=== PATIENT | female | born 1950 | race Two or more races ===

== ENCOUNTER 2017-10-29 09:30 | Outpatient (AMBR) | payer MEDICARE, MEDICAID, SELFPAY ==
--- NOTE | 2017-09-22 12:44 | PT.OIERPT ---
PT OP Initial Eval Patient Information Visit Reasons: KNEE Medical Diagnosis: M17.0 Treatment Dx #1: Left Knee Mobility Deficits Treatment Dx #2: Left Knee Weakness Start of Care: 09/22/17 Date of Onset: Aug 09 2017 Initial Assessment Subjective Pt is a 67 y/o female s/p left TKA 08/09/17 secondary to knee OA. Pt mention that she went to a SNF then receive home health for a bit. Pt still has knee pain (5/10) with walking and performing her normal chores. Pt currently has difficulty with squatting, kneeling, chores, cooking, cleaning, and performing normal ADLs. Objective Left Knee AROM: -10 deg to 90 deg Left Knee MMTs Quads: 3-/5 Hamstrings: 3-/5 Left Hip MMTs Glute Med: 3-/5 Glute Max: 3-/5 Knee Outcome Score: 48% Assessment Pt demonstrate left knee mobility and strength deficits s/p left knee TKA leading to decline function and difficulty with ADLs. Pt will benefit from physical therapy to increase strength, mobility, and work on functional tasks. 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 1) Increase left knee flexion and knee score to 80% in 12 wks to be able to perform ambulation without any AD 2) Increase left knee MMTs to 4-/5 in 12 wks to be able to perform stairs and steps 3) Increase left hip MMTs to 4-/5 in 12 wks to be able to perform chores 4) Indep with HEP Treatment Plan 1) Manual Therapy 2) Therapeutic Activities 3) Therapeutic Exercises 4) Modalities (ice, heat) Frequency and Duration 2 x wk for 12 wks Certification Dates: 09/22/17 to 12/23/17 Office Procedures PT Outpatient G-Codes Date of Service PT Date of Service: 09/22/17 G-Codes Walking & Moving Around Mobility Current Status G-Code: G8978: CK 40-60% Mobility Status G-Code: G8979: CI 1-20% PT Procedures PT Date of Service: 09/22/17 OP PT Eval Mod Complex 30 minutes: Yes
--- NOTE | 2017-09-22 12:53 | PTNOTE_ITS ---
PT OP Initial Eval Patient Information Visit Reasons: KNEE Medical Diagnosis: M17.0 Treatment Dx #1: Left Knee Mobility Deficits Treatment Dx #2: Left Knee Weakness Start of Care: 09/22/17 Date of Onset: Aug 09 2017 Initial Assessment Subjective Pt is a 67 y/o female s/p left TKA 08/09/17 secondary to knee OA. Pt mention that she went to a SNF then receive home health for a bit. Pt still has knee pain (5/ 10) with walking and performing her normal chores. Pt currently has difficulty with squatting, kneeling, chores, cooking, cleaning, and performing normal ADLs. Objective Left Knee AROM: -10 deg to 90 deg Left Knee MMTs Quads: 3-/5 Hamstrings: 3-/5 Left Hip MMTs Glute Med: 3-/5 Glute Max: 3-/5 Knee Outcome Score: 48% Assessment Pt demonstrate left knee mobility and strength deficits s/p left knee TKA leading to decline function and difficulty with ADLs. Pt will benefit from physical therapy to increase strength, mobility, and work on functional tasks. Short Term and Longterm Goals 1) Increase left knee flexion and knee score to 80% in 12 wks to be able to perform ambulation without any AD 2) Increase left knee MMTs to 4-/5 in 12 wks to be able to perform stairs and steps 3) Increase left hip MMTs to 4-/5 in 12 wks to be able to perform chores 4) Indep with HEP Treatment Plan 1) Manual Therapy 2) Therapeutic Activities 3) Therapeutic Exercises 4) Modalities (ice, heat) Frequency and Duration 2 x wk for 12 wks Certification Dates: 09/22/17 to 12/23/17 Office Procedures PT Outpatient G-Codes Date of Service PT Date of Service: 09/22/17 G-Codes Walking & Moving Around Mobility Current Status G-Code: G8978: CK 40-60% Mobility Status G-Code: G8979: CI 1-20% PT Procedures PT Date of Service: 09/22/17 OP PT Eval Mod Complex 30 minutes: Yes
--- NOTE | 2017-09-27 15:10 | PT.ODAYNRPT ---
PT Outpatient Daily Note Date of Service: September 27, 2017 OP Daily Note Visit Reasons: KNEE Outpatient Physical Therapy Treatment Date: 09/27/17 Subjective: Pt slight sore from last session. Pt notice that bending her knee is getting easier. Objective: Please see flow chart for list of ther ex performed Assessment: tolerate exercises with minimal pain; continue to increase WB on the L with ambulation leading to less antalgic gait. Plan: Continue with PT Length of Time (minutes) of Treatment: 30 Minutes Office Procedures PT Outpatient G-Codes Date of Service PT Date of Service: 09/22/17 G-Codes Walking & Moving Around Mobility Current Status G-Code: G8978: CK 40-60% Mobility Status G-Code: G8979: CI 1-20% PT Procedures PT Date of Service: 09/22/17 OP PT Eval Mod Complex 30 minutes: Yes PT Procedures PT Date of Service: 09/27/17 Therapeutic Exercise 30 minutes: Yes
--- NOTE | 2017-09-27 15:14 | PT.ODAYNRPT ---
PT Outpatient Daily Note Date of Service: September 27, 2017 OP Daily Note Visit Reasons: KNEE Outpatient Physical Therapy Treatment Date: 09/24/17 Subjective: Pt knee feels okay. Pt still notice some pain Objective: Please see flow chart for list of ther ex performed Assessment: tolerate exercises with minimal knee pain Plan: Continue with PT Length of Time (minutes) of Treatment: 30 Minutes Office Procedures PT Outpatient G-Codes Date of Service PT Date of Service: 09/22/17 G-Codes Walking & Moving Around Mobility Current Status G-Code: G8978: CK 40-60% Mobility Status G-Code: G8979: CI 1-20% PT Procedures PT Date of Service: 09/22/17 OP PT Eval Mod Complex 30 minutes: Yes PT Procedures PT Date of Service: 09/27/17 Therapeutic Exercise 30 minutes: Yes PT Procedures PT Date of Service: 09/24/17 Therapeutic Exercise 30 minutes: Yes
--- NOTE | 2017-09-30 16:23 | PTNOTE_ITS ---
PT Outpatient Daily Note Date of Service: September 30, 2017 OP Daily Note Visit Reasons: KNEE Outpatient Physical Therapy Treatment Date: 09/30/17 Subjective: Pt's walking better with less knee pain Objective: Please see flow chart for list of ther ex performed Assessment: continue to improve with knee mobility with less antalgic gait. Pt' s static and dynamic balance is better with less use of AD Plan: Continue with PT Length of Time (minutes) of Treatment: 30 Minutes Office Procedures PT Outpatient G-Codes Date of Service PT Date of Service: 09/22/17 G-Codes Walking & Moving Around Mobility Current Status G-Code: G8978: CK 40-60% Mobility Status G-Code: G8979: CI 1-20% PT Procedures PT Date of Service: 09/30/17 Therapeutic Exercise 30 minutes: Yes PT Procedures PT Date of Service: 09/22/17 OP PT Eval Mod Complex 30 minutes: Yes PT Procedures PT Date of Service: 09/27/17 Therapeutic Exercise 30 minutes: Yes PT Procedures PT Date of Service: 09/24/17 Therapeutic Exercise 30 minutes: Yes
--- NOTE | 2017-10-08 14:13 | PT.ODAYNRPT ---
PT Outpatient Daily Note Date of Service: October 08, 2017 OP Daily Note Visit Reasons: KNEE Outpatient Physical Therapy Treatment Date: 10/08/17 Subjective: Pt's knee feels much better. Pt mention that she's been able to walk on/off with her cane. Pt's toes were ran over by a power w/c today. Pt does not think she broke her toes. 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 Pt guarded with knee flexion stretch. Plan: Continue with PT Length of Time (minutes) of Treatment: 30 Minutes Office Procedures PT Outpatient G-Codes Date of Service PT Date of Service: 09/22/17 G-Codes Walking & Moving Around Mobility Current Status G-Code: G8978: CK 40-60% Mobility Status G-Code: G8979: CI 1-20% PT Procedures PT Date of Service: 09/30/17 Therapeutic Exercise 30 minutes: Yes PT Procedures PT Date of Service: 09/22/17 OP PT Eval Mod Complex 30 minutes: Yes PT Procedures PT Date of Service: 09/27/17 Therapeutic Exercise 30 minutes: Yes PT Procedures PT Date of Service: 09/24/17 Therapeutic Exercise 30 minutes: Yes PT Procedures PT Date of Service: 10/08/17 Therapeutic Exercise 30 minutes: Yes
--- NOTE | 2017-10-18 16:16 | PT.ODAYNRPT ---
PT Outpatient Daily Note Date of Service: October 18, 2017 OP Daily Note Visit Reasons: KNEE Outpatient Physical Therapy Treatment Date: 10/18/17 Subjective: pt reported increased in pain upon visit today due to cold weather. Objective: see flow sheet. Assessment: pt did well today overall with very little muscle fatigue. had a little trouble with stepping up onto the step due to weakness and limited ROM of the knee. good quad activation with LAQs and good sitting posture with no leaning back to compensate. pt was ok without ice post ther ex as she will use it at home instead. pt did use SPC for ambulation. Plan: continue POC per PT. Length of Time (minutes) of Treatment: 30 Minutes Office Procedures PT Outpatient G-Codes Date of Service PT Date of Service: 09/22/17 G-Codes Walking & Moving Around Mobility Current Status G-Code: G8978: CK 40-60% Mobility Status G-Code: G8979: CI 1-20% PT Procedures PT Date of Service: 09/30/17 Therapeutic Exercise 30 minutes: Yes PT Procedures PT Date of Service: 09/22/17 OP PT Eval Mod Complex 30 minutes: Yes PT Procedures PT Date of Service: 09/27/17 Therapeutic Exercise 30 minutes: Yes PT Procedures PT Date of Service: 09/24/17 Therapeutic Exercise 30 minutes: Yes PT Procedures PT Date of Service: 10/08/17 Therapeutic Exercise 30 minutes: Yes PT Procedures PT Date of Service: 10/18/17 Therapeutic Exercise 30 minutes: Yes
--- NOTE | 2017-10-21 15:22 | PT.ODAYNRPT ---
PT Outpatient Daily Note Date of Service: October 21, 2017 OP Daily Note Visit Reasons: KNEE Outpatient Physical Therapy Treatment Date: 10/21/17 Subjective: Pt's knee is doing much better. Pt mention that she is able to cook and clean with less difficulty. Pt stop using her cane and has been able to walk without any AD last few sessions. Objective: Please see flow chart for list of ther ex performed Assessment: tolerate exercises with minimal pain; slight antalgic gait without AD however safe Plan: Continue with PT Length of Time (minutes) of Treatment: 30 Minutes Office Procedures PT Outpatient G-Codes Date of Service PT Date of Service: 09/22/17 G-Codes Walking & Moving Around Mobility Current Status G-Code: G8978: CK 40-60% Mobility Status G-Code: G8979: CI 1-20% PT Procedures PT Date of Service: 09/30/17 Therapeutic Exercise 30 minutes: Yes PT Procedures PT Date of Service: 09/22/17 OP PT Eval Mod Complex 30 minutes: Yes PT Procedures PT Date of Service: 09/27/17 Therapeutic Exercise 30 minutes: Yes PT Procedures PT Date of Service: 09/24/17 Therapeutic Exercise 30 minutes: Yes PT Procedures PT Date of Service: 10/08/17 Therapeutic Exercise 30 minutes: Yes PT Procedures PT Date of Service: 10/18/17 Therapeutic Exercise 30 minutes: Yes PT Procedures PT Date of Service: 10/21/17 Therapeutic Exercise 30 minutes: Yes
--- NOTE | 2017-10-29 10:09 | PT.ODAYNRPT ---
PT Outpatient Daily Note Date of Service: October 29, 2017 OP Daily Note Visit Reasons: KNEE Outpatient Physical Therapy Treatment Date: 10/29/17 Subjective: Pt mention that her knee is doing much better. Pt can get in the cover with less difficulty. Objective: Please see flow chart for list of ther ex performed Assessment: tolerate exercises with minimal pain; able to squat with less pain. Plan: Conitnue with PT Length of Time (minutes) of Treatment: 30 Minutes Office Procedures PT Outpatient G-Codes Date of Service PT Date of Service: 09/22/17 G-Codes Walking & Moving Around Mobility Current Status G-Code: G8978: CK 40-60% Mobility Status G-Code: G8979: CI 1-20% PT Procedures PT Date of Service: 09/30/17 Therapeutic Exercise 30 minutes: Yes PT Procedures PT Date of Service: 09/22/17 OP PT Eval Mod Complex 30 minutes: Yes PT Procedures PT Date of Service: 09/27/17 Therapeutic Exercise 30 minutes: Yes PT Procedures PT Date of Service: 09/24/17 Therapeutic Exercise 30 minutes: Yes PT Procedures PT Date of Service: 10/08/17 Therapeutic Exercise 30 minutes: Yes PT Procedures PT Date of Service: 10/18/17 Therapeutic Exercise 30 minutes: Yes PT Procedures PT Date of Service: 10/21/17 Therapeutic Exercise 30 minutes: Yes PT Procedures PT Date of Service: 10/29/17 Therapeutic Exercise 30 minutes: Yes
== END 2017-10-29 10:30 | disposition home or self-care (01) ==
PROVIDERS: PCP Family Medicine; Referring Provider Family Medicine; Visit Provider Family Medicine
DX: I10 Essential (primary) hypertension (principal)
CPT/HCPCS: 97110; 97162; G8978; G8979

== ENCOUNTER 2017-11-25 09:30 | Outpatient (AMBR) | payer MEDICARE, MEDICAID, SELFPAY ==
--- NOTE | 2017-11-03 09:39 | PT.ODS1RPT ---
PT OP Progress/Discharge Note Date of Service: November 03, 2017 Progress Note/DC Note Progress Note/Discharge Note: Progress Note Patient Information Visit Reasons: knee pain Medical Diagnosis: Left Knee OA Treatment Dx #1: Left Knee Mobility Deficits Treatment Dx #2: Left Knee Weakness Service Continue Service or Discharge: Continue Service Certification Date Certification Dates: 11/03/17 to 02/03/18 Status Subjective: Pt mention that her left knee is doing much better. Pt can walk without help slight limp. Pt is able to get in/out of car and start performing ADLs with less difficulty. Pt rates her knee pain as 4/10 and 8/10 if she performs a lot of activities. 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 Objective: Left Knee AROM: - 6 deg to 110 deg Left Knee MMTs Quads: 3+/5 Hamstrings: 3+/5 Left Hip MMTs Glute Med: 3+/5 Glute Max: 3+/5 Knee Outcome Score: 70% Assessment: Pt continues to improve with knee mobility and strength allowing her to ambulate with a AD and start ADLs with less limitation. Pt still has knee pain leading to slight antalgic gait as well as difficulty with stairs/squatting motions. Pt will continue to benefit from physical therapy to increase strength and mobility to meet set goals in therapy, thank you for your referrals. Plan: Continue with current POC/PT until completion of PT sessions Office Procedures PT Outpatient G-Codes Date of Service PT Date of Service: 11/03/17 G-Codes Walking & Moving Around Mobility Current Status G-Code: G8978: CK 40-60% Mobility Status G-Code: G8979: CJ 20-40% PT Procedures PT Date of Service: 11/03/17 Therapeutic Exercise 30 minutes: Yes
--- NOTE | 2017-11-03 09:46 | PTNOTE_ITS ---
PT OP Progress/Discharge Note Date of Service: November 03, 2017 Progress Note/DC Note Progress Note/Discharge Note: Progress Note Patient Information Visit Reasons: knee pain Medical Diagnosis: Left Knee OA Treatment Dx #1: Left Knee Mobility Deficits Treatment Dx #2: Left Knee Weakness Service Continue Service or Discharge: Continue Service Certification Date Certification Dates: 11/03/17 to 02/03/18 Status Subjective: Pt mention that her left knee is doing much better. Pt can walk without help slight limp. Pt is able to get in/out of car and start performing ADLs with less difficulty. Pt rates her knee pain as 4/10 and 8/10 if she performs a lot of activities. 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 Objective: Left Knee AROM: - 6 deg to 110 deg Left Knee MMTs Quads: 3+/5 Hamstrings: 3+/5 Left Hip MMTs Glute Med: 3+/5 Glute Max: 3+/5 Knee Outcome Score: 70% Assessment: Pt continues to improve with knee mobility and strength allowing her to ambulate with a AD and start ADLs with less limitation. Pt still has knee pain leading to slight antalgic gait as well as difficulty with stairs/ squatting motions. Pt will continue to benefit from physical therapy to increase strength and mobility to meet set goals in therapy, thank you for your referrals. Plan: Continue with current POC/PT until completion of PT sessions Office Procedures PT Outpatient G-Codes Date of Service PT Date of Service: 11/03/17 G-Codes Walking & Moving Around Mobility Current Status G-Code: G8978: CK 40-60% Mobility Status G-Code: G8979: CJ 20-40% PT Procedures PT Date of Service: 11/03/17 Therapeutic Exercise 30 minutes: Yes
--- NOTE | 2017-11-08 11:39 | PT.ODAYNRPT ---
PT Outpatient Daily Note Date of Service: November 08, 2017 OP Daily Note Visit Reasons: knee pain Outpatient Physical Therapy Treatment Date: 11/08/17 Subjective: Pt's knee feels good minimal pain and stiffness. Pt currently is walking without a cane. Objective: Please see flow chart for list of ther ex performed Assessment: tolerate exercises with minimal pain; worked on WB on the L LE during ambulation. Decrease antalgic gait after therapy session. Plan: Continue with PT Length of Time (minutes) of Treatment: 30 Minutes Office Procedures PT Outpatient G-Codes Date of Service PT Date of Service: 11/03/17 G-Codes Walking & Moving Around Mobility Current Status G-Code: G8978: CK 40-60% Mobility Status G-Code: G8979: CJ 20-40% PT Procedures PT Date of Service: 11/03/17 Therapeutic Exercise 30 minutes: Yes PT Procedures PT Date of Service: 11/08/17 Therapeutic Exercise 30 minutes: Yes
--- NOTE | 2017-11-10 10:57 | PT.ODAYNRPT ---
PT Outpatient Daily Note Date of Service: November 10, 2017 OP Daily Note Visit Reasons: knee pain Outpatient Physical Therapy Treatment Date: 11/10/17 Subjective: Pt's knee is hurting a lot today. Pt's first day without norco. Pt notice a lot of pain with all activities. Objective: Please see flow chart for list of ther ex performed Assessment: shorter session today due to having increase knee pain with no pain meds. Pt was limping more with difficulty performing all exercises. Length of Time (minutes) of Treatment: 15 Minutes Office Procedures PT Outpatient G-Codes Date of Service PT Date of Service: 11/03/17 G-Codes Walking & Moving Around Mobility Current Status G-Code: G8978: CK 40-60% Mobility Status G-Code: G8979: CJ 20-40% PT Procedures PT Date of Service: 11/03/17 Therapeutic Exercise 30 minutes: Yes PT Procedures PT Date of Service: 11/08/17 Therapeutic Exercise 30 minutes: Yes PT Procedures PT Date of Service: 11/10/17 Therapeutic Exercise 15 minutes: Yes
--- NOTE | 2017-11-17 10:39 | PT.ODAYNRPT ---
PT Outpatient Daily Note Date of Service: November 17, 2017 OP Daily Note Visit Reasons: knee pain Outpatient Physical Therapy Treatment Date: 11/17/17 Subjective: Pt's knee feels much better. Pt saw surgeon and he plans on doing a manipulation in the next few weeks. Pt feels that she does not need the manipulation and was having a bad day during her appt with the surgeon. Objective: Left Knee Flexion AROM: 110/116 deg Assessment: Pt continues to improve with knee flexion mobility with less pain. Pt also demonstrate less antalgic gait pattern today. Pt recieve her pain meds which seems to help her tolerate therapy session. Plan: Continue with PT Length of Time (minutes) of Treatment: 30 Minutes Office Procedures PT Outpatient G-Codes Date of Service PT Date of Service: 11/03/17 G-Codes Walking & Moving Around Mobility Current Status G-Code: G8978: CK 40-60% Mobility Status G-Code: G8979: CJ 20-40% PT Procedures PT Date of Service: 11/03/17 Therapeutic Exercise 30 minutes: Yes PT Procedures PT Date of Service: 11/08/17 Therapeutic Exercise 30 minutes: Yes PT Procedures PT Date of Service: 11/10/17 Therapeutic Exercise 15 minutes: Yes PT Procedures PT Date of Service: 11/17/17 Therapeutic Exercise 30 minutes: Yes
--- NOTE | 2017-11-25 09:59 | PT.ODAYNRPT ---
PT Outpatient Daily Note Date of Service: November 25, 2017 OP Daily Note Visit Reasons: knee pain Outpatient Physical Therapy Treatment Date: 11/25/17 Subjective: Pt mention that her knee feels much better. Pt is walking more, able to bend her knee, and start chores at home with less limitation. Objective: Left Knee Flexion: 120 deg Assessment: Pt continues to improve with knee fleixon AROM and ambulating much better without her pain meds. Pt still has slight difficulty with WB on the leg due to pain, however, she's been able to manage allowing her to resume some ADLs around the house. Plan: Continue with PT Length of Time (minutes) of Treatment: 30 Minutes Office Procedures PT Outpatient G-Codes Date of Service PT Date of Service: 11/03/17 G-Codes Walking & Moving Around Mobility Current Status G-Code: G8978: CK 40-60% Mobility Status G-Code: G8979: CJ 20-40% PT Procedures PT Date of Service: 11/03/17 Therapeutic Exercise 30 minutes: Yes PT Procedures PT Date of Service: 11/08/17 Therapeutic Exercise 30 minutes: Yes PT Procedures PT Date of Service: 11/10/17 Therapeutic Exercise 15 minutes: Yes PT Procedures PT Date of Service: 11/25/17 Therapeutic Exercise 30 minutes: Yes PT Procedures PT Date of Service: 11/17/17 Therapeutic Exercise 30 minutes: Yes
== END 2017-12-02 23:59 ==
PROVIDERS: PCP Family Medicine; Referring Provider Family Medicine; Visit Provider Family Medicine
DX: I10 Essential (primary) hypertension (principal)
CPT/HCPCS: 97110; G8978; G8979

== ENCOUNTER 2024-07-10 08:37 | Emergency (ER) | payer MEDICARE, SELFPAY ==
[2024-07-10 09:04] VITALS: BP 166/75; PULSE 61; RESP 19; TEMP 36.5; O2SAT 96; BMI 37.9
--- NOTE | 2024-07-10 09:05 | XR_ITS ---
Examination: Ribs, left, with PA chest, 5 views Technique: Chest PA, RIBS AP, RPO, LPO, AP coned lower ribs 5 views Exam date and time: July 10, 2024 0914 hours INDICATIONS: Patient fell today with into the left chest, left chest rib pain Findings: Mild enlargement cardiac contour No pneumothorax Mild to moderate vascular congestion Prominent osteopenia Fracture left fourth, fifth, sixth ribs anteriorly without displacement IMPRESSION: No pneumothorax or hemothorax Fractures, nondisplaced, left fourth, fifth, sixth ribs anteriorly which may be acute, clinical correlation advised
--- NOTE | 2024-07-10 09:05 | PD.EDFALL ---
ED Fall Injury RME/HPI General Chief Complaint: Fall Stated Complaint: CHEST PAIN SP FALL Time Seen by Provider: 07/10/24 09:06 Source: patient Arrival date/time: 07/10/24 08:37 74-year-old female with a history of hypertension, type 2 diabetes, hyperlipidemia presents to the emergency room with a chief complaint of left-sided rib pain. Patient states she was getting ready to get in her car tripped and hit her left chest and rib area on the side of the car. Patient states she is having difficulty breathing. Mode of arrival: ambulatory Limitations: no limitations Related Data Home Medications ?Medication ?Instructions ?Recorded ?Confirmed albuterol sulfate 90 mcg/actuation 1 puff inhalation Q4H PRN 09/18/23 09/18/23 aerosol inhaler breathing and shortness of breath benzonatate 200 mg capsule 200 mg PO TID PRN Cough 09/18/23 09/18/23 fluticasone propionate 115 2 puff inhalation BID 09/18/23 09/18/23 mcg-salmeterol 21 mcg/actuation HFA inhaler (Advair HFA) fluticasone propionate 50 1 spray intranasal QDAY 09/18/23 09/18/23 mcg/actuation nasal spray,suspension furosemide 40 mg tablet 40 mg PO QAM 09/18/23 09/18/23 glipizide 10 mg tablet 10 mg BID 09/18/23 09/18/23 meclizine 25 mg tablet 25 mg PO BID dizziness 09/18/23 09/18/23 metformin 850 mg tablet 850 mg PO BIDWM diabetes 09/18/23 09/18/23 metoprolol succinate 50 mg 50 mg PO QDAY 09/18/23 09/18/23 tablet,extended release 24 hr ropinirole 1 mg tablet 2 mg PO HS 09/18/23 09/18/23 spironolactone 25 mg tablet 25 mg PO QDAY 09/18/23 09/18/23 Previous Rx's ?Medication ?Instructions ?Recorded lisinopril 20 mg tablet 20 mg PO QDAY #30 tabs 09/20/23 oxycodone-acetaminophen 5 mg-325 1 tab PO Q8H PRN pain #14 tabs 09/20/23 mg tablet hydrocodone 5 mg-acetaminophen 325 1 tab PO BID PRN pain #14 tabs 07/10/24 mg tablet Allergies Allergy/AdvReac Type Severity Reaction Status Date / Time No Known Allergies Allergy Verified 03/15/24 11:48 Review of Systems Review of Systems Systems Reviewed: All systems reviewed, normal except as documented Constitutional Constitutional: Reports system reviewed and no additional complaints, except as documented, Denies fatigue, Denies fever(s), Denies headache(s) and Denies weakness Eyes Eyes: Reports system reviewed and no additional complaints, except as documented, Denies blurry vision and Denies change in vision ENT Ears, Nose, Mouth, and Throat: Reports system reviewed and no additional complaints, except as documented, Denies otalgia, Denies headache(s), Denies nasal congestion, Denies throat swelling and Denies vertigo Cardiovascular Cardiovascular: Reports system reviewed and no additional complaints, except as documented, Denies chest pain, Denies dyspnea and Denies dyspnea on exertion Respiratory Respiratory: Reports system reviewed and no additional complaints, except as documented, Denies chest congestion, Denies cough, Denies dyspnea, Denies dyspnea on exertion and Denies wheezing Gastrointestinal Gastrointestinal: Reports system reviewed and no additional complaints, except as documented, Denies abdominal pain, Denies cramping, Denies nausea and Denies vomiting Genitourinary Genitourinary: Reports system reviewed and no additional complaints, except as documented Musculoskeletal Musculoskeletal: Reports system reviewed and no additional complaints, except as documented, Reports arthralgias and Reports back pain Integumentary/Breasts Skin/Breast: Reports system reviewed and no additional complaints, except as documented and Denies wounds Neurologic Neurologic: Reports system reviewed and no additional complaints, except as documented, Denies confusion, Denies headache(s), Denies lack of coordination, Denies vertigo and Denies weakness Psychiatric Psychiatric: Reports system reviewed and no additional complaints, except as documented, Denies anxiety, Denies confusion, Denies depression, Denies paranoia, Denies suicidal ideation and Denies tactile hallucinations Endocrine Endocrine: Reports system reviewed and no additional complaints, except as documented and Denies fatigue Hematologic/Lymphatic Hematologic/Lymphatic: Reports system reviewed and no additional complaints, except as documented and Denies lymphadenopathy Allergic/Immunologic Allergic/Immunologic: Reports system reviewed and no additional complaints, except as documented, Denies throat swelling, Denies urticaria and Denies wheezing Past Medical History Past Medical History NEUROLOGIC: Negative Neurological Disorders CARDIAC: Positive Cardiac Disorders, Hypercholesterolemia, Congestive Heart Failure and Hypertension RESPIRATORY: Negative Chronic Obstructive Pulmonary Disease (COPD) or Asthma GASTROINTESTINAL: Positive Gastrointestinal Disorders and Obesity GENITOURINARY: Negative Genitourinary Disorders or Renal Disease REPRODUCTIVE: Positive Previous Pregnancies MUSCULOSKELETAL: Positive Musculoskeletal Disorders and Arthritis ENDOCRINE: Positive Endocrine Disorders and Diabetes Mellitus Type 2; Negative Diabetes Mellitus Type 1 HEMATOLOGIC: Negative Blood Disorders or Sickle Cell Disease OTHER HISTORY: Negative Autoimmune Disease, Blood Transfusions, Blood Transfusion Reaction or Anesthesia Reactions Family History FAMILY HISTORY: Positive Family Cardiac Disorders and Family Surgery Social History SMOKING STATUS: Never smoker SUBSTANCE USE: does not use ED Exam General Limitations: Present no limitations General appearance: Present alert and in no apparent distress Head Head exam: Present atraumatic Eye Eye exam: Present normal appearance, PERRL and EOMI ENT ENT exam: Present normal exam, normal oropharynx and mucous membranes moist Neck Neck exam: Present normal inspection, full ROM and trachea midline Chest Chest inspection: Present normal inspection and symmetric chest wall rise Respiratory Respiratory exam: Present normal lung sounds bilaterally; Absent respiratory distress, wheezes, stridor, accessory muscle use, prolonged expiratory phase or other Cardiovascular Cardiovascular exam: Present regular rate, normal rhythm and normal heart sounds Abdominal Exam Abdominal exam: Present soft and normal bowel sounds Extremities Exam Extremities exam: Present normal inspection and full ROM Back Exam Back exam: Present normal inspection and full ROM Neurological Exam Neurological exam: Present alert, oriented X3 and CN II-XII intact Psychiatric Psychiatric exam: Present normal affect and normal mood Skin Skin exam: Present warm, dry, intact and normal color Course Quality Measures none Orders Category Date Time Status XR ribs LT min 3V w CXR1V Stat Exams 07/10/24 09:05 Completed Vital Signs Vital signs: Vital Signs Temperature 97.7 F 07/10/24 09:04 Pulse Rate 61 07/10/24 09:04 Respiratory Rate 19 07/10/24 09:04 Blood Pressure 166/75 H 07/10/24 09:04 Pulse Oximetry (%) 96 07/10/24 09:04 Oxygen Delivery Method Room Air 07/10/24 09:04 O2 saturation 96% within normal limits Fall MDM Narrative MDM Narrative:: 74-year-old female with a history of hypertension, type 2 diabetes, hyperlipidemia presents to the emergency room with a chief complaint of left-sided rib pain. Patient states she was getting ready to get in her car tripped and hit her left chest and rib area on the side of the car. Patient states she is having difficulty breathing. Clinically the patient appears nontoxic and in no apparent distress. Physical examination shows clear bilateral lung sounds. There is no dullness to percussion there is no decreased breath sounds O2 saturation is 96% within normal limits x-ray of the left ribs were completed and shows multiple rib fractures to rib #4 5 and 6. There is no pneumothorax or hemothorax. The case was reviewed with my attending physician due to the patient's age and multiple rib fractures and based on his recommendation he states the patient is able to be discharged and follow-up with her primary care provider. Patient was given strict return precautions to return to the emergency room for any evidence of worsening signs or symptoms patient was educated to follow-up with primary care provider in the next 24 to 48 hours Patient data External records reviewed:: [facility] previous records Clinical information provided by:: patient Social determinants that could affect healthcare access:: none Patient has the following chronic illnesses:: No chronic illness How is presenting disease/condition affected by chronic disease/condition?: no chronic disease Evaluation data The following diagnostics were reviewed and interpreted by me:: lab results and radiology exam(s) Lab and/or radiology exams considered but not ordered:: Labs and radiology exams considered and ordered Interpretation Summary: Rib [id number]: Mild enlargement cardiac contour No pneumothorax Mild to moderate vascular congestion Prominent osteopenia Fracture left fourth, fifth, sixth ribs anteriorly without displacement IMPRESSION: No pneumothorax or hemothorax Fractures, nondisplaced, left fourth, fifth, sixth ribs anteriorly which may be acute, clinical correlation advised Medications / Prescriptions Medications or Prescriptions considered but not ordered:: No medication given Medication administrations:: No medication given but Rx given Consultations Consultation(s) initiated? (list below): No Diagnosis Fall Differential Diagnosis: other (Rib fracture/rib contusions) Most likely diagnosis given after review of the tests above:: Rib fractures Admission Indicated Admission indicated?: not indicated Admission Request Was there a request for admission?: No Disposition Plan Disposition Plan: Discharge Discharge Attestation Discharge Attestation: The patient and all family members were given an opportunity to ask questions and understood the discharge instructions. Discharge instructions specifically effects, indications for sooner follow up or return to the emergency department, and the expected course of current diagnosis. Patient condition: Stable Discharge Plan Plan Patient Disposition: HOME (Self Care) Disposition Comment: Stable Prescriptions/Referrals Prescriptions/Med Rec: New hydrocodone-acetaminophen 5-325 mg tablet 1 tab PO BID MDD 10mg PRN (Reason: pain) Qty: 14 0RF No Action furosemide 40 mg tablet 40 mg PO QAM Patient Comments: TAKE ONE TABLET BY MOUTH EVERY MORNING A DIURETIC ropinirole 1 mg tablet 2 mg PO HS Patient Comments: TAKE TWO TABLETS BY MOUTH EVERY DAY ONE TO THREE hours BEFORE bedtime Rx Instructions: TAKE TWO TABLETS BY MOUTH EVERY DAY ONE TO THREE hours BEFORE bedtime metoprolol succinate 50 mg tablet extended release 24 hr 50 mg PO QDAY Patient Comments: TAKE ONE TABLET BY MOUTH EVERY DAY FOR BLOOD PRESSURE metformin 850 mg tablet 850 mg PO BIDWM Patient Comments: TAKE ONE TABLET BY MOUTH TWICE DAILY WITH FOOD FOR DIABETES spironolactone 25 mg tablet 25 mg PO QDAY Patient Comments: TAKE ONE TABLET BY MOUTH EVERY DAY A DIURETIC meclizine 25 mg tablet 25 mg PO BID Patient Comments: TAKE ONE TABLET BY MOUTH TWICE DAILY FOR DIZZINESS albuterol sulfate 90 mcg/actuation HFA aerosol inhaler 1 puff INHALATION Q4H PRN (Reason: breathing and shortness of breath ) Patient Comments: INHALE 1 PUFF BY MOUTH EVERY 4 HOURS NEEDED FOR BREATHING AND SHORTNESS OF BREATH fluticasone propionate 50 mcg/actuation spray,suspension 1 spray INTRANASAL QDAY Patient Comments: INSTILL ONE SPRAY IN EACH NOSTRIL EVERY DAY FOR ALLERGY fluticasone propion-salmeterol [Advair HFA] 115-21 mcg/actuation HFA aerosol inhaler 2 puff INHALATION BID Patient Comments: INHALE TWO PUFFS BY MOUTH TWICE DAILY benzonatate 200 mg capsule 200 mg PO TID PRN (Reason: Cough) Patient Comments: TAKE ONE CAPSULE BY MOUTH THREE TIMES DAILY NEEDED FOR COUGH FOR 10 DAYS glipizide 10 mg tablet 10 mg BID Patient Comments: TAKE ONE TABLET BY MOUTH 30 MINUTES BEFORE BREAKFAST TWICE DAILY oxycodone-acetaminophen 5-325 mg tablet 1 tab PO Q8H MDD 3 tablets over 24 hrs PRN (Reason: pain) Qty: 14 0RF lisinopril 20 mg tablet 20 mg PO QDAY Qty: 30 0RF Referrals: Adeel Licona MD [Primary Care Provider] - In 1 week Problem List Clinical Impression: Multiple rib fractures Patient/Caregiver Discharge Instructions Education Materials: Rib Fracture (Broken Rib), ED Rib Fracture Additional Instructions: Please follow-up with your primary care provider in the next 24 to 48 hours. The x-ray was completed and shows multiple nondisplaced rib fractures. Pain medication was sent to your pharmacy. Strict return precautions were given to you to return to the emergency room for any evidence of worsening shortness of breath or worsening signs or symptoms. Print Language: Turkmen Stand Alone Forms: Julita Award Info., Patient Portal Info Letter PA/ACUTE CARE NURSE Supervising Physician PA/AYDEE Supervising Physician: Dr Palacios
== END 2024-07-10 10:49 | disposition home or self-care (01) ==
PROVIDERS: Emergency Provider Emergency Medicine; PCP Family Medicine
DX: S22.42XA Multiple fractures of ribs, left side, initial encounter for closed fracture (principal); W18.30XA Fall on same level, unspecified, initial encounter; Y92.810 Car as the place of occurrence of the external cause
CPT/HCPCS: 71101; 99283

== ENCOUNTER 2025-05-16 17:40 | Inpatient (IN) | payer MEDICARE, SELFPAY ==
[2025-05-16] VITALS (14 sets, daily range): BP systolic 109–189; BP diastolic 63–106; PULSE 48–112; RESP 18–34; TEMP 36.7–37.4; O2SAT 86–100; BMI 39.4
--- NOTE | 2025-05-16 17:54 | XR_ITS ---
EXAMINATION: AP chest single view TECHNIQUE: AP portable semiupright chest single view Date and time: May 16, 2025, 1758 hours, comparison July 10, 2024 INDICATIONS: Chest pain today. FINDINGS: Mild to moderate CHF. Mild to moderate enlargement cardiac contour, prominent vascular congestion with perihilar basilar edema Prominent osteopenia IMPRESSION: Mild to moderate CHF Consider superimposed bibasilar pneumonia, clinical correlation advised
--- NOTE | 2025-05-16 17:54 | EKG_ITS ---
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
--- NOTE | 2025-05-16 17:55 | PD.EDSOB ---
ED SOB =RME/HPI General Chief Complaint: Shortness of Breath/Dyspnea Stated Complaint: SOB X1 DAY, LOW SAT, L CHEST PAIN Time Seen by Provider: 05/16/25 17:49 Arrival date/time: 05/16/25 17:40 75-year-old female patient with significant history of hypertension congestive heart failure, diabetes mellitus, came in for evaluation regarding worsening cough. Patient has been having cough for the last 3 days, getting worse since early this morning associated with chest pain and coughing, worsening swelling to bilateral lower extremity, and hypoxia. When patient arrived in the ED, was satting 86% on room air. Patient is coughing a lot. Patient also complaining of dyspnea on exertion and orthopnea. No fever noted. No other complaints noted no medication was taken prior to ER visit. She told me that she took her Lasix this morning. Related Data Home Medications ?Medication ?Instructions ?Recorded ?Confirmed albuterol sulfate 90 mcg/actuation 1 puff inhalation Q4H PRN 09/18/23 09/18/23 aerosol inhaler breathing and shortness of breath benzonatate 200 mg capsule 200 mg PO TID PRN Cough 09/18/23 09/18/23 fluticasone propionate 115 2 puff inhalation BID 09/18/23 09/18/23 mcg-salmeterol 21 mcg/actuation HFA inhaler (Advair HFA) fluticasone propionate 50 1 spray intranasal QDAY 09/18/23 09/18/23 mcg/actuation nasal spray,suspension furosemide 40 mg tablet 40 mg PO QAM 09/18/23 09/18/23 glipizide 10 mg tablet 10 mg BID 09/18/23 09/18/23 meclizine 25 mg tablet 25 mg PO BID dizziness 09/18/23 09/18/23 metformin 850 mg tablet 850 mg PO BIDWM diabetes 09/18/23 09/18/23 metoprolol succinate 50 mg 50 mg PO QDAY 09/18/23 09/18/23 tablet,extended release 24 hr ropinirole 1 mg tablet 2 mg PO HS 09/18/23 09/18/23 spironolactone 25 mg tablet 25 mg PO QDAY 09/18/23 09/18/23 Previous Rx's ?Medication ?Instructions ?Recorded lisinopril 20 mg tablet 20 mg PO QDAY #30 tabs 09/20/23 oxycodone-acetaminophen 5 mg-325 1 tab PO Q8H PRN pain #14 tabs 09/20/23 mg tablet hydrocodone 5 mg-acetaminophen 325 1 tab PO BID PRN pain #14 tabs 07/10/24 mg tablet Allergies Allergy/AdvReac Type Severity Reaction Status Date / Time No Known Allergies Allergy Verified 05/16/25 17:44 Review of Systems Review of Systems Narrative Review of Systems: Review of system reviewed and within normal limits except mentioned in HPI ED Exam Narrative Physical exam: VITAL SIGNS: Reviewed. GENERAL APPEARANCE: Alert and interactive, follows commands, no acute distress, HEAD AND FACE: Non-traumatic. ENT: PERRL, pink conjunctivitis, eyelid no trauma, Mucous membrane moist. NECK: Supple, nontender, no nuchal rigidity. CHEST: No tenderness, no crepitus, no paradoxical movement, no retractions. LUNGS: Symmetric, bibasal rales, no wheezing, no ronchi, no stridor, decreased breath sounds bilaterally. HEART: Regular rate, regular rhythm, no murmur, no gallops. ABDOMEN: Soft, positive bowel sounds, nondistended, no guarding, nontender, no rebound, no masses, RECTAL: Deferred. GENITAL: Deferred. NEUROLOGICAL: Gross motor function intact sensory function intact, Appropriate for age. MUSCULOSKELETAL: low back nontender, full range of motion. EXTREMITIES: Nontender, bilateral lower extremity swelling +2 full range of motion. SKIN: Color pink, dry, no rash, no lacerations, no abrasions, no contusions. LYMPHATICS: Deferred. Course Quality Measures none Orders Category Date Time Status Bedside Blood Glucose NOW Care 05/16/25 17:54 Active Bedside COVID-19 Antigen Test NOW Care 05/16/25 17:55 Active Bedside Influenza A&B Antigen Test NOW Care 05/16/25 17:56 Active COVID-19 Screening Questionnaire NOW Care 05/16/25 19:39 Active Decision to Admit X1 Care 05/16/25 19:39 Active EKG (ED ONLY) *Do not use* NOW Care 05/16/25 17:54 Completed EKG (ED Only) Stat Exams 05/16/25 17:54 Draft XR chest 1V Stat Exams 05/16/25 17:54 Completed B-Type Natriuretic Peptide Stat Lab 05/16/25 17:54 Completed Blood Culture (Lab) Stat Lab 05/16/25 18:07 Received C-Reactive Protein Stat Lab 05/16/25 17:54 Completed CBC Stat Lab 05/16/25 17:54 Completed Comprehensive Metabolic Panel Stat Lab 05/16/25 17:54 Completed Lactate (Lactic Acid) Stat Lab 05/16/25 17:54 Results Partial Thromboplastin Time Stat Lab 05/16/25 17:54 Completed Procalcitonin Stat Lab 05/16/25 17:54 Completed Prothrombin Time with INR Stat Lab 05/16/25 17:54 Completed Troponin I Stat Lab 05/16/25 17:54 Completed VBG [Venous Blood Gas] Stat Lab 05/16/25 17:54 Completed Azithromycin Inj [Zithromax Inj] 500 mg Med 05/16/25 18:40 Discontinued Sodium Chloride 0.9% 250 ml [Ns] 250 ml IV X1 Furosemide Inj [Lasix Inj] Med 05/16/25 17:54 Discontinued 80 mg IVP X1 ONE Furosemide [Lasix Inj] Med 05/16/25 18:23 Discontinued 40 mg IV X1 ONE Nitroglycerin Oint 2% [Nitro-paste Oint 2%] Med 05/16/25 17:56 Discontinued 1 inch TOP X1 ONE Ondansetron Inj [Zofran Inj] Med 05/16/25 18:01 Discontinued 4 mg IVP X1 ONE cefTRIAXone/D5w 1gm IV premix [Rocephin/D5w 1gm IV Med 05/16/25 18:40 Discontinued premix] 1 gm in 50 ml IV X1 Vital Signs Vital signs: Vital Signs Temperature 99.4 F 05/16/25 17:55 Pulse Rate 87 05/16/25 17:55 Respiratory Rate 34 H 05/16/25 17:55 Blood Pressure 174/106 H 05/16/25 17:55 Pulse Oximetry (%) 86 L 05/16/25 17:55 Oxygen Delivery Method Room Air 05/16/25 17:55 Oxygen Flow Rate 6 05/16/25 17:55 Shortness of Breath / Dyspnea MDM Narrative MDM Narrative:: 75-year-old female patient with significant history of hypertension congestive heart failure, diabetes mellitus, came in for evaluation regarding worsening cough. Patient has been having cough for the last 3 days, getting worse since early this morning associated with chest pain and coughing, worsening swelling to bilateral lower extremity, and hypoxia. When patient arrived in the ED, was satting 86% on room air. Patient is coughing a lot. Patient also complaining of dyspnea on exertion and orthopnea. No fever noted. No other complaints noted no medication was taken prior to ER visit. She told me that she took her Lasix this morning. Sepsis alert was initiated. IV fluids was not given since patient had a significant history of congestive heart failure. Patient was given ceftriaxone IV and Zithromax IV. Was also given IV Lasix. EKG showed sinus rhythm, ventricular rate of 79 bpm, no ST segment elevation depression noted. Chest x-ray showed moderate congestive heart failure with superimposed pneumonia bilateral. Laboratory workup is significant for leukocytosis of 15.1 VBG of 7.29, pCO2 of 58 VBG O2 sat of 68%. Creatinine is normal. Lactic acid 2.6 BNP more than 3280. C-reactive protein 10.6. Case discussed with hospitalist, who admitted the patient Patient data External records reviewed:: None Clinical information provided by:: patient Social determinants that could affect healthcare access:: none Patient has the following chronic illnesses:: History of congestive heart failure hypertension diabetes How is presenting disease/condition affected by chronic disease/condition?: exacerbated by Evaluation data The following diagnostics were reviewed and interpreted by me:: lab results, radiology exam(s) and EKG tracing(s) Lab and/or radiology exams considered but not ordered:: None Interpretation Summary: See MDM Medications / Prescriptions Medications or Prescriptions considered but not ordered:: None Medication administrations:: Medication Administration History Discontinued Medications Furosemide (Furosemide Inj 10 Mg/Ml 4ml Vial) 80 mg IVP X1 ONE Stop: 05/16/25 17:55 Last Admin: 05/16/25 18:23 Dose: Not Given Documented By: BY Non-Admin Reason: Cancelled by Provider Furosemide (Furosemide Inj 10 Mg/Ml Vial 2 Ml) 40 mg IV X1 ONE Stop: 05/16/25 18:24 Last Admin: 05/16/25 18:30 Dose: 40 mg Documented By: RAGINI Ceftriaxone Sodium/Dextrose (Rocephin/D5w 1gm Iv Premix) 1 gm in 50 mls @ 100 mls/hr IV X1 ONE Stop: 05/16/25 19:09 Last Admin: 05/16/25 19:20 Dose: 100 mls/hr Documented By: SHANIA Azithromycin 500 mg/ Sodium (Chloride) 250 mls @ 250 mls/hr IV X1 ONE Stop: 05/16/25 19:39 Nitroglycerin (Nitroglycerin Oint 2% 1 Inch Packet) 1 inch TOP X1 ONE Stop: 05/16/25 17:57 Last Admin: 05/16/25 18:13 Dose: 1 inch Documented By: BY Ondansetron HCl (Ondansetron Inj 2 Mg/Ml Inj 2 Ml) 4 mg IVP X1 ONE; Protocol Stop: 05/16/25 18:02 Last Admin: 05/16/25 18:12 Dose: 4 mg Documented By: BY See MDM Consultations Consultation(s) initiated? (list below): No Diagnosis Shortness of Breath Differential Diagnosis: acute exacerbation of chronic obstructive airways disease, congestive heart failure and community acquired pneumonia Most likely diagnosis given after review of the tests above:: Sepsis, secondary to pneumonia, acute exacerbation of congestive heart failure Admission Indicated Admission indicated?: indicated Admission Request Was there a request for admission?: Yes Admission Attestation Admission request attestation: Discussed case with [Dr. Dumont] from Hospitalist service regarding admission. Discussed patients ED course, exam findings, labs, and radiology results. The Hospitalist [agrees,] to accept the patient for admission. Disposition Plan Disposition Plan: Admit Discharge Plan Plan Patient Disposition: Admit Acute Care w/in Hospital Discharge Disposition comment: Stable Prescriptions/Referrals Prescriptions/Med Rec: No Action furosemide 40 mg tablet 40 mg PO QAM Patient Comments: TAKE ONE TABLET BY MOUTH EVERY MORNING A DIURETIC ropinirole 1 mg tablet 2 mg PO HS Patient Comments: TAKE TWO TABLETS BY MOUTH EVERY DAY ONE TO THREE hours BEFORE bedtime Rx Instructions: TAKE TWO TABLETS BY MOUTH EVERY DAY ONE TO THREE hours BEFORE bedtime metoprolol succinate 50 mg tablet extended release 24 hr 50 mg PO QDAY Patient Comments: TAKE ONE TABLET BY MOUTH EVERY DAY FOR BLOOD PRESSURE metformin 850 mg tablet 850 mg PO BIDWM Patient Comments: TAKE ONE TABLET BY MOUTH TWICE DAILY WITH FOOD FOR DIABETES spironolactone 25 mg tablet 25 mg PO QDAY Patient Comments: TAKE ONE TABLET BY MOUTH EVERY DAY A DIURETIC meclizine 25 mg tablet 25 mg PO BID Patient Comments: TAKE ONE TABLET BY MOUTH TWICE DAILY FOR DIZZINESS albuterol sulfate 90 mcg/actuation HFA aerosol inhaler 1 puff INHALATION Q4H PRN (Reason: breathing and shortness of breath ) Patient Comments: INHALE 1 PUFF BY MOUTH EVERY 4 HOURS NEEDED FOR BREATHING AND SHORTNESS OF BREATH fluticasone propionate 50 mcg/actuation spray,suspension 1 spray INTRANASAL QDAY Patient Comments: INSTILL ONE SPRAY IN EACH NOSTRIL EVERY DAY FOR ALLERGY fluticasone propion-salmeterol [Advair HFA] 115-21 mcg/actuation HFA aerosol inhaler 2 puff INHALATION BID Patient Comments: INHALE TWO PUFFS BY MOUTH TWICE DAILY benzonatate 200 mg capsule 200 mg PO TID PRN (Reason: Cough) Patient Comments: TAKE ONE CAPSULE BY MOUTH THREE TIMES DAILY NEEDED FOR COUGH FOR 10 DAYS glipizide 10 mg tablet 10 mg BID Patient Comments: TAKE ONE TABLET BY MOUTH 30 MINUTES BEFORE BREAKFAST TWICE DAILY oxycodone-acetaminophen 5-325 mg tablet 1 tab PO Q8H MDD 3 tablets over 24 hrs PRN (Reason: pain) Qty: 14 0RF lisinopril 20 mg tablet 20 mg PO QDAY Qty: 30 0RF hydrocodone-acetaminophen 5-325 mg tablet 1 tab PO BID MDD 10mg PRN (Reason: pain) Qty: 14 0RF Problem List Clinical Impression: Hypoxia, Acute exacerbation of CHF (congestive heart failure), Pneumonia, Sepsis Patient/Caregiver Discharge Instructions Print Language: Bengali Stand Alone Forms: [employer] Award Info., Patient Portal Info Letter
[2025-05-16] MEDS: ONDANSETRON INJ 2 MG/ML INJ 2 ML 4 MG IVP (18:12)
[2025-05-16] MEDS: NITROGLYCERIN OINT 2% 1 INCH PACKET TOP (18:13)
[2025-05-16 18:18] LABS: Base Excess, Venous 0 (-3-3); Lactate (Lactic Acid) 2.6 mMol/L (0.4-2.0); O2 Saturation, Venous 68 % (96-97); PCO2, Venous 58 mmHg (36-56); PO2, Venous 40 mmHg (15-58); pH, Venous 7.29 (7.33-7.66)
[2025-05-16 18:20] LABS: Basophils # (Auto) 0.1 Thou/mm3 (0.0-0.2); Basophils % (Auto) 0 % (0-2.5); Eosinophils # (Auto) 0.1 Thou/mm3 (0.0-0.5); Eosinophils % (Auto) 1 % (0-10); Hematocrit 43.4 % (36.0-46.0); Hemoglobin 13.3 g/dL (12.0-16.0); Immature Granulocytes Auto 0.06 Thou/mm3 (0.00-0.00); Lymphocytes # (Auto) 1.6 Thou/mm3 (1.0-4.8); Lymphocytes % (Auto) 11 % (10-50); Mean Corpuscular HGB Conc 30.6 g/dl (31.0-37.0); Mean Corpuscular Hemoglobin 27.0 pg (25.0-35.0); Mean Corpuscular Volume 88 fL (80-100); Monocytes # (Auto) 1.9 Thou/mm3 (0.0-0.8); Monocytes % (Auto) 13 % (0-12); Neutrophils # (Auto) 11.4 Thou/mm3 (1.8-7.7); Neutrophils % (Auto) 76 % (37-80); Nucleated Red Blood Cell # 0.00 Thou/mm3 (0.00-0.00); Nucleated Red Blood Cell % 0 /100 WBC (0); Platelet Count 156 Thou/mm3 (140-440); RDW Standard Deviation 50.9 fL (36.4-46.3); Red Blood Count 4.93 Miln/mm3 (4.00-5.20); White Blood Count 15.1 Thou/mm3 (3.6-11.0)
[2025-05-16] MEDS: FUROSEMIDE INJ 10 MG/ML VIAL 2 ML 40 MG IV (18:30)
[2025-05-16 18:33] LABS: INR 1.4 (0.9-1.3); Partial Thromboplastin Time 29.8 Seconds (22.0-36.0); Prothrombin Time 14.3 Seconds (9.0-12.2)
[2025-05-16 18:43] LABS: B-Type Natriuretic Peptide > 3280 pg/mL (0-100)
[2025-05-16 18:49] LABS: Alanine Aminotransferase 12 U/L (10-49); Albumin, Serum 4.2 gm/dL (3.4-4.8); Albumin/Globulin Ratio 1.3 (1.2-2.2); Alkaline Phosphatase 108 U/L (46-116); Anion Gap 8 (7-16); Aspartate Amino Transferase 33 U/L (0-34); BUN/Creatinine Ratio 17 Ratio (12-20); Bilirubin,Total 0.8 mg/dL (0.3-1.2); Blood Urea Nitrogen 22 mg/dL (9-23); C-Reactive Protein 10.6 mg/dL (0.0-0.9); Calcium 8.8 mg/dL (8.3-10.6); Calcium (Corrected) 8.8 mg/dL (8.5-10.1); Carbon Dioxide 31.2 mMol/L (20.0-31.0); Chloride 103 mMol/L (98-107); Creatinine (Component) 1.3 mg/dL (0.6-1.3); Estimated Creatinine Clearance 45.4 mL/min (>60); Globulin 3.3 gm/dL (2.3-3.5); Glucose 114 mg/dL (74-106); Osmolality,Calculated 287 (275-295); Potassium 4.0 mMol/L (3.4-5.1); Procalcitonin 0.16 ng/ml (0.0-0.49); Sodium 142 mMol/L (136-145); Total Protein 7.5 gm/dL (5.7-8.2); Troponin I 0.024 ng/mL (0.0-0.045); eGFR 43 See Note
[2025-05-16] MEDS: cefTRIAXone/D5w 1gm IV premix 1 GM/50 ML BAG IV (19:20)
[2025-05-16] MEDS: AZITHROMYCIN INJ 500 MG in SODIUM CHLORIDE 0.9% 250 ML 250 ML 250 MG IV (19:40)
[2025-05-16 20:42] LABS: Influenza A Ag Negative; Influenza B Ag Negative
--- NOTE | 2025-05-16 20:59 | ESHP_ITS ---
<Statement entered by Nasrin Malik MD - 05/17/25 06:03> Patient is 75 yr female with PMH hypertension, congestive heart failure (EF 30- 35%), diabetes mellitus presenting to ED due to worsening cough and shortness of breath since past few days. She endorses chest discomfort, difficulty walking short distances, orthopnea requiring to use few pillows, worsening LE edema. 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 BP 174/106, HR 87, RR 34,T 99.4F O2sat 86% on RA. Improved to 96% on 4L NC. Denies using oxygen at home. Crackles auscultated bilaterally, +2 pitting edema. Lactic acid 2.6. CRP 10.6. BNP >3280. ABG pH 7.32, pCO2 51. Patient started on Bipap for respiratory acidosis. Patient admitted for AHHRF in setting of CHF and COPD exacerbation. Continue IV diuresis, Solu-Medrol 40 mg, duonebs. Patient also meets sepsis with pneumonia as source of infection vs possible cellulitis in lower abdomen. Due to Qtc prolongation (499) started doxycyline for coverage of infection sources. The patient's management plan was discussed with my attending physician Dr. Lopez. Nasrin Malik, PGY-2 Documentation for date of: 05/16/25 HPI History of Present Illness History of present illness: 75-year-old female patient with significant history of hypertension congestive heart failure, diabetes mellitus, came in for evaluation regarding worsening cough. Admitted for sepsis work up. ED Course Summary Vitals: BP 174/106 HR 87 RR 34 T 99.4F O2sat 98% RA Labs: WBC 15.1 PT 14.3 INR 1.4 APTT 29.8, VBG pH 7.29 pCO2 58 pO2 40 O2 sat 68, ABG pH 7.32 pCO2 51 pO2 96 HCO3 26 O2 sat 97. HCO3 31.2. Lactic acid 2.6. CRP 10.6. BNP >3280. UA unremarkable Imaging: EKG: unchanged since 03/15/2024, LBBB QTC 499. CXR mild to moderate CHF, consider superimposed bibasilar pneumonia Treatment: Zofran, nitroglycerin, loasix 40mg, ceftriaxone, azithromycin, narco, NaCl. Upon initial examination patient confirms narrative provided to the ED. She has had a worsening cough for the last 3 days, unproductive at times white phlegm expectorated. She has had a cough for over 6 months but is now worsening. Associated with chest pain from coughing, worsening swelling to bilateral lower extremity, and hypoxia. Chest pain is reproducible on palpation. She has had nausea and dry heaving for about a week, but has not truly vomited or had any green bilious vomitus. When patient arrived in the ED, was satting 86% on room air. Patient also complaining of dyspnea on exertion and orthopnea. No fever noted. No other complaints noted no medication was taken prior to ER visit. She told me that she took her Lasix this morning. She denies having any recent sick contacts, and denies having history of COPD. Patient also denies any dysuria, fevers, chills, night sweats. She notes that she has 1 week of swelling on her lower abdomen that is sensitive to the touch. Code: DNR/DNI Insulin: None Medical Hx: HTN, CHF, DM Medications: ozempic, lasix, 2 other drugs for CHF and BP that patient cannot remember Allergies: KNA Surgical history: L knee replacement Fhx: Noncontributory Living: Byself in apartment Work: Retired Alcohol: only on special occasions Cigarettes/tobacco: Denies Recreational drugs: Denies Patient admitted for: sepsis work up All 12 systems reviewed and were negative except otherwise stated in HPI. Exam Vital Signs Temp Pulse Resp BP Pulse Ox O2 Del Method O2 Flow Rate 98.0 F 112 H 20 136/84 H 97 Room Air 6 05/16/25 18:27 05/16/25 19:00 05/16/25 19:00 05/16/25 19:00 05/16/25 19:00 05/16/25 18:27 05/16/25 17:55 Narrative Exam GENERAL APPEARANCE: AOx4. NAD, obese, activity normal for age, well developed/ well nourished, no cyanosis, pallor, or diaphoresis. HEENT: Normocephalic atraumatic, no facial trauma, neck is supple. Lids/conjunctiva normal. Mucous membranes moist, nares normal, lips/teeth normal uvula midline without oral pharyngeal erythema, exudate or swelling TMs normal bilaterally. No lymphangitis/lymphedema. CARDIAC: Regular rate and rhythm, S1+S2 heard. No murmurs, rubs, or gallops noted RESPIRATORY: Diffuse bilateral crackles and rales. Mild wheezing auscultated ABDOMINAL: NBS. Soft, ND/NT. No evidence of fluid wave. No pulsatile masses on exam, rebound tenderness, Velazquez sign or pain over Mcburney's point. Hypogastric induration and sensitivity MUSCLES/EXTREMITIES: No abnormal range of motion. +2 pedal edema DERM: Warm, pink and dry. No rashes, dermatoses, petechiae or lesions. NEUROLOGICAL: Speech is clear and appropriate. Normal level of consciousness. Gait and coordination are normal. 5/5 strength in all extremities. PSYCH: Normal mood and affect. Judgement/competence is appropriate Results: Labs 05/17/25 05:19 05/16/25 17:54 Labs: Short CBC 05/16/25 Range/Units 17:54 WBC 15.1 H (3.6-11.0) Thou/mm3 Hgb 13.3 (12.0-16.0) g/dL Hct 43.4 (36.0-46.0) % Plt Count 156 (140-440) Thou/mm3 BMP 05/16/25 17:54 Sodium 142 Potassium 4.0 Chloride 103 Carbon Dioxide 31.2 H BUN 22 Creatinine 1.3 Glucose 114 H Calcium 8.8 Cardiac Enzymes 05/16/25 Range/Units 17:54 Troponin I 0.024 (0.0-0.045) ng/mL Liver Function 05/16/25 Range/Units 17:54 Total Bilirubin 0.8 (0.3-1.2) mg/dL AST 33 (0-34) U/L ALT 12 (10-49) U/L Alkaline Phosphatase 108 (46-116) U/L Albumin 4.2 (3.4-4.8) gm/dL ABG Interpretation ABG results: 05/16/25 17:54 VBG pH 7.29 L VBG pCO2 58 H VBG pO2 40 VBG Base Excess 0 Quality Measures Quality Measures VTE prophylaxis Advance care planning discussed with:: patient Medications Home Medications and Allergies Home Medications ?Medication ?Instructions ?Recorded ?Confirmed ?Type albuterol sulfate 90 mcg/actuation 1 puff inhalation Q 4H PRN 09/18/23 09/18/23 History aerosol inhaler breathing and shortness of b reath benzonatate 200 mg capsule 200 mg PO TID PRN Cough 09/18/23 History fluticasone propionate 115 2 puff inhalation BID 09/1709/18/23 History mcg-salmeterol 21 mcg/actuation HFA inhaler (Advair HFA) fluticasone propionate 50 1 spray intranasal QDAY 09/0209/18/23 History mcg/actuation nasal spray,suspension furosemide 40 mg tablet 40 mg PO QAM 09/18/23 History glipizide 10 mg tablet 10 mg BID 09/18/23 09/18/23 History meclizine 25 mg tablet 25 mg PO BID dizziness 09/1709/18/23 History metformin 850 mg tablet 850 mg PO BIDWM diabetes 09/18/23 History metoprolol succinate 50 mg 50 mg PO QDAY 09/18/2309/02 History tablet,extended release 24 hr ropinirole 1 mg tablet 2 mg PO HS 09/18/23 09/18/23 History spironolactone 25 mg tablet 25 mg PO QDAY 09/18/23 History Allergies Allergy/AdvReac Type Severity Reaction Status Date / Time No Known Allergies Allergy Verified 05/16/25 17:44 Visit Medications Acetaminophen (Acetaminophen 325 Mg Tablet) 650 mg PO Q6H PRN PRN Reason: Fever >100.4 or pain 1-3 Stop: 06/15/25 20:44 Hydrocodone Bitart/Acetaminophen (Hydrocodone/Apap 5/325 Tablet) 1 tab PO Q4HR PRN PRN Reason: PAIN SCALE 4-6 (Moderate Stop: 05/21/25 20:44 Albuterol/Ipratropium (Albuterol/Ipratropium (Duoneb) Rt Huong 3 Ml Nebu) 3 ml INH Q4HRRT PRN PRN Reason: SHORTNESS OF BREATH Stop: 06/15/25 22:59 Docusate Sodium (Docusate Sod 100 Mg Capsule) 100 mg PO QDAY LAURA; Protocol Stop: 06/16/25 08:59 Famotidine (Famotidine Inj 10 Mg/Ml Vial 2 Ml) 20 mg IVP Q12HR LAURA Stop: 06/15/25 20:59 Heparin Sodium (Porcine) (Heparin Sod Inj 5000 Unit/Ml Vial) 5,000 unit SC Q12HR LAURA Stop: 05/30/25 20:59 Discontinued Medications Albuterol/Ipratropium (Albuterol/Ipratropium (Duoneb) Rt Huong 3 Ml Nebu) 3 ml INH Q4HRRT LAURA Stop: 06/15/25 22:59 Furosemide (Furosemide Inj 10 Mg/Ml 4ml Vial) 80 mg IVP X1 ONE Stop: 05/16/25 17:55 Last Admin: 05/16/25 18:23 Dose: Not Given Furosemide (Furosemide Inj 10 Mg/Ml Vial 2 Ml) 40 mg IV X1 ONE Stop: 05/16/25 18:24 Last Admin: 05/16/25 18:30 Dose: 40 mg Ceftriaxone Sodium/Dextrose (Rocephin/D5w 1gm Iv Premix) 1 gm in 50 mls @ 100 mls/hr IV X1 ONE Stop: 05/16/25 19:09 Last Infusion: 05/16/25 19:46 Dose: Infused Azithromycin 500 mg/ Sodium (Chloride) 250 mls @ 250 mls/hr IV X1 ONE Stop: 05/16/25 19:39 Last Infusion: 05/16/25 20:49 Dose: Infused Nitroglycerin (Nitroglycerin Oint 2% 1 Inch Packet) 1 inch TOP X1 ONE Stop: 05/16/25 17:57 Last Admin: 05/16/25 18:13 Dose: 1 inch Ondansetron HCl (Ondansetron Inj 2 Mg/Ml Inj 2 Ml) 4 mg IVP X1 ONE; Protocol Stop: 05/16/25 18:02 Last Admin: 05/16/25 18:12 Dose: 4 mg Sodium Chloride (Sodium Chloride Rt 10% 15 Ml Nebu) 5 ml INH X1 ONE Stop: 05/16/25 20:52 Assessment & Plan Plan Initial weight: 106.594kg #Sepsis most likely 2/2 #PNA, CAP vs atypicals #Lactic acidosis - resolved Lactic acid 2.6 --> 0.8 with IVF. CRP 10.6. Covid and flu negative. Plan: -Patient started on Doxycycline for CAP with atypical organism coverage. -FUP Cocci:___ -FUP blood cultures:___ -FUP sputum cx:__ -FUP Sputum gram stain:___ -FUP TSH:____ #Acute hypoxic hypercapnic respiratory failure most likely 2/2 #CHF exacerbation (EF 35-40% Grade 1 diastolic disfunction) #Respiratory acidosis #C/f COPD vs OHS ddx CHF, COPD, supermiposed bacterial infection vs viral vs fungal Presenting with 3 days of worsening cough (nonproductive, only white phlegm) chest pain, reproducible, bilateral lower extremity swelling. Who presented to ED with oxygen saturation 86% on RA. Holding azithromycin because prolonged QTC 499. Not trending troponins beause chest pain is reproducible, EKG is unchanged. Not concerned for LA or PE since EKG is unchanged. VBG pH 7.29 pCO2 58 pO2 40 O2 sat 68, ABG pH 7.32 pCO2 51 pO2 96 HCO3 26 O2 sat 97. HCO3 31.2. BNP >3280. Plan: -Duonebs Q4HRRT -Solumedrol 40mg IVP QD -Incentive spirometry -BIPAP -Patient started on Furosemide 40mg BID -Resume home medications -FUP I&O's -Fluid restriction/ Cardiac diet -FUP ECHO:___ #Cellulitis Suprapubic area was indurated and tough on exam, however, no erythema. Patient reports sensitivity and pain to the area, however, only mildly sensitive to palpation on exam. Patient states one week of sensitivity and skin toughness around the hypogastrium extending to her pubis. Plan: -Doxy cross coverage #Hx of HTN Patient is unsure of her blood pressure medication. Knows she takes lasix everyday Plan: -FUP med rec #Hx of DM Currently taking Mounjaro Plan: -ISS -ACHS glucose checks -A1C -FUP lipid panel:___ Health Maintenance: Code status: DNR/DNI DVT prophylaxis: Heparin 5000 subq Q12HR GI prophylaxis: Famotidine Diet: Cardiac Mcgee: catheter Lines: PIV Supplemental O2: NC, oxy mask, and bipap Disposition: Admit to tele for sepsis, AHRF i/s/o CHF Patient seen and reviewed with attending Dr. Lopez. Note written by Rico Umanzor MD PGY-1 Attending Provider Attestation/Addendum After examination of the patient and review of the clinical data I feel that this patient needs admission to the hospital for further treatment/evaluation. Plan of care discussed with patient and is in agreement. I Jasmyn Lopez MD, attest that I was physically present for fuentes portions of evaluation, and examined patient, labs and imagings and plan of care were discussed with IM residents team, and I agree with the findings and plans documented above.
[2025-05-16] MEDS: HYDROcodone/APAP 5/325 TABLET 1 TAB PO (21:10)
[2025-05-16] MEDS: FAMOTIDINE INJ 10 MG/ML VIAL 2 ML 20 MG IVP (21:12)
[2025-05-16] MEDS: HEPARIN SOD INJ 5000 UNIT/ML VIAL SC (21:14)
[2025-05-16 21:15] LABS: Reflex Lactate? Y
[2025-05-16 21:28] LABS: Lactic Acid, 3 HR 0.8 mMol/L (0.4-2.0)
[2025-05-16 21:38] LABS: Allen Test Performed/OK; Base Excess 0 (-3-3); HCO3 26 mEq/L (20-26); Inspired O2, VO2 Liters 3 L/min; O2 Saturation 97 % (91-98); PCO2 51 mmHg (32.0-48.0); PO2 96 mmHg (83-108); Puncture Site Left Radial; pH, Arterial 7.32 (7.35-7.45)
--- NOTE | 2025-05-16 21:52 | PC.RT ---
sputum collected and sent to lab
[2025-05-16 22:00] LABS: Collection Type, Urine Clean Catch; Squamous Epithelial Cell,Urine 0 /hpf (0-5)
[2025-05-16 22:12] LABS: Bilirubin,Urine Negative (Negative); Blood,Urine Negative (Negative); Clarity,Urine Clear (Clear/Hazy); Color,Urine Lt-Yellow (Lt Yel-Yel); Glucose, Urine Negative (Negative); Hyaline Casts,Urine < 1 /hpf (0-1); Ketones,Urine Negative (Negative); Leukocyte Esterase,Urine Negative (Negative); Nitrite,Urine Negative (Negative); PH,Urine 6.0 (5.0-7.0); Protein,Urine Negative (Neg - Trace); RBC,Urine 1 /hpf (0-3); Specific Gravity,Urine 1.009 (1.001-1.035); Urobilinogen,Urine Negative mg/dL (0.0-1.0); WBC,Urine 6 /hpf (0-5)
[2025-05-17] VITALS (21 sets, daily range): BP systolic 95–124; BP diastolic 55–74; PULSE 56–106; RESP 14–25; TEMP 36.3–36.9; O2SAT 92–100; BMI 40.3
--- NOTE | 2025-05-17 00:50 | PC.NURSE ---
pt is asleep. VS are stable.
[2025-05-17] MEDS: DOXYCYCLINE INJ 100 MG in SODIUM CHLORIDE 0.9% (POP) 100 ML IV ×3 (01:03→21:25)
[2025-05-17] MEDS: ALBUTEROL/IPRATROPIUM (Duoneb) RT SOL 3 ML NEBU INH ×6 (02:12→22:34)
[2025-05-17] MEDS: HYDROcodone/APAP 5/325 TABLET 1 TAB PO ×3 (04:50→21:47)
[2025-05-17 05:49] LABS: Basophils # (Auto) 0.0 Thou/mm3 (0.0-0.2); Basophils % (Auto) 0 % (0-2.5); Eosinophils # (Auto) 0.1 Thou/mm3 (0.0-0.5); Eosinophils % (Auto) 1 % (0-10); Hematocrit 39.4 % (36.0-46.0); Hemoglobin 11.9 g/dL (12.0-16.0); Immature Granulocytes Auto 0.07 Thou/mm3 (0.00-0.00); Lymphocytes # (Auto) 1.1 Thou/mm3 (1.0-4.8); Lymphocytes % (Auto) 7 % (10-50); Mean Corpuscular HGB Conc 30.2 g/dl (31.0-37.0); Mean Corpuscular Hemoglobin 27.2 pg (25.0-35.0); Mean Corpuscular Volume 90 fL (80-100); Monocytes # (Auto) 1.6 Thou/mm3 (0.0-0.8); Monocytes % (Auto) 11 % (0-12); Neutrophils # (Auto) 11.6 Thou/mm3 (1.8-7.7); Neutrophils % (Auto) 80 % (37-80); Nucleated Red Blood Cell # 0.00 Thou/mm3 (0.00-0.00); Nucleated Red Blood Cell % 0 /100 WBC (0); Platelet Count 124 Thou/mm3 (140-440); RDW Standard Deviation 52.6 fL (36.4-46.3); Red Blood Count 4.37 Miln/mm3 (4.00-5.20); White Blood Count 14.4 Thou/mm3 (3.6-11.0)
[2025-05-17 06:04] LABS: Glucose Estimated Average 126 mg/dL (80-131); Hemoglobin A1C 6.0 % Hgb (4.8-6.0)
[2025-05-17 06:44] LABS: Cardiac Risk Estimate 1.8 RATIO (3.7-5.6); Cholesterol 106 mg/dL (132-200); HDL Cholesterol 58 mg/dL (40-60); LDL Cholesterol,Calculated 37 mg/dL (0-130); Magnesium 1.5 mg/dL (1.6-2.6); Phosphorous 4.8 mg/dL (2.4-5.1); Thyroid Stimulating Hormone 1.18 uIU/mL (0.55-4.78); Triglycerides 55 mg/dL (30-150)
[2025-05-17] MEDS: FAMOTIDINE INJ 10 MG/ML VIAL 2 ML 20 MG IVP ×2 (08:51→21:25)
[2025-05-17] MEDS: DOCUSATE SOD 100 MG CAPSULE PO (08:55)
[2025-05-17] MEDS: FUROSEMIDE INJ 10 MG/ML 4ML VIAL 40 MG IVP ×2 (08:57→21:23)
[2025-05-17] MEDS: HEPARIN SOD INJ 5000 UNIT/ML VIAL SC ×2 (09:15→21:26)
--- NOTE | 2025-05-17 09:22 | ESPR_ITS ---
<Statement entered by Sita Ko MD - 05/18/25 08:04> Patient was seen and examined by me personally. I have directly supervised and reviewed documentation by the team resident and agree with its findings with any exceptions or additional findings as below. Plan of care was discussed with the attending, Dr. Guevara. Sita Ko, PGY-3 Documentation for date of: 05/17/25 Subjective Subjective Interval history: Patient seen and examined at bedside. Will continue diuresis today. Blood and sputum cultures still pending. Exam Vital Signs Temp Pulse Resp BP Pulse Ox O2 Del Method O2 Flow Rate 97.3 F 66 18 121/67 94 L Nasal Cannula 2 05/17/25 08:00 05/17/25 08:00 05/17/25 08:00 05/17/25 08:00 05/17/25 08:00 05/17/25 08:00 05/17/25 08:00 Narrative Exam General: Obese woman. Awake and in no acute distress. Conversational and non- toxic appearing. Neurologic: GCS 15. Alert and oriented x3, no gross neurological deficit, and patient able to move all 4 extremities. HEENT: Normocephalic, atraumatic, mucous membranes moist. Pupils reactive to light. Heart: Regular rate and rhythm, normal S1 and S2, no murmurs. Lungs: Clear to auscultation bilaterally with no wheezing or crackles. Abdomen: Soft, nondistended, nontender, positive bowel sounds. No guarding or rebound tenderness. Extremities: 1+ pitting edema in the lower extremities bilaterally. 2+ pitting edema in the feet bilaterally. 2+ radial and dorsalis pedis pulses bilaterally. Skin: Indurated suprapubic area, mildly sensitive to palpation. Objective Labs 05/17/25 05:19 05/16/25 17:54 Labs: Laboratory Results - last 24 hr 05/16/25 05/16/25 05/16/25 17:54 20:10 21:23 WBC 15.1 H RBC 4.93 Hgb 13.3 Hct 43.4 MCV 88 MCH 27.0 MCHC 30.6 L RDW Std Deviation 50.9 H Plt Count 156 Neut % (Auto) 76 Lymph % (Auto) 11 [place] % (Auto) 13 H Eos % (Auto) 1 Baso % (Auto) 0 Neut # (Auto) 11.4 H Lymph # (Auto) 1.6 [place] # (Auto) 1.9 H Eos # (Auto) 0.1 Baso # (Auto) 0.1 Immature Gran # (Auto) 0.06 H Absolute Nucleated RBC 0.00 Immature Gran % 0 Nucleated RBC % 0 PT 14.3 H INR 1.4 H APTT 29.8 Puncture Site ABG pH ABG pCO2 ABG pO2 ABG HCO3 ABG O2 Saturation ABG Base Excess VBG pH 7.29 L VBG pCO2 58 H VBG pO2 40 VBG O2 Sat (Candida) 68 L VBG Base Excess 0 Oxygen Liter Flow Sodium 142 Potassium 4.0 Chloride 103 Carbon Dioxide 31.2 H Anion Gap 8 BUN 22 Creatinine 1.3 Estim Creat Clear Calc 45.4 L eGFR 43 L BUN/Creatinine Ratio 17 [address]ucose [address] Glu mg/dL Hemoglobin A1c Calculated Osmolality 287 Lactic Acid 2.6 H 0.8 Calcium 8.8 Corrected Calcium 8.8 Phosphorus Magnesium Total Bilirubin 0.8 AST 33 ALT 12 Alkaline Phosphatase 108 Troponin I 0.024 C-Reactive Prot, Quant 10.6 H B-Natriuretic Peptide > 3280 H* Total Protein 7.5 Albumin 4.2 Globulin 3.3 Albumin/Globulin Ratio 1.3 Triglycerides Cholesterol LDL Cholesterol, Calc HDL Cholesterol Cholesterol/HDL Ratio Procalcitonin 0.16 TSH Ur Collection Type Urine Color Urine Clarity Urine pH Ur Specific [place] Urine Protein Urine Glucose (UA) Urine Ketones Urine Blood Urine Nitrite Urine Bilirubin Urine Urobilinogen (Auto) Ur Leukocyte Esterase Urine RBC Urine WBC Ur Squamous Epith Cells Urine Bacteria Hyaline Casts Influenza A (Rapid) Negative Influenza B (Rapid) Negative 05/16/25 05/16/25 05/17/25 21:33 21:55 05:19 WBC 14.4 H RBC 4.37 Hgb 11.9 L Hct 39.4 MCV 90 MCH 27.2 MCHC 30.2 L RDW Std Deviation 52.6 H Plt Count 124 L D Neut % (Auto) 80 Lymph % (Auto) 7 L [place] % (Auto) 11 Eos % (Auto) 1 Baso % (Auto) 0 Neut # (Auto) 11.6 H Lymph # (Auto) 1.1 [place] # (Auto) 1.6 H Eos # (Auto) 0.1 Baso # (Auto) 0.0 Immature Gran # (Auto) 0.07 H Absolute Nucleated RBC 0.00 Immature Gran % 1 H Nucleated RBC % 0 PT INR APTT Puncture Site Left Radial ABG pH 7.32 L ABG pCO2 51 H ABG pO2 96 ABG HCO3 26 ABG O2 Saturation 97 ABG Base Excess 0 VBG pH VBG pCO2 VBG pO2 VBG O2 Sat (Candida) VBG Base Excess Oxygen Liter Flow 3 Sodium Cancelled Potassium Cancelled Chloride Cancelled Carbon Dioxide Cancelled Anion Gap Cancelled BUN Cancelled Creatinine Cancelled Estim Creat Clear Calc Cancelled eGFR Cancelled BUN/Creatinine Ratio Cancelled Glucose Cancelled Estimated Ave Glu mg/dL 126 Hemoglobin A1c 6.0 Calculated Osmolality Cancelled Lactic Acid Calcium Cancelled Corrected Calcium Cancelled Phosphorus 4.8 Magnesium 1.5 L Total Bilirubin Cancelled AST Cancelled ALT Cancelled Alkaline Phosphatase Cancelled Troponin I C-Reactive Prot, Quant B-Natriuretic Peptide Total Protein Cancelled Albumin Cancelled Globulin Cancelled Albumin/Globulin Ratio Cancelled Triglycerides 55 Cholesterol 106 L LDL Cholesterol, Calc 37 HDL Cholesterol 58 Cholesterol/HDL Ratio 1.8 L Procalcitonin TSH 1.18 Ur Collection Type Clean Catch Urine Color Lt-Yellow Urine Clarity Clear Urine pH 6.0 Ur Specific [place] 1.009 Urine Protein Negative Urine Glucose (UA) Negative Urine Ketones Negative Urine Blood Negative Urine Nitrite Negative Urine Bilirubin Negative Urine Urobilinogen (Auto) Negative Ur Leukocyte Esterase Negative Urine RBC 1 Urine WBC 6 H Ur Squamous Epith Cells 0 Urine Bacteria None Hyaline Casts < 1 Influenza A (Rapid) Influenza B (Rapid) ABG Interpretation ABG results: 05/16/25 05/16/25 17:54 21:33 ABG pH 7.32 L ABG pCO2 51 H ABG pO2 96 ABG HCO3 26 ABG O2 Saturation 97 ABG Base Excess 0 VBG pH 7.29 L VBG pCO2 58 H VBG pO2 40 VBG Base Excess 0 Quality Measures Quality Measures VTE prophylaxis Advance care planning discussed with:: patient Assessment & Plan Assessment Current Active Medications: Generic Name Dose Route Start Last Admin Trade Name Freq PRN Reason Stop Dose Admin Acetaminophen 650 mg 05/16/25 20:45 Acetaminophen 325 Mg Tablet PO 06/15/25 20:44 Q6H PRN Fever >100.4 or pain 1-3 Hydrocodone Bitart/Acetaminophen 1 tab 05/16/25 20:45 05/17/25 04:50 Hydrocodone/Apap 5/325 Tablet PO 05/21/25 20:44 1 tab Q4HR PRN Administration PAIN SCALE 4-6 (Moderate Albuterol/Ipratropium 3 ml 05/17/25 03:00 05/17/25 06:51 Albuterol/Ipratropium (Duoneb) Rt Huong 3 Ml Nebu INH 06/16/25 02:59 3 ml Q4HRRT LAURA Administration Dextrose 25 ml 05/16/25 23:13 Dextrose 50%-Water Inj 50 Ml Syringe IV 06/15/25 23:12 Q15MIN PRN BG 50-70 responsive npo pt Dextrose 50 ml 05/16/25 23:13 Dextrose 50%-Water Inj 50 Ml Syringe IV 06/15/25 23:12 Q15MIN PRN BG <50 OR BG <70 & pt unresponsive Docusate Sodium 100 mg 05/17/25 09:00 Docusate Sod 100 Mg Capsule PO 06/16/25 08:59 QDAY [facility] Protocol Famotidine 20 mg 05/16/25 21:00 05/16/25 21:12 Famotidine Inj 10 Mg/Ml Vial 2 Ml IVP 06/15/25 20:59 20 mg Q12HR LAURA Administration Furosemide 40 mg 05/17/25 09:00 Furosemide Inj 10 Mg/Ml 4ml Vial IVP 06/16/25 08:59 BID LAURA Glucagon 1 mg 05/16/25 23:13 Glucagon Inj 1 Mg Vial IM Q15MIN PRN BG <70, and no IV access Heparin Sodium (Porcine) 5,000 unit 05/16/25 21:00 05/16/25 21:14 Heparin Sod Inj 5000 Unit/Ml Vial SC 05/30/25 20:59 5,000 unit Q12HR LAURA Administration Doxycycline Hyclate 100 mg/ 100 mls @ 100 mls/hr 05/17/25 09:00 Sodium Chloride IV 05/24/25 08:59 BID LAURA Magnesium Sulfate 4 gm in 50 mls @ 12.5 mls/hr 05/17/25 07:58 Magnesium Sulfate Ivpb IV 05/17/25 11:57 X1 ONE Insulin Human Lispro 0 unit 05/17/25 07:30 05/17/25 07:38 Insulin Lispro (Admelog) 1 Unit/0.01 Ml Unit SC 06/16/25 07:29 Not Given ACHS [facility] Protocol Lisinopril 20 mg 05/17/25 09:00 Lisinopril 20 Mg Tablet PO 06/16/25 08:59 QDAY [facility] Methylprednisolone Sodium Succinate 40 mg 05/17/25 09:00 Methylprednisolone Sod Succ 40 Mg/Ml Vial IVP 05/24/25 08:59 QDAY [facility] Pharmacy Consult 1 each 05/17/25 05:13 Pharmacy To Consult Pneumovacc XX 06/16/25 05:12 PRN PRN CONSULT Plan Summary: 75-year-old female patient with significant history of hypertension congestive heart failure, diabetes mellitus, came in for evaluation regarding worsening cough. She was admitted for sepsis work up most likely secondary to pneumonia. Lactic acidosis resolved. #Sepsis most likely 2/2 #PNA, CAP vs atypicals #Lactic acidosis - resolved Lactic acid 2.6 --> 0.8 with IVF. CRP 10.6. Covid and flu negative. X-ray showed vascular congestion with perihilar basilar edema, suspicious for pneumonia Cocci negative Patient afebrile Plan: -Continue doxycycline for CAP with atypical organism coverage. -FUP blood cultures -FUP sputum cultures #Acute hypoxic hypercapnic respiratory failure most likely 2/2 #CHF exacerbation (EF 35-40% Grade 1 diastolic disfunction) #Respiratory acidosis #C/f COPD vs OHS ddx CHF, COPD, supermiposed bacterial infection vs viral vs fungal Presenting with 3 days of worsening cough (nonproductive, only white phlegm) chest pain, reproducible, bilateral lower extremity swelling. Who presented to ED with oxygen saturation 86% on RA. Holding azithromycin because prolonged QTC 499. Not trending troponins beause chest pain is reproducible, EKG is unchanged. Not concerned for VA or PE since EKG is unchanged. VBG pH 7.29 pCO2 58 pO2 40 O2 sat 68, ABG pH 7.32 pCO2 51 pO2 96 HCO3 26 O2 sat 97. HCO3 31.2. BNP >3280. Patient appears to be fluid overloaded, 1+ pitting edema in the lower extremities Plan: -Continue furosemide 40mg BID -Duonebs Q4HRRT -Solumedrol 40mg IVP QD -Incentive spirometry -BIPAP -Resume home medications -Strict I&O's -Fluid restriction/ Cardiac diet -Echo ordered #Cellulitis Suprapubic area was indurated and tough on exam, however, no erythema. Patient reports sensitivity and pain to the area, however, only mildly sensitive to palpation on exam. Patient states one week of sensitivity and skin toughness around the hypogastrium extending to her pubis. Plan: -Continue doxycycline #Hx of HTN Plan: - Lisinopril 20 mg daily #Hx of DM Currently taking Mounjaro A1c is 6 Lipid panel negative Plan: -ISS -ACHS glucose checks Health Maintenance: Code status: DNR/DNI DVT prophylaxis: Heparin 5000 subq Q12HR GI prophylaxis: Famotidine Diet: Cardiac Mcgee: catheter Lines: PIV Supplemental O2: NC, oxy mask, and bipap Disposition: Admitted to [facility] for sepsis, lactic acidosis resolved, continuing diuresis, continuing doxycycline, resumed home lisinopril for hypertension, added [place] for pain. Patient was seen and discussed with my attending physician Dr. Ismael ENRIQUEZ and my senior resident Dr. Stefani ENRIQUEZ PGY-3. Jacky Jara DO PGY-1. Attending Provider Attestation/Addendum I reviewed labs, imaging, EKG, home medications and prior available records. Face to face evaluation was performed by me. I have personally examined the patient and discussed assessment and plan with the IM team. I reviewed the resident note and agree with the plan with exceptions as below. Acute hypoxic respiratory failure Acute exacerbation of HFrEF HFrEF EF 35% Possible superimposed bilateral pneumonia Uncontrolled hypertension Continue oxygen as needed Continue IV Lasix Continue ceftriaxone/doxycycline Continue lisinopril. Resume home beta-mik later once close to euvolemia Repeat echocardiogram
[2025-05-17] MEDS: Magnesium Sulfate 4 GM Ivpb 4 GM/50 ML BAG IV (09:36)
--- NOTE | 2025-05-17 11:59 | PC.SS ---
[employer]ING [employer] SUPER[employer]OR conducted bedside contact with the patient conduct initial assessment and to discuss discharge planning.? Patient confirmed demographic information.? Patient resides alone at home.? Patient does not require the use of DME to assist with ambulation.? Patient does not utilize home oxygen.? Currently on 2L oxygen.? Patient describes the ability to complete ADL?s independently.? Patient identified son, Brian Reyes ; as medical surrogate decision maker.? Patient?s PCP is Dr. Licona [facility].? Patient does not possess any specialty providers.? Patient does not participate with dialysis.? Patient is diabetic.? Patient utilizes [facility] for medication services.? Patient reports possessing basic utilities and access to provisions.? No residential concerns reported by the patient.? Plan is for the patient to return home at the time of discharge.? Family will provide transportation on behalf of the patient.? No further discharge needs identified by the patient.? No further intervention required at this time, social problems specialist will be available to address any further concerns.? Next of Kin: Brian Reyes D/C Plan: Home
[2025-05-17 13:49] LABS: Cocci Serology, IgM Negative (Negative)
--- NOTE | 2025-05-17 13:56 | PC.PT ---
PT eval only. Patient is I with transfers and ambulation with walker.
[2025-05-17] MEDS: INSULIN LISPRO (AdmeLOG) 1 UNIT/0.01 ML UNIT SC ×2 (17:38→21:26)
[2025-05-18] VITALS (15 sets, daily range): BP systolic 99–133; BP diastolic 61–84; PULSE 65–121; RESP 12–97; TEMP 35.9–36.3; O2SAT 93–99; BMI 41.5
[2025-05-18] MEDS: ALBUTEROL/IPRATROPIUM (Duoneb) RT SOL 3 ML NEBU INH ×6 (02:49→22:42)
[2025-05-18 06:23] LABS: Basophils # (Auto) 0.0 Thou/mm3 (0.0-0.2); Basophils % (Auto) 0 % (0-2.5); Eosinophils # (Auto) 0.0 Thou/mm3 (0.0-0.5); Eosinophils % (Auto) 0 % (0-10); Hematocrit 39.7 % (36.0-46.0); Hemoglobin 12.1 g/dL (12.0-16.0); Immature Granulocytes Auto 0.07 Thou/mm3 (0.00-0.00); Lymphocytes # (Auto) 0.4 Thou/mm3 (1.0-4.8); Lymphocytes % (Auto) 2 % (10-50); Mean Corpuscular HGB Conc 30.5 g/dl (31.0-37.0); Mean Corpuscular Hemoglobin 27.6 pg (25.0-35.0); Mean Corpuscular Volume 90 fL (80-100); Monocytes # (Auto) 0.6 Thou/mm3 (0.0-0.8); Monocytes % (Auto) 4 % (0-12); Neutrophils # (Auto) 13.8 Thou/mm3 (1.8-7.7); Neutrophils % (Auto) 93 % (37-80); Nucleated Red Blood Cell # 0.00 Thou/mm3 (0.00-0.00); Nucleated Red Blood Cell % 0 /100 WBC (0); Platelet Count 121 Thou/mm3 (140-440); RDW Standard Deviation 53.0 fL (36.4-46.3); Red Blood Count 4.39 Miln/mm3 (4.00-5.20); White Blood Count 14.8 Thou/mm3 (3.6-11.0)
[2025-05-18 06:46] LABS: BUN/Creatinine Ratio 16 Ratio (12-20); Blood Urea Nitrogen 28 mg/dL (9-23); Calcium 8.6 mg/dL (8.3-10.6); Chloride 100 mMol/L (98-107); Creatinine (Component) 1.7 mg/dL (0.6-1.3); Estimated Creatinine Clearance 35.7 mL/min (>60); Glucose 119 mg/dL (74-106); Magnesium 2.1 mg/dL (1.6-2.6); Osmolality,Calculated 284 (275-295); Phosphorous 5.2 mg/dL (2.4-5.1); Potassium 3.8 mMol/L (3.4-5.1); Sodium 139 mMol/L (136-145); eGFR 31 See Note
[2025-05-18 07:00] LABS: Anion Gap 11 (7-16); Carbon Dioxide 27.6 mMol/L (20.0-31.0)
[2025-05-18] MEDS: DOXYCYCLINE INJ 100 MG in SODIUM CHLORIDE 0.9% (POP) 100 ML IV ×2 (08:59→20:20)
[2025-05-18] MEDS: FUROSEMIDE INJ 10 MG/ML 4ML VIAL 40 MG IVP ×2 (09:00→20:20)
[2025-05-18] MEDS: HEPARIN SOD INJ 5000 UNIT/ML VIAL SC ×2 (09:01→20:21)
[2025-05-18] MEDS: FAMOTIDINE INJ 10 MG/ML VIAL 2 ML 20 MG IVP ×2 (09:01→20:20)
[2025-05-18] MEDS: DOCUSATE SOD 100 MG CAPSULE PO (09:02)
--- NOTE | 2025-05-18 09:20 | PD.RESPRO ---
Documentation for date of: 05/18/25 Subjective Subjective Interval history: Patient seen and examined at bedside. BUN 28 up from 22, creatinine 1.7 up from 1.3, likely due to diuresis. Peripheral edema has improved. Patient is net +0.8 L since admission. Will continue diuresis. Holding Lisinopril in the setting of hypotension. Blood cultures negative. Sputum culture showed rare WBCs. EKG yesterday showed left bundle branch block, chest x-ray yesterday showed CHF. Follow up echo and orthostatic vitals. Exam Vital Signs Temp Pulse Resp BP Pulse Ox O2 Del Method O2 Flow Rate 97 F 78 18 99/67 96 Nasal Cannula 3 05/18/25 08:00 05/18/25 09:00 05/18/25 08:00 05/18/25 09:00 05/18/25 08:00 05/18/25 08:00 05/18/25 08:00 Narrative Exam General: Obese woman. Awake and in no acute distress. Conversational and non-toxic appearing. Neurologic: GCS 15. Alert and oriented x3, no gross neurological deficit, and patient able to move all 4 extremities. HEENT: Normocephalic, atraumatic, mucous membranes moist. Pupils reactive to light. Heart: Regular rate and rhythm, normal S1 and S2, no murmurs. Lungs: Crackles in the bases bilaterally. Abdomen: Soft, nondistended, nontender, positive bowel sounds. No guarding or rebound tenderness. Extremities: 1+ pitting edema in the lower extremities bilaterally. 1+ pitting edema in the feet bilaterally. 2+ radial and dorsalis pedis pulses bilaterally. Skin: Indurated suprapubic area, mildly sensitive to palpation. Objective Labs 05/19/25 05:20 05/19/25 05:20 Labs: Laboratory Results - last 24 hr 05/16/25 05/18/25 21:23 05:11 WBC 14.8 H RBC 4.39 Hgb 12.1 Hct 39.7 MCV 90 MCH 27.6 MCHC 30.5 L RDW Std Deviation 53.0 H Plt Count 121 L Neut % (Auto) 93 H Lymph % (Auto) 2 L [place] % (Auto) 4 Eos % (Auto) 0 Baso % (Auto) 0 Neut # (Auto) 13.8 H Lymph # (Auto) 0.4 L [place] # (Auto) 0.6 Eos # (Auto) 0.0 Baso # (Auto) 0.0 Immature Gran # (Auto) 0.07 H Absolute Nucleated RBC 0.00 Immature Gran % 1 H Nucleated RBC % 0 Sodium 139 Potassium 3.8 Chloride 100 Carbon Dioxide 27.6 Anion Gap 11 BUN 28 H Creatinine 1.7 H Estim Creat Clear Calc 35.7 L eGFR 31 L BUN/Creatinine Ratio 16 Glucose 119 H Calculated Osmolality 284 Calcium 8.6 Phosphorus 5.2 H Magnesium 2.1 Coccidioides IgM Ab Negative ABG Interpretation ABG results: 05/16/25 05/16/25 17:54 21:33 ABG pH 7.32 L ABG pCO2 51 H ABG pO2 96 ABG HCO3 26 ABG O2 Saturation 97 ABG Base Excess 0 VBG pH 7.29 L VBG pCO2 58 H VBG pO2 40 VBG Base Excess 0 Quality Measures Quality Measures VTE prophylaxis Advance care planning discussed with:: patient Assessment & Plan Assessment Current Active Medications: Generic Name Dose Route Start Last Admin Trade Name Freq PRN Reason Stop Dose Admin Acetaminophen 650 mg 05/16/25 20:45 Acetaminophen 325 Mg Tablet PO 06/15/25 20:44 Q6H PRN Fever >100.4 or pain 1-3 Hydrocodone Bitart/Acetaminophen 1 tab 05/16/25 20:45 05/17/25 21:47 Hydrocodone/Apap 5/325 Tablet PO 05/21/25 20:44 1 tab Q4HR PRN Administration PAIN SCALE 4-6 (Moderate Albuterol/Ipratropium 3 ml 05/17/25 03:00 05/18/25 07:02 Albuterol/Ipratropium (Duoneb) Rt Huong 3 Ml Nebu INH 06/16/25 02:59 3 ml Q4HRRT LAURA Administration Dextrose 25 ml 05/16/25 23:13 Dextrose 50%-Water Inj 50 Ml Syringe IV 06/15/25 23:12 Q15MIN PRN BG 50-70 responsive npo pt Dextrose 50 ml 05/16/25 23:13 Dextrose 50%-Water Inj 50 Ml Syringe IV 06/15/25 23:12 Q15MIN PRN BG <50 OR BG <70 & pt unresponsive Docusate Sodium 100 mg 05/17/25 09:00 05/18/25 09:02 Docusate Sod 100 Mg Capsule PO 06/16/25 08:59 100 mg QDAY LAURA Administration Protocol Famotidine 20 mg 05/16/25 21:00 05/18/25 09:01 Famotidine Inj 10 Mg/Ml Vial 2 Ml IVP 06/15/25 20:59 20 mg Q12HR LAURA Administration Furosemide 40 mg 05/17/25 09:00 05/18/25 09:00 Furosemide Inj 10 Mg/Ml 4ml Vial IVP 06/16/25 08:59 40 mg BID LAURA Administration Glucagon 1 mg 05/16/25 23:13 Glucagon Inj 1 Mg Vial IM Q15MIN PRN BG <70, and no IV access Heparin Sodium (Porcine) 5,000 unit 05/16/25 21:00 05/18/25 09:01 Heparin Sod Inj 5000 Unit/Ml Vial SC 05/30/25 20:59 5,000 unit Q12HR LAURA Administration Doxycycline Hyclate 100 mg/ 100 mls @ 100 mls/hr 05/17/25 09:00 05/18/25 08:59 Sodium Chloride IV 05/24/25 08:59 100 mls/hr BID LAURA Administration Insulin Human Lispro 0 unit 05/17/25 07:30 05/18/25 07:30 Insulin Lispro (Admelog) 1 Unit/0.01 Ml Unit SC 06/16/25 07:29 Not Given ACHS [facility] Protocol Lisinopril 20 mg 05/17/25 09:00 05/18/25 09:14 Lisinopril 20 Mg Tablet PO 06/16/25 08:59 Not Given QDAY LAURA Methylprednisolone Sodium Succinate 40 mg 05/17/25 09:00 05/18/25 08:59 Methylprednisolone Sod Succ 40 Mg/Ml Vial IVP 05/24/25 08:59 40 mg QDAY LAURA Administration Pharmacy Consult 1 each 05/17/25 05:13 Pharmacy To Consult Pneumovacc XX 06/16/25 05:12 PRN PRN CONSULT Plan Summary: 75-year-old female patient with significant history of hypertension congestive heart failure, diabetes mellitus, came in for evaluation regarding worsening cough. She was admitted for sepsis work up most likely secondary to pneumonia. Lactic acidosis resolved. #Sepsis most likely 2/2 #PNA, CAP vs atypicals #Lactic acidosis - resolved Lactic acid 2.6 --> 0.8 with IVF. CRP 10.6. Covid and flu negative. X-ray showed vascular congestion with perihilar basilar edema, suspicious for pneumonia Cocci negative Patient afebrile Blood cultures negative Sputum cultures showed rare WBCs Plan: -Continue doxycycline for CAP with atypical organism coverage. #Acute hypoxic hypercapnic respiratory failure most likely 2/2 #CHF exacerbation (EF 35-40% Grade 1 diastolic disfunction) #Respiratory acidosis #C/f COPD vs OHS ddx CHF, COPD, supermiposed bacterial infection vs viral vs fungal Presenting with 3 days of worsening cough (nonproductive, only white phlegm) chest pain, reproducible, bilateral lower extremity swelling. Who presented to ED with oxygen saturation 86% on RA. Holding azithromycin because prolonged QTC 499. Not trending troponins beause chest pain is reproducible, EKG is unchanged. Not concerned for ME or PE since EKG is unchanged. VBG pH 7.29 pCO2 58 pO2 40 O2 sat 68, ABG pH 7.32 pCO2 51 pO2 96 HCO3 26 O2 sat 97. HCO3 31.2. BNP >3280. Patient appears to be fluid overloaded, 1+ pitting edema in the lower extremities Plan: -Continue furosemide 40mg BID -Duonebs Q4HRRT -Solumedrol 40mg IVP QD -Incentive spirometry -BIPAP -Strict I&O's -Fluid restriction/ Cardiac diet -Echo ordered #Cellulitis Suprapubic area was indurated and tough on exam, however, no erythema. Patient reported sensitivity and pain to the area, however, only mildly sensitive to palpation on exam. Patient endorsed one week of sensitivity and skin toughness around the hypogastrium extending to her pubis. Plan: -Continue doxycycline #Hx of HTN Patient has been hypotensive Plan: -Holding Lisinopril 20 mg for now #Hx of DM Currently taking Mounjaro A1c is 6 Lipid panel negative Plan: -Continue insulin sliding scale -ACHS glucose checks Health Maintenance: Code status: DNR/DNI DVT prophylaxis: Heparin 5000 subq Q12HR GI prophylaxis: Famotidine Diet: Cardiac Mcgee: Catheter Lines: PIV Supplemental O2: NC, oxy mask, and bipap Disposition: Admitted to [facility] for sepsis, continuing doxycycline for atypical coverage. Patient still 0.8 L positive and appears fluid overloaded on exam, continuing diuresis. Patient was seen and discussed with my attending physician Dr. Tavo ENRIQUEZ and my senior resident Dr. Stefani ENRIQUEZ PGY-3. Jacky Jara DO PGY-1. Attending Provider Attestation/Addendum Patient is morbidly obese admitted for shortness of breath and hypoxic respiratory failure secondary to CHF. Patient is improving with IV diuretic treatment. The patient will most likely benefit from sleep study study done as outpatient. Weight loss advised. Continue to monitor urine output. Check BUN and creatinine. I discussed with and supervised the resident physician who took care of this patient. I agree with the assessment and plan as above.
--- NOTE | 2025-05-18 12:30 | CHAP ---
Patient was visited by the Spiritual Care Volunteer who prayed for them. (Volunteer was in the hospital from 09:15-12:30)
[2025-05-18 12:39] LABS: Cocci Serology, IgG Negative (Negative)
--- NOTE | 2025-05-18 14:42 | PC.SS ---
follow up note: Patient creatinine went up. Patient may need new 02. Discharge plan is to return home.
--- NOTE | 2025-05-18 15:30 | PC.NURSE ---
Pt room air sats 86% at rest
[2025-05-18] MEDS: HYDROcodone/APAP 5/325 TABLET 1 TAB PO ×2 (15:34→23:45)
--- NOTE | 2025-05-18 15:40 | PC.SS ---
Patient needs a rollator walker for home. The diagnosis creates mobility limitation that significantly impairs ability to participate in the patients activities of daily living either in their entirety, or in a reasonable time frame. Also the patient is able to safely use the walker and the patient?s mobility is sufficiently resolved with the use of the walker and cane has been ruled out.
--- NOTE | 2025-05-18 21:02 | PC.NURSE ---
Portable oxygen was delivered to patients room. Per patient oxygen concentrator was delivered to her home and her neighbor in [address] picked it up for her.
[2025-05-18] MEDS: Milk Of Magnesia Susp 30 ML UDC PO (23:56)
[2025-05-19] VITALS (14 sets, daily range): BP systolic 106–137; BP diastolic 50–77; PULSE 48–106; RESP 18–24; TEMP 36.4–36.6; O2SAT 90–99; BMI 43.6
[2025-05-19] MEDS: ALBUTEROL/IPRATROPIUM (Duoneb) RT SOL 3 ML NEBU INH ×6 (03:29→22:20)
[2025-05-19 06:17] LABS: Basophils # (Auto) 0.0 Thou/mm3 (0.0-0.2); Basophils % (Auto) 0 % (0-2.5); Eosinophils # (Auto) 0.0 Thou/mm3 (0.0-0.5); Eosinophils % (Auto) 0 % (0-10); Hematocrit 41.2 % (36.0-46.0); Hemoglobin 12.3 g/dL (12.0-16.0); Immature Granulocytes Auto 0.06 Thou/mm3 (0.00-0.00); Lymphocytes # (Auto) 0.3 Thou/mm3 (1.0-4.8); Lymphocytes % (Auto) 2 % (10-50); Mean Corpuscular HGB Conc 29.9 g/dl (31.0-37.0); Mean Corpuscular Hemoglobin 26.9 pg (25.0-35.0); Mean Corpuscular Volume 90 fL (80-100); Monocytes # (Auto) 0.8 Thou/mm3 (0.0-0.8); Monocytes % (Auto) 6 % (0-12); Neutrophils # (Auto) 12.7 Thou/mm3 (1.8-7.7); Neutrophils % (Auto) 92 % (37-80); Nucleated Red Blood Cell # 0.00 Thou/mm3 (0.00-0.00); Nucleated Red Blood Cell % 0 /100 WBC (0); Platelet Count 198 Thou/mm3 (140-440); RDW Standard Deviation 52.1 fL (36.4-46.3); Red Blood Count 4.58 Miln/mm3 (4.00-5.20); White Blood Count 13.8 Thou/mm3 (3.6-11.0)
[2025-05-19 06:45] LABS: Anion Gap 12 (7-16); BUN/Creatinine Ratio 23 Ratio (12-20); Blood Urea Nitrogen 39 mg/dL (9-23); Calcium 8.8 mg/dL (8.3-10.6); Carbon Dioxide 28.3 mMol/L (20.0-31.0); Chloride 99 mMol/L (98-107); Creatinine (Component) 1.7 mg/dL (0.6-1.3); Estimated Creatinine Clearance 36.7 mL/min (>60); Glucose 132 mg/dL (74-106); Magnesium 2.1 mg/dL (1.6-2.6); Osmolality,Calculated 288 (275-295); Phosphorous 4.5 mg/dL (2.4-5.1); Potassium 5.0 mMol/L (3.4-5.1); Sodium 139 mMol/L (136-145); eGFR 31 See Note
[2025-05-19] MEDS: DOCUSATE SOD 100 MG CAPSULE PO (09:38)
[2025-05-19] MEDS: DOXYCYCLINE INJ 100 MG in SODIUM CHLORIDE 0.9% (POP) 100 ML IV ×2 (09:39→21:05)
[2025-05-19] MEDS: HEPARIN SOD INJ 5000 UNIT/ML VIAL SC ×2 (09:40→21:06)
[2025-05-19] MEDS: FUROSEMIDE INJ 10 MG/ML 4ML VIAL 40 MG IVP (09:40)
[2025-05-19] MEDS: FAMOTIDINE INJ 10 MG/ML VIAL 2 ML 20 MG IVP ×2 (09:40→21:05)
--- NOTE | 2025-05-19 09:51 | ESPR_ITS ---
<Statement entered by Rogelio Srivastava MD - 05/19/25 16:23> Pt is seen at bedside. will continue IV diuresis, pt is complaining of severe constipation which she reports she has not had a bowel movement since last Wednesday (8 days) and feels very uncomfortable. Will continue IV diuretics, fluid restrictions and strict I's and O's. starting pt on bowel regimen. Patient was seen and examined by me personally. I have directly supervised and reviewed documentation by the team resident and agree with its findings. ------- Plan of care was discussed with the attending, Dr. Silva Srivastava, PGY-2 Documentation for date of: 05/19/25 Subjective Subjective Interval history: * Patient seen and examined at bedside. * Creatinine 1.7 stable, BUN 39 up from 28. * Patient is 1.4 L positive. * Lasix decreased to 40 mg once daily. * Restarted lisinopril. * Sputum and blood cultures negative. * Continuing doxycycline. * Fluid restrictions 1200 mL. * Warm water enema and glycerin suppository for constipation. Exam Vital Signs Temp Pulse Resp BP Pulse Ox O2 Del Method O2 Flow Rate 97.5 F 75 18 106/60 99 Nasal Cannula 3 05/19/25 07:32 05/19/25 09:40 05/19/25 07:32 05/19/25 09:40 05/19/25 07:32 05/19/25 07:32 05/19/25 07:32 Narrative Exam General: Obese woman. Awake and in no acute distress. Conversational and non- toxic appearing. Neurologic: GCS 15. Alert and oriented x3, no gross neurological deficit, and patient able to move all 4 extremities. HEENT: Normocephalic, atraumatic, mucous membranes moist. Pupils reactive to light. Heart: Regular rate and rhythm, normal S1 and S2, no murmurs. Lungs: Crackles in the bases bilaterally. Abdomen: Firm, distended, diffusely tender. No guarding or rebound tenderness. Extremities: 1+ pitting edema in the lower extremities bilaterally. 1+ pitting edema in the feet bilaterally. 2+ radial and dorsalis pedis pulses bilaterally. Skin: Indurated suprapubic area, mildly sensitive to palpation Objective Labs 05/21/25 04:25 05/21/25 04:25 Labs: Laboratory Results - last 24 hr 05/16/25 05/19/25 21:23 05:20 WBC 13.8 H RBC 4.58 Hgb 12.3 Hct 41.2 MCV 90 MCH 26.9 MCHC 29.9 L RDW Std Deviation 52.1 H Plt Count 198 D Neut % (Auto) 92 H Lymph % (Auto) 2 L [place] % (Auto) 6 Eos % (Auto) 0 Baso % (Auto) 0 Neut # (Auto) 12.7 H Lymph # (Auto) 0.3 L [place] # (Auto) 0.8 Eos # (Auto) 0.0 Baso # (Auto) 0.0 Immature Gran # (Auto) 0.06 H Absolute Nucleated RBC 0.00 Immature Gran % 0 Nucleated RBC % 0 Sodium 139 Potassium 5.0 D Chloride 99 Carbon Dioxide 28.3 Anion Gap 12 BUN 39 H Creatinine 1.7 H Estim Creat Clear Calc 36.7 L eGFR 31 L BUN/Creatinine Ratio 23 H Glucose 132 H Calculated Osmolality 288 Calcium 8.8 Phosphorus 4.5 Magnesium 2.1 Coccidioides IgG Ab Negative ABG Interpretation ABG results: 05/16/25 05/16/25 17:54 21:33 ABG pH 7.32 L ABG pCO2 51 H ABG pO2 96 ABG HCO3 26 ABG O2 Saturation 97 ABG Base Excess 0 VBG pH 7.29 L VBG pCO2 58 H VBG pO2 40 VBG Base Excess 0 Quality Measures Quality Measures VTE prophylaxis Advance care planning discussed with:: patient Assessment & Plan Assessment Current Active Medications: Generic Name Dose Route Start Last Admin Trade Name Freq PRN Reason Stop Dose Admin Acetaminophen 650 mg 05/16/25 20:45 Acetaminophen 325 Mg Tablet PO 06/15/25 20:44 Q6H PRN Fever >100.4 or pain 1-3 Hydrocodone Bitart/Acetaminophen 1 tab 05/16/25 20:45 05/18/25 23:45 Hydrocodone/Apap 5/325 Tablet PO 05/21/25 20:44 1 tab Q4HR PRN Administration PAIN SCALE 4-6 (Moderate Albuterol/Ipratropium 3 ml 05/17/25 03:00 05/19/25 06:24 Albuterol/Ipratropium (Duoneb) Rt Huong 3 Ml Nebu INH 06/16/25 02:59 3 ml Q4HRRT LAURA Administration Dextrose 25 ml 05/16/25 23:13 Dextrose 50%-Water Inj 50 Ml Syringe IV 06/15/25 23:12 Q15MIN PRN BG 50-70 responsive npo pt Dextrose 50 ml 05/16/25 23:13 Dextrose 50%-Water Inj 50 Ml Syringe IV 06/15/25 23:12 Q15MIN PRN BG <50 OR BG <70 & pt unresponsive Docusate Sodium 100 mg 05/17/25 09:00 05/19/25 09:38 Docusate Sod 100 Mg Capsule PO 06/16/25 08:59 100 mg QDAY LAURA Administration Protocol Famotidine 20 mg 05/16/25 21:00 05/19/25 09:40 Famotidine Inj 10 Mg/Ml Vial 2 Ml IVP 06/15/25 20:59 20 mg Q12HR LAURA Administration Furosemide 40 mg 05/19/25 09:00 05/19/25 09:40 Furosemide Inj 10 Mg/Ml 4ml Vial IVP 06/18/25 08:59 40 mg QDAY LAURA Administration Glucagon 1 mg 05/16/25 23:13 Glucagon Inj 1 Mg Vial IM Q15MIN PRN BG <70, and no IV access Heparin Sodium (Porcine) 5,000 unit 05/16/25 21:00 05/19/25 09:40 Heparin Sod Inj 5000 Unit/Ml Vial SC 05/30/25 20:59 5,000 unit Q12HR LAURA Administration Doxycycline Hyclate 100 mg/ 100 mls @ 100 mls/hr 05/17/25 09:00 05/19/25 09:39 Sodium Chloride IV 05/24/25 08:59 100 mls/hr BID LAURA Administration Insulin Human Lispro 0 unit 05/17/25 07:30 05/19/25 07:26 Insulin Lispro (Admelog) 1 Unit/0.01 Ml Unit SC 06/16/25 07:29 Not Given ACHS [facility] Protocol Lisinopril 20 mg 05/17/25 09:00 05/19/25 09:38 Lisinopril 20 Mg Tablet PO 06/16/25 08:59 Not Given QDAY [facility] Methylprednisolone Sodium Succinate 40 mg 05/17/25 09:00 05/19/25 09:39 Methylprednisolone Sod Succ 40 Mg/Ml Vial IVP 05/24/25 08:59 40 mg QDAY [facility] Administration Pharmacy Consult 1 each 05/17/25 05:13 Pharmacy To Consult Pneumovacc XX 06/16/25 05:12 PRN PRN CONSULT Plan Summary: 75-year-old female patient with significant history of hypertension congestive heart failure, diabetes mellitus, came in for evaluation regarding worsening cough. She was admitted for sepsis work up most likely secondary to pneumonia. Lactic acidosis resolved. #Sepsis most likely 2/2 #PNA, CAP vs atypicals #Lactic acidosis - resolved * Lactic acid 2.6 --> 0.8 with IVF. * CRP 10.6. * Covid and flu negative. * X-ray showed vascular congestion with perihilar basilar edema, suspicious for pneumonia * Cocci negative * Patient afebrile * Blood cultures negative * Sputum cultures showed rare WBCs Plan: * Continue doxycycline for CAP with atypical organism coverage. #Acute hypoxic hypercapnic respiratory failure most likely 2/2 #CHF exacerbation (EF 35-40% Grade 1 diastolic disfunction) #Respiratory acidosis #C/f COPD vs OHS * ddx CHF, COPD, supermiposed bacterial infection vs viral vs fungal * Presenting with 3 days of worsening cough (nonproductive, only white phlegm) chest pain, reproducible, bilateral lower extremity swelling who presented to ED with oxygen saturation 86% on RA. * Tropes negative on arrival. * EKG showed sinus rhythm, left bundle branch block * VBG showed pH 7.29 pCO2 58 pO2 40 O2 sat 68, ABG pH 7.32 pCO2 51 pO2 96 HCO3 26 O2 sat 97. HCO3 31.2. BNP >3280. * In the hospital, patient appears to be fluid overloaded, 1+ pitting edema in the lower extremities, crackles on pulmonary auscultation Plan: * Lasix 40 twice daily switched to once daily * Duonebs Q4HRRT * Solumedrol 40mg IVP QD * Incentive spirometry * BIPAP * Strict I&O's * Fluid restriction 1200 mL * Echo ordered #JACK * Creatinine 1.7 up from 1.3 * Likely in the setting of diuresis Plan: * Decrease Lasix from twice daily to once daily as above #Cellulitis * Suprapubic area was indurated and tough on exam, however, no erythema. * Patient reported sensitivity and pain to the area, however, only mildly sensitive to palpation on exam. * Patient endorsed one week of sensitivity and skin toughness around the hypogastrium extending to her pubis. Plan: * Continue doxycycline #Hx of HTN * BP has been stable Plan: * Holding Lisinopril 20 mg for now #Hx of DM * Currently taking Mounjaro * A1c is 6 * Lipid panel negative Plan: * Continue insulin sliding scale * ACHS glucose checks Health Maintenance: Code status: DNR/DNI DVT prophylaxis: Heparin 5000 subq Q12HR GI prophylaxis: Famotidine Diet: Cardiac Cmgee: Catheter Lines: PIV Supplemental O2: NC, oxy mask, and bipap Disposition: Admitted to [facility] [place] for sepsis, continuing doxycycline for atypical coverage. Patient still 1.4 L positive and appears fluid overloaded on exam, continuing diuresis, decrease Lasix from twice a day to once a day, watching JACK. Patient was seen and discussed with my attending physician Dr. Tavo ENRIQUEZ and my senior resident Dr. Atif ENRIQUEZ PGY-2. Jacky Jara DO PGY-1. Attending Provider Attestation/Addendum Continue treatment for CHF, pna possible COPD. O2 support as indicated. Check culltures. Ambulate as tolerated. Optimize glycemic controi. Discussed with housestafff.
[2025-05-19] MEDS: POLYETHYLENE GLYCOL 17 GM PACKET PO (10:01)
[2025-05-19] MEDS: GLYCERIN, ADULT 1 EA SUPP 1 EACH PR (16:45)
[2025-05-19] MEDS: INSULIN LISPRO (AdmeLOG) 1 UNIT/0.01 ML UNIT SC (21:24)
[2025-05-20] VITALS (15 sets, daily range): BP systolic 104–140; BP diastolic 64–75; PULSE 65–116; RESP 18–24; TEMP 36.1–36.4; O2SAT 94–100; BMI 43.6
[2025-05-20] MEDS: ALBUTEROL/IPRATROPIUM (Duoneb) RT SOL 3 ML NEBU INH ×6 (02:00→23:21)
--- NOTE | 2025-05-20 03:42 | PC.NURSE ---
Patient has not had a good bowel movement since 05/14/25 per patient. Pt was given enema and suppository yesterday during AM shift but only had one pebble stool. No effective results until now. Dr. Umanzor was made aware, MD to look into patient's chart.
[2025-05-20] MEDS: Milk Of Magnesia Susp 30 ML UDC PO (04:10)
[2025-05-20 05:38] LABS: Basophils # (Auto) 0.0 Thou/mm3 (0.0-0.2); Basophils % (Auto) 0 % (0-2.5); Eosinophils # (Auto) 0.0 Thou/mm3 (0.0-0.5); Eosinophils % (Auto) 0 % (0-10); Hematocrit 41.7 % (36.0-46.0); Hemoglobin 12.7 g/dL (12.0-16.0); Immature Granulocytes Auto 0.05 Thou/mm3 (0.00-0.00); Lymphocytes # (Auto) 0.2 Thou/mm3 (1.0-4.8); Lymphocytes % (Auto) 2 % (10-50); Mean Corpuscular HGB Conc 30.5 g/dl (31.0-37.0); Mean Corpuscular Hemoglobin 27.1 pg (25.0-35.0); Mean Corpuscular Volume 89 fL (80-100); Monocytes # (Auto) 0.8 Thou/mm3 (0.0-0.8); Monocytes % (Auto) 6 % (0-12); Neutrophils # (Auto) 11.3 Thou/mm3 (1.8-7.7); Neutrophils % (Auto) 92 % (37-80); Nucleated Red Blood Cell # 0.00 Thou/mm3 (0.00-0.00); Nucleated Red Blood Cell % 0 /100 WBC (0); Platelet Count 194 Thou/mm3 (140-440); RDW Standard Deviation 51.7 fL (36.4-46.3); Red Blood Count 4.69 Miln/mm3 (4.00-5.20); White Blood Count 12.4 Thou/mm3 (3.6-11.0)
[2025-05-20 06:05] LABS: Alanine Aminotransferase 14 U/L (10-49); Albumin, Serum 3.7 gm/dL (3.4-4.8); Albumin/Globulin Ratio 1.2 (1.2-2.2); Alkaline Phosphatase 106 U/L (46-116); Anion Gap 9 (7-16); Aspartate Amino Transferase 25 U/L (0-34); BUN/Creatinine Ratio 28 Ratio (12-20); Bilirubin,Total 0.6 mg/dL (0.3-1.2); Blood Urea Nitrogen 37 mg/dL (9-23); Calcium 9.2 mg/dL (8.3-10.6); Calcium (Corrected) 9.4 mg/dL (8.5-10.1); Carbon Dioxide 30.3 mMol/L (20.0-31.0); Chloride 100 mMol/L (98-107); Creatinine (Component) 1.3 mg/dL (0.6-1.3); Estimated Creatinine Clearance 48.0 mL/min (>60); Globulin 3.2 gm/dL (2.3-3.5); Glucose 129 mg/dL (74-106); Magnesium 2.1 mg/dL (1.6-2.6); Osmolality,Calculated 288 (275-295); Phosphorous 3.7 mg/dL (2.4-5.1); Potassium 4.5 mMol/L (3.4-5.1); Sodium 139 mMol/L (136-145); Total Protein 6.9 gm/dL (5.7-8.2); eGFR 43 See Note
--- NOTE | 2025-05-20 08:13 | ESPR_ITS ---
<Statement entered by Rogelio Srivastava MD - 05/20/25 16:29> Pt is seen at bedside. Continues to complain of significant discomfort due to constipation. Pt had warm water enema yesterday. Will start golytly today. Pt denies SOB, or chest pain. Pt is currently saturating on 2L O2 via NC which is what she is on at home. Pt bladder train and DC ortiz. Patient was seen and examined by me personally. I have directly supervised and reviewed documentation by the team resident and agree with its findings. ------- Plan of care was discussed with the attending, Dr. Amadou Srivastava, PGY-2 Documentation for date of: 05/20/25 Subjective Subjective Interval history: * Patient seen and examined at bedside. * Patient is net -0.7 L since admission. * Continuing to hold lisinopril, BP stable. * Creatinine decreased to 1.3 from 1.7. * Continuing doxycycline. * Continuing Lasix. * Started GoLytely due to several days of no bowel movement despite failed warm water enema. * Discontinued Ortiz. * Bladder training ordered. Exam Vital Signs Temp Pulse Resp BP Pulse Ox O2 Del Method O2 Flow Rate 97.1 F 76 20 104/72 100 Nasal Cannula 3 05/20/25 07:41 05/20/25 07:41 05/20/25 07:41 05/20/25 07:41 05/20/25 07:41 05/20/25 07:41 05/20/25 07:41 Narrative Exam General: Obese woman. Awake and in no acute distress. Conversational and non- toxic appearing. Neurologic: GCS 15. Alert and oriented x3, no gross neurological deficit, and patient able to move all 4 extremities. HEENT: Normocephalic, atraumatic, mucous membranes moist. Pupils reactive to light. Heart: Regular rate and rhythm, normal S1 and S2, no murmurs. Lungs: Crackles in the bases bilaterally. Abdomen: Firm, distended, diffusely tender. No guarding or rebound tenderness. Extremities: 1+ pitting edema in the lower extremities bilaterally. 1+ pitting edema in the feet bilaterally. 2+ radial and dorsalis pedis pulses bilaterally. Skin: Indurated suprapubic area, mildly sensitive to palpation Objective Labs 05/21/25 04:25 05/21/25 04:25 Labs: Laboratory Results - last 24 hr 05/20/25 04:28 WBC 12.4 H RBC 4.69 Hgb 12.7 Hct 41.7 MCV 89 MCH 27.1 MCHC 30.5 L RDW Std Deviation 51.7 H Plt Count 194 Neut % (Auto) 92 H Lymph % (Auto) 2 L [place] % (Auto) 6 Eos % (Auto) 0 Baso % (Auto) 0 Neut # (Auto) 11.3 H Lymph # (Auto) 0.2 L [place] # (Auto) 0.8 Eos # (Auto) 0.0 Baso # (Auto) 0.0 Immature Gran # (Auto) 0.05 H Absolute Nucleated RBC 0.00 Immature Gran % 0 Nucleated RBC % 0 Sodium 139 Potassium 4.5 D Chloride 100 Carbon Dioxide 30.3 Anion Gap 9 BUN 37 H Creatinine 1.3 Estim Creat Clear Calc 48.0 L eGFR 43 L BUN/Creatinine Ratio 28 H Glucose 129 H Calculated Osmolality 288 Calcium 9.2 Corrected Calcium 9.4 Phosphorus 3.7 Magnesium 2.1 Total Bilirubin 0.6 AST 25 ALT 14 Alkaline Phosphatase 106 Total Protein 6.9 Albumin 3.7 Globulin 3.2 Albumin/Globulin Ratio 1.2 ABG Interpretation ABG results: 05/16/25 05/16/25 17:54 21:33 ABG pH 7.32 L ABG pCO2 51 H ABG pO2 96 ABG HCO3 26 ABG O2 Saturation 97 ABG Base Excess 0 VBG pH 7.29 L VBG pCO2 58 H VBG pO2 40 VBG Base Excess 0 Quality Measures Quality Measures VTE prophylaxis Advance care planning discussed with:: patient Assessment & Plan Assessment Current Active Medications: Generic Name Dose Route Start Last Admin Trade Name Freq PRN Reason Stop Dose Admin Acetaminophen 650 mg 05/16/25 20:45 Acetaminophen 325 Mg Tablet PO 06/15/25 20:44 Q6H PRN Fever >100.4 or pain 1-3 Hydrocodone Bitart/Acetaminophen 1 tab 05/16/25 20:45 05/18/25 23:45 Hydrocodone/Apap 5/325 Tablet PO 05/21/25 20:44 1 tab Q4HR PRN Administration PAIN SCALE 4-6 (Moderate Albuterol/Ipratropium 3 ml 05/17/25 03:00 05/20/25 06:16 Albuterol/Ipratropium (Duoneb) Rt Huong 3 Ml Nebu INH 06/16/25 02:59 3 ml Q4HRRT LAURA Administration Dextrose 25 ml 05/16/25 23:13 Dextrose 50%-Water Inj 50 Ml Syringe IV 06/15/25 23:12 Q15MIN PRN BG 50-70 responsive npo pt Dextrose 50 ml 05/16/25 23:13 Dextrose 50%-Water Inj 50 Ml Syringe IV 06/15/25 23:12 Q15MIN PRN BG <50 OR BG <70 & pt unresponsive Docusate Sodium 100 mg 05/17/25 09:00 05/19/25 09:38 Docusate Sod 100 Mg Capsule PO 06/16/25 08:59 100 mg QDAY LAURA Administration Protocol Famotidine 20 mg 05/16/25 21:00 05/19/25 21:05 Famotidine Inj 10 Mg/Ml Vial 2 Ml IVP 06/15/25 20:59 20 mg Q12HR LAURA Administration Furosemide 40 mg 05/19/25 09:00 05/19/25 09:40 Furosemide Inj 10 Mg/Ml 4ml Vial IVP 06/18/25 08:59 40 mg QDAY LAURA Administration Glucagon 1 mg 05/16/25 23:13 Glucagon Inj 1 Mg Vial IM Q15MIN PRN BG <70, and no IV access Heparin Sodium (Porcine) 5,000 unit 05/16/25 21:00 05/19/25 21:06 Heparin Sod Inj 5000 Unit/Ml Vial SC 05/30/25 20:59 5,000 unit Q12HR LAURA Administration Doxycycline Hyclate 100 mg/ 100 mls @ 100 mls/hr 05/17/25 09:00 05/19/25 21:05 Sodium Chloride IV 05/24/25 08:59 100 mls/hr BID LAURA Administration Insulin Human Lispro 0 unit 05/17/25 07:30 05/20/25 07:15 Insulin Lispro (Admelog) 1 Unit/0.01 Ml Unit SC 06/16/25 07:29 Not Given ACHS [facility] Protocol Lisinopril 20 mg 05/17/25 09:00 05/19/25 09:38 Lisinopril 20 Mg Tablet PO 06/16/25 08:59 Not Given QDAY [facility] Pharmacy Consult 1 each 05/17/25 05:13 Pharmacy To Consult Pneumovacc XX 06/16/25 05:12 PRN PRN CONSULT Plan Summary: 75-year-old female patient with significant history of hypertension congestive heart failure, diabetes mellitus, came in for evaluation regarding worsening cough. She was admitted for sepsis work up most likely secondary to pneumonia. #Sepsis most likely 2/2 #PNA, CAP vs atypicals #Lactic acidosis - (Resolved) * Lactic acid 2.6 --> 0.8 with IVF. * CRP 10.6. * Covid and flu negative. * X-ray showed vascular congestion with perihilar basilar edema, suspicious for pneumonia * Cocci negative * Patient afebrile * Blood cultures negative * Sputum cultures showed rare WBCs Plan: * Doxycycline 100 mg IV twice daily #Acute hypoxic hypercapnic respiratory failure most likely 2/2 #CHF exacerbation (EF 35-40% Grade 1 diastolic disfunction) #Respiratory acidosis #C/f COPD vs OHS * ddx CHF, COPD, supermiposed bacterial infection vs viral vs fungal * Presenting with 3 days of worsening cough (nonproductive, only white phlegm) chest pain, reproducible, bilateral lower extremity swelling who presented to ED with oxygen saturation 86% on RA. * Tropes negative on arrival. * EKG showed sinus rhythm, left bundle branch block * VBG showed pH 7.29 pCO2 58 pO2 40 O2 sat 68, ABG pH 7.32 pCO2 51 pO2 96 HCO3 26 O2 sat 97. HCO3 31.2. BNP >3280. * In the hospital, patient appears to be fluid overloaded, 1+ pitting edema in the lower extremities, crackles on pulmonary auscultation Plan: * Lasix 40 once daily * Duonebs Q4HRRT * Solumedrol 40mg IVP QD * Incentive spirometry * BIPAP * Strict I&O's * Fluid restriction 1200 mL * Echo ordered #Constipation * Patient has not had a bowel movement since 05/14/2025 * Attempted warm water enema on 05/19/2025 Plan: * GoLytely 1 L ordered * Monitor for bowel movement #JACK (Resolved) * Creatinine 1.3 down from 1.7 * BUN slowly downtrending * JACK likely occurred in the setting of diuretic medications versus volume depletion #Cellulitis * Suprapubic area was indurated and tough on exam, however, no erythema. * Patient reported sensitivity and pain to the area, however, only mildly sensitive to palpation on exam. * Patient endorsed one week of sensitivity and skin toughness around the hypogastrium extending to her pubis upon arrival Plan: * Continue doxycycline #Hx of HTN * BP has been stable Plan: * Holding Lisinopril 20 mg for now #Hx of DM * Currently taking Mounjaro * A1c is 6 * Lipid panel negative Plan: * Continue insulin sliding scale * ACHS glucose checks Health Maintenance: Code status: DNR/DNI DVT prophylaxis: Heparin 5000 subq Q12HR GI prophylaxis: Famotidine Diet: Cardiac Ortiz: Catheter Lines: PIV Supplemental O2: NC, oxy mask, and bipap Disposition: Admitted to [facility] for sepsis, continuing doxycycline for atypical coverage. Patient is net -0.7 L since admission, continuing to diurese, monitoring for bowel movement, started 1 L GoLytely. Patient was seen and discussed with my attending physician Dr. Amadou ENRIQUEZ and my senior resident Dr. Atif ENRIQUEZ PGY-2. Jacky Jara DO PGY-1. Attending Provider Attestation/Addendum I have examined the patient, reviewed labs and imaging findings, discussed the case with the resident(s), and reviewed entered orders. I agree with the plan of care as outlined in this note, with these additional summaries/recommendations: Patient with continued constipation of 9 days despite extensive bowel regimen. Will initiate patient on GoLytely and if unsuccessful, will transition to lactulose enema. Suspect abdominal distention and discomfort likely contributing to hypoxia and oxygen requirements. Patient also appears to be shaky and anxious as a result. Once bowel regimen is successful, attempt to wean oxygen and anticipate discharge in next 1 to 2 days. Holden Tobar MD
[2025-05-20] MEDS: DOCUSATE SOD 100 MG CAPSULE PO (08:41)
[2025-05-20] MEDS: DOXYCYCLINE INJ 100 MG in SODIUM CHLORIDE 0.9% (POP) 100 ML IV ×2 (08:41→21:30)
[2025-05-20] MEDS: FUROSEMIDE INJ 10 MG/ML 4ML VIAL 40 MG IVP (08:42)
[2025-05-20] MEDS: FAMOTIDINE INJ 10 MG/ML VIAL 2 ML 20 MG IVP ×2 (08:42→21:30)
[2025-05-20] MEDS: HEPARIN SOD INJ 5000 UNIT/ML VIAL SC ×2 (08:42→21:29)
[2025-05-20] MEDS: HYDROcodone/APAP 5/325 TABLET 1 TAB PO ×2 (11:09→21:38)
[2025-05-20] MEDS: NA SU/NAHCO3/KC/PEG (Golytely) 4,000 ML BTL 1000 ML PO (11:49)
--- NOTE | 2025-05-20 15:41 | PC.NURSE ---
Patient had a normal movement.
[2025-05-21] VITALS (9 sets, daily range): BP systolic 105–126; BP diastolic 71–81; PULSE 71–106; RESP 18–22; TEMP 36.4–36.9; O2SAT 94–99; BMI 40.8; BMI 40.6
[2025-05-21] MEDS: ALBUTEROL/IPRATROPIUM (Duoneb) RT SOL 3 ML NEBU INH ×4 (02:00→14:34)
[2025-05-21 05:26] LABS: Basophils # (Auto) 0.0 Thou/mm3 (0.0-0.2); Basophils % (Auto) 0 % (0-2.5); Eosinophils # (Auto) 0.0 Thou/mm3 (0.0-0.5); Eosinophils % (Auto) 0 % (0-10); Hematocrit 42.0 % (36.0-46.0); Hemoglobin 12.8 g/dL (12.0-16.0); Immature Granulocytes Auto 0.10 Thou/mm3 (0.00-0.00); Lymphocytes # (Auto) 0.6 Thou/mm3 (1.0-4.8); Lymphocytes % (Auto) 5 % (10-50); Mean Corpuscular HGB Conc 30.5 g/dl (31.0-37.0); Mean Corpuscular Hemoglobin 27.0 pg (25.0-35.0); Mean Corpuscular Volume 89 fL (80-100); Monocytes # (Auto) 2.1 Thou/mm3 (0.0-0.8); Monocytes % (Auto) 16 % (0-12); Neutrophils # (Auto) 10.2 Thou/mm3 (1.8-7.7); Neutrophils % (Auto) 79 % (37-80); Nucleated Red Blood Cell # 0.00 Thou/mm3 (0.00-0.00); Nucleated Red Blood Cell % 0 /100 WBC (0); Platelet Count 185 Thou/mm3 (140-440); RDW Standard Deviation 52.1 fL (36.4-46.3); Red Blood Count 4.74 Miln/mm3 (4.00-5.20); White Blood Count 13.0 Thou/mm3 (3.6-11.0)
[2025-05-21 06:03] LABS: Alanine Aminotransferase 12 U/L (10-49); Albumin, Serum 3.4 gm/dL (3.4-4.8); Albumin/Globulin Ratio 1.3 (1.2-2.2); Alkaline Phosphatase 72 U/L (46-116); Anion Gap 8 (7-16); Aspartate Amino Transferase 29 U/L (0-34); BUN/Creatinine Ratio 31 Ratio (12-20); Bilirubin,Total 0.9 mg/dL (0.3-1.2); Blood Urea Nitrogen 31 mg/dL (9-23); Calcium 8.7 mg/dL (8.3-10.6); Calcium (Corrected) 9.2 mg/dL (8.5-10.1); Carbon Dioxide 34.0 mMol/L (20.0-31.0); Chloride 102 mMol/L (98-107); Creatinine (Component) 1.0 mg/dL (0.6-1.3); Estimated Creatinine Clearance 62.4 mL/min (>60); Globulin 2.7 gm/dL (2.3-3.5); Glucose 66 mg/dL (74-106); Magnesium 1.9 mg/dL (1.6-2.6); Osmolality,Calculated 291 (275-295); Phosphorous 2.8 mg/dL (2.4-5.1); Potassium 4.6 mMol/L (3.4-5.1); Sodium 144 mMol/L (136-145); Total Protein 6.1 gm/dL (5.7-8.2); eGFR 59 See Note
--- NOTE | 2025-05-21 08:20 | PD.RESPRO ---
Documentation for date of: 05/21/25 Exam Vital Signs Temp Pulse Resp BP Pulse Ox O2 Del Method O2 Flow Rate 97.6 F 106 H 18 113/81 96 Room Air 3 05/21/25 08:00 05/21/25 08:00 05/21/25 08:00 05/21/25 08:00 05/21/25 08:00 05/21/25 08:00 05/21/25 06:03 Narrative Exam General: Obese woman. Awake and in no acute distress. Conversational and non-toxic appearing. Neurologic: GCS 15. Alert and oriented x3, no gross neurological deficit, and patient able to move all 4 extremities. HEENT: Normocephalic, atraumatic, mucous membranes moist. Pupils reactive to light. Heart: Regular rate and rhythm, normal S1 and S2, no murmurs. Lungs: Crackles in the bases bilaterally. Abdomen: Firm, distended, diffusely tender. No guarding or rebound tenderness. Extremities: 1+ pitting edema in the lower extremities bilaterally. 1+ pitting edema in the feet bilaterally. 2+ radial and dorsalis pedis pulses bilaterally. Skin: Indurated suprapubic area, mildly sensitive to palpation Objective Labs 05/21/25 04:25 05/21/25 04:25 Labs: Laboratory Results - last 24 hr 05/21/25 04:25 WBC 13.0 H RBC 4.74 Hgb 12.8 Hct 42.0 MCV 89 MCH 27.0 MCHC 30.5 L RDW Std Deviation 52.1 H Plt Count 185 Neut % (Auto) 79 Lymph % (Auto) 5 L [place] % (Auto) 16 H Eos % (Auto) 0 Baso % (Auto) 0 Neut # (Auto) 10.2 H Lymph # (Auto) 0.6 L [place] # (Auto) 2.1 H Eos # (Auto) 0.0 Baso # (Auto) 0.0 Immature Gran # (Auto) 0.10 H Absolute Nucleated RBC 0.00 Immature Gran % 1 H Nucleated RBC % 0 Sodium 144 Potassium 4.6 Chloride 102 Carbon Dioxide 34.0 H Anion Gap 8 BUN 31 H Creatinine 1.0 Estim Creat Clear Calc 62.4 eGFR 59 L BUN/Creatinine Ratio 31 H Glucose 66 L D Calculated Osmolality 291 Calcium 8.7 Corrected Calcium 9.2 Phosphorus 2.8 Magnesium 1.9 Total Bilirubin 0.9 AST 29 ALT 12 Alkaline Phosphatase 72 D Total Protein 6.1 Albumin 3.4 Globulin 2.7 Albumin/Globulin Ratio 1.3 ABG Interpretation ABG results: 05/16/25 05/16/25 17:54 21:33 ABG pH 7.32 L ABG pCO2 51 H ABG pO2 96 ABG HCO3 26 ABG O2 Saturation 97 ABG Base Excess 0 VBG pH 7.29 L VBG pCO2 58 H VBG pO2 40 VBG Base Excess 0 Quality Measures Quality Measures VTE prophylaxis Assessment & Plan Assessment Current Active Medications: Generic Name Dose Route Start Last Admin Trade Name Freq PRN Reason Stop Dose Admin Acetaminophen 650 mg 05/16/25 20:45 Acetaminophen 325 Mg Tablet PO 06/15/25 20:44 Q6H PRN Fever >100.4 or pain 1-3 Hydrocodone Bitart/Acetaminophen 1 tab 05/16/25 20:45 05/20/25 21:38 Hydrocodone/Apap 5/325 Tablet PO 05/21/25 20:44 1 tab Q4HR PRN Administration PAIN SCALE 4-6 (Moderate Albuterol/Ipratropium 3 ml 05/17/25 03:00 05/21/25 06:02 Albuterol/Ipratropium (Duoneb) Rt Huong 3 Ml Nebu INH 06/16/25 02:59 3 ml Q4HRRT LAURA Administration Dextrose 25 ml 05/16/25 23:13 Dextrose 50%-Water Inj 50 Ml Syringe IV 06/15/25 23:12 Q15MIN PRN BG 50-70 responsive npo pt Dextrose 50 ml 05/16/25 23:13 Dextrose 50%-Water Inj 50 Ml Syringe IV 06/15/25 23:12 Q15MIN PRN BG <50 OR BG <70 & pt unresponsive Docusate Sodium 100 mg 05/17/25 09:00 05/20/25 08:41 Docusate Sod 100 Mg Capsule PO 06/16/25 08:59 100 mg QDAY LAURA Administration Protocol Famotidine 20 mg 05/16/25 21:00 05/20/25 21:30 Famotidine Inj 10 Mg/Ml Vial 2 Ml IVP 06/15/25 20:59 20 mg Q12HR LAURA Administration Furosemide 40 mg 05/19/25 09:00 05/20/25 08:42 Furosemide Inj 10 Mg/Ml 4ml Vial IVP 06/18/25 08:59 40 mg QDAY LAURA Administration Glucagon 1 mg 05/16/25 23:13 Glucagon Inj 1 Mg Vial IM Q15MIN PRN BG <70, and no IV access Heparin Sodium (Porcine) 5,000 unit 05/16/25 21:00 05/20/25 21:29 Heparin Sod Inj 5000 Unit/Ml Vial SC 05/30/25 20:59 5,000 unit Q12HR LAURA Administration Doxycycline Hyclate 100 mg/ 100 mls @ 100 mls/hr 05/17/25 09:00 05/20/25 21:30 Sodium Chloride IV 05/24/25 08:59 100 mls/hr BID LAURA Administration Insulin Human Lispro 0 unit 05/17/25 07:30 05/21/25 07:04 Insulin Lispro (Admelog) 1 Unit/0.01 Ml Unit SC 06/16/25 07:29 Not Given ACHS [facility] Protocol Lisinopril 20 mg 05/17/25 09:00 05/20/25 08:41 Lisinopril 20 Mg Tablet PO 06/16/25 08:59 Not Given QDAY [facility] Pharmacy Consult 1 each 05/17/25 05:13 Pharmacy To Consult Pneumovacc XX 06/16/25 05:12 PRN PRN CONSULT Plan 75-year-old female patient with significant history of hypertension congestive heart failure, diabetes mellitus, came in for evaluation regarding worsening cough. She was admitted for sepsis work up most likely secondary to pneumonia. #Sepsis most likely 2/2 #PNA, CAP vs atypicals #Lactic acidosis - (Resolved) Lactic acid 2.6 --> 0.8 with IVF. CRP 10.6. Covid and flu negative. X-ray showed vascular congestion with perihilar basilar edema, suspicious for pneumonia Cocci negative Patient afebrile Blood cultures negative Sputum cultures showed rare WBCs Plan: Doxycycline 100 mg IV twice daily #Acute hypoxic hypercapnic respiratory failure most likely 2/2 #CHF exacerbation (EF 35-40% Grade 1 diastolic disfunction) #Respiratory acidosis #C/f COPD vs OHS ddx CHF, COPD, supermiposed bacterial infection vs viral vs fungal Presenting with 3 days of worsening cough (nonproductive, only white phlegm) chest pain, reproducible, bilateral lower extremity swelling who presented to ED with oxygen saturation 86% on RA. Tropes negative on arrival. EKG showed sinus rhythm, left bundle branch block VBG showed pH 7.29 pCO2 58 pO2 40 O2 sat 68, ABG pH 7.32 pCO2 51 pO2 96 HCO3 26 O2 sat 97. HCO3 31.2. BNP >3280. In the hospital, patient appears to be fluid overloaded, 1+ pitting edema in the lower extremities, crackles on pulmonary auscultation Plan: Lasix 40 once daily Duonebs Q4HRRT Solumedrol 40mg IVP QD Incentive spirometry BIPAP Strict I&O's Fluid restriction 1200 mL Echo ordered #Constipation Patient has not had a bowel movement since 05/14/2025 Attempted warm water enema on 05/19/2025 Plan: GoLytely 1 L ordered Monitor for bowel movement #JACK (Resolved) Creatinine 1.3 down from 1.7 BUN slowly downtrending JACK likely occurred in the setting of diuretic medications versus volume depletion #Cellulitis Suprapubic area was indurated and tough on exam, however, no erythema. Patient reported sensitivity and pain to the area, however, only mildly sensitive to palpation on exam. Patient endorsed one week of sensitivity and skin toughness around the hypogastrium extending to her pubis upon arrival Plan: Continue doxycycline #Hx of HTN BP has been stable Plan: Holding Lisinopril 20 mg for now #Hx of DM Currently taking Mounjaro A1c is 6 Lipid panel negative Plan: Continue insulin sliding scale ACHS glucose checks Health Maintenance: Code status: DNR/DNI DVT prophylaxis: Heparin 5000 subq Q12HR GI prophylaxis: Famotidine Diet: Cardiac Mcgee: Catheter Lines: PIV Supplemental O2: NC, oxy mask, and bipap Disposition: Admitted to [facility] for sepsis, continuing doxycycline for atypical coverage. Patient is net -0.7 L since admission, continuing to diurese, monitoring for bowel movement, started 1 L GoLytely. Patient was seen and discussed with my attending physician Dr. Amadou ENRIQUEZ and my senior resident Dr. Atif ENRIQUEZ PGY-2. Radha Gramajo MD PGY1
[2025-05-21] MEDS: DOXYCYCLINE INJ 100 MG in SODIUM CHLORIDE 0.9% (POP) 100 ML IV (08:22)
[2025-05-21] MEDS: DOCUSATE SOD 100 MG CAPSULE PO (08:23)
[2025-05-21] MEDS: FUROSEMIDE INJ 10 MG/ML 4ML VIAL 40 MG IVP (08:24)
[2025-05-21] MEDS: HEPARIN SOD INJ 5000 UNIT/ML VIAL SC (08:24)
[2025-05-21] MEDS: FAMOTIDINE INJ 10 MG/ML VIAL 2 ML 20 MG IVP (08:24)
--- NOTE | 2025-05-21 10:23 | ESDS_ITS ---
<Statement entered by Holden Tobar MD - 05/24/25 22:21> Patient seen and examined at bedside with resident. Agree with assessment and plan as documented below. Patient cleared for discharge advised to followup with primary care within 1-2 weeks. Time spent organizing discharge services 50mins. Holden Tobar MD Planned Discharge Date 05/21/25 DS: Providers Provider Date of admission: 05/16/25 20:45 Primary care physician: Adeel Licona MD Admitting Provider: Jasmyn Lopez MD Attending Provider on Admission: Jaden Guevraa MD Consults: 05/17/25 05:13 Referral Jann Stat Comment: Referral Physical Therapy Stat Comment: Physician Instructions: Referral Respiratory Therapy Stat Comment: 05/20/25 10:45 Referral Physical Therapy Routine Comment: Physician Instructions: Attending Provider on DC: Dr. Tobar Discharging Provider: Radha Gramajo MD DS: Diagnosis Problem List Completed Was Problem List Reviewed/Reconciled?: Yes Hospital Course Hospital Course Hospital course: Hospital Course Ms. Reyes is a 75 y/o female with PMH of hypertension, T2DM, HFrEF who presented to the ED on 05/16 with worsening cough, chest discomfort, orthopnea, and wrosening LE edema bilateraly and Crackles were auscultated. Pt is admitted for acute hypoxic hypercapnic respiratory failure 2/2 CHF exacerbation and was started on IV Lasix for diueresis. Pt's acute CHF exacerbation significantly improved over the course of her hospitalizations and IV lasix were transition to her home dose of PO lasix. Pt was also found to have community acquired pneumonia evident on CXR and was started on IV abx for which she completed the course during her hospitalization. Pt reports signifcant improvement in her SOB, cough and over symptoms. However Pt reported she has not had a bowel movement for 8 days and was starting to feel very bloated and uncomfortable. Pt was started on bowel regimen and pt had several large bowel movements and reports feeling great. Pt states she follows up outpatient with Dr. Perez, and is recommended to continue GDMT as her previous EF on echo from 2023 showed HFrEF with EF 35-40%, repeat echo is completed pending reach, which Pt would need to follow up with her transfer knitter. Pt showed significant clinical improvement, saturating above 94% on 2L O2 via nasal cannula which is her home O2, had several large BM, LE edema resolved. PT evalution was doen and recommended home health PT. Patient is hemodynamically stable and Labs reviewed to be discharge home with home health for PT. Diagnoses #Acute hypoxic hypercapnic respiratory failure - resolved #CHF exacerbation (EF 35-40% Grade 1 diastolic disfunction) #Respiratory acidosis - resolved #Constipation #JACK - resolved #Cellulitis #Hx of HTN #T2DM Discharge Instructions - Follow up with PCP within 1 week of discharge, if you do not have a primary care physician you can come see us at the [facility] by calling [phone] - Follow up with outpatient cardiology - Please record your weight daily to assess for fluid status - Continue to take home dose Lasix. Can take an additional 20 mg Lasix as daily as needed for weight gain, shortness of breath - Continue rest of medications as previously prescribed - Return to the ED or call EMS if symptoms return and/or worsen Radha Gramajo MD PGY1 Time Spent with Patient Time attestation: Total time spent providing and/or coordinating discharge services: Time spent: Greater than 30 minutes Exam Vital Signs Temp Pulse Resp BP Pulse Ox O2 Del Method O2 Flow Rate 97.6 F 85 20 113/81 99 Room Air 3 05/21/25 08:00 05/21/25 10:13 05/21/25 10:13 05/21/25 08:24 05/21/25 10:13 05/21/25 08:00 05/21/25 10:13 Narrative Exam General: No acute distress, well nourished, obese Eye: PERRL, EOMI, normal conjunctiva, no scleral icterus HENT: Normocephalic, atraumatic, normal hearing, moist oral mucosa Neck: Supple, non-tender, no JVD, no lymphadenopathy Lungs: Clear to auscultation bilaterally, non-labored respirations, symmetric chest rise, no use of accessory muscles Heart: Normal S1 and S2, no S3 or S4 appreciated. Normal rate and regular rhythm, no murmurs, rubs gallops. 1+ pitting edema b/l LE Abdomen: Soft, non-tender, distended, normal bowel sounds. No guarding or rebound tenderness. Musculoskeletal: Normal range of motion and strength, no tenderness or swelling Skin: Skin is warm, dry, no rashes or lesions. Neurologic: Alert, awake and oriented x3. CN II-XII grossly intact. No focal neuro deficits. No signs of meningeal irritation noted. Psychiatric: Cooperative, appropriate mood and affect Discharge Plan Plan Patient Disposition: Home w/HOME HEALTH Patient condition on transfer: Stable Care Plan Goals: - Follow up with PCP within 1 week of discharge, if you do not have a primary care physician you can come see us at the [facility] by calling [phone] - Follow up with outpatient cardiology - Please record your weight daily to assess for fluid status - Continue to take home dose Lasix. Can take an additional 20 mg Lasix as daily as needed for weight gain, shortness of breath - Continue rest of medications as previously prescribed - Return to the ED or call EMS if symptoms return and/or worsen Prescriptions/Referrals Prescriptions/Med Rec: New furosemide [Lasix] 20 mg tablet 20 mg PO PRN PRN (Reason: edema) Qty: 30 0RF Continued furosemide 40 mg tablet 40 mg PO QAM Patient Comments: TAKE ONE TABLET BY MOUTH EVERY MORNING A DIURETIC ropinirole 1 mg tablet 2 mg PO HS Patient Comments: TAKE TWO TABLETS BY MOUTH EVERY DAY ONE TO THREE hours BEFORE bedtime Rx Instructions: TAKE TWO TABLETS BY MOUTH EVERY DAY ONE TO THREE hours BEFORE bedtime metoprolol succinate 50 mg tablet extended release 24 hr 50 mg PO QDAY Patient Comments: TAKE ONE TABLET BY MOUTH EVERY DAY FOR BLOOD PRESSURE metformin 850 mg tablet 850 mg PO BIDWM Patient Comments: TAKE ONE TABLET BY MOUTH TWICE DAILY WITH FOOD FOR DIABETES spironolactone 25 mg tablet 25 mg PO QDAY Patient Comments: TAKE ONE TABLET BY MOUTH EVERY DAY A DIURETIC meclizine 25 mg tablet 25 mg PO BID Patient Comments: TAKE ONE TABLET BY MOUTH TWICE DAILY FOR DIZZINESS albuterol sulfate 90 mcg/actuation HFA aerosol inhaler 1 puff INHALATION Q4H PRN (Reason: breathing and shortness of breath ) Patient Comments: INHALE 1 PUFF BY MOUTH EVERY 4 HOURS NEEDED FOR BREATHING AND SHORTNESS OF BREATH fluticasone propion-salmeterol [Advair HFA] 115-21 mcg/actuation HFA aerosol inhaler 2 puff INHALATION BID Patient Comments: INHALE TWO PUFFS BY MOUTH TWICE DAILY benzonatate 200 mg capsule 200 mg PO TID PRN (Reason: Cough) Patient Comments: TAKE ONE CAPSULE BY MOUTH THREE TIMES DAILY NEEDED FOR COUGH FOR 10 DAYS glipizide 10 mg tablet 10 mg PO BID Patient Comments: TAKE ONE TABLET BY MOUTH 30 MINUTES BEFORE BREAKFAST TWICE DAILY lisinopril 20 mg tablet 20 mg PO QDAY Qty: 30 0RF tizanidine 2 mg tablet 2 mg PO Q12H Patient Comments: TAKE ONE TABLET BY MOUTH TWICE DAILY FOR MUSCLE SPASMS Ozempic 0.25 mg or 0.5 mg (2 mg/3 mL) pen injector 0.25 mg SUBCUT QDAY Patient Comments: INJECT 0.5 MG SUBCUTANEOUSLY ONCE A WEEK Referrals: Adeel Licona MD [Primary Care Provider, Family Practice] Patient/Caregiver Discharge Instructions Print Language: Togolese Stand Alone Forms: Julita Award Info., Patient Portal Info Letter Discharge Order Discharge Orders: Discharge (Routine); Ordered 05/21/25 Ordered By: Rogelio Srivastava Quality Discharge Quality Measures VTE prophylaxis
--- NOTE | 2025-05-21 11:25 | EKG_ITS ---
[facility] Test Date: 2025-05-21 Pat Name: CARLOS JESSICA [facility] Gender: Female Supervisor Pipeline: SANAZ : 1950 Requested By: Elsa Narvaez Order Number: [id number] Reading MD: Elsa Narvaez Measurements Intervals [place] Rate: 85 P: 38 GA: 200 QRS: 74 QRSD: 191 T: -69 QT: 416 QTc: 495 Interpretive Statements SINUS RHYTHM INTRAVENTRICULAR CONDUCTION DELAY Compared to ECG 05/16/2025 18:08:54 Intraventricular conduction delay now present Left bundle-branch block no longer present /store/S0/[id number].pdf
--- NOTE | 2025-05-21 11:25 | PC.NURSE ---
provider Ember notified of rhythm change possible RBBB. putting in EKG order now
--- NOTE | 2025-05-21 11:27 | PC.NURSE ---
RT Arora notified of EKG order
--- NOTE | 2025-05-24 07:18 | PC.CC ---
Mt SOC 05/25
== END 2025-05-21 15:10 | disposition home health service (06) | DRG 871 ==
LOC: SERX 20:27 → SERHOLD 21:07 → S2NX 05-17 04:05 → S3SX 05-18 23:37
PROVIDERS: Nurse Practitioner Family; Admitting Provider Student in an Organized Health Care Education/Training Program; Emergency Provider Internal Medicine Rheumatology; PCP Family Medicine; Visit Provider Student in an Organized Health Care Education/Training Program
DX: A41.9 Sepsis, unspecified organism (principal); I50.23 Acute on chronic systolic (congestive) heart failure; J18.9 Pneumonia, unspecified organism; J96.01 Acute respiratory failure with hypoxia; J96.02 Acute respiratory failure with hypercapnia; L03.818 Cellulitis of other sites; N17.9 Acute kidney failure, unspecified; Z68.41 Body mass index [BMI] 40.0-44.9, adult; E87.29 Other acidosis; E66.01 Morbid (severe) obesity due to excess calories; K59.00 Constipation, unspecified; I44.7 Left bundle-branch block, unspecified; I11.0 Hypertensive heart disease with heart failure; E11.9 Type 2 diabetes mellitus without complications; Z66 Do not resuscitate; Z79.84 Long term (current) use of oral hypoglycemic drugs; Z79.899 Other long term (current) drug therapy
CPT/HCPCS: 36415; 36600; 51702; 71045; 80048; 80053; 80061; 81001; 82803; 83036; 83605; 83735; 83880; 84100; 84145; 84443; 84484; 85025; 85610; 85730; 86140; 86331; 86635; 87040; 87205; 87502; 87635; 93005; 93225; 93306; 94640; 94660; 94664; 96365; 96375; 97162; 99284; A4314; A9270; J0456; J0696; J1644; J1815; J1938; J2405; J2919; J3475; J3490; J7050

== ENCOUNTER 2025-06-21 18:52 | Inpatient (IN) | payer MEDICARE, MEDICAID, SELFPAY ==
[2025-06-21 18:53] VITALS: BP 149/100; PULSE 59; RESP 18; TEMP 37.1; O2SAT 97
[2025-06-21 18:56] VITALS: PULSE 60; RESP 24; O2SAT 99; BMI 40.7
--- NOTE | 2025-06-21 19:42 | PC.NURSE ---
report recieved from [facility]. pt awake and alert.gcs 15.
--- NOTE | 2025-06-21 19:43 | EKG_ITS ---
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
--- NOTE | 2025-06-21 19:43 | XR_ITS ---
EXAMINATION: AP chest single view TECHNIQUE: AP portable upright chest single view Date and time: June 21, 2025, 2035 hours, comparison 05/16/2025 INDICATION: Shortness of breath today. FINDINGS: Moderate CHF Moderate enlargement cardiac contour Prominent vascular congestion with perihilar and basilar edema Moderate left pleural fluid Impression: Moderate CHF
--- NOTE | 2025-06-21 19:45 | PD.EDSYNC ---
ED Syncope RME/HPI General Chief Complaint: Shortness of Breath/Dyspnea Stated Complaint: SEIZURE LIKE ACTIVITY Time Seen by Provider: 06/21/25 19:42 Arrival date/time: 06/21/25 18:52 RME / HPI RME / HPI narrative: DR. SCHULER MAIN ED EVALUATION: 75 y/o female with Hx of CHF, HTN, Type II DM, and COPD with recent PNA BIBA from home presents to ED c/o lightheadedness and shaking s/p an episode of seizure-like activity just [employer] [employer]. Patient states she saw [place] lights just before shaking began, but has no recollection of event. Patient also reports congestion x 3 days. Patient has already completed antibiotic regimen for PNA. Per EMS, patient had expiratory wheezing and underwent a breathing treatment en route and was placed on 6L O2 via NC. Patient was GCS 15 and was able to ambulate on scene. Patient stated that symptoms are similar to those experienced in the past when her blood sugar is elevated. Denies fall, LOC, or head strike. She has been out of her Entresto for 2 days and was informed that it would not be available to her until tomorrow. Patient started supplemental Magnesium 2 days ago and is on supplemental O2 2L at home. Denies blood thinner use. Denies any sick contacts and reports living alone. Denies Hx of VT and seizures, but reports possible TIA. Denies tobacco use but admits to occasional alcohol consumption. Also denies chest pain, diarrhea, abdominal pain, and bloody or tarry stool. Related Data Home Medications ?Medication ?Instructions ?Recorded ?Confirmed albuterol sulfate 90 mcg/actuation 1 puff inhalation Q4H PRN 09/18/23 05/18/25 aerosol inhaler breathing and shortness of breath benzonatate 200 mg capsule 200 mg PO TID PRN Cough 09/18/23 05/18/25 fluticasone propionate 115 2 puff inhalation BID 09/18/23 05/18/25 mcg-salmeterol 21 mcg/actuation HFA inhaler (Advair HFA) furosemide 40 mg tablet 40 mg PO QAM 09/18/23 05/18/25 glipizide 10 mg tablet 10 mg PO BID 09/18/23 05/18/25 meclizine 25 mg tablet 25 mg PO BID dizziness 09/18/23 05/18/25 metformin 850 mg tablet 850 mg PO BIDWM diabetes 09/18/23 05/18/25 metoprolol succinate 50 mg 50 mg PO QDAY 09/18/23 05/18/25 tablet,extended release 24 hr ropinirole 1 mg tablet 2 mg PO HS 09/18/23 05/18/25 spironolactone 25 mg tablet 25 mg PO QDAY 09/18/23 05/18/25 semaglutide 0.25 mg or 0.5 mg (2 0.25 mg subcut QDAY 05/18/25 05/18/25 mg/3 mL) subcutaneous pen injector (Ozempic) tizanidine 2 mg tablet 2 mg PO Q12H 05/18/25 05/18/25 Previous Rx's ?Medication ?Instructions ?Recorded lisinopril 20 mg tablet 20 mg PO QDAY #30 tabs 09/20/23 furosemide 20 mg tablet (Lasix) 20 mg PO PRN PRN edema #30 tabs 05/21/25 Allergies Allergy/AdvReac Type Severity Reaction Status Date / Time No Known Allergies Allergy Verified 06/21/25 18:57 Review of Systems Review of Systems Systems Reviewed: All systems reviewed, normal except as documented Past Medical History Past Medical History CARDIAC: Positive Cardiac Disorders, Hypercholesterolemia, Congestive Heart Failure and Hypertension GASTROINTESTINAL: Positive Gastrointestinal Disorders and Obesity REPRODUCTIVE: Positive Previous Pregnancies MUSCULOSKELETAL: Positive Musculoskeletal Disorders and Arthritis ENDOCRINE: Positive Endocrine Disorders and Diabetes Mellitus Type 2 Family History FAMILY HISTORY: Positive Family Cardiac Disorders and Family Surgery ED Exam Narrative Physical exam: GEN. APPEARANCE: The patient is alert awake oriented X-3, dyspneic, chronically ill-appearing and decompensating. Patient has good eye contact. Patient is cooperative. VITALS: All vitals were reviewed and the pulse ox is 100% on room air which is normal according to my interpretation. HEENT: Normocephalic, atraumatic. Pupils are equal and reactive. Oral mucosa is moist. Patent Nares NECK: Supple, nontender, no thyromegaly, no meningismus, no JVD CHEST: Symmetrical, atraumatic, and with equal expansion , Nontender on palpation no deformity and no crepitus. CARDIOVASCULAR: Heart regular rhythm no murmur or gallop rub or extra beats. LUNGS: Clear to auscultation bilaterally with symmetrical chest rise. No laboring tachypnea or wheezing. No intercostal subcostal retraction. No rales and no rhonchi. ABDOMEN: Soft, flat, nontender to palpation, no guarding or rebound tenderness. There are no abnormal masses palpated. Active and normal bowel sounds. EXTREMITIES: Nontender. 2+ pitting edema symmetrically to BLE. No cyanosis. Patient is able to move all 4 extremities well, with full ROM and good CSM. SKIN: Warm and dry, no jaundice or rashes noted. MUSCULOSKELETAL: No lumbar or midline bony tenderness. There is no CVA tenderness. No paraspinal muscle spasm or tenderness. NEURO: Patient is TRIPP x 4, Cranial nerves II through XII grossly intact. There is no focal neurologic deficits noted. GCS is 15, PNS and [employer] appear grossly intact. PSYCHIATRIC: Patient is in normal mood and affect. Course Quality Measures none Orders Category Date Time Status Bedside COVID-19 Antigen Test NOW Care 06/21/25 19:43 Active Bedside Influenza A&B Antigen Test NOW Care 06/21/25 19:43 Completed EKG (ED ONLY) *Do not use* NOW Care 06/21/25 19:[address] head/brain wo con Stat Exams 06/21/25 21:09 Completed CXR [XR chest 1V] Stat Exams 06/21/25 19:43 Completed EKG (ED Only) Stat Exams 06/21/25 19:43 Draft BNP [B-Type Natriuretic Peptide] Stat Lab 06/21/25 19:50 Completed CBC Stat Lab 06/21/25 19:50 Completed CMP [Comprehensive Metabolic Panel] Stat Lab 06/21/25 19:50 Completed Free T4 (Free Thyroxine) Stat Lab 06/21/25 19:50 Completed INR [Prothrombin Time with INR] Stat Lab 06/21/25 19:50 Completed TSH [Thyroid Stimulating Hormone] Stat Lab 06/21/25 19:50 Completed Troponin I Stat Lab 06/21/25 19:50 Completed VBG [Venous Blood Gas] Stat Lab 06/21/25 19:50 Completed Furosemide [Lasix Inj] Med 06/22/25 00:36 Discontinued 40 mg IVP X1 ONE MethylPREDNISolone.* [SoluMEDROL Inj] Med 06/22/25 01:09 Discontinued 125 mg IVP X1 ONE Vital Signs Vital signs: Vital Signs Temperature 98.7 F 06/21/25 18:53 Pulse Rate 59 L 06/21/25 18:53 Respiratory Rate 18 06/21/25 18:53 Blood Pressure 149/100 H 06/21/25 18:53 Pulse Oximetry (%) 97 06/21/25 18:53 Oxygen Delivery Method Nasal Cannula 06/21/25 18:53 Oxygen Flow Rate 6 06/21/25 18:53 Syncope MDM Narrative MDM Narrative:: Scribe Attestation: I, Evi Cerda, am scribing for and in the presence of Dr. Schuler. Provider Notation: Although this document has been carefully reviewed, there may still be some phonetic and other typographical errors. These errors are purely grammatical due to imperfections in the software program and should not be construed in any way to compromise the substance of the patient's medical care during this visit. Patient is a 75-year-old female is seen emergency primary concerns for shortness of breath, and episode of syncope at home. Vital signs and exam as listed. Concern for ACS arrhythmia electrolyte abnormality viral syndrome pneumonia metabolic disturbance among others. Patient also was wheezing in the field, required additional supplemental oxygen and received a breathing treatment. On my assessment patient respiratory function improved, patient is at her baseline oxygen requirement, 3 L by nasal cannula. No longer in respiratory distress, speaking in complete sentences. Ordered labs EKG chest x-ray. Also ordered CT brain given concern that patient had some shaking during the event earlier today concerning for possible for some seizure versus syncope. Labs without any acute hematologic abnormality, patient does not have a leukocytosis however has a left shift of 84%. Patient has a pCO2 58 mildly elevated from baseline. Patient labs with a bicarb of 32.6. No other significant acute metabolic disturbances. Patient BNP is 3280. Which is the same as prior. Patient does have lower extremity edema. Patient states that she takes a water pill at home does not know the name of it. States she is compliant. Will provide patient with a dose of diuretics here. CT brain without acute abnormality. Chest x-ray with evidence of cephalization of vessels consistent with CHF. Patient data External records reviewed:: [facility] previous records (Reviewed prior ED records from 05/16/25. Patient was seen for Acute exacerbation of CHF (congestive heart failure).) and EMS form Clinical information provided by:: patient and EMS Social determinants that could affect healthcare access:: none Patient has the following chronic illnesses:: Hypercholesterolemia, Congestive Heart Failure, Hypertension, COPD, Obesity, Arthritis, Diabetes Mellitus Type 2 How is presenting disease/condition affected by chronic disease/condition?: exacerbated by Evaluation data The following diagnostics were reviewed and interpreted by me:: lab results, radiology exam(s) and EKG tracing(s) (EKG done at 20:30, sinus bradycardia, 54 bpm, LBBB, non-specific T-wave changes, normal intervals, not a cardiac alert. - Interpreted by Dr. Libia Schuler.) Lab and/or radiology exams considered but not ordered:: None Interpretation Summary: RADIOLOGY Head/Brain CT: Findings: No significant ventricular enlargement. Intra-axial or extra-axial hemorrhage density is not seen. No mass effect or midline shift Basal cisterns are not remarkable. Fourth ventricle is midline. Cranial vault intact. Impression: Negative for acute hemorrhage, mass effect or midline shift Consider elective brain MRI follow-up, pre and post contrast, seizure protocol Chest X-Ray: FINDINGS: Moderate CHF Moderate enlargement cardiac contour Prominent vascular congestion with perihilar and basilar edema Moderate left pleural fluid Impression: Moderate CHF Medications / Prescriptions Medications or Prescriptions considered but not ordered:: None Medication administrations:: Medication Administration History Discontinued Medications Furosemide (Furosemide Inj 10 Mg/Ml Vial 2 Ml) 40 mg IVP X1 ONE Stop: 06/22/25 00:37 Last Admin: 06/22/25 01:01 Dose: 40 mg Documented By: SHANIA Methylprednisolone Sodium Succinate (Methylprednisolone Sod Succ 62.5 Mg/Ml 2ml Vial) 125 mg IVP X1 ONE Stop: 06/22/25 01:10 See above if any. Consultations Consultation(s) initiated? (list below): Yes Consultation #1 (Physician, Specialty, Details): Discussed with resident physician for Dr. Webster for admission. Reviewed the patient?s HPI, PMHx, lab and/or radiology results. Discussed treatment plan. Will consult an admission to the hospitalist. Time: 00:12 Diagnosis Syncope Differential Diagnosis: syncope due to orthostatic hypotension, vasovagal syncope, complete atrioventricular block, pulmonary embolism and other (VT) Most likely diagnosis given after review of the tests above:: Acute exacerbation of CHF (congestive heart failure), Syncope, Acute exacerbation of chronic obstructive pulmonary disease Admission Indicated Admission indicated?: indicated Explain why admission is indicated or not indicated:: Acute exacerbation of CHF (congestive heart failure), Syncope, Acute exacerbation of chronic obstructive pulmonary disease Admission Request Was there a request for admission?: Yes Admission Attestation Admission request attestation: Discussed case with [] from Hospitalist service regarding admission. Discussed patients ED course, exam findings, labs, and radiology results. The Hospitalist [agrees,declines] to accept the patient for admission. Disposition Plan Disposition Plan: Admit Discharge Plan Plan Patient Disposition: Admit Acute Care w/in Hospital Prescriptions/Referrals Prescriptions/Med Rec: No Action furosemide 40 mg tablet 40 mg PO QAM Patient Comments: TAKE ONE TABLET BY MOUTH EVERY MORNING A DIURETIC ropinirole 1 mg tablet 2 mg PO HS Patient Comments: TAKE TWO TABLETS BY MOUTH EVERY DAY ONE TO THREE hours BEFORE bedtime Rx Instructions: TAKE TWO TABLETS BY MOUTH EVERY DAY ONE TO THREE hours BEFORE bedtime metoprolol succinate 50 mg tablet extended release 24 hr 50 mg PO QDAY Patient Comments: TAKE ONE TABLET BY MOUTH EVERY DAY FOR BLOOD PRESSURE metformin 850 mg tablet 850 mg PO BIDWM Patient Comments: TAKE ONE TABLET BY MOUTH TWICE DAILY WITH FOOD FOR DIABETES spironolactone 25 mg tablet 25 mg PO QDAY Patient Comments: TAKE ONE TABLET BY MOUTH EVERY DAY A DIURETIC meclizine 25 mg tablet 25 mg PO BID Patient Comments: TAKE ONE TABLET BY MOUTH TWICE DAILY FOR DIZZINESS albuterol sulfate 90 mcg/actuation HFA aerosol inhaler 1 puff INHALATION Q4H PRN (Reason: breathing and shortness of breath ) Patient Comments: INHALE 1 PUFF BY MOUTH EVERY 4 HOURS NEEDED FOR BREATHING AND SHORTNESS OF BREATH fluticasone propion-salmeterol [Advair HFA] 115-21 mcg/actuation HFA aerosol inhaler 2 puff INHALATION BID Patient Comments: INHALE TWO PUFFS BY MOUTH TWICE DAILY benzonatate 200 mg capsule 200 mg PO TID PRN (Reason: Cough) Patient Comments: TAKE ONE CAPSULE BY MOUTH THREE TIMES DAILY NEEDED FOR COUGH FOR 10 DAYS glipizide 10 mg tablet 10 mg PO BID Patient Comments: TAKE ONE TABLET BY MOUTH 30 MINUTES BEFORE BREAKFAST TWICE DAILY lisinopril 20 mg tablet 20 mg PO QDAY Qty: 30 0RF tizanidine 2 mg tablet 2 mg PO Q12H Patient Comments: TAKE ONE TABLET BY MOUTH TWICE DAILY FOR MUSCLE SPASMS Ozempic 0.25 mg or 0.5 mg (2 mg/3 mL) pen injector 0.25 mg SUBCUT QDAY Patient Comments: INJECT 0.5 MG SUBCUTANEOUSLY ONCE A WEEK furosemide [Lasix] 20 mg tablet 20 mg PO PRN PRN (Reason: edema) Qty: 30 0RF Referrals: No Primary/Family,Physician [Primary Care Provider] - In 1 week Problem List Clinical Impression: Acute exacerbation of CHF (congestive heart failure), Syncope, Acute exacerbation of chronic obstructive pulmonary disease Patient/Caregiver Discharge Instructions Print Language: Ivorian Stand Alone Forms: Julita Award Info., Patient Portal Info Letter
[2025-06-21 20:03] VITALS: BP 168/99; PULSE 56; RESP 20; TEMP 37.3; O2SAT 100
[2025-06-21 20:05] LABS: Base Excess, Venous 5 (-3-3); O2 Saturation, Venous 76 % (96-97); PCO2, Venous 58 mmHg (36-56); PO2, Venous 44 mmHg (15-58); pH, Venous 7.36 (7.33-7.66)
[2025-06-21 20:08] LABS: Basophils # (Auto) 0.0 Thou/mm3 (0.0-0.2); Basophils % (Auto) 0 % (0-2.5); Eosinophils # (Auto) 0.0 Thou/mm3 (0.0-0.5); Eosinophils % (Auto) 0 % (0-10); Hematocrit 39.8 % (36.0-46.0); Hemoglobin 12.2 g/dL (12.0-16.0); Immature Granulocytes Auto 0.01 Thou/mm3 (0.00-0.00); Lymphocytes # (Auto) 0.6 Thou/mm3 (1.0-4.8); Lymphocytes % (Auto) 9 % (10-50); Mean Corpuscular HGB Conc 30.7 g/dl (31.0-37.0); Mean Corpuscular Hemoglobin 27.9 pg (25.0-35.0); Mean Corpuscular Volume 91 fL (80-100); Monocytes # (Auto) 0.5 Thou/mm3 (0.0-0.8); Monocytes % (Auto) 7 % (0-12); Neutrophils # (Auto) 6.1 Thou/mm3 (1.8-7.7); Neutrophils % (Auto) 84 % (37-80); Nucleated Red Blood Cell # 0.00 Thou/mm3 (0.00-0.00); Nucleated Red Blood Cell % 0 /100 WBC (0); Platelet Count 171 Thou/mm3 (140-440); RDW Standard Deviation 62.5 fL (36.4-46.3); Red Blood Count 4.37 Miln/mm3 (4.00-5.20); White Blood Count 7.2 Thou/mm3 (3.6-11.0)
[2025-06-21 20:24] LABS: INR 1.3 (0.9-1.3); Prothrombin Time 13.5 Seconds (9.0-12.2)
[2025-06-21 20:26] LABS: B-Type Natriuretic Peptide > 3280 pg/mL (0-100)
[2025-06-21 20:28] LABS: Alanine Aminotransferase 13 U/L (10-49); Albumin, Serum 3.6 gm/dL (3.4-4.8); Albumin/Globulin Ratio 1.1 (1.2-2.2); Alkaline Phosphatase 124 U/L (46-116); Anion Gap 6 (7-16); Aspartate Amino Transferase 28 U/L (0-34); BUN/Creatinine Ratio 25 Ratio (12-20); Bilirubin,Total 0.7 mg/dL (0.3-1.2); Blood Urea Nitrogen 27 mg/dL (9-23); Calcium 9.0 mg/dL (8.3-10.6); Calcium (Corrected) 9.3 mg/dL (8.5-10.1); Carbon Dioxide 32.6 mMol/L (20.0-31.0); Chloride 104 mMol/L (98-107); Creatinine (Component) 1.1 mg/dL (0.6-1.3); Estimated Creatinine Clearance 52.6 mL/min (>60); Free T4 (Free Thyroxine) 1.24 ng/dL (0.89-1.76); Globulin 3.4 gm/dL (2.3-3.5); Glucose 177 mg/dL (74-106); Osmolality,Calculated 294 (275-295); Potassium 4.2 mMol/L (3.4-5.1); Sodium 143 mMol/L (136-145); Thyroid Stimulating Hormone 2.06 uIU/mL (0.55-4.78); Total Protein 7.0 gm/dL (5.7-8.2); Troponin I 0.022 ng/mL (0.0-0.045); eGFR 53 See Note
--- NOTE | 2025-06-21 21:09 | XR_ITS ---
Examination: CT brain head without contrast. 2-D sagittal coronal reconstructions Date and time of exam: June 21, 2025, 2137 hours, comparison September 18, 2023 INDICATIONS: Seizure activity followed by confusion today CTDI: vol (mGy): 51.1 DLP: (mGycm): 984 Technique: Multiple CT axial sections of the brain have been obtained, 5 mm slice thickness. Contrast has not been administered. 2-D sagittal, coronal reconstructions have been obtained Low dose protocols were performed. One or more of the following dose reduction techniques were used; automated exposure control, adjustment of the mA and/or KV according to patient size, use of iterative reconstruction technique. Findings: No significant ventricular enlargement. Intra-axial or extra-axial hemorrhage density is not seen. No mass effect or midline shift Basal cisterns are not remarkable. Fourth ventricle is midline. Cranial vault intact. Impression: Negative for acute hemorrhage, mass effect or midline shift Consider elective brain MRI follow-up, pre and post contrast, seizure protocol
[2025-06-21 23:32] VITALS: O2SAT 98
[2025-06-21 23:55] VITALS: BP 117/67; PULSE 52; RESP 16; TEMP 37.1; O2SAT 99
[2025-06-22] VITALS (19 sets, daily range): BP systolic 117–152; BP diastolic 60–89; PULSE 48–97; RESP 16–26; TEMP 36.2–37.1; O2SAT 91–100; BMI 14.0
[2025-06-22] MEDS: FUROSEMIDE INJ 10 MG/ML VIAL 2 ML 40 MG IVP (01:01)
--- NOTE | 2025-06-22 01:55 | EKG_ITS ---
[facility] Test Date: 2025-06-22 Pat Name: CARLOS JESSICA Department: Room: - Gender: Female [employer]ic: : [id number] Requested By: Pravin Esparza Order Number: [id number] Reading MD: Pravin Esparza Measurements Intervals Fielding Rate: 49 P: 35 MT: 194 QRS: -19 QRSD: 190 T: 154 QT: 526 QTc: 477 Interpretive Statements SINUS BRADYCARDIA LEFT BUNDLE BRANCH BLOCK [120+ ms QRS DURATION, 80+ ms Q/S IN V1/V2, 85+ ms R IN I/aVL/V5/V6] Compared to ECG 06/21/2025 19:58:18 Sinus arrhythmia no longer present /store/S0/[id number]
--- NOTE | 2025-06-22 02:08 | ESHP_ITS ---
<Statement entered by Juan Pablo Webster DO - 06/22/25 05:43> Patient was seen and examined by me. After the review of the clinical data, I agree that the patient will need an admission on Inpatient status for Bradycardia, syncope and Acute on chronic HF exacerbation Plan of care discussed with patient who is in agreement. I Juan Pablo Webster DO, attest that I was physically present for fuentes portions of evaluation, examined the patient, reviewed the labs and imaging, and discussed the plan of care and management with the IM residents team. I agree with the findings and plans documented above. <Statement entered by Sid James MD - 06/22/25 03:43> A 75-year-old female with significant past medical history of hypertension, diabetes mellitus on Ozempic, congestive heart failure, hypertension, restless leg syndrome, chronic cough, recently admitted in the hospital for CHF exacerbation, HFrEF [EF 35 to 40%, 2023],? COPD, never got officially diagnosed as she is complaining of shortness of breath her primary care provider said that she might have COPD and noted to have CO2 retention in the ABG/VBG's which could be due to ALIREZA/OHS in the setting of her body habitus, less likely to have COPD as she does not have any history of smoking presented to the hospital with chief complaints of syncopal-like episode. Reported that she is recently started on oxygen, 2 L since 1 week which was prescribed after discharge from the hospital during last admission and is getting physical therapy at home. Since last discharge, patient is only able to do basic activities including going to bathroom, walk around home but not able to do her previous activities like cooking or standing for longer times. On the day of admission, son came back to home from work following which she sat up on the bed and is talking to him, later noted that she is feeling lightheaded and noted generalized weakness following which her son asked whats going on and she passed out for about 5 to 10 seconds following which she regained consciousness immediately. Denies abnormal movements, involuntary micturition, tongue bite, post episode confusion. Immediately came down to the hospital. Reported that she is following with her special machine operator and recently magnesium was added and 1 more medication is adjusted but does not remember the name of the medication. Reported that she is having orthopnea episodes and has to use pillows for the head end elevation. Denies any other associated complaints. Does not remember the name of the medications and does not have any list with her. Vitals at the time of admission are significant for blood pressure 149/100 mmHg, pulse rate 59 bpm. On physical examination, morbidly obese, noted to have bilateral pitting 2+ pedal edema extending up to below knees, bilateral basilar fine inspiratory crackles heard, no JVD appreciated. Labs at the time of admission are significant for 58 pCO2 on VBG, chemistry showed bicarb 32.6, anion gap 6, BUN 27, creatinine 1.1, BNP 3280. EKG done showed normal sinus rhythm, heart rate 49 bpm, left axis deviation, wide QRS complexes with T wave inversions in lead I, aVL, V6. Head CT did not show any acute infarcts, hemorrhage. Patient is admitted in the hospital on telemetry for bradycardia and CHF. On reviewing the medications, noted to have metoprolol succinate 100 mg once every day was refilled and was discharged on metoprolol 50 during previous admission which might be causing the bradycardia. So held metoprolol and recommended patient to get her home medications to confirm. Echocardiogram was ordered. Consulted special machine operator, Dr. Rubin. Started on IV Lasix Strict input and output, fluid restriction, cardiac diet. # Bradycardia # CHF, HFrEF # ? ALIREZA/OHS # Hypertension # Diabetes mellitus, well controlled # Restless leg syndrome I have personally seen and examined the patient, agree with residents assessment and plan Patient plan of care was discussed with the attending physician, Dr. Darin James, PGY2 Documentation for date of: 06/22/25 HPI History of Present Illness Chief complaint: Passing out History of present illness: This patient is a 75-year-old female with a history of hypertension, type 2 diabetes mellitus, COPD (on home oxygen, 2 L, usually at night), and HFrEF (35 to 40%, 2023) who presented to [facility] ED on 06/21 for an episode of passing out. Patient was admitted for management of syncope with bradycardia. At around 6 PM, the patient was sitting on her bed and talking to her family member who was at the room at the time when she suddenly felt a sensation of things closing in and had darkening of her vision with random lights. The patient was then told that she passed out for 5 to 10 seconds, to which the patient has no memory of during this time, and then woke up without any significant confusion or altered mentation. This is the first time that this has ever happened to the patient, and the patient does not note any clamminess or racing heartbeat nor did she note any urinary incontinence, tongue laceration, or fecal incontinence. The patient was told that when she was passing out, her eyes rolled to the back of her head and she had some shaking of her hands. Concern, the patient came to the ED for further evaluation. The patient was recently discharged about a month ago after she was admitted for an acute hypoxic hypercapnic respiratory failure secondary to CHF exacerbation. At that time, the patient was managed with oxygen via nasal cannula and IV diuresis, which had improved her respiratory failure, and so the patient was discharged back home with home health PT to continue with diuresis. Since her discharge, the patient still takes most of her medications that she was discharged with except for additional magnesium and 1 medication change by her special machine operator, Dr. Rubin. Since discharge, the patient's bilateral lower extremity edema seems about the same to the patient. The patient has been out of her Entresto for the past 2 days as she ran out. The patient does note that she had been previously admitted for passing out in the past, however that episode was more so accompanied by dizziness. At that time, the patient had a blood glucose of 400 via home glucometer. At time of discharge, it was noted that the patient most likely had her syncopal episode secondary to her excessive blood pressure medications. Patient denies any fever, headache, chills, chest pain, abdominal pain, and dysuria. Patient does have a cough and shortness of breath. Heart rate noted to be ranging from high 40s to high 50s, which is new for the patient. ED course: Initial vitals significant for blood pressure of 149/100 and heart rate 59 Initial labs significant for BUN 27, and BNP over 3280. VBG shows pCO2 76 Chest x-ray shows moderate CHF with prominent vascular congestion and perihilar/basilar edema and moderate left pleural fluid CT head unremarkable Patient was given Lasix and methylprednisolone in ED Past Surgical History: Left knee surgery about 5 years ago Current Medication(s): Pending med rec Allergies (w/ Reactions): NKDA Family History: Younger sister had unspecified cancer and older sister had breast cancer Alcohol Intake: Occasional social drinker Tobacco/Vape Use: Patient denies Other Drug Use: Patient denies Review of Systems Review of Systems Systems Reviewed: All systems reviewed, normal except as documented Exam Vital Signs Temp Pulse Resp BP Pulse Ox O2 Del Method O2 Flow Rate 98.7 F 50 L 16 143/84 H 95 Nasal Cannula 3 06/21/25 23:55 06/22/25 01:01 06/21/25 23:55 06/22/25 01:01 06/22/25 00:00 06/21/25 23:55 06/21/25 23:55 Narrative Exam Physical Exam: General: Alert, no acute distress. Skin: Warm, dry, intact. Head: Normocephalic, atraumatic. Eye: Normal conjunctiva, PERRL. Throat: Oral mucosa moist. No obvious lesions in oropharynx. Cardiovascular: Unable to appropriately appreciate due to body habitus. Respiratory: Bibasilar crackles on auscultation. Patient breathing comfortably on 4L NC. No wheezing appreciated. Gastrointestinal: Soft, nontender, obese. No guarding or rebound tenderness. Extremities: 1+ pitting edema in bilateral lower extremities to thigh, no cyanosis, no clubbing. 2+ radial pulse bilaterally, 1+ pedal pulse bilaterally. Neuro: No focal deficits observed. Conversant, moving all extremities. No overt cerebellar signs/incoordination. Psychiatric: Cooperative, appropriate affect. Results: Labs 06/21/25 19:50 06/21/25 19:50 Labs: Short CBC 06/21/25 Range/Units 19:50 WBC 7.2 (3.6-11.0) Thou/mm3 Hgb 12.2 (12.0-16.0) g/dL Hct 39.8 (36.0-46.0) % Plt Count 171 (140-440) Thou/mm3 BMP 06/21/25 19:50 Sodium 143 Potassium 4.2 Chloride 104 Carbon Dioxide 32.6 H BUN 27 H Creatinine 1.1 Glucose 177 H Calcium 9.0 Cardiac Enzymes 06/21/25 Range/Units 19:50 Troponin I 0.022 (0.0-0.045) ng/mL Liver Function 06/21/25 Range/Units 19:50 Total Bilirubin 0.7 (0.3-1.2) mg/dL AST 28 (0-34) U/L ALT 13 (10-49) U/L Alkaline Phosphatase 124 H (46-116) U/L Albumin 3.6 (3.4-4.8) gm/dL ABG Interpretation ABG results: 06/21/25 19:50 VBG pH 7.36 VBG pCO2 58 H VBG pO2 44 VBG Base Excess 5 H Quality Measures Quality Measures VTE prophylaxis Advance care planning discussed with:: patient Medications Home Medications and Allergies Home Medications ?Medication ?Instructions ?Recorded ?Confirmed ?Type albuterol sulfate 90 mcg/actuation 1 puff inhalation Q 4H PRN 09/18/23 05/18/25 History aerosol inhaler breathing and shortness of b reath benzonatate 200 mg capsule 200 mg PO TID PRN Cough 05/18/25 History fluticasone propionate 115 2 puff inhalation BID 09/1705/18/25 History mcg-salmeterol 21 mcg/actuation HFA inhaler (Advair HFA) furosemide 40 mg tablet 40 mg PO QAM 09/18/23 History glipizide 10 mg tablet 10 mg PO BID 09/18/23 History meclizine 25 mg tablet 25 mg PO BID dizziness 09/1705/18/25 History metformin 850 mg tablet 850 mg PO BIDWM diabetes 05/18/25 History metoprolol succinate 50 mg 50 mg PO QDAY 09/18/2305/05 History tablet,extended release 24 hr ropinirole 1 mg tablet 2 mg PO HS 09/18/23 05/18/25 History spironolactone 25 mg tablet 25 mg PO QDAY 09/18/23 History semaglutide 0.25 mg or 0.5 mg (2 0.25 mg subcut QDAY 1 07/18/24 05/18/25 History mg/3 mL) subcutaneous pen injector (Ozempic) tizanidine 2 mg tablet 2 mg PO Q12H 05/18/25 History Allergies Allergy/AdvReac Type Severity Reaction Status Date / Time No Known Allergies Allergy Verified 06/21/25 18:57 Visit Medications Acetaminophen (Acetaminophen 325 Mg Tablet) 650 mg PO Q6H PRN PRN Reason: Fever >101.5 or pain 1-3 Stop: 07/22/25 01:49 Albuterol/Ipratropium (Albuterol/Ipratropium (Duoneb) Rt Huong 3 Ml Nebu) 3 ml INH Q6HRRT [facility] Stop: 07/22/25 06:59 Albuterol/Ipratropium (Albuterol/Ipratropium (Duoneb) Rt Huong 3 Ml Nebu) 3 ml INH Q2HR PRN PRN Reason: SHORTNESS OF BREATH OR WHEEZE Stop: 07/22/25 01:54 Dextrose (Dextrose 50%-Water Inj 50 Ml Syringe) 25 ml IV Q15MIN PRN PRN Reason: BG 50-70 responsive npo pt Stop: 07/22/25 01:59 Dextrose (Dextrose 50%-Water Inj 50 Ml Syringe) 50 ml IV Q15MIN PRN PRN Reason: BG <50 OR BG <70 & pt unresponsive Stop: 07/22/25 01:59 Furosemide (Furosemide Inj 10 Mg/Ml 4ml Vial) 40 mg IVP BID [facility] Stop: 07/22/25 08:59 Glucagon (Glucagon Inj 1 Mg Vial) 1 mg IM Q15MIN PRN PRN Reason: BG <70, and no IV access Heparin Sodium (Porcine) (Heparin Sod Inj 5000 Unit/Ml Vial) 5,000 unit SC Q12H [facility] Stop: 07/06/25 01:59 Insulin Human Lispro (Insulin Lispro (Admelog) 1 Unit/0.01 Ml Unit) 0 unit SC [facility]; Protocol Stop: 07/22/25 07:29 Spironolactone (Spironolactone 25 Mg Tablet) 25 mg PO QDAY [facility] Stop: 07/22/25 08:59 Discontinued Medications Furosemide (Furosemide Inj 10 Mg/Ml Vial 2 Ml) 40 mg IVP X1 ONE Stop: 06/22/25 00:37 Last Admin: 06/22/25 01:01 Dose: 40 mg Furosemide (Furosemide Inj 10 Mg/Ml 4ml Vial) 40 mg IVP QDAY [facility] Stop: 07/22/25 08:59 Methylprednisolone Sodium Succinate (Methylprednisolone Sod Succ 62.5 Mg/Ml 2ml Vial) 125 mg IVP X1 ONE Stop: 06/22/25 01:10 Assessment & Plan Plan This patient is a 75-year-old female with a history of hypertension, type 2 diabetes mellitus, COPD (on home oxygen, 2 L, usually at night), and HFrEF (35 to 40%, 2023) who presented to [facility] ED on 06/21 for an episode of passing out. Patient was admitted for management of syncope with bradycardia. #Syncope #Bradycardia Patient noted to have an episode of syncope while she was sitting in bed talking to her family member at around 6 PM on 06/21. Patient notes a sensation of her surroundings closing in and vision dimming with lights in her [id number], and then passed out for about 5 to 10 seconds. The patient does not have any memory of this happening, and woke up without any significant confusion or altered mentation. No tongue laceration, urine incontinence, or bowel incontinence identified. The patient was noted to have bradycardia of high 40s to high 50s on admission, which is new for the patient. DDx: Symptomatic bradycardia, vasovagal syncope, seizures Diagnostic: Orthostatic vitals from 05/18/2025 negative for orthostatic hypotension CT head on 06/21 unremarkable EKG on 06/22 shows sinus bradycardia with heart rate at 49 and QTc at 477 Treatment: Cardiology consulted, appreciate recommendations Consider neurology consultation if more suspicious for seizures Orthostatic vitals ordered, pending Echocardiogram ordered, pending #Acute CHF exacerbation #HFpEF, 35 to 40%, 2023 Patient noted to have HFrEF with her last echo showing 35 to 40%. The patient follows Dr. Rubin outpatient and has been previously admitted for acute hypoxic respiratory secondary to CHF exacerbation. The patient does take Lasix and spironolactone at home, however she stated that she remains edematous in her bilateral lower extremities. Diagnostic: Echocardiogram on 09/18/2023 shows stage I diastolic dysfunction with estimated ejection fraction 35 to 40%, hypokinesis of the mid anterior septal, basal septal, and lateral wall Chest x-ray on 06/21 shows moderate CHF with prominent vascular congestion and perihilar/basilar edema and moderate left pleural fluid Echocardiogram ordered, pending Treatment: Lasix 40 mg IV twice daily Spironolactone 25 mg daily Holding home metoprolol succinate 50 mg daily for now given patient's bradycardia on admission Keep potassium above 4 and magnesium above 2 Strict ins and out Fluid restriction 1500 cc daily #COPD, on home O2 at night Patient does have history of COPD, however patient denies smoking history. The patient does have home O2 that she uses primarily at night. Treatment: Oxygen delivery via nasal cannula as needed DuoNebs every 6 hours with additional DuoNebs every 2 hours as needed #[id number]-nvaijkkfw type 2 diabetes mellitus Patient noted to have a history of may-uspefhw-ggwdotbmn type 2 diabetes mellitus that she manages with Ozempic and glipizide. Unsure if patient takes any SGLT2 inhibitor, however pending final med rec. Diagnostic: Hemoglobin A1c on 05/19/2025 was 6.0% Treatment: Sliding scale insulin Bedside glucose checks ACHS Consider addition of SGLT2 inhibitor to be started outpatient #History of hypertension Patient does have a history of hypertension. Previously patient took lisinopril along with her diuretics for management of this condition. Pending official med rec. Treatment: Will hold off on resuming home lisinopril at this time in case patient will be transitioned to Entresto DVT Prophylaxis: Heprain GI Prophylaxis: N/A Bowel: Senokot-S PRN Diet: Cardiac, consistent carbohydrate, fluid restriction 1500 cc Mcgee: N/A Lines: PIV Antibiotics: N/A Code Status: DNR/DNI Reason for Hospitalization: Syncope w/ bradycardia Other Barriers to Discharge: Cardiology consultation, echocardiogram Patient plan of care was discussed with the senior resident Dr. James (PGY-2) and attending physician Dr. Darin Esparza, PGY1
[2025-06-22] MEDS: MethylPREDNISolone SOD SUCC 62.5 MG/ML 2ML VIAL 125 MG IVP (02:39)
[2025-06-22] MEDS: HEPARIN SOD INJ 5000 UNIT/ML VIAL SC ×2 (02:40→14:24)
--- NOTE | 2025-06-22 02:54 | ECHO_ITS ---
Patient Info Name: Clau Reyes Age: 75 years : 1950 Gender: Female Ht: 160 cm Wt: 104 kg BSA: 2.21 m2 BP: 147 / 79 mmHg HR: 58 bpm Exam Date: 06/22/2025 11:37 AM Admit Date: 06/22/2025 Site: [facility] Room Number: [id number] Patient Status: I Technical Quality: Fair Exam Type: CA echo doppler complete Diesel Engine Mechanic: Leonie Chamorro Ordering Physician: Pravin Esparza Study Info Indications HFrEF f/u - Primary Location: [id number] Left Ventricular Outflow Tract Name Value Normal LVOT 2D LVOT Diameter 1.9 cm LVOT Doppler LVOT Peak Velocity 116 cm/s LVOT Mean Gradient 3 mmHg LVOT VTI 26 cm LVOT VTI/AV VTI Ratio 0.6 LVOT Stroke Volume 75 ml Pulmonic Valve Name Value Normal PV Doppler PV Peak Velocity 128 cm/s PV Regurgitation Doppler VT Peak End Diastolic Velocity 61 cm/s Mitral Valve Name Value Normal MV Doppler MV Decel Rapides 168 cm/s2 MV PHT 101 ms MV Area (PHT) 2.2 cm2 4.0-5.0 MV Diastolic Function MV E Peak Velocity 59 cm/s MV A Peak Velocity 76 cm/s MV E/A 0.8 MV Annular TDI MV Septal e' Velocity 4.2 cm/s MV E/e' (Septal) 13.8 MV Lateral e' Velocity 6.2 cm/s MV E/e' (Lateral) 9.5 MV e' Average 5.22 cm/s MV E/e' (Average) 11.7 Tricuspid Valve Name Value Normal TV Regurgitation Doppler TR Peak Velocity 185 cm/s Estimated PAP/RSVP RA Pressure 8 mmHg <=5 PA Systolic Pressure 22 mmHg <36 RV Systolic Pressure 22 mmHg <36 TV Annular TDI TV Lateral Diann s' Velocity 10.9 cm/s >=9.5 Aortic Valve Name Value Normal AV 2D/MM AV Cusp Sep (MM) 1.4 cm AV Doppler AV Peak Velocity 204 cm/s AV Mean Gradient 9 mmHg AV VTI 47 cm AV Area (Cont Eq VTI) 1.6 cm2 >=3.0 AV Area (Cont Eq Efren) 1.6 cm2 AV DI (Efren) 0.57 AV Regurgitation 2D LVOT Area 2.8 cm2 Ventricles Name Value Normal LV Dimensions 2D/MM IVS Diastolic Thickness (2D) 1.0 cm 0.6-0.9 LVID Diastole (2D) 4.8 cm 3.8-5.2 LVIW Diastolic Thickness (2D) 1.5 cm 0.6-0.9 LVID Systole (2D) 3.5 cm 2.2-3.5 LVOT Diameter 1.9 cm LV Mass (2D Cubed) 232.25 g 67.00-162.00 LV Mass Index (2D Cubed) 105 g/m2 43-95 Relative Wall Thickness (2D) 0.63 <=0.42 IVS/LVIW Diastolic Thickness (2D) 0.67 0.00-1.50 LV Fractional Shortening/Ejection Fraction 2D/MM LV Fractional Shortening (2D) 27 % 27-45 LV EF (2D Teichholz) 53 % RV Dimensions 2D/MM TV Lateral Diann s' Velocity 10.9 cm/s >=9.5 Atria Name Value Normal LA Dimensions LA Volume (4C A-L) 47 ml LA Volume (BP A-L) 53 ml Left Ventricle Left ventricular chamber dimension is normal. Left ventricular systolic function is normal with visually estimated ejection fraction of 50-55%. There is mild concentric hypertrophy noted in the left ventricle. Left ventricular segmental wall motion is normal. There is grade I diastolic dysfunction in the left ventricle. Right Ventricle Right ventricular chamber dimension is normal. Right ventricular systolic function is normal. Left Atrium Left atrial chamber dimension is mildly enlarged. Right Atrium Right atrial chamber dimension is normal. Aortic Valve The aortic valve is trileaflet. There is no aortic valve sclerosis. There is no aortic valve stenosis with a peak velocity of 204 cm/s, mean gradient of 9 mmHg, and aortic valve area of 1.6 cm2. There is no aortic valve regurgitation. Pulmonic Valve The pulmonic valve is normal. There is no pulmonic valve stenosis. There is trace pulmonic regurgitation. Mitral Valve The mitral valve has a calcified annulus. There is no mitral valve stenosis. There is mild mitral valve regurgitation. Tricuspid Valve The tricuspid valve leaflets are normal. There is no tricuspid valve stenosis. There is mild tricuspid valve regurgitation. No pulmonary hypertension, estimated pulmonary arterial systolic pressure is 22 mmHg and systemic blood pressure of 147 mmHg in systole. Pericardium/Pleural The pericardium appears normal. There is trivial pericardial effusion with no tamponade. No pleural effusion visualized. Inferior Vena Cava Not well visualized inferior vena cava with >50% collapse upon inspiration consistent with normal right atrial pressure, 8 mmHg. Aorta The aortic measurements are indexed to age and body surface area. The aortic root at the sinus of Valsalva is not well visualized. The prox ascending aorta is not well visualized. Summary 1. Normal LV size and function with an EF of 50-55%. Grade 1 diastolic dysfunction. 2. Right ventricle chamber size is normal and systolic function is normal. Estimated RVSP is 22 mmHg. 3. Mild MR, TR, mild MAC. Trace PI. 4. The left atrium is mildly enlarged. The right atrium is normal. 5. Not well visualized IVC with estimated RA pressure 8 mmHg. Report Signatures Finalized by Alberto Rubin on 06/22/2025 07:24 PM
[2025-06-22 03:07] LABS: Magnesium 1.7 mg/dL (1.6-2.6)
[2025-06-22] MEDS: Magnesium Sulfate 4 GM Ivpb 4 GM/50 ML BAG IV (03:50)
--- NOTE | 2025-06-22 06:48 | PC.NURSE ---
report called and pt taken to rm.
--- NOTE | 2025-06-22 06:57 | PC.NURSE ---
PT STATES SHE CAN HAVE FAMILY BRING LIST OF MEDICATION FOR MED REC. WILL HAVE DAY TEAM FOLLOW UP
[2025-06-22 07:37] LABS: Basophils # (Auto) 0.0 Thou/mm3 (0.0-0.2); Basophils % (Auto) 0 % (0-2.5); Eosinophils # (Auto) 0.0 Thou/mm3 (0.0-0.5); Eosinophils % (Auto) 0 % (0-10); Hematocrit 38.9 % (36.0-46.0); Hemoglobin 11.7 g/dL (12.0-16.0); Immature Granulocytes Auto 0.02 Thou/mm3 (0.00-0.00); Lymphocytes # (Auto) 1.4 Thou/mm3 (1.0-4.8); Lymphocytes % (Auto) 18 % (10-50); Mean Corpuscular HGB Conc 30.1 g/dl (31.0-37.0); Mean Corpuscular Hemoglobin 27.7 pg (25.0-35.0); Mean Corpuscular Volume 92 fL (80-100); Monocytes # (Auto) 1.0 Thou/mm3 (0.0-0.8); Monocytes % (Auto) 13 % (0-12); Neutrophils # (Auto) 5.3 Thou/mm3 (1.8-7.7); Neutrophils % (Auto) 69 % (37-80); Nucleated Red Blood Cell # 0.00 Thou/mm3 (0.00-0.00); Nucleated Red Blood Cell % 0 /100 WBC (0); Platelet Count 156 Thou/mm3 (140-440); RDW Standard Deviation 64.0 fL (36.4-46.3); Red Blood Count 4.22 Miln/mm3 (4.00-5.20); White Blood Count 7.8 Thou/mm3 (3.6-11.0)
--- NOTE | 2025-06-22 07:47 | ESCONSULT_ITS ---
<Statement entered by hSruthi Wu MD - 06/23/25 12:38> Patient was seen and examined by me personally. I have reviewed the below documentation by the team resident Dr Laquita Dubois DO PGY-1 and agree with its findings. Ms. Clau Reyes is a 75-year-old female with past medical history of hypertension, type II diabetes mellitus, congestive heart failure with reduced ejection fraction, EF 35 to 40% 09/2023, hypertension, restless leg syndrome, chronic cough, chronic constipation, suspected COPD and ?OHS/ALIREZA who presented to [facility] emergency department on June 22, 2025 with a chief complaint of episode of black spots appearing in front of eyes with passing out and abnormal body movements witnessed by family, patient does not have any recollection of the event. Patient had no postictal confusion, oral trauma, involuntary micturition, chest pain, palpitation, fall during the event, patient otherwise complains of generalized weakness. Patient was admitted to the hospital for further workup for syncope like event. EKG on presentation: 06/21/20251957 shows sinus bradycardia rate 55 however significant artifact on the EKG, repeat EKG 06/22/2258 shows sinus bradycardia, rate 49, left bundle branch block. Previous review of EKG shows LBBB present. Troponin on presentation 0.022, denied any chest pain. Magnesium 1.7, potassium 4.2 no other gross electrolyte abnormalities noted. CT head negative. Patient at bedside noted to be bradycardic however denies any dizziness currently, patient needs to be assessed for chronotropic response, recommend walk test to assess bradycardia. Patient reportedly taking total 150mg of Metoprolol, 100mg prescribed by PCP and 50mg prescribed by cardiology office. Orthostatic vitals: Lying BP 120/64, heart rate 53 sitting BP 125/69, heart rate 56 standing BP 139/74 heart rate 78; orthostatic negative. Repeat echocardiogram today shows: 1. Normal LV size and function with an EF of 50-55%. Grade 1 diastolic dysfunction. 2. Right ventricle chamber size is normal and systolic function is normal. Estimated RVSP is 22 mmHg. 3. Mild MR, TR, mild MAC. Trace PI. 4. The left atrium is mildly enlarged. The right atrium is normal. 5. Not well visualized IVC with estimated RA pressure 8 mmHg. Patient's ejection fraction has improved on GDMT, metoprolol being held right now in setting of bradycardia, spironolactone was resumed and Entresto being held as well. We also recommend considering EEG/neurological workup considering patient's presentation with rolling of eyes and abnormal body movements. Patient's BNP on presentation greater than 3280, chest x-ray shows moderate congestion, currently patient on IV Lasix 40 mg twice daily and spironolactone 25 mg daily, will obtain iron panel for a.m. will consider IV iron therapy. Obtain lipid panel and A1c for cardiac restratification. TSH within normal limits noted. Thank you for the consult and allowing to participate in the care of the patient. Cardiology will continue to follow. Case discussed with Attending Physician Dr. Alberto Wu MD Internal Medicine PGY-2 Disclaimer: This note was dictated by speech recognition. Minor errors in broadcast technician may be present due to voice recognition software. HPI Data of Consult Patient: known to practice within the last 3 years Consult date: 06/22/25 Requesting Physician: Juan Pablo Webster DO Admitting Provider: Juan Pablo Webster DO Attending Provider: Juan Pablo Webster DO Primary Care Provider: Physician No Primary/Family Consult Narrative History of present illness: History of Present Illness Ms. Clau Reyes is 75yF with PMH of hypertension, diabetes mellitus on Ozempic, congestive heart failure, hypertension, restless leg syndrome, chronic cough, recently admitted in the hospital for CHF exacerbation, HFrEF [EF 35 to 40%, 2023], ?COPD, presented to the ED on 06/21, due to a syncopal episode. In the afternoon, patient was seated and was talking to her family member during which started to have progressive dimming of vision and intermitting random light flashing on her eyes. According to family, she subsequently lost consciousness for approximately 10 seconds, during which her eyes rolled upward and exhibited brief hand tremors. On recovery, she demonstrated no postictal confusion and no report of tongue biting or palpation. She had recent history of hospitalization for acute decompensated Heart failure, during which she received supplemental oxygen via nasal cannula and IV diuresis. On discharge, her shortness of breathe didn't completely resolve and was given 2L of oxygen and albutrol. However, she was never officially diagnosed with COPD. Patient was admitted and consulted to cardiology for mangement of syncope with bradycardia ED course: VItals: Temp: 98.7, LA:59, RR:18, BP:149/100, 97% NC 6L Labs: WBC: 7.2, Hgb:12.2, Plt:171, VBG pH:7.36, VBG pCO2:58H, HCO3: 32.6, AL, BUN:27, eGFR:53, Glucose:177, Troponin: 0.022, BNP: >3280 Negative Urine toxicology CXR (06/21/2025): showed Moderate CHF EKG (06/21/2025): showed Sinus Bradycardia Head CT (06/21/2025): Negative for acute hemorrhage, mass effect or midline shift In ED, patient received IV Furosemide 40mg x1, and IV Methyprednisolone 125 mg x1 Medical history: As stated above Surgical history: Total Knee replacement 2019 Allergies: NKDA Medications: Bumetanide 1mg po qd. Metoprolol XL 50mg po qd, Spironolactone 25mg po qd, Ropinirole 1mg po 2 tablets 1-3hrs before sleep, Meclizine 25mg po bid, Ozempic, , Fluticasone propionate 50mcg/act for allergy, Glipizide 10mg po bid before breakfast, Albutrol prn, adavair , Montelukast 10mg po HS for allergy, Entresto 24-26 mg po bid, [place] prn. Magnesium dioxide Family history: Mom at agoe of 79 due to stoke. Father had HTN and DM at age of 96. Younger sister had unspecified cancer and older sister had breast cancer Social history: Denies smoking cigarettes or using other illicit drugs. Patient sometimes drinks. Worked in [employer], now retired. 06/22/2025: Labs reviewed and patient examined at the bedside. As part of her home med, she was taking metoprolol 50mg po qd and spironolactone 25mg po qd as part of her GDMT. Will hold metoprolol for a day. Tomorrow will check her bradycardia , will attempt her to walk and monitor her vitals. Continue IV furosemide Denies chest pain, palpation, SOB, abdominal pain, N/V, fevers or chills. cc:: cc: Juan Pablo Webster DO Review of Systems Review of Systems Narrative Review of Systems: All 12 systems assessed and the patient denies unless otherwise stated in HPI Exam Vital Signs Temp Pulse Resp BP Pulse Ox O2 Del Method O2 Flow Rate 97.9 F 50 L 26 H 145/73 H 95 Nasal Cannula 2 06/22/25 07:25 06/22/25 07:25 06/22/25 07:25 06/22/25 07:25 06/22/25 07:25 06/22/25 07:25 06/22/25 07:25 Narrative Exam General: No acute distress, well nourished, AAO x3 Eye: PERRL, EOMI, normal conjunctiva, no scleral icterus HENT: Normocephalic, atraumatic, hearing intact to conversation at normal volume, moist oral mucosa Neck: Supple, non-tender, no JVD, no lymphadenopathy Lungs: Non-labored respirations, symmetric chest rise, Bilbasilar crackles. Heart: Peripheral pulses intact bilaterally, Regular Rate and Rhythm. Abdomen: Soft, non-tender, non-distended, no palpable masses Musculoskeletal: No visible joint swelling. +1 pitting edema in BLE. Skin: Skin is warm, dry, no rashes or lesions. Psychiatric: Cooperative, appropriate mood and affect, Awake and alert, not agitated Neuro: Cranial nerves II-XII grossly intact. Strength 5/5 throughout. Sensations intact to light touch. Results Labs 06/24/25 04:20 06/24/25 04:20 Labs: Short CBC 06/21/25 Range/Units 19:50 WBC 7.2 (3.6-11.0) Thou/mm3 Hgb 12.2 (12.0-16.0) g/dL Hct 39.8 (36.0-46.0) % Plt Count 171 (140-440) Thou/mm3 BMP 06/21/25 19:50 Sodium 143 Potassium 4.2 Chloride 104 Carbon Dioxide 32.6 H BUN 27 H Creatinine 1.1 Glucose 177 H Calcium 9.0 Cardiac Enzymes 06/21/25 Range/Units 19:50 Troponin I 0.022 (0.0-0.045) ng/mL Liver Function 06/21/25 Range/Units 19:50 Total Bilirubin 0.7 (0.3-1.2) mg/dL AST 28 (0-34) U/L ALT 13 (10-49) U/L Alkaline Phosphatase 124 H (46-116) U/L Albumin 3.6 (3.4-4.8) gm/dL ABG Interpretation ABG results: 06/21/25 19:50 VBG pH 7.36 VBG pCO2 58 H VBG pO2 44 VBG Base Excess 5 H Quality Measures Quality Measures VTE prophylaxis Advance care planning discussed with:: patient and other Medications Home Medications and Allergies Home Medications ?Medication ?Instructions ?Recorded ?Confirmed ?Type albuterol sulfate 90 mcg/actuation 1 puff inhalation Q 4H PRN 09/18/23 06/22/25 History aerosol inhaler breathing and shortness of b reath benzonatate 200 mg capsule 200 mg PO TID PRN Cough 06/22/25 History fluticasone propionate 115 2 puff inhalation BID 09/1706/23/25 History mcg-salmeterol 21 mcg/actuation HFA inhaler (Advair HFA) furosemide 40 mg tablet 40 mg PO QAM 09/18/23 History meclizine 25 mg tablet 25 mg PO PRN dizziness 09/1706/22/25 History metformin 850 mg tablet 850 mg PO BIDWM diabetes 06/23/25 History metoprolol succinate 50 mg 50 mg PO QDAY 09/18/2306/05 History tablet,extended release 24 hr Held on 06/23/25. Instructions: Resume on 06/23/25. Please discuss with your quantometer operator before restarting this medication ropinirole 1 mg tablet 2 mg PO BID 09/18/23 5 History spironolactone 25 mg tablet 25 mg PO QDAY 09/18/23 History semaglutide 0.25 mg or 0.5 mg (2 0.25 mg subcut QDAY 1 07/18/24 06/23/25 History mg/3 mL) subcutaneous pen injector (Ozempic) tizanidine 2 mg tablet 2 mg PO PRN 05/18/25 5 History Held on 06/23/25. Instructions: Resume on 06/23/25. Do not resume until you see your PCP. This medication increase your risk of dizziness and fall. Allergies Allergy/AdvReac Type Severity Reaction Status Date / Time No Known Allergies Allergy Verified 06/21/25 18:57 Visit Medications Acetaminophen (Acetaminophen 325 Mg Tablet) 650 mg PO Q6H PRN PRN Reason: Fever >101.5 or pain 1-3 Stop: 07/22/25 01:49 Albuterol/Ipratropium (Albuterol/Ipratropium (Duoneb) Rt Huong 3 Ml Nebu) 3 ml INH Q6HRRT LAURA Stop: 07/22/25 06:59 Albuterol/Ipratropium (Albuterol/Ipratropium (Duoneb) Rt Huong 3 Ml Nebu) 3 ml INH Q2HR PRN PRN Reason: SHORTNESS OF BREATH OR WHEEZE Stop: 07/22/25 01:54 Dextrose (Dextrose 50%-Water Inj 50 Ml Syringe) 25 ml IV Q15MIN PRN PRN Reason: BG 50-70 responsive npo pt Stop: 07/22/25 01:59 Dextrose (Dextrose 50%-Water Inj 50 Ml Syringe) 50 ml IV Q15MIN PRN PRN Reason: BG <50 OR BG <70 & pt unresponsive Stop: 07/22/25 01:59 Furosemide (Furosemide Inj 10 Mg/Ml 4ml Vial) 40 mg IVP BID LAURA Stop: 07/22/25 08:59 Glucagon (Glucagon Inj 1 Mg Vial) 1 mg IM Q15MIN PRN PRN Reason: BG <70, and no IV access Heparin Sodium (Porcine) (Heparin Sod Inj 5000 Unit/Ml Vial) 5,000 unit SC Q12H LAURA Stop: 07/06/25 01:59 Last Admin: 06/22/25 02:40 Dose: 5,000 unit Insulin Human Lispro (Insulin Lispro (Admelog) 1 Unit/0.01 Ml Unit) 0 unit SC [facility]; Protocol Stop: 07/22/25 07:29 Ropinirole HCl (Ropinirole Hcl 1 Mg Tablet) 2 mg PO HS [facility] Stop: 07/22/25 20:59 Sennosides (Senna/Docusate Sod 1 Tab Tablet) 1 tab PO QDAY PRN; Protocol PRN Reason: CONSTIPATION Stop: 07/22/25 02:56 Spironolactone (Spironolactone 25 Mg Tablet) 25 mg PO QDAY [facility] Stop: 07/22/25 08:59 Discontinued Medications Furosemide (Furosemide Inj 10 Mg/Ml Vial 2 Ml) 40 mg IVP X1 ONE Stop: 06/22/25 00:37 Last Admin: 06/22/25 01:01 Dose: 40 mg Furosemide (Furosemide Inj 10 Mg/Ml 4ml Vial) 40 mg IVP QDAY [facility] Stop: 07/22/25 08:59 Magnesium Sulfate (Magnesium Sulfate Ivpb) 4 gm in 50 mls @ 12.5 mls/hr IV X1 ONE Stop: 06/22/25 07:11 Last Admin: 06/22/25 03:50 Dose: 12.5 mls/hr Methylprednisolone Sodium Succinate (Methylprednisolone Sod Succ 62.5 Mg/Ml 2ml Vial) 125 mg IVP X1 ONE Stop: 06/22/25 01:10 Last Admin: 06/22/25 02:39 Dose: 125 mg Assessment & Plan Plan Ms. Clau Reyes is 75yF with PMH of hypertension, diabetes mellitus on Ozempic, congestive heart failure, hypertension, restless leg syndrome, chronic cough, recently admitted in the hospital for CHF exacerbation, HFrEF [EF 35 to 40%, 2023], ?COPD, presented to the ED on 06/21, due to a syncopal episode. Patient was admitted and consulted to cardiology for mangement of syncope with bradycardia #Syncope like episode #?Symptomatic sinus bradycardia -Syncopal episode during which lost consciousness for approximately 10 seconds, during which her eyes rolled upward and exhibited brief hand tremors. On recovery, she demonsatrated no postictal confusion and no report of tongue biting or palpation. -As part of her home med, she was taking metoprolol 50mg po qd as GDMT and the PCP gave 100 mg metoprolol XL in addition to the 50 mg which is thought to be causing symptomatic sinus bradycardia -Patient is bradycardic on admission with HR ranging around 50s -Orthostatic vitals: Lying BP 120/64, heart rate 53 sitting BP 125/69, heart rate 56 standing BP 139/74 heart rate 78; orthostatic negative. -EKG (06/21/2025): showed Sinus Bradycardia -Head CT (06/21/2025): Negative for acute hemorrhage, mass effect or midline shift Plan: -Okay to hold metoprolol, will consider resuming when hemodynamically stable -Will attempt her to do physical activity (walking, standing) and see how her heart rate changes to assess chronotropic response. -Consider neurological/further workup as per primary team #Acute decompensated diastolic HF, HFpEF , EF 50-55% #Hx of CHF, HFrEF 35-40% (09/17/2024) -BNP: >3280, denies any shortness of breath though reports weakness prior to presentation. -CXR (06/21/2025): showed Moderate CHF -ECHO (done on 06/22/2025) showed: 1. Normal LV size and function with an EF of 50-55%. Grade 1 diastolic dysfunction. 2. Right ventricle chamber size is normal and systolic function is normal. Estimated RVSP is 22 mmHg. 3. Mild MR, TR, mild MAC. Trace PI. 4. The left atrium is mildly enlarged. The right atrium is normal. 5. Not well visualized IVC with estimated RA pressure 8 mmHg. -Patient was being treated with Bumetanide 1mg po qd. Metoprolol XL 50mg po qd, Spironolactone 25mg po qd, Entresto 24-26 mg po bid as part of her GDMT Plan: -Will hold metoprolol as she was bradycardic -Continue IV Furosemide 40mg bid. and Spironolactone 25mg po qd, consider resuming Entresto as blood pressure is permissible. -K>4, Mg>2 at all times -Strict I&Os -Fluid restriction 1500ml. - Low-sodium diet - Daily weight - Follow iron panel #Hx of HTN -Hold metoprolol until her bradycardia improves #COPD, on home O2 at night #[id number] type 2 diabetes mellitus -Management per Primary Hospitalist team Thank you for allowing us to participate in the care of your patient. Assessment and plan discussed with my attending physician Dr. Rubin and Dr. Wu (PGY-2) Dr. Dubois (PGY-1) - Internal medicine resident Attending Provider Attestation/Addendum I have personally seen and examined the patient separately on the above date of service and discussed the plan of care with the resident. I reviewed the resident Dr. Laquita Dubois / Shruthi Wu consultation progress note and agree with the resident findings and plan in the note above and have also edited the documentation to reflect my findings and plan. Alberto Rubin M.D. Interventional Cardiology
[2025-06-22 08:12] LABS: Alanine Aminotransferase 13 U/L (10-49); Albumin, Serum 3.5 gm/dL (3.4-4.8); Albumin/Globulin Ratio 1.2 (1.2-2.2); Alkaline Phosphatase 118 U/L (46-116); Anion Gap 8 (7-16); Aspartate Amino Transferase 26 U/L (0-34); BUN/Creatinine Ratio 32 Ratio (12-20); Bilirubin,Total 0.7 mg/dL (0.3-1.2); Blood Urea Nitrogen 29 mg/dL (9-23); Calcium 8.5 mg/dL (8.3-10.6); Calcium (Corrected) 8.9 mg/dL (8.5-10.1); Carbon Dioxide 34.0 mMol/L (20.0-31.0); Chloride 104 mMol/L (98-107); Creatinine (Component) 0.9 mg/dL (0.6-1.3); Estimated Creatinine Clearance 64.3 mL/min (>60); Globulin 2.9 gm/dL (2.3-3.5); Glucose 76 mg/dL (74-106); Osmolality,Calculated 295 (275-295); Phosphorous 3.9 mg/dL (2.4-5.1); Potassium 4.8 mMol/L (3.4-5.1); Sodium 146 mMol/L (136-145); Total Protein 6.4 gm/dL (5.7-8.2); eGFR > 60 See Note
[2025-06-22] MEDS: FUROSEMIDE INJ 10 MG/ML 4ML VIAL 40 MG IVP ×2 (08:26→20:36)
[2025-06-22] MEDS: SPIRONOLACTONE 25 MG TABLET PO (08:28)
--- NOTE | 2025-06-22 09:40 | ESPR_ITS ---
<Statement entered by Rosemarie Rosas MD - 06/22/25 18:15> In summary: A 75-year-old female was admitted on 06/21 for syncope and symptomatic bradycardia (HR 49), likely secondary to a recent increase in her metoprolol dosage. She has a history of HFrEF (EF 35?40%), and an EKG currently shows a Left Bundle Branch Block. She is also in acute CHF exacerbation, supported by a BNP > 3280 and imaging showing pulmonary edema. Treatment includes IV Lasix, fluid restriction, and a strict hold on all beta-blockers. Entresto is being continued for hypertension and heart failure management. Secondary management focuses on COPD and obesity-related respiratory issues via DuoNebs and nocturnal oxygen, as well as blood glucose monitoring for her Type 2 diabetes (A1c 6.0%). Pending further recommendations from cardiology. I?ve reviewed the note and agree with this assessment and plan, with the exceptions outlined above. I personally went over the labs, imaging, home medications, and prior records, and examined the patient. The case was also reviewed with the attending physician. Please note: this document was transcribed using voice recognition technology; minor inaccuracies may be present. Rosemarie Rosas DO PGY II Documentation for date of: 06/22/25 Subjective Subjective Interval history: Ms. Reyes is a 75 years old female with history of hypertension, type 2 DM, undiagnosed COPD, and HFrEF 35-40% presented on 06/21/25 for syncope. Patient had recently been prescribed a high dose of metoprolol from 50 to 100mg on 06/14/25. Of note, patient also stated she usually put all her pills in her unlabeled weekly pill box and tossed the original pill bottles away, so she's unsure what medications she's taking. She was admitted for symptomatic bradycardia. 06/22/25: NAOE. Patient continues to be bradycardic at 50s without symptom. Telemetry reviewed, patient does not have sinus pause more than 7 secs. EKG revealed sinus rich with LBBB. Will continue to observe patient today, HOLD ALL Beta-blockers, will likely resume patient's home Entresto tmr for GDMT. Exam Vital Signs Temp Pulse Resp BP Pulse Ox O2 Del Method O2 Flow Rate 97.9 F 50 L 26 H 145/73 H 95 Nasal Cannula 2 06/22/25 07:25 06/22/25 08:28 06/22/25 07:25 06/22/25 08:28 06/22/25 07:25 06/22/25 07:25 06/22/25 07:25 Narrative Exam General: Alert, oriented, in no acute distress. HEENT: Normocephalic, atraumatic. No cervical lymphadenopathy. Neck: Supple, no JVD, no lymphadenopathy or thyroid enlargement. Cardiovascular: Regular rate and rhythm. No murmurs, rubs, or gallops. Respiratory: Clear to auscultation bilaterally. No wheezes, rales, or rhonchi. Normal respiratory effort. Abdomen: Soft, nontender, nondistended. No masses or organomegaly. Musculoskeletal: Full range of motion in all extremities. Lower extremity swellings, 2+ pitting edema. Skin: Warm, dry, intact. No rashes or lesions. Psychiatric: Calm, cooperative, appropriate mood and affect. Objective Labs 06/23/25 04:30 06/23/25 04:30 Labs: Laboratory Results - last 24 hr 06/21/25 06/22/25 19:50 02:22 WBC 7.2 7.8 RBC 4.37 4.22 Hgb 12.2 11.7 L Hct 39.8 38.9 MCV 91 92 MCH 27.9 27.7 MCHC 30.7 L 30.1 L RDW Std Deviation 62.5 H 64.0 H Plt Count 171 156 Neut % (Auto) 84 H 69 Lymph % (Auto) 9 L 18 [place] % (Auto) 7 13 H Eos % (Auto) 0 0 Baso % (Auto) 0 0 Neut # (Auto) 6.1 5.3 Lymph # (Auto) 0.6 L 1.4 [place] # (Auto) 0.5 1.0 H Eos # (Auto) 0.0 0.0 Baso # (Auto) 0.0 0.0 Immature Gran # (Auto) 0.01 H 0.02 H Absolute Nucleated RBC 0.00 0.00 Immature Gran % 0 0 Nucleated RBC % 0 0 PT 13.5 H INR 1.3 VBG pH 7.36 VBG pCO2 58 H VBG pO2 44 VBG O2 Sat (Candida) 76 L VBG Base Excess 5 H Sodium 143 146 H Potassium 4.2 4.8 D Chloride 104 104 Carbon Dioxide 32.6 H 34.0 H Anion Gap 6 L 8 BUN 27 H 29 H Creatinine 1.1 0.9 Estim Creat Clear Calc 52.6 L 64.3 eGFR 53 L > 60 BUN/Creatinine Ratio 25 H 32 H Glucose 177 H 76 D Calculated Osmolality 294 295 Calcium 9.0 8.5 Corrected Calcium 9.3 8.9 Phosphorus 3.9 Magnesium 1.7 Total Bilirubin 0.7 0.7 AST 28 26 ALT 13 13 Alkaline Phosphatase 124 H 118 H Troponin I 0.022 B-Natriuretic Peptide > 3280 H* Total Protein 7.0 6.4 Albumin 3.6 3.5 Globulin 3.4 2.9 Albumin/Globulin Ratio 1.1 L 1.2 TSH 2.06 Free T4 1.24 ABG Interpretation ABG results: 06/21/25 19:50 VBG pH 7.36 VBG pCO2 58 H VBG pO2 44 VBG Base Excess 5 H Quality Measures Quality Measures VTE prophylaxis Advance care planning discussed with:: patient Assessment & Plan Assessment Current Active Medications: Generic Name Dose Route Start Last Admin Trade Name Freq PRN Reason Stop Dose Admin Acetaminophen 650 mg 06/22/25 01:50 Acetaminophen 325 Mg Tablet PO 07/22/25 01:49 Q6H PRN Fever >101.5 or pain 1-3 Albuterol/Ipratropium 3 ml 06/22/25 07:00 Albuterol/Ipratropium (Duoneb) Rt Huong 3 Ml Nebu INH 07/22/25 06:59 Q6HRRT LAURA Albuterol/Ipratropium 3 ml 06/22/25 01:55 Albuterol/Ipratropium (Duoneb) Rt Huong 3 Ml Nebu INH 07/22/25 01:54 Q2HR PRN SHORTNESS OF BREATH OR WHEEZE Dextrose 25 ml 06/22/25 02:00 Dextrose 50%-Water Inj 50 Ml Syringe IV 07/22/25 01:59 Q15MIN PRN BG 50-70 responsive npo pt Dextrose 50 ml 06/22/25 02:00 Dextrose 50%-Water Inj 50 Ml Syringe IV 07/22/25 01:59 Q15MIN PRN BG <50 OR BG <70 & pt unresponsive Furosemide 40 mg 06/22/25 09:00 06/22/25 08:26 Furosemide Inj 10 Mg/Ml 4ml Vial IVP 07/22/25 08:59 40 mg BID LAURA Administration Glucagon 1 mg 06/22/25 02:00 Glucagon Inj 1 Mg Vial IM Q15MIN PRN BG <70, and no IV access Heparin Sodium (Porcine) 5,000 unit 06/22/25 02:00 06/22/25 02:40 Heparin Sod Inj 5000 Unit/Ml Vial SC 07/06/25 01:59 5,000 unit Q12H LAURA Administration Insulin Human Lispro 0 unit 06/22/25 07:30 06/22/25 08:20 Insulin Lispro (Admelog) 1 Unit/0.01 Ml Unit SC 07/22/25 07:29 Not Given ACHS LAURA Protocol Ropinirole HCl 2 mg 06/22/25 21:00 Ropinirole Hcl 1 Mg Tablet PO 07/22/25 20:59 HS LAURA Sennosides 1 tab 06/22/25 02:57 Senna/Docusate Sod 1 Tab Tablet PO 07/22/25 02:56 QDAY PRN CONSTIPATION Protocol Spironolactone 25 mg 06/22/25 09:00 06/22/25 08:28 Spironolactone 25 Mg Tablet PO 07/22/25 08:59 25 mg QDAY LAURA Administration Plan This patient is a 75-year-old female with a history of hypertension, type 2 diabetes mellitus, COPD (on home oxygen, 2 L, usually at night), and HFrEF (35 to 40%, 2023) who presented to [facility] ED on 06/21 for an episode of passing out. Patient was admitted for management of syncope with bradycardia. #Syncope #Bradycardia #Left bundle branch block Recent metoprolol change from 50 to 100mg by PCP. Orthostatic vitals from 05/18/2025 negative for orthostatic hypotension CT head on 06/21 unremarkable EKG on 06/22 shows sinus bradycardia with heart rate at 49 and QTc at 477 TSH 2.06, Free T4 1.24. - Cardiology consulted, appreciate recommendations - Orthostatic vitals ordered, pending - Echocardiogram ordered, pending #Acute CHF exacerbation #HFpEF, 35 to 40%, 2023 Echocardiogram on 09/18/2023 shows stage I diastolic dysfunction with estimated ejection fraction 35 to 40%, hypokinesis of the mid anterior septal, basal septal, and lateral wall Chest x-ray on 06/21 shows moderate CHF with prominent vascular congestion and perihilar/basilar edema and moderate left pleural fluid BNP > 3280 on admission - Echocardiogram ordered, pending - Lasix 40 mg IV twice daily - Spironolactone 25 mg daily - Holding home metoprolol succinate 50 mg daily for now given patient's bradycardia on admission - HOLD ALL BETA BLOCKERS. - Keep potassium above 4 and magnesium above 2 - Strict ins and out - Fluid restriction 1500 cc daily #COPD, on home O2 at night #ALIREZA vs OHS Not officially diagnosed. Home O2 was presribed from last admission (admitted for CHF exacerbation). BMI 41. - Oxygen delivery via nasal cannula as needed - DuoNebs every 6 hours with additional DuoNebs every 2 hours as needed - BiPAP/CPAP at night as needed. #Czo-zesbaxw-rzxqxugby type 2 diabetes mellitus Patient noted to have a history of vmy-sofeali-klcvibcar type 2 diabetes mellitus that she manages with Ozempic and glipizide. Unsure if patient takes any SGLT2 inhibitor, however pending final med rec. Hemoglobic A1c on 05/19/2025 was 6.0% - Sliding scale insulin - Bedside glucose checks ACHS - Consider addition of SGLT2 inhibitor to be started outpatient #History of hypertension Chronic medical problem - will resume home Entresto Health maintenance Dispo: Cardiology consultation, echocardiogram DVT prophylaxis: HEPARIN GI prophylaxis: N/A Antibiotics: N/A Bowel Regimen: Senokot PRN Diet: Cardiac diet, fluid restriction 1500 cc Lines: Peripheral IV Code status: DNR Case discussed with my senior resident Dr. Rosas Case discussed with my attending Dr. Beulah Zavala DO PGY 1 Attending Provider Attestation/Addendum Ping Lord DO, attest that I was physically present for the fuentes portions of the service and evaluated the patient with the resident and I reviewed and discussed the case with the resident and agree with the resident's findings and plans of care as documented above Patient seen and eval this a.m. Patient states that she is feeling well. She recently saw her PCP and had some changes made to her prescriptions on Wednesday. Patient states that yesterday she had been feeling very lightheaded and diaphoretic while speaking to her son. She had a second syncopal episode as well. She denies any head trauma and patient was sitting up in her bed at the time. She has never had any syncope in the past. She was noted to have heart rate of 50s consistently upon arrival to the ED. Suspect the patient may have taken an extra dose of metoprolol due to the recent change in medications. She denies any history of bradycardia, she denies any chest pain, shortness of breath, decreased p.o. intake. Will hold metoprolol at this time. Pending echocardiogram. Cardiology was consulted from ED. Will continue to monitor on telemetry.
--- NOTE | 2025-06-22 11:34 | PC.SS ---
MARKETING COMMUNICATIONS LEADER conducted bedside contact with the patient conduct initial assessment and to discuss discharge planning.? Patient admitted to syncope episode.? Patient confirmed demographic information.? Patient resides alone at home.? Patient reports that family regularly checks in on the patient.? Patient utilizes a walker to assist with ambulation.? Patient does utilize home oxygen.? Patient describes the ability to complete ADL?s independently.? Patient identified son, Brian Reyes ; as medical surrogate decision maker.? Patient?s PCP is Dr. Licona [facility].? Patient does not participate with dialysis.? Patient?s line construction superintendent is Dr. Perez.? Patient possesses history of diabetes.? Patient utilizes [facility] for medication services.? Plan is for the patient to return home at the time of discharge.? If home health recommended no preferred agency identified.? Patient reports access to basic utilities and provisions.? No residential concerns reported by the patient.? Family will provide transportation on behalf of the patient.? No further discharge needs identified by the patient.? No further intervention required at this time, social media manager will be available to address any further concerns.? Next of Kin: Brian Reyes D/C Plan: Home
[2025-06-22] MEDS: ALBUTEROL/IPRATROPIUM (Duoneb) RT SOL 3 ML NEBU INH ×2 (13:35→18:16)
[2025-06-22] MEDS: INSULIN LISPRO (AdmeLOG) 1 UNIT/0.01 ML UNIT SC ×2 (17:27→20:46)
[2025-06-22] MEDS: Magnesium Sulfate 2 GM Ivpb 2 GM/50 ML BAG IV (18:51)
[2025-06-23] VITALS (13 sets, daily range): BP systolic 114–141; BP diastolic 53–91; PULSE 53–112; RESP 15–34; TEMP 35.9–36.2; O2SAT 93–100; BMI 41.0
[2025-06-23] MEDS: ALBUTEROL/IPRATROPIUM (Duoneb) RT SOL 3 ML NEBU INH ×4 (00:45→19:12)
[2025-06-23] MEDS: HEPARIN SOD INJ 5000 UNIT/ML VIAL SC ×2 (01:24→13:52)
[2025-06-23 05:11] LABS: Basophils # (Auto) 0.0 Thou/mm3 (0.0-0.2); Basophils % (Auto) 0 % (0-2.5); Eosinophils # (Auto) 0.0 Thou/mm3 (0.0-0.5); Eosinophils % (Auto) 0 % (0-10); Hematocrit 37.3 % (36.0-46.0); Hemoglobin 11.3 g/dL (12.0-16.0); Immature Granulocytes Auto 0.02 Thou/mm3 (0.00-0.00); Lymphocytes # (Auto) 0.4 Thou/mm3 (1.0-4.8); Lymphocytes % (Auto) 7 % (10-50); Mean Corpuscular HGB Conc 30.3 g/dl (31.0-37.0); Mean Corpuscular Hemoglobin 27.1 pg (25.0-35.0); Mean Corpuscular Volume 89 fL (80-100); Monocytes # (Auto) 0.7 Thou/mm3 (0.0-0.8); Monocytes % (Auto) 10 % (0-12); Neutrophils # (Auto) 5.3 Thou/mm3 (1.8-7.7); Neutrophils % (Auto) 83 % (37-80); Nucleated Red Blood Cell # 0.00 Thou/mm3 (0.00-0.00); Nucleated Red Blood Cell % 0 /100 WBC (0); Platelet Count 157 Thou/mm3 (140-440); RDW Standard Deviation 60.8 fL (36.4-46.3); Red Blood Count 4.17 Miln/mm3 (4.00-5.20); White Blood Count 6.4 Thou/mm3 (3.6-11.0)
[2025-06-23 05:36] LABS: Ferritin 56 ng/mL (7.3-270.7); Iron 24 mcg/dL (50-170); Percent Iron Saturation 8 % (20-55); Total Iron Binding Capacity 287 mcg/dL (250-425); Unsaturated Iron Binding 263 (225-295)
[2025-06-23 06:00] LABS: Alanine Aminotransferase 8 U/L (10-49); Albumin, Serum 3.1 gm/dL (3.4-4.8); Albumin/Globulin Ratio 1.1 (1.2-2.2); Anion Gap 9 (7-16); Aspartate Amino Transferase 20 U/L (0-34); BUN/Creatinine Ratio 28 Ratio (12-20); Bilirubin,Total 0.8 mg/dL (0.3-1.2); Blood Urea Nitrogen 31 mg/dL (9-23); Calcium 8.4 mg/dL (8.3-10.6); Calcium (Corrected) 9.1 mg/dL (8.5-10.1); Carbon Dioxide 34.3 mMol/L (20.0-31.0); Cardiac Risk Estimate 2.4 RATIO (3.7-5.6); Chloride 101 mMol/L (98-107); Cholesterol 128 mg/dL (132-200); Creatinine (Component) 1.1 mg/dL (0.6-1.3); Estimated Creatinine Clearance 52.8 mL/min (>60); Globulin 2.7 gm/dL (2.3-3.5); Glucose 135 mg/dL (74-106); HDL Cholesterol 54 mg/dL (40-60); LDL Cholesterol,Calculated 60 mg/dL (0-130); Magnesium 2.0 mg/dL (1.6-2.6); Osmolality,Calculated 295 (275-295); Phosphorous 4.0 mg/dL (2.4-5.1); Potassium 3.8 mMol/L (3.4-5.1); Sodium 144 mMol/L (136-145); Total Protein 5.8 gm/dL (5.7-8.2); Triglycerides 68 mg/dL (30-150); eGFR 53 See Note
[2025-06-23 06:01] LABS: Alkaline Phosphatase 93 U/L (46-116)
[2025-06-23 08:36] LABS: Glucose Estimated Average 134 mg/dL (80-131); Hemoglobin A1C 6.3 % Hgb (4.8-6.0)
[2025-06-23] MEDS: SPIRONOLACTONE 25 MG TABLET PO (09:01)
[2025-06-23] MEDS: FUROSEMIDE INJ 10 MG/ML 4ML VIAL 40 MG IVP ×2 (09:01→20:52)
[2025-06-23] MEDS: IRON SUCROSE CPLX INJ 20 MG/ML VIAL 5 ML 200 MG IVP (12:17)
--- NOTE | 2025-06-23 12:42 | PD.RESPRO ---
Documentation for date of: 06/23/25 Subjective Subjective Interval history: Patient seen examined at bedside, heart rate has improved. Patient had a rapid response earlier today noted to have a sinus pause for 4 seconds on telemetry patient's episodes consistent with syncopal episode. Patient's med list at bedside reviewed, patient reportedly taking total 150 mg of metoprolol succinate daily. Will continue to monitor patient till Wednesday morning if she has similar episodes, will treat accordingly. Patient's underlying symptoms likely secondary to intake of high dose of metoprolol. Continue diureses with lasix 40mg bid, was given IV iron x1 and electrolytes were repleted Exam Vital Signs Temp Pulse Resp BP Pulse Ox O2 Del Method O2 Flow Rate 96.8 F 63 19 126/65 93 L Nasal Cannula 3 06/23/25 08:00 06/23/25 09:01 06/23/25 08:00 06/23/25 09:01 06/23/25 08:00 06/23/25 08:00 06/23/25 08:00 Narrative Exam General: Alert, oriented, in no acute distress. HEENT: Normocephalic, atraumatic. No cervical lymphadenopathy. Neck: Supple, no JVD, no lymphadenopathy or thyroid enlargement. Cardiovascular: Regular rate and rhythm. No murmurs, rubs, or gallops. Respiratory: Clear to auscultation bilaterally. No wheezes, rales, or rhonchi. Normal respiratory effort. Abdomen: Soft, nontender, nondistended. No masses or organomegaly. Musculoskeletal: Full range of motion in all extremities. Lower extremity swellings, 2+ pitting edema. Skin: Warm, dry, intact. No rashes or lesions. Psychiatric: Calm, cooperative, appropriate mood and affect. Objective Labs 06/24/25 04:20 06/24/25 04:20 Labs: Laboratory Results - last 24 hr 06/23/25 04:30 WBC 6.4 RBC 4.17 Hgb 11.3 L Hct 37.3 MCV 89 MCH 27.1 MCHC 30.3 L RDW Std Deviation 60.8 H Plt Count 157 Neut % (Auto) 83 H Lymph % (Auto) 7 L [place] % (Auto) 10 Eos % (Auto) 0 Baso % (Auto) 0 Neut # (Auto) 5.3 Lymph # (Auto) 0.4 L [place] # (Auto) 0.7 Eos # (Auto) 0.0 Baso # (Auto) 0.0 Immature Gran # (Auto) 0.02 H Absolute Nucleated RBC 0.00 Immature Gran % 0 Nucleated RBC % 0 Sodium 144 Potassium 3.8 D Chloride 101 Carbon Dioxide 34.3 H Anion Gap 9 BUN 31 H Creatinine 1.1 Estim Creat Clear Calc 52.8 L eGFR 53 L BUN/Creatinine Ratio 28 H Glucose [address] Glu mg/dL 134 H Hemoglobin A1c 6.3 H Calculated Osmolality 295 Calcium 8.4 Corrected Calcium 9.1 Phosphorus 4.0 Magnesium 2.0 Iron 24 L TIBC 287 Iron Saturation 8 L Unsat Iron Binding 263 Ferritin 56 Total Bilirubin 0.8 AST 20 ALT 8 L Alkaline Phosphatase 93 D Total Protein 5.8 Albumin 3.1 L Globulin 2.7 Albumin/Globulin Ratio 1.1 L Triglycerides 68 Cholesterol 128 L LDL Cholesterol, Calc 60 HDL Cholesterol 54 Cholesterol/HDL Ratio 2.4 L ABG Interpretation ABG results: 06/21/25 19:50 VBG pH 7.36 VBG pCO2 58 H VBG pO2 44 VBG Base Excess 5 H Quality Measures Quality Measures VTE prophylaxis Advance care planning discussed with:: patient Assessment & Plan Assessment Current Active Medications: Generic Name Dose Route Start Last Admin Trade Name Freq PRN Reason Stop Dose Admin Acetaminophen 650 mg 06/22/25 01:50 Acetaminophen 325 Mg Tablet PO 07/22/25 01:49 Q6H PRN Fever >101.5 or pain 1-3 Albuterol/Ipratropium 3 ml 06/22/25 07:00 06/23/25 07:20 Albuterol/Ipratropium (Duoneb) Rt Huong 3 Ml Nebu INH 07/22/25 06:59 3 ml Q6HRRT LAURA Administration Albuterol/Ipratropium 3 ml 06/22/25 01:55 Albuterol/Ipratropium (Duoneb) Rt Huong 3 Ml Nebu INH 07/22/25 01:54 Q2HR PRN SHORTNESS OF BREATH OR WHEEZE Dextrose 25 ml 06/22/25 02:00 Dextrose 50%-Water Inj 50 Ml Syringe IV 07/22/25 01:59 Q15MIN PRN BG 50-70 responsive npo pt Dextrose 50 ml 06/22/25 02:00 Dextrose 50%-Water Inj 50 Ml Syringe IV 07/22/25 01:59 Q15MIN PRN BG <50 OR BG <70 & pt unresponsive Furosemide 40 mg 06/22/25 09:00 06/23/25 09:01 Furosemide Inj 10 Mg/Ml 4ml Vial IVP 07/22/25 08:59 40 mg BID LAURA Administration Glucagon 1 mg 06/22/25 02:00 Glucagon Inj 1 Mg Vial IM Q15MIN PRN BG <70, and no IV access Heparin Sodium (Porcine) 5,000 unit 06/22/25 02:00 06/23/25 01:24 Heparin Sod Inj 5000 Unit/Ml Vial SC 07/06/25 01:59 5,000 unit Q12H LAURA Administration Insulin Human Lispro 0 unit 06/22/25 07:30 06/23/25 11:52 Insulin Lispro (Admelog) 1 Unit/0.01 Ml Unit SC 07/22/25 07:29 Not Given ACHS LAURA Protocol Ropinirole HCl 2 mg 06/22/25 21:00 06/22/25 20:35 Ropinirole Hcl 1 Mg Tablet PO 07/22/25 20:59 2 mg HS LAURA Administration Sennosides 1 tab 06/22/25 02:57 Senna/Docusate Sod 1 Tab Tablet PO 07/22/25 02:56 QDAY PRN CONSTIPATION Protocol Spironolactone 25 mg 06/22/25 09:00 06/23/25 09:01 Spironolactone 25 Mg Tablet PO 07/22/25 08:59 25 mg QDAY LAURA Administration Plan Ms. Clau Reyes is a 75-year-old female with past medical history of hypertension, type II diabetes mellitus, congestive heart failure with reduced ejection fraction, EF 35 to 40% 09/2023, hypertension, restless leg syndrome, chronic cough, chronic constipation, suspected COPD and ?OHS/ALIREZA who presented to [facility] emergency department on June 22, 2025 with a chief complaint of episode of black spots appearing in front of eyes with passing out and abnormal body movements witnessed by family, patient does not have any recollection of the event. Patient had no postictal confusion, oral trauma, involuntary micturition, chest pain, palpitation, fall during the event, patient otherwise complains of generalized weakness. Patient was admitted to the hospital for further workup for syncope like event. #Syncope like episode #Symptomatic sinus bradycardia, improved #Polypharmacy Patient had an episode of black spots appearing in front of eyes with passing out and abnormal body movements witnessed by family, patient does not have any recollection of the event. Patient had no postictal confusion, oral trauma, involuntary micturition, chest pain, palpitation, fall during the event Patient reportedly taking total 150mg of Metoprolol, 100mg prescribed by PCP and 50mg prescribed by cardiology office. EKG on presentation: 06/21/20251957 shows sinus bradycardia rate 55 however significant artifact on the EKG, repeat EKG 06/22/2258 shows sinus bradycardia, rate 49, left bundle branch block. Previous review of EKG shows LBBB present. Troponin on presentation 0.022, denied any chest pain. Magnesium 1.7, potassium 4.2 no other gross electrolyte abnormalities noted. CT head negative. Orthostatic vitals: Lying BP 120/64, heart rate 53 sitting BP 125/69, heart rate 56 standing BP 139/74 heart rate 78; orthostatic negative. 06/23:Patient had a rapid response, noted to have a sinus pause for 4 seconds on telemetry patient's episodes consistent with syncopal episode. Plan: -Continue to hold metoprolol, patient symptoms likely secondary to excessive dose of beta-blockade. -Patient walking well with physical therapy. Heart rate has improved now -Will reassess on Wednesday morning if patient has similar episode will rule out tachy-rich syndrome and sinus node dysfunction. - If has underlying symptomatology we will consider pacemaker placement #Acute decompensated HF, HFpEF , EF 50-55% #Hx of CHF, HFrEF 35-40% (09/18/2023) BNP: >3280, denies any shortness of breath though reports weakness prior to presentation. Patient does have bilateral lower extremity edema CXR (06/21/2025): showed Moderate CHF ECHO (done on 06/22/2025) showed: 1. Normal LV size and function with an EF of 50-55%. Grade 1 diastolic dysfunction. 2. Right ventricle chamber size is normal and systolic function is normal. Estimated RVSP is 22 mmHg. 3. Mild MR, TR, mild MAC. Trace PI. 4. The left atrium is mildly enlarged. The right atrium is normal. 5. Not well visualized IVC with estimated RA pressure 8 mmHg. Patient was being treated with Bumetanide 1mg po qd. Metoprolol XL 50mg po qd, Spironolactone 25mg po qd, Entresto 24-26 mg po bid as part of her GDMT, however med list reviewed patient taking multiple medication. Plan: -Continue IV Furosemide 40mg bid. and Spironolactone 25mg po qd, consider resuming Entresto as blood pressure is permissible. -Keep potassium greater than 4 and magnesium greater than 2 at all times -Strict I&Os Fluid restriction 1500ml. - Low-sodium diet Daily weight -Was given IV iron # Hypertension, by history -Hold metoprolol until her bradycardia improves #COPD, on home O2 at night #Dbo-dssylxc-jvpyskjkm type 2 diabetes mellitus -Management per Primary Hospitalist team Thank you for the consult and allowing to participate in the care of the patient. Cardiology will continue to follow. Case discussed with Attending Physician Dr. Alberto Wu MD Internal Medicine PGY-2 Disclaimer: This note was dictated by speech recognition. Minor errors in turbine measurements engineer may be present due to voice recognition software. Attending Provider Attestation/Addendum I have personally seen and examined the patient separately on the above date of service and discussed the plan of care with the resident. I reviewed the resident Dr. Shruthi Wu consultation progress note and agree with the resident findings and plan in the note above and have also edited the documentation to reflect my findings and plan. Alberto Rubin M.D. Interventional Cardiology
--- NOTE | 2025-06-23 13:13 | EKG_ITS ---
[facility] Test Date: 2025-06-23 Pat Name: CARLOS JESSICA Department: Room: 61A Gender: Female Newspaper Illustrator: RADHA LOWEB: 1950 Requested By: Virgie Ag Order Number: [id number] Reading MD: Virgie Ag Measurements Intervals [place] Rate: 74 P: 32 WI: 184 QRS: -12 QRSD: 193 T: 150 QT: 439 QTc: 489 Interpretive Statements SINUS RHYTHM POSSIBLE LEFT ATRIAL ENLARGEMENT LEFT BUNDLE BRANCH BLOCK Compared to ECG 06/22/2025 02:58:59 Sinus bradycardia no longer present /store/S0/[id number].pdf
--- NOTE | 2025-06-23 13:14 | EVENTNT_ITS ---
Documentation for date of: 06/23/25 Event Note Event Note: At 1:12 PM, a Rapid Response was called due to the patient experiencing acute dizziness shortly after receiving a Duoneb breathing treatment. The patient reported feeling as though she was about to faint. Upon arrival, her vitals were as follows: BP 138/91, RR 18, and HR 112. She was stable, alert, and oriented but appeared anxious. A telemetry reading revealed a prolonged sinus pause lasting about 30 seconds, followed by sinus tachycardia. An EKG was conducted and showed sinus rhythm with a normal rate, unchanged from the previous day. The patient had also received a dose of Lasix earlier to address worsening lower extremity edema and shortness of breath. No immediate arrhythmias or life- threatening issues were noted, but the patient?s symptoms required ongoing monitoring. Given the findings, pacer pads were placed as a precautionary measure. We will continue to monitor the patient closely, and the cardiology resident was present during the event and will offer further recommendations. The cardiology team?s input is awaited for additional guidance on managing her condition. Case was discussed with attending physician. Rosemarie Rosas DO PGY II This document was transcribed using voice recognition technology. Minor inaccuracies may be present.
--- NOTE | 2025-06-23 13:44 | ESPR_ITS ---
Documentation for date of: 06/23/25 Subjective Subjective Interval history: No overnight event. Seen and examined at bedside. Reports feeling well today. Denies new or worsening symptoms. She has worked with PT yesterday and tolerated well without dizziness, lightheadedness, chest pain, sob, or palpitations. Her orthrostatic vitals were normal from the night before. Overnight her HR dropped to upper 50s while sleeping but she was asymptomatic. Around 1:30 she had RR for acute dizziness during duoneb for which she reported feeling about to faint. On arrival she was stable, alert and oriented, feels anxious, BP 138/91, RR 18, HR 130-180. Tele showed prolonged sinus pause about 30 seconds followed by sinus tachycardia. EKG showed sinus rhythm, normal rate, unchanged from the previous day. Cardiology resident was present during the rapid and will provide recommendations. She had received a dose of lasix earlier for worsening LE edema and sob. For now, we will monitor closely, pacer pads were placed, and awaiting further recommendations form cardiology team. Exam Vital Signs Temp Pulse Resp BP Pulse Ox O2 Del Method O2 Flow Rate 97.2 F 112 H 18 138/91 H 99 Nasal Cannula 2 06/23/25 13:10 06/23/25 13:10 06/23/25 13:10 06/23/25 13:10 06/23/25 13:04 06/23/25 12:00 06/23/25 13:10 FiO2 0 06/23/25 13:10 Narrative Exam General: Alert, oriented, in no acute distress. HEENT: Normocephalic, atraumatic. No cervical lymphadenopathy. Neck: Supple, no JVD, no lymphadenopathy or thyroid enlargement. Cardiovascular: Regular rate and rhythm. No murmurs, rubs, or gallops. Respiratory: Clear to auscultation bilaterally. No wheezes, rales, or rhonchi. Normal respiratory effort. Abdomen: Soft, nontender, nondistended. No masses or organomegaly. Musculoskeletal: Full range of motion in all extremities. Lower extremity swellings, 2+ pitting edema. Skin: Warm, dry, intact. No rashes or lesions. Psychiatric: Calm, cooperative, appropriate mood and affect. Objective Labs 06/23/25 04:30 06/23/25 04:30 Labs: Laboratory Results - last 24 hr 06/23/25 04:30 WBC 6.4 RBC 4.17 Hgb 11.3 L Hct 37.3 MCV 89 MCH 27.1 MCHC 30.3 L RDW Std Deviation 60.8 H Plt Count 157 Neut % (Auto) 83 H Lymph % (Auto) 7 L [place] % (Auto) 10 Eos % (Auto) 0 Baso % (Auto) 0 Neut # (Auto) 5.3 Lymph # (Auto) 0.4 L [place] # (Auto) 0.7 Eos # (Auto) 0.0 Baso # (Auto) 0.0 Immature Gran # (Auto) 0.02 H Absolute Nucleated RBC 0.00 Immature Gran % 0 Nucleated RBC % 0 Sodium 144 Potassium 3.8 D Chloride 101 Carbon Dioxide 34.3 H Anion Gap 9 BUN 31 H Creatinine 1.1 Estim Creat Clear Calc 52.8 L eGFR 53 L BUN/Creatinine Ratio 28 H Glucose [address] Glu mg/dL 134 H Hemoglobin A1c 6.3 H Calculated Osmolality 295 Calcium 8.4 Corrected Calcium 9.1 Phosphorus 4.0 Magnesium 2.0 Iron 24 L TIBC 287 Iron Saturation 8 L Unsat Iron Binding 263 Ferritin 56 Total Bilirubin 0.8 AST 20 ALT 8 L Alkaline Phosphatase 93 D Total Protein 5.8 Albumin 3.1 L Globulin 2.7 Albumin/Globulin Ratio 1.1 L Triglycerides 68 Cholesterol 128 L LDL Cholesterol, Calc 60 HDL Cholesterol 54 Cholesterol/HDL Ratio 2.4 L ABG Interpretation ABG results: 06/21/25 19:50 VBG pH 7.36 VBG pCO2 58 H VBG pO2 44 VBG Base Excess 5 H Quality Measures Quality Measures VTE prophylaxis Advance care planning discussed with:: patient Assessment & Plan Assessment Current Active Medications: Generic Name Dose Route Start Last Admin Trade Name Freq PRN Reason Stop Dose Admin Acetaminophen 650 mg 06/22/25 01:50 Acetaminophen 325 Mg Tablet PO 07/22/25 01:49 Q6H PRN Fever >101.5 or pain 1-3 Albuterol/Ipratropium 3 ml 06/22/25 07:00 06/23/25 13:02 Albuterol/Ipratropium (Duoneb) Rt Huong 3 Ml Nebu INH 07/22/25 06:59 3 ml Q6HRRT LAURA Administration Albuterol/Ipratropium 3 ml 06/22/25 01:55 Albuterol/Ipratropium (Duoneb) Rt Huong 3 Ml Nebu INH 07/22/25 01:54 Q2HR PRN SHORTNESS OF BREATH OR WHEEZE Dextrose 25 ml 06/22/25 02:00 Dextrose 50%-Water Inj 50 Ml Syringe IV 07/22/25 01:59 Q15MIN PRN BG 50-70 responsive npo pt Dextrose 50 ml 06/22/25 02:00 Dextrose 50%-Water Inj 50 Ml Syringe IV 07/22/25 01:59 Q15MIN PRN BG <50 OR BG <70 & pt unresponsive Furosemide 40 mg 06/22/25 09:00 06/23/25 09:01 Furosemide Inj 10 Mg/Ml 4ml Vial IVP 07/22/25 08:59 40 mg BID LAURA Administration Glucagon 1 mg 06/22/25 02:00 Glucagon Inj 1 Mg Vial IM Q15MIN PRN BG <70, and no IV access Heparin Sodium (Porcine) 5,000 unit 06/22/25 02:00 06/23/25 01:24 Heparin Sod Inj 5000 Unit/Ml Vial SC 07/06/25 01:59 5,000 unit Q12H LAURA Administration Insulin Human Lispro 0 unit 06/22/25 07:30 06/23/25 11:52 Insulin Lispro (Admelog) 1 Unit/0.01 Ml Unit SC 07/22/25 07:29 Not Given ACHS LAURA Protocol Ropinirole HCl 2 mg 06/22/25 21:00 06/22/25 20:35 Ropinirole Hcl 1 Mg Tablet PO 07/22/25 20:59 2 mg HS LAURA Administration Sennosides 1 tab 06/22/25 02:57 Senna/Docusate Sod 1 Tab Tablet PO 07/22/25 02:56 QDAY PRN CONSTIPATION Protocol Spironolactone 25 mg 06/22/25 09:00 06/23/25 09:01 Spironolactone 25 Mg Tablet PO 07/22/25 08:59 25 mg QDAY LAURA Administration Plan This patient is a 75-year-old female with a history of hypertension, type 2 diabetes mellitus, COPD (on home oxygen, 2 L, usually at night), and HFrEF (35 to 40%, 2023) who presented to [facility] ED on 06/21 for an episode of passing out. Patient was admitted for management of syncope with bradycardia. # Syncope # Symptomatic tachybradycardia arrhythmia versus sinus tach syndrome # Left bundle branch block (old) Admitted for syncopal episode where she fainted and passed out. She recently had her METOPROLOL dose changed from 50 to 100 mg by her PCP however she reports she has been mistakenly taking 150 mg daily. Orthostatics were negative. CT head was unremarkable. GLUCOSE was normal. Thyroid function was normal as well. Admission EKG shows sinus bradycardia HR 49, QTc 477 and LBBB. We have discontinued home METOPROLOL since admission and heart rate has been relatively stable. She continued on diuresis and shortness of breath is improving. Repeat echo this visit showed EF 50-55% and grade 1 diastolic dysfunction. Today she had a RR for acute episode of syncope, palpitations and shortness of breath during DUONEB treatment (see event note and subjective above). She likely had symptomatic tachybradycardia arrhythmia vs. setting such syndrome based on prolonged 30 seconds pauses seen on telemetry during arrival. Cardiology was notified and further recommendations are pending. We've preemptively placed pacemaker pads and will continue monitor closely. Her symptoms have resolved since. ? Continue holding METOPROLOL ? Pending further recommendation from cardiology #Acute CHF exacerbation #HFpEF, 35 to 40%, 2023 Echocardiogram on 09/18/2023 shows stage I diastolic dysfunction with estimated ejection fraction 35 to 40%, hypokinesis of the mid anterior septal, basal septal, and lateral wall Chest x-ray on 06/21 shows moderate CHF with prominent vascular congestion and perihilar/basilar edema and moderate left pleural fluid BNP > 3280 on admission - Echocardiogram ordered, pending - Lasix 40 mg IV twice daily - Spironolactone 25 mg daily - Holding home metoprolol succinate 50 mg daily for now given patient's bradycardia on admission - HOLD ALL BETA BLOCKERS. - Keep potassium above 4 and magnesium above 2 - Strict ins and out - Fluid restriction 1500 cc daily #COPD, on home O2 at night #ALIREZA vs OHS Not officially diagnosed. Home O2 was presribed from last admission (admitted for CHF exacerbation). BMI 41. - Oxygen delivery via nasal cannula as needed - DuoNebs every 6 hours with additional DuoNebs every 2 hours as needed - BiPAP/CPAP at night as needed. #Pfo-[id number] type 2 diabetes mellitus Patient noted to have a history of [id number] type 2 diabetes mellitus that she manages with Ozempic and glipizide. Unsure if patient takes any SGLT2 inhibitor, however pending final med rec. Hemoglobic A1c on 05/19/2025 was 6.0% - Sliding scale insulin - Bedside glucose checks ACHS - Consider addition of SGLT2 inhibitor to be started outpatient #History of hypertension Chronic medical problem - will resume home Entresto Health maintenance Dispo: Cardiology consultation, echocardiogram DVT prophylaxis: HEPARIN GI prophylaxis: N/A Antibiotics: N/A Bowel Regimen: Senokot PRN Diet: Cardiac diet, fluid restriction 1500 cc Lines: Peripheral IV Code status: DNR Case was discussed with attending physician. Rosemarie Rosas DO PGY II This document was transcribed using voice recognition technology. Minor inaccuracies may be present. Attending Provider Attestation/Addendum Ping Lord DO, attest that I was physically present for the fuentes portions of the service and evaluated the patient with the resident and I reviewed and discussed the case with the resident and agree with the resident's findings and plans of care as documented above Patient had a rapid response today during which patient had syncopal episode while receiving breathing treatment. Patient was startled by episode and was tachycardic upon evaluation with HR in the 100s. Patient states she felt as though the cook were closing in everything was turning black. She was tremulous following the episode per RT who witnessed this. Patient reports that she had the same symptoms the morning that prompted her son to call EMS. Patient noted to have a pause on cardiac monitoring that lasted about 5s. Electrolyes repleted. Will place pacer pads. F/u with cardiology recommendations.
[2025-06-23] MEDS: Magnesium Sulfate 4 GM Ivpb 4 GM/50 ML BAG IV (14:35)
[2025-06-23] MEDS: SENNA/DOCUSATE SOD 1 TAB TABLET PO (22:22)
[2025-06-23] MEDS: POLYETHYLENE GLYCOL 17 GM PACKET PO (23:55)
[2025-06-24] VITALS (17 sets, daily range): BP systolic 115–166; BP diastolic 63–112; PULSE 78–122; RESP 12–37; TEMP 35.9–36.2; O2SAT 89–99; BMI 40.7
[2025-06-24] MEDS: MG HYD/AL HYD/SIME (Maalox Reg) SUSP 30 ML UDC PO (00:38)
[2025-06-24] MEDS: HEPARIN SOD INJ 5000 UNIT/ML VIAL SC ×2 (01:57→13:42)
--- NOTE | 2025-06-24 02:42 | XR_ITS ---
EXAMINATION: AP chest single view TECHNIQUE: AP portable upright chest single view Date and time: June 24, 2025, 0323 hours, comparison June 21, 2025 INDICATIONS: Shortness of breath chest pain today. FINDINGS: More prominent CHF Moderate enlargement cardiac contour Prominent vascular congestion with additional pulmonary edema in both lungs Prominent osteopenia IMPRESSION: Worsening CHF Consider superimposed bilateral pneumonia, clinical correlation advised
--- NOTE | 2025-06-24 02:51 | XR_ITS ---
Examination: Abdomen AP single view Technique: AP portable supine abdomen, single view Exam date and time: June 24, 2025, 0321 hours INDICATION: Onset abdominal pain today FINDINGS: Moderate to large amounts of stool throughout the colon Minimal small bowel ileus No free air CHF pattern with pulmonary edema and enlarged cardiac contour IMPRESSION: Moderate to large amount of stool throughout the colon
[2025-06-24] MEDS: MORPHINE SULF INJ 4 MG/ML VIAL 1 MG IVP (03:07)
[2025-06-24] MEDS: FUROSEMIDE INJ 10 MG/ML 4ML VIAL 40 MG IVP ×3 (03:09→09:06)
[2025-06-24] MEDS: HYDROmorphone INJ 2 MG/ML VIAL 1 MG IVP (04:08)
[2025-06-24 04:28] LABS: Lactate (Lactic Acid) 1.7 mMol/L (0.4-2.0)
[2025-06-24 04:30] LABS: Basophils # (Auto) 0.0 Thou/mm3 (0.0-0.2); Basophils % (Auto) 0 % (0-2.5); Eosinophils # (Auto) 0.1 Thou/mm3 (0.0-0.5); Eosinophils % (Auto) 1 % (0-10); Hematocrit 46.1 % (36.0-46.0); Hemoglobin 13.9 g/dL (12.0-16.0); Immature Granulocytes Auto 0.06 Thou/mm3 (0.00-0.00); Lymphocytes # (Auto) 1.5 Thou/mm3 (1.0-4.8); Lymphocytes % (Auto) 11 % (10-50); Mean Corpuscular HGB Conc 30.2 g/dl (31.0-37.0); Mean Corpuscular Hemoglobin 27.2 pg (25.0-35.0); Mean Corpuscular Volume 90 fL (80-100); Monocytes # (Auto) 1.6 Thou/mm3 (0.0-0.8); Monocytes % (Auto) 11 % (0-12); Neutrophils # (Auto) 10.4 Thou/mm3 (1.8-7.7); Neutrophils % (Auto) 76 % (37-80); Nucleated Red Blood Cell # 0.00 Thou/mm3 (0.00-0.00); Nucleated Red Blood Cell % 0 /100 WBC (0); Platelet Count 202 Thou/mm3 (140-440); RDW Standard Deviation 61.1 fL (36.4-46.3); Red Blood Count 5.11 Miln/mm3 (4.00-5.20); White Blood Count 13.6 Thou/mm3 (3.6-11.0)
[2025-06-24 04:55] LABS: Alanine Aminotransferase 11 U/L (10-49); Albumin, Serum 3.7 gm/dL (3.4-4.8); Albumin/Globulin Ratio 1.1 (1.2-2.2); Alkaline Phosphatase 114 U/L (46-116); Anion Gap 10 (7-16); Aspartate Amino Transferase 29 U/L (0-34); BUN/Creatinine Ratio 25 Ratio (12-20); Bilirubin,Total 1.3 mg/dL (0.3-1.2); Blood Urea Nitrogen 28 mg/dL (9-23); Calcium 8.8 mg/dL (8.3-10.6); Calcium (Corrected) 9.0 mg/dL (8.5-10.1); Carbon Dioxide 36.3 mMol/L (20.0-31.0); Chloride 98 mMol/L (98-107); Creatinine (Component) 1.1 mg/dL (0.6-1.3); Estimated Creatinine Clearance 52.6 mL/min (>60); Globulin 3.3 gm/dL (2.3-3.5); Glucose 134 mg/dL (74-106); Magnesium 2.3 mg/dL (1.6-2.6); Osmolality,Calculated 294 (275-295); Phosphorous 3.8 mg/dL (2.4-5.1); Potassium 4.1 mMol/L (3.4-5.1); Sodium 144 mMol/L (136-145); Total Protein 7.0 gm/dL (5.7-8.2); eGFR 53 See Note
[2025-06-24] MEDS: ALBUTEROL/IPRATROPIUM (Duoneb) RT SOL 3 ML NEBU INH ×3 (06:54→18:45)
[2025-06-24] MEDS: SPIRONOLACTONE 25 MG TABLET PO (09:05)
[2025-06-24] MEDS: POLYETHYLENE GLYCOL 17 GM PACKET PO (09:06)
[2025-06-24] MEDS: ACETAMINOPHEN 325 MG TABLET 650 MG PO (09:13)
--- NOTE | 2025-06-24 10:01 | ESPR_ITS ---
<Statement entered by Beau Jack MD - 06/28/25 09:15> I reviewed above note and agree with findings and plans. I have also personally examined the patient with medicine team and went over assessment and plan with medical team including gallery intern and resident physician. <Statement entered by Rosemarie Rosas MD - 06/24/25 17:09> In summary: A 75-year-old female was admitted on 06/21 for syncope and symptomatic bradycardia (HR 49), likely secondary to a recent increase in her metoprolol dosage. She has a history of HFrEF (EF 35?40%), and an EKG currently shows a Left Bundle Branch Block. She is also in acute CHF exacerbation, supported by a BNP > 3280 and imaging showing pulmonary edema. Treatment includes IV Lasix, fluid restriction, and a strict hold on all beta-blockers. Entresto is being continued for hypertension and heart failure management. Secondary management focuses on COPD and obesity-related respiratory issues via DuoNebs and nocturnal oxygen, as well as blood glucose monitoring for her Type 2 diabetes (A1c 6.0%). HR has been controlled since METOPROLOL has been held, and cardiology is on board. She has constipation that we are managing with multipel bowel reg. I?ve reviewed the note and agree with this assessment and plan, with the exceptions outlined above. I personally went over the labs, imaging, home medications, and prior records, and examined the patient. The case was also reviewed with the attending physician. Please note: this document was transcribed using voice recognition technology; minor inaccuracies may be present. Rosemarie Rosas DO PGY II Documentation for date of: 06/24/25 Subjective Subjective Interval history: Ms. Reyes is a 75 years old female with history of hypertension, type 2 DM, undiagnosed COPD, and HFrEF 35-40% presented on 06/21/25 for syncope. Patient had recently been prescribed a high dose of metoprolol from 50 to 100mg on 06/14/25. Of note, patient also stated she usually put all her pills in her unlabeled weekly pill box and tossed the original pill bottles away, so she's unsure what medications she's taking. She was admitted for symptomatic bradycardia. 06/22/25: NAOE. Patient continues to be bradycardic at 50s without symptom. Telemetry reviewed, patient does not have sinus pause more than 7 secs. EKG revealed sinus rich with LBBB. Will continue to observe patient today, HOLD ALL Beta-blockers, will likely resume patient's home Entresto tmr for GDMT. 06/23/25:No overnight event. Seen and examined at bedside. Reports feeling well today. Denies new or worsening symptoms. She has worked with PT yesterday and tolerated well without dizziness, lightheadedness, chest pain, sob, or palpitations. Her orthrostatic vitals were normal from the night before. Overnight her HR dropped to upper 50s while sleeping but she was asymptomatic. 06/23/25 Rapid Response: Around 1:30 she had RR for acute dizziness during duoneb for which she reported feeling about to faint. On arrival she was stable, alert and oriented, feels anxious, BP 138/91, RR 18, HR 130-180. Tele showed prolonged sinus pause about 30 seconds followed by sinus tachycardia. EKG showed sinus rhythm, normal rate, unchanged from the previous day. Cardiology resident was present during the rapid and will provide recommendations. She had received a dose of lasix earlier for worsening LE edema and sob. For now, we will monitor closely, pacer pads were placed, and awaiting further recommendations form cardiology team. 06/24/25: Patient desaturated overnight, requiring increase in oxygen demand, currently on 9L simple mask with O2 sat of 92%. CXR revealed worsening CHF and possible superimposed bilateral pneumonia. KUB revealed moderate to large amount of stool throughout the colon. When examined at bedside this AM, patient was complaining of lower abdominal cramping pain, which patient described as consistent with her prior constipation. Water enema was given with minimal relieve, will continue to monitor. Simethicone daily added. Increased Lasix from BID to TID given patient is likely fluid overloaded. Of note, WBC increased to 13 today, Zosyn added for empiric coverage of possible aspiration pneumonia. Exam Vital Signs Temp Pulse Resp BP Pulse Ox O2 Del Method O2 Flow Rate 97 F 78 22 H 148/78 H 93 L High Flow Nasal Cannula 9 06/24/25 08:00 06/24/25 09:06 06/24/25 08:00 06/24/25 09:06 06/24/25 08:00 06/24/25 08:00 06/24/25 07:02 FiO2 70 06/24/25 06:56 Narrative Exam General: Alert, oriented, appeared uncomfortable due to constipation. HEENT: Normocephalic, atraumatic. Oral mucosa dry. Neck: Supple, no JVD Cardiovascular: Regular rate and rhythm. No murmurs, rubs, or gallops. Respiratory: Crackles to bilateral lung gallegos. No increase WOB, however, constant sputum production. Abdomen: Soft, nontender, but distended. Musculoskeletal: Full range of motion in all extremities. Lower extremities swelling 1+. Skin: Warm, dry, intact. No rashes or lesions. Objective Labs 06/24/25 04:20 06/24/25 04:20 Labs: Laboratory Results - last 24 hr 06/24/25 04:20 WBC 13.6 H D RBC 5.11 Hgb 13.9 D Hct 46.1 H MCV 90 MCH 27.2 MCHC 30.2 L RDW Std Deviation 61.1 H Plt Count 202 D Neut % (Auto) 76 Lymph % (Auto) 11 [place] % (Auto) 11 Eos % (Auto) 1 Baso % (Auto) 0 Neut # (Auto) 10.4 H Lymph # (Auto) 1.5 [place] # (Auto) 1.6 H Eos # (Auto) 0.1 Baso # (Auto) 0.0 Immature Gran # (Auto) 0.06 H Absolute Nucleated RBC 0.00 Immature Gran % 0 Nucleated RBC % 0 Sodium 144 Potassium 4.1 Chloride 98 Carbon Dioxide 36.3 H Anion Gap 10 BUN 28 H Creatinine 1.1 Estim Creat Clear Calc 52.6 L eGFR 53 L BUN/Creatinine Ratio 25 H Glucose 134 H Calculated Osmolality 294 Lactic Acid 1.7 Calcium 8.8 Corrected Calcium 9.0 Phosphorus 3.8 Magnesium 2.3 Total Bilirubin 1.3 H D AST 29 ALT 11 Alkaline Phosphatase 114 D Total Protein 7.0 Albumin 3.7 D Globulin 3.3 Albumin/Globulin Ratio 1.1 L ABG Interpretation ABG results: 06/21/25 19:50 VBG pH 7.36 VBG pCO2 58 H VBG pO2 44 VBG Base Excess 5 H Quality Measures Quality Measures VTE prophylaxis Advance care planning discussed with:: patient Assessment & Plan Assessment Current Active Medications: Generic Name Dose Route Start Last Admin Trade Name Freq PRN Reason Stop Dose Admin Acetaminophen 650 mg 06/22/25 01:50 06/24/25 09:13 Acetaminophen 325 Mg Tablet PO 07/22/25 01:49 650 mg Q6H PRN Administration Fever >101.5 or pain 1-3 Albuterol/Ipratropium 3 ml 06/22/25 07:00 06/24/25 06:54 Albuterol/Ipratropium (Duoneb) Rt Huong 3 Ml Nebu INH 07/22/25 06:59 3 ml Q6HRRT LAURA Administration Albuterol/Ipratropium 3 ml 06/22/25 01:55 Albuterol/Ipratropium (Duoneb) Rt Huong 3 Ml Nebu INH 07/22/25 01:54 Q2HR PRN SHORTNESS OF BREATH OR WHEEZE Dextrose 25 ml 06/22/25 02:00 Dextrose 50%-Water Inj 50 Ml Syringe IV 07/22/25 01:59 Q15MIN PRN BG 50-70 responsive npo pt Dextrose 50 ml 06/22/25 02:00 Dextrose 50%-Water Inj 50 Ml Syringe IV 07/22/25 01:59 Q15MIN PRN BG <50 OR BG <70 & pt unresponsive Furosemide 40 mg 06/22/25 09:00 06/24/25 09:06 Furosemide Inj 10 Mg/Ml 4ml Vial IVP 07/22/25 08:59 40 mg BID LAURA Administration Glucagon 1 mg 06/22/25 02:00 Glucagon Inj 1 Mg Vial IM Q15MIN PRN BG <70, and no IV access Heparin Sodium (Porcine) 5,000 unit 06/22/25 02:00 06/24/25 01:57 Heparin Sod Inj 5000 Unit/Ml Vial SC 07/06/25 01:59 5,000 unit Q12H LAURA Administration Insulin Human Lispro 0 unit 06/22/25 07:30 06/24/25 08:10 Insulin Lispro (Admelog) 1 Unit/0.01 Ml Unit SC 07/22/25 07:29 Not Given ACHS LAURA Protocol Polyethylene Glycol 17 gm 06/24/25 09:00 06/24/25 09:06 Polyethylene Glycol 17 Gm Packet PO 07/24/25 08:59 17 gm QDAY LAURA Administration Ropinirole HCl 2 mg 06/22/25 21:00 06/23/25 20:52 Ropinirole Hcl 1 Mg Tablet PO 07/22/25 20:59 2 mg HS LAURA Administration Sennosides 1 tab 06/24/25 03:31 Senna Tablet PO 07/24/25 08:59 QDAY PRN Constipation Protocol Spironolactone 25 mg 06/22/25 09:00 06/24/25 09:05 Spironolactone 25 Mg Tablet PO 07/22/25 08:59 25 mg QDAY LAURA Administration Plan This patient is a 75-year-old female with a history of hypertension, type 2 diabetes mellitus, COPD (on home oxygen, 2 L, usually at night), and HFrEF (35 to 40%, 2023) who presented to [facility] ED on 06/21 for an episode of passing out. Patient was admitted for management of syncope with bradycardia. #Acute Hypoxic respiratory failure #Acute CHF exacerbation #HFpEF, 35 to 40%, 2023 #Aspiration pneunonia Echocardiogram on 09/18/2023 shows stage I diastolic dysfunction with estimated ejection fraction 35 to 40%, hypokinesis of the mid anterior septal, basal septal, and lateral wall Chest x-ray on 06/21 showed moderate CHF with prominent vascular congestion and perihilar/basilar edema and moderate left pleural fluid BNP > 3280 on admission CXR on 06/23/25 showed worsening of CHF and possible superimposed aspiration pneumonia. - Echocardiogram ordered --> showed EF 50-55% and Grade 1 diastolic dysfunction. - Increased Lasix 40 mg IV twice daily to TID. - Started Zosyn (06/24 ~) for aspiration pneumonia coverage. - Spironolactone 25 mg daily - Will consider starting patient back on Entresto if BP tolerates - Holding home metoprolol succinate 50 mg daily for now given patient's bradycardia on admission - HOLD ALL BETA BLOCKERS. - Keep potassium above 4 and magnesium above 2 - Strict ins and out - Fluid restriction 1500 cc daily # Syncope # Symptomatic tachybradycardia arrhythmia versus sinus tach syndrome # Left bundle branch block (old) Admitted for syncopal episode where she fainted and passed out. She recently had her METOPROLOL dose changed from 50 to 100 mg by her PCP however she reports she has been mistakenly taking 150 mg daily. Orthostatics were negative. CT head was unremarkable. GLUCOSE was normal. Thyroid function was normal as well. Admission EKG shows sinus bradycardia HR 49, QTc 477 and LBBB. We have discontinued home METOPROLOL since admission and heart rate has been relatively stable. She continued on diuresis and shortness of breath is improving. Repeat echo this visit showed EF 50-55% and grade 1 diastolic dysfunction. RR (06/23/25) for acute episode of syncope, palpitations and shortness of breath during DUONEB treatment (see event note and subjective above). She likely had symptomatic tachybradycardia arrhythmia vs. setting such syndrome based on prolonged 30 seconds pauses seen on telemetry during arrival. Cardiology was notified and further recommendations are pending. We've preemptively placed pacemaker pads and will continue monitor closely. Her symptoms have resolved since. ? Continue holding METOPROLOL ? Cardiology consulted --> symptoms likely 2/2 to excessive dose of beta- blockade. Reassess Wednesday. #COPD, on home O2 at night #ALIREZA vs OHS Not officially diagnosed. Home O2 was presribed from last admission (admitted for CHF exacerbation). BMI 41. - Oxygen delivery via nasal cannula as needed - DuoNebs every 6 hours with additional DuoNebs every 2 hours as needed - BiPAP/CPAP at night as needed. #Aig-nosrzan-qrcxfzhzc type 2 diabetes mellitus Patient noted to have a history of [id number] type 2 diabetes mellitus that she manages with Ozempic and glipizide. Unsure if patient takes any SGLT2 inhibitor, however pending final med rec. Hemoglobic A1c on 05/19/2025 was 6.0% - Sliding scale insulin - Bedside glucose checks ACHS - Consider addition of SGLT2 inhibitor to be started outpatient #History of hypertension Chronic medical problem - will resume home Entresto if BP tolerates Health maintenance Dispo: Cardiology consultation, diauresis. DVT prophylaxis: HEPARIN GI prophylaxis: N/A Antibiotics: Zosyn for aspiration pneumonia Bowel Regimen: Senokot PRN, Simethicone QD. Diet: Cardiac diet, fluid restriction 1500 cc Lines: Peripheral IV Code status: DNR Case discussed with my senior resident Dr. Rosas Case discussed with my attending Dr. Guero Zavala, PGY 1
--- NOTE | 2025-06-24 12:52 | ESPR_ITS ---
<Statement entered by Shruthi Wu MD - 06/24/25 18:20> Patient was seen and examined by me personally. I have reviewed the below documentation by the team resident Dr Laquita Dubois DO PGY-1 and agree with its findings. Ms. Clau Reyes is a 75-year-old female with past medical history of hypertension, type II diabetes mellitus, congestive heart failure with reduced ejection fraction, EF 35 to 40% 09/2023, hypertension, restless leg syndrome, chronic cough, chronic constipation, suspected COPD and ?OHS/ALIREZA who presented to [facility] emergency department on June 22, 2025 was admitted to the hospital for further workup for syncope like event. 06/24: Patient had no more episodes of sinus pauses, overnight patient was noted to be significantly short of breath, chest x-ray obtained by night resident showed worsening bilateral infiltrates on x-ray, was given Lasix 80 mg overnight, was started on BiPAP which patient tolerated well. Patient seen at bedside this morning, complains of feeling tired, saturating well on oxy mask 6 L, patient's Lasix dose increased to 40 mg 3 times daily. Patient complains of abdominal pain, KUB obtained by primary team shows moderate stool burden, patient started on bowel regimen. Possible component of atelectasis causing worsening respiratory status, encourage mobilization and incentive spirometer. Continue BiPAP as needed. Will hold spironolactone to prevent JACK. Continue diuresis with Lasix 40 mg 3 times daily, no significant lower extremity edema. Will continue to monitor patient overnight. Thank you for the consult and allowing to participate in the care of the patient. Cardiology will continue to follow. Case discussed with Attending Physician Dr. Alberto Wu MD Internal Medicine PGY-2 Disclaimer: This note was dictated by speech recognition. Minor errors in regional owner operator truck driver may be present due to voice recognition software. Documentation for date of: 06/24/25 Subjective Subjective Interval history: History of Present Illness Ms. Clau Reyes is 75yF with PMH of hypertension, diabetes mellitus on Ozempic, congestive heart failure, hypertension, restless leg syndrome, chronic cough, recently admitted in the hospital for CHF exacerbation, HFrEF [EF 35 to 40%, 2023], ?COPD, presented to the ED on 06/21, due to a syncopal episode. In the afternoon, patient was seated and was talking to her family member during which started to have progressive dimming of vision and intermitting random light flashing on her eyes. According to family, she subsequently lost consciousness for approximately 10 seconds, during which her eyes rolled upward and exhibited brief hand tremors. On recovery, she demonstrated no postictal confusion and no report of tongue biting or palpation. She had recent history of hospitalization for acute decompensated Heart failure, during which she received supplemental oxygen via nasal cannula and IV diuresis. On discharge, her shortness of breathe didn't completely resolve and was given 2L of oxygen and albutrol. However, she was never officially diagnosed with COPD. Patient was admitted and consulted to cardiology for mangement of syncope with bradycardia ED course: VItals: Temp: 98.7, IL:59, RR:18, BP:149/100, 97% NC 6L Labs: WBC: 7.2, Hgb:12.2, Plt:171, VBG pH:7.36, VBG pCO2:58H, HCO3: 32.6, AL, BUN:27, eGFR:53, Glucose:177, Troponin: 0.022, BNP: >3280 Negative Urine toxicology CXR (06/21/2025): showed Moderate CHF EKG (06/21/2025): showed Sinus Bradycardia Head CT (06/21/2025): Negative for acute hemorrhage, mass effect or midline shift In ED, patient received IV Furosemide 40mg x1, and IV Methyprednisolone 125 mg x1 Medical history: As stated above Surgical history: Total Knee replacement 2019 Allergies: NKDA Medications: Bumetanide 1mg po qd. Metoprolol XL 50mg po qd, Spironolactone 25mg po qd, Ropinirole 1mg po 2 tablets 1-3hrs before sleep, Meclizine 25mg po bid, Ozempic, , Fluticasone propionate 50mcg/act for allergy, Glipizide 10mg po bid before breakfast, Albutrol prn, adavair , Montelukast 10mg po HS for allergy, Entresto 24-26 mg po bid, [place] prn. Magnesium dioxide Family history: Mom at agoe of 79 due to stoke. Father had HTN and DM at age of 96. Younger sister had unspecified cancer and older sister had breast cancer Social history: Denies smoking cigarettes or using other illicit drugs. Patient sometimes drinks. Worked in [id number], now retired. 06/22/2025: Labs reviewed and patient examined at the bedside. As part of her home med, she was taking metoprolol 50mg po qd and spironolactone 25mg po qd as part of her GDMT. Will hold metoprolol for a day. Tomorrow will check her bradycardia , will attempt her to walk and monitor her vitals. Continue IV furosemide Denies chest pain, palpation, SOB, abdominal pain, N/V, fevers or chills. 06/23/2025: Patient seen examined at bedside, heart rate has improved. Patient had a rapid response earlier today noted to have a sinus pause for 4 seconds on telemetry patient's episodes consistent with syncopal episode. Patient's med list at bedside reviewed, patient reportedly taking total 150 mg of metoprolol succinate daily. Will continue to monitor patient till Wednesday morning if she has similar episodes, will treat accordingly. Patient's underlying symptoms likely secondary to intake of high dose of metoprolol. Continue diureses with lasix 40mg bid, was given IV iron x1 and electrolytes were repleted 06/24/2025: No Overnight events. Labs reviewed and patient examined at the bedside. Overnight, patient complained of SOB and CXR showing worsening bilateral infiltrates. Patient received IV Furosemide 40mg x2 this forensic medical examiner at 3am and More more IV furosemide 40mg at 9am. Patient scheduled for IV Furosemide 40mg TID tomorrow. Recommend stopping spironolactone 25mg po qd before starting the IV Furosemide 3 times a day to prevent JACK. UoP:2.4L, Cr:1.1, BUN:28 Exam Vital Signs Temp Pulse Resp BP Pulse Ox O2 Del Method O2 Flow Rate 97.1 F 83 19 133/75 H 96 Oxy Mask 14 06/24/25 12:00 06/24/25 12:00 06/24/25 12:00 06/24/25 12:00 06/24/25 12:00 06/24/25 12:00 06/24/25 12:00 FiO2 70 06/24/25 06:56 Narrative Exam General: Alert, oriented, in no acute distress. HEENT: Normocephalic, atraumatic. No cervical lymphadenopathy. Neck: Supple, no JVD, no lymphadenopathy or thyroid enlargement. Cardiovascular: Regular rate and rhythm. No murmurs, rubs, or gallops. Respiratory: Clear to auscultation bilaterally. No wheezes, rales, or rhonchi. Normal respiratory effort. Abdomen: Soft, nontender, nondistended. No masses or organomegaly. Musculoskeletal: Full range of motion in all extremities. Lower extremity swellings, 2+ pitting edema. Skin: Warm, dry, intact. No rashes or lesions. Psychiatric: Calm, cooperative, appropriate mood and affect. Objective Labs 06/24/25 04:20 06/24/25 04:20 Labs: Laboratory Results - last 24 hr 06/24/25 04:20 WBC 13.6 H D RBC 5.11 Hgb 13.9 D Hct 46.1 H MCV 90 MCH 27.2 MCHC 30.2 L RDW Std Deviation 61.1 H Plt Count 202 D Neut % (Auto) 76 Lymph % (Auto) 11 [place] % (Auto) 11 Eos % (Auto) 1 Baso % (Auto) 0 Neut # (Auto) 10.4 H Lymph # (Auto) 1.5 [place] # (Auto) 1.6 H Eos # (Auto) 0.1 Baso # (Auto) 0.0 Immature Gran # (Auto) 0.06 H Absolute Nucleated RBC 0.00 Immature Gran % 0 Nucleated RBC % 0 Sodium 144 Potassium 4.1 Chloride 98 Carbon Dioxide 36.3 H Anion Gap 10 BUN 28 H Creatinine 1.1 Estim Creat Clear Calc 52.6 L eGFR 53 L BUN/Creatinine Ratio 25 H Glucose 134 H Calculated Osmolality 294 Lactic Acid 1.7 Calcium 8.8 Corrected Calcium 9.0 Phosphorus 3.8 Magnesium 2.3 Total Bilirubin 1.3 H D AST 29 ALT 11 Alkaline Phosphatase 114 D Total Protein 7.0 Albumin 3.7 D Globulin 3.3 Albumin/Globulin Ratio 1.1 L ABG Interpretation ABG results: 06/21/25 19:50 VBG pH 7.36 VBG pCO2 58 H VBG pO2 44 VBG Base Excess 5 H Quality Measures Quality Measures VTE prophylaxis Advance care planning discussed with:: patient and other Assessment & Plan Assessment Current Active Medications: Generic Name Dose Route Start Last Admin Trade Name Freq PRN Reason Stop Dose Admin Acetaminophen 650 mg 06/22/25 01:50 06/24/25 09:13 Acetaminophen 325 Mg Tablet PO 07/22/25 01:49 650 mg Q6H PRN Administration Fever >101.5 or pain 1-3 Albuterol/Ipratropium 3 ml 06/22/25 07:00 06/24/25 06:54 Albuterol/Ipratropium (Duoneb) Rt Huong 3 Ml Nebu INH 07/22/25 06:59 3 ml Q6HRRT LAURA Administration Albuterol/Ipratropium 3 ml 06/22/25 01:55 Albuterol/Ipratropium (Duoneb) Rt Huong 3 Ml Nebu INH 07/22/25 01:54 Q2HR PRN SHORTNESS OF BREATH OR WHEEZE Dextrose 25 ml 06/22/25 02:00 Dextrose 50%-Water Inj 50 Ml Syringe IV 07/22/25 01:59 Q15MIN PRN BG 50-70 responsive npo pt Dextrose 50 ml 06/22/25 02:00 Dextrose 50%-Water Inj 50 Ml Syringe IV 07/22/25 01:59 Q15MIN PRN BG <50 OR BG <70 & pt unresponsive Furosemide 40 mg 06/25/25 09:00 Furosemide Inj 10 Mg/Ml 4ml Vial IVP 07/25/25 08:59 TID LAURA Glucagon 1 mg 06/22/25 02:00 Glucagon Inj 1 Mg Vial IM Q15MIN PRN BG <70, and no IV access Heparin Sodium (Porcine) 5,000 unit 06/22/25 02:00 06/24/25 01:57 Heparin Sod Inj 5000 Unit/Ml Vial SC 07/06/25 01:59 5,000 unit Q12H LAURA Administration Piperacillin Sod/Tazobactam 100 mls @ 200 mls/hr 06/24/25 14:00 Sod 4.5 gm/ Sodium Chloride IV 07/01/25 13:59 Q8HR REPLACED BY [facility] Protocol Insulin Human Lispro 0 unit 06/22/25 07:30 06/24/25 08:10 Insulin Lispro (Admelog) 1 Unit/0.01 Ml Unit SC 07/22/25 07:29 Not Given ACHS LAURA Protocol Polyethylene Glycol 17 gm 06/24/25 09:00 06/24/25 09:06 Polyethylene Glycol 17 Gm Packet PO 07/24/25 08:59 17 gm QDAY LAURA Administration Ropinirole HCl 2 mg 06/22/25 21:00 06/23/25 20:52 Ropinirole Hcl 1 Mg Tablet PO 07/22/25 20:59 2 mg HS LAURA Administration Sennosides 1 tab 06/24/25 03:31 Senna Tablet PO 07/24/25 08:59 QDAY PRN Constipation Protocol Simethicone 80 mg 06/24/25 12:00 Simethicone 80 Mg Chew PO 07/24/25 11:59 DAILY LAURA Spironolactone 25 mg 06/22/25 09:00 06/24/25 09:05 Spironolactone 25 Mg Tablet PO 07/22/25 08:59 25 mg QDAY LAURA Administration Plan Ms. Clau Reyes is a 75-year-old female with past medical history of hypertension, type II diabetes mellitus, congestive heart failure with reduced ejection fraction, EF 35 to 40% 09/2023, hypertension, restless leg syndrome, chronic cough, chronic constipation, suspected COPD and ?OHS/ALIREZA who presented to [facility] emergency department on June 22, 2025 with a chief complaint of episode of black spots appearing in front of eyes with passing out and abnormal body movements witnessed by family, patient does not have any recollection of the event. Patient had no postictal confusion, oral trauma, involuntary micturition, chest pain, palpitation, fall during the event, patient otherwise complains of generalized weakness. Patient was admitted to the hospital for further workup for syncope like event. #Syncope like episode #Symptomatic sinus bradycardia, improved #Polypharmacy Patient had an episode of black spots appearing in front of eyes with passing out and abnormal body movements witnessed by family, patient does not have any recollection of the event. Patient had no postictal confusion, oral trauma, involuntary micturition, chest pain, palpitation, fall during the event Patient reportedly taking total 150mg of Metoprolol, 100mg prescribed by PCP and 50mg prescribed by cardiology office. EKG on presentation: 06/21/20251957 shows sinus bradycardia rate 55 however significant artifact on the EKG, repeat EKG 06/22/2258 shows sinus bradycardia, rate 49, left bundle branch block. Previous review of EKG shows LBBB present. Troponin on presentation 0.022, denied any chest pain. Magnesium 1.7, potassium 4.2 no other gross electrolyte abnormalities noted. CT head negative. Orthostatic vitals: Lying BP 120/64, heart rate 53 sitting BP 125/69, heart rate 56 standing BP 139/74 heart rate 78; orthostatic negative. 06/23:Patient had a rapid response, noted to have a sinus pause for 4 seconds on telemetry patient's episodes consistent with syncopal episode. Plan: -Continue to hold metoprolol, patient symptoms likely secondary to excessive dose of beta-blockade. -Patient walking well with physical therapy. Heart rate has improved now -Will reassess on Wednesday morning if patient has similar episode will rule out tachy-rich syndrome and sinus node dysfunction. - If has underlying symptomatology we will consider pacemaker placement #Acute decompensated HF, HFpEF , EF 50-55% #Hx of CHF, HFrEF 35-40% (09/18/2023) BNP: >3280, denies any shortness of breath though reports weakness prior to presentation. Patient does have bilateral lower extremity edema CXR (06/21/2025): showed Moderate CHF ECHO (done on 06/22/2025) showed: 1. Normal LV size and function with an EF of 50-55%. Grade 1 diastolic dysfunction. 2. Right ventricle chamber size is normal and systolic function is normal. Estimated RVSP is 22 mmHg. 3. Mild MR, TR, mild MAC. Trace PI. 4. The left atrium is mildly enlarged. The right atrium is normal. 5. Not well visualized IVC with estimated RA pressure 8 mmHg. Patient was being treated with Bumetanide 1mg po qd. Metoprolol XL 50mg po qd, Spironolactone 25mg po qd, Entresto 24-26 mg po bid as part of her GDMT, however med list reviewed patient taking multiple medication. Plan: - Patient scheduled for IV Furosemide 40mg TID tomorrow. Recommend stopping spironolactone 25mg po qd before starting the IV Furosemide 3 times a day. Consider resuming Entresto as blood pressure is permissible. -Keep potassium greater than 4 and magnesium greater than 2 at all times -Strict I&Os Fluid restriction 1500ml. - Low-sodium diet Daily weight -Was given IV iron # Hypertension, by history -Hold metoprolol until her bradycardia improves #COPD, on home O2 at night #[id number] type 2 diabetes mellitus -Management per Primary Hospitalist team Thank you for the consult and allowing to participate in the care of the patient. Cardiology will continue to follow. Assessment and plan discussed with my attending physician Dr. Rubin and Dr. Wu (PGY-2) Dr. Dubois (PGY-1) - Internal medicine resident Attending Provider Attestation/Addendum I have personally seen and examined the patient separately on the above date of service and discussed the plan of care with the resident. I reviewed the resident Dr. Laquita Dubois / Shruthi Wu consultation progress note and agree with the resident findings and plan in the note above and have also edited the documentation to reflect my findings and plan. Alberto Rubin M.D. Interventional Cardiology
[2025-06-24] MEDS: PIPER/TAZO INJ 4.5 GM in SODIUM CHLORIDE 0.9% (POP) 100 ML IV ×2 (13:41→21:21)
[2025-06-24] MEDS: SIMETHICONE 80 MG CHEW PO (13:43)
--- NOTE | 2025-06-24 15:54 | PC.SS ---
Rounding note: Patient scheduled for IV Furosemide 40mg TID tomorrow. Discharge plan: Home
[2025-06-25] VITALS (11 sets, daily range): BP systolic 109–136; BP diastolic 56–85; PULSE 61–84; RESP 18–27; TEMP 35.9–36.9; O2SAT 93–98; BMI 40.8; BMI 13.0
[2025-06-25] MEDS: ALBUTEROL/IPRATROPIUM (Duoneb) RT SOL 3 ML NEBU INH ×4 (00:21→19:45)
--- NOTE | 2025-06-25 00:25 | PC.RT ---
instructed pt on how to use IS. Educated pt on trying to ue IS every 2 hours while awake if able
[2025-06-25] MEDS: ACETAMINOPHEN 325 MG TABLET 650 MG PO ×2 (00:34→21:14)
[2025-06-25] MEDS: HEPARIN SOD INJ 5000 UNIT/ML VIAL SC ×2 (01:44→14:45)
[2025-06-25] MEDS: PIPER/TAZO INJ 4.5 GM in SODIUM CHLORIDE 0.9% (POP) 100 ML IV ×3 (05:14→21:12)
[2025-06-25 06:33] LABS: Basophils # (Auto) 0.0 Thou/mm3 (0.0-0.2); Basophils % (Auto) 0 % (0-2.5); Eosinophils # (Auto) 0.2 Thou/mm3 (0.0-0.5); Eosinophils % (Auto) 1 % (0-10); Hematocrit 37.9 % (36.0-46.0); Hemoglobin 11.3 g/dL (12.0-16.0); Immature Granulocytes Auto 0.06 Thou/mm3 (0.00-0.00); Lymphocytes # (Auto) 1.2 Thou/mm3 (1.0-4.8); Lymphocytes % (Auto) 7 % (10-50); Mean Corpuscular HGB Conc 29.8 g/dl (31.0-37.0); Mean Corpuscular Hemoglobin 27.5 pg (25.0-35.0); Mean Corpuscular Volume 92 fL (80-100); Monocytes # (Auto) 1.3 Thou/mm3 (0.0-0.8); Monocytes % (Auto) 8 % (0-12); Neutrophils # (Auto) 13.2 Thou/mm3 (1.8-7.7); Neutrophils % (Auto) 83 % (37-80); Nucleated Red Blood Cell # 0.00 Thou/mm3 (0.00-0.00); Nucleated Red Blood Cell % 0 /100 WBC (0); Platelet Count 156 Thou/mm3 (140-440); RDW Standard Deviation 62.4 fL (36.4-46.3); Red Blood Count 4.11 Miln/mm3 (4.00-5.20); White Blood Count 16.0 Thou/mm3 (3.6-11.0)
[2025-06-25 06:40] LABS: Alanine Aminotransferase 9 U/L (10-49); Albumin, Serum 2.8 gm/dL (3.4-4.8); Albumin/Globulin Ratio 1.0 (1.2-2.2); Alkaline Phosphatase 88 U/L (46-116); Anion Gap 8 (7-16); Aspartate Amino Transferase 21 U/L (0-34); BUN/Creatinine Ratio 17 Ratio (12-20); Bilirubin,Total 1.3 mg/dL (0.3-1.2); Blood Urea Nitrogen 40 mg/dL (9-23); Calcium 8.3 mg/dL (8.3-10.6); Calcium (Corrected) 9.3 mg/dL (8.5-10.1); Carbon Dioxide 35.7 mMol/L (20.0-31.0); Chloride 98 mMol/L (98-107); Creatinine (Component) 2.3 mg/dL (0.6-1.3); Estimated Creatinine Clearance 25.2 mL/min (>60); Globulin 2.8 gm/dL (2.3-3.5); Glucose 83 mg/dL (74-106); Magnesium 2.9 mg/dL (1.6-2.6); Osmolality,Calculated 291 (275-295); Phosphorous 4.4 mg/dL (2.4-5.1); Potassium 4.7 mMol/L (3.4-5.1); Sodium 142 mMol/L (136-145); Total Protein 5.6 gm/dL (5.7-8.2); eGFR 22 See Note
[2025-06-25] MEDS: LACTULOSE SYRUP 20 GM/30 ML UDC PO (08:17)
[2025-06-25] MEDS: FUROSEMIDE INJ 10 MG/ML 4ML VIAL 40 MG IVP (08:18)
[2025-06-25] MEDS: POLYETHYLENE GLYCOL 17 GM PACKET PO (08:18)
[2025-06-25] MEDS: SIMETHICONE 80 MG CHEW PO (08:19)
--- NOTE | 2025-06-25 09:52 | ESPR_ITS ---
<Statement entered by Beau Jack MD - 06/29/25 08:35> I reviewed above note and agree with findings and plans. I have also personally examined the patient with medicine team and went over assessment and plan with medical team including international editorial producer and resident physician. <Statement entered by Rosemarie Rosas MD - 06/26/25 12:23> In summary: A 74-year-old female PMHx of HFrEF 35 to 40%, HTN, T2DM, COPD on 2 L home oxygen, originally presenting with a syncopal episode, admitted for symptomatic sinus bradycardia as a result of safely taking extra home METOPROLOL. Neurology on board, heart rate otherwise stable. Also presented with acute hypoxemic respiratory failure in setting of CHF exacerbation for which she has been on diuresis. However her kidney functions have slightly worsened likely from postrenal obstruction given her severe constipation which she had developed over the last few days., Versus less likely overdiuresis. She has been on LACTULOSE and has been having regular large bowel movements. Currently, given gentle boluses and holding diuresis. Will continue monitoring renal function and consider consulting nephrology if renal function worsen. I?ve reviewed the note and agree with this assessment and plan, with the exceptions outlined above. I personally went over the labs, imaging, home medications, and prior records, and examined the patient. The case was also reviewed with the attending physician. Please note: this document was transcribed using voice recognition technology; minor inaccuracies may be present. Rosemarie Rosas DO PGY II Documentation for date of: 06/25/25 Subjective Subjective Interval history: Ms. Reyes is a 75 years old female with history of hypertension, type 2 DM, undiagnosed COPD, and HFrEF 35-40% presented on 06/21/25 for syncope. Patient had recently been prescribed a high dose of metoprolol from 50 to 100mg on 06/14/25. Of note, patient also stated she usually put all her pills in her unlabeled weekly pill box and tossed the original pill bottles away, so she's unsure what medications she's taking. She was admitted for symptomatic bradycardia. 06/22/25: NAOE. Patient continues to be bradycardic at 50s without symptom. Telemetry reviewed, patient does not have sinus pause more than 7 secs. EKG revealed sinus rich with LBBB. Will continue to observe patient today, HOLD ALL Beta-blockers, will likely resume patient's home Entresto tmr for GDMT. 06/23/25:No overnight event. Seen and examined at bedside. Reports feeling well today. Denies new or worsening symptoms. She has worked with PT yesterday and tolerated well without dizziness, lightheadedness, chest pain, sob, or palpitations. Her orthrostatic vitals were normal from the night before. Overnight her HR dropped to upper 50s while sleeping but she was asymptomatic. 06/23/25 Rapid Response: Around 1:30 she had RR for acute dizziness during duoneb for which she reported feeling about to faint. On arrival she was stable, alert and oriented, feels anxious, BP 138/91, RR 18, HR 130-180. Tele showed prolonged sinus pause about 30 seconds followed by sinus tachycardia. EKG showed sinus rhythm, normal rate, unchanged from the previous day. Cardiology resident was present during the rapid and will provide recommendations. She had received a dose of lasix earlier for worsening LE edema and sob. For now, we will monitor closely, pacer pads were placed, and awaiting further recommendations form cardiology team. 06/24/25: Patient desaturated overnight, requiring increase in oxygen demand, currently on 9L simple mask with O2 sat of 92%. CXR revealed worsening CHF and possible superimposed bilateral pneumonia. KUB revealed moderate to large amount of stool throughout the colon. When examined at bedside this AM, patient was complaining of lower abdominal cramping pain, which patient described as consistent with her prior constipation. Water enema was given with minimal relieve, will continue to monitor. Simethicone daily added. Increased Lasix from BID to TID given patient is likely fluid overloaded. Of note, WBC increased to 13 today, Zosyn added for empiric coverage of possible aspiration pneumonia. 06/25/25: NAOE. Oxygen demand decreased, currently on 4L satting at 94%. Will hold lasix today given JACK, Family Coach of 2.3. Nephrology consulted. WBC increased from 13 to 16 today, likely due to chemo irritation from gastric acid, will continue empiric abx today. Patient's HR stable at 74. Patient also reports good BM after lactulose, significant relieve of abdomen distention and pain. Exam Vital Signs Temp Pulse Resp BP Pulse Ox O2 Del Method O2 Flow Rate 97.2 F 67 19 111/78 98 Oxy Mask 4 06/25/25 08:00 06/25/25 08:18 06/25/25 08:00 06/25/25 08:18 06/25/25 08:00 06/25/25 08:00 06/25/25 07:58 FiO2 70 06/24/25 06:56 Narrative Exam General: Alert, oriented, appeared uncomfortable due to constipation. HEENT: Normocephalic, atraumatic. Oral mucosa dry. Neck: Supple, no JVD Cardiovascular: Regular rate and rhythm. No murmurs, rubs, or gallops. Respiratory: Crackles to bilateral lower lung gallegos. No increase WOB, however, constant sputum production. Abdomen: Soft, nontender, nondistended. No guarding or rigidity. Musculoskeletal: Full range of motion in all extremities. Lower extremities swelling 1+. Skin: Warm, dry, intact. No rashes or lesions. Objective Labs 06/25/25 04:41 06/25/25 04:41 Labs: Laboratory Results - last 24 hr 06/25/25 04:41 WBC 16.0 H RBC 4.11 Hgb 11.3 L D Hct 37.9 MCV 92 MCH 27.5 MCHC 29.8 L RDW Std Deviation 62.4 H Plt Count 156 D Neut % (Auto) 83 H Lymph % (Auto) 7 L [place] % (Auto) 8 Eos % (Auto) 1 Baso % (Auto) 0 Neut # (Auto) 13.2 H Lymph # (Auto) 1.2 [place] # (Auto) 1.3 H Eos # (Auto) 0.2 Baso # (Auto) 0.0 Immature Gran # (Auto) 0.06 H Absolute Nucleated RBC 0.00 Immature Gran % 0 Nucleated RBC % 0 Sodium 142 Potassium 4.7 D Chloride 98 Carbon Dioxide 35.7 H Anion Gap 8 BUN 40 H Creatinine 2.3 H D Estim Creat Clear Calc 25.2 L eGFR 22 L BUN/Creatinine Ratio 17 Glucose 83 D Calculated Osmolality 291 Calcium 8.3 Corrected Calcium 9.3 Phosphorus 4.4 Magnesium 2.9 H Total Bilirubin 1.3 H AST 21 ALT 9 L Alkaline Phosphatase 88 D Total Protein 5.6 L Albumin 2.8 L D Globulin 2.8 Albumin/Globulin Ratio 1.0 L ABG Interpretation ABG results: 06/21/25 19:50 VBG pH 7.36 VBG pCO2 58 H VBG pO2 44 VBG Base Excess 5 H Quality Measures Quality Measures VTE prophylaxis Advance care planning discussed with:: patient Assessment & Plan Assessment Current Active Medications: Generic Name Dose Route Start Last Admin Trade Name Freq PRN Reason Stop Dose Admin Acetaminophen 650 mg 06/22/25 01:50 06/25/25 00:34 Acetaminophen 325 Mg Tablet PO 07/22/25 01:49 650 mg Q6H PRN Administration Fever >101.5 or pain 1-3 Albuterol/Ipratropium 3 ml 06/22/25 07:00 06/25/25 07:54 Albuterol/Ipratropium (Duoneb) Rt Huong 3 Ml Nebu INH 07/22/25 06:59 3 ml Q6HRRT LAURA Administration Albuterol/Ipratropium 3 ml 06/22/25 01:55 Albuterol/Ipratropium (Duoneb) Rt Huong 3 Ml Nebu INH 07/22/25 01:54 Q2HR PRN SHORTNESS OF BREATH OR WHEEZE Dextrose 25 ml 06/22/25 02:00 Dextrose 50%-Water Inj 50 Ml Syringe IV 07/22/25 01:59 Q15MIN PRN BG 50-70 responsive npo pt Dextrose 50 ml 06/22/25 02:00 Dextrose 50%-Water Inj 50 Ml Syringe IV 07/22/25 01:59 Q15MIN PRN BG <50 OR BG <70 & pt unresponsive Furosemide 40 mg 06/25/25 09:00 06/25/25 08:18 Furosemide Inj 10 Mg/Ml 4ml Vial IVP 07/25/25 08:59 40 mg On Hold: 06/25/25 09:00 TID LAURA Administration Glucagon 1 mg 06/22/25 02:00 Glucagon Inj 1 Mg Vial IM Q15MIN PRN BG <70, and no IV access Heparin Sodium (Porcine) 5,000 unit 06/22/25 02:00 06/25/25 01:44 Heparin Sod Inj 5000 Unit/Ml Vial SC 07/06/25 01:59 5,000 unit Q12H LAURA Administration Piperacillin Sod/Tazobactam 100 mls @ 200 mls/hr 06/24/25 14:00 06/25/25 07:56 Sod 4.5 gm/ Sodium Chloride IV 07/01/25 13:59 Infused Q8HR LAURA Infusion Protocol Insulin Human Lispro 0 unit 06/22/25 07:30 06/25/25 07:46 Insulin Lispro (Admelog) 1 Unit/0.01 Ml Unit SC 07/22/25 07:29 Not Given ACHS LAURA Protocol Polyethylene Glycol 17 gm 06/24/25 09:00 06/25/25 08:18 Polyethylene Glycol 17 Gm Packet PO 07/24/25 08:59 17 gm QDAY LAURA Administration Ropinirole HCl 2 mg 06/22/25 21:00 06/24/25 21:21 Ropinirole Hcl 1 Mg Tablet PO 07/22/25 20:59 2 mg HS LAURA Administration Sennosides 1 tab 06/24/25 03:31 06/24/25 13:43 Senna Tablet PO 07/24/25 08:59 1 tab QDAY PRN Administration Constipation Protocol Simethicone 80 mg 06/24/25 12:00 06/25/25 08:19 Simethicone 80 Mg Chew PO 07/24/25 11:59 80 mg DAILY LAURA Administration Plan This patient is a 75-year-old female with a history of hypertension, type 2 diabetes mellitus, COPD (on home oxygen, 2 L, usually at night), and HFrEF (35 to 40%, 2023) who presented to [facility] ED on 06/21 for an episode of passing out. Patient was admitted for management of syncope with bradycardia. #Acute Hypoxic respiratory failure #Acute CHF exacerbation #HFpEF, 35 to 40%, 2023 #Aspiration pneunonia Echocardiogram on 09/18/2023 shows stage I diastolic dysfunction with estimated ejection fraction 35 to 40%, hypokinesis of the mid anterior septal, basal septal, and lateral wall Chest x-ray on 06/21 showed moderate CHF with prominent vascular congestion and perihilar/basilar edema and moderate left pleural fluid BNP > 3280 on admission CXR on 06/23/25 showed worsening of CHF and possible superimposed aspiration pneumonia. - Echocardiogram ordered --> showed EF 50-55% and Grade 1 diastolic dysfunction. - Hold Lasix 40 IV TID today given new onset JACK. - Started Zosyn (06/24 ~) for aspiration pneumonia coverage. - Spironolactone 25 mg daily - Will consider starting patient back on Entresto if BP tolerates - Holding home metoprolol succinate 50 mg daily for now given patient's bradycardia on admission - HOLD ALL BETA BLOCKERS. - Keep potassium above 4 and magnesium above 2 - Strict ins and out - Fluid restriction 1500 cc daily #JACK Family Coach increased from 1.1 to 2.3, likely 2/2 to aggressive diauresis. - Nephrology consulted, appreciate recs - Hold lasix for today - Given patient's CHF hx and fluid overloaded status, no plan for IV fluid at this point, pending nephrology recs. - Strict I/Os - monitor urine output - daily labs, monitor chemistry - renal dose med, avoid nephrotoxin - no recent contrast or offending mediations # Syncope # Symptomatic tachybradycardia arrhythmia versus sinus tach syndrome # Left bundle branch block (old) Admitted for syncopal episode where she fainted and passed out. She recently had her METOPROLOL dose changed from 50 to 100 mg by her PCP however she reports she has been mistakenly taking 150 mg daily. Orthostatics were negative. CT head was unremarkable. GLUCOSE was normal. Thyroid function was normal as well. Admission EKG shows sinus bradycardia HR 49, QTc 477 and LBBB. We have discontinued home METOPROLOL since admission and heart rate has been relatively stable. She continued on diuresis and shortness of breath is improving. Repeat echo this visit showed EF 50-55% and grade 1 diastolic dysfunction. RR (06/23/25) for acute episode of syncope, palpitations and shortness of breath during DUONEB treatment (see event note and subjective above). She likely had symptomatic tachybradycardia arrhythmia vs. setting such syndrome based on prolonged 30 seconds pauses seen on telemetry during arrival. Cardiology was notified and further recommendations are pending. We've preemptively placed pacemaker pads and will continue monitor closely. Her symptoms have resolved since. ? Continue holding METOPROLOL ? Cardiology consulted --> symptoms likely 2/2 to excessive dose of beta- blockade. Reassess Wednesday. #COPD, on home O2 at night #ALIREZA vs OHS Not officially diagnosed. Home O2 was presribed from last admission (admitted for CHF exacerbation). BMI 41. - Oxygen delivery via nasal cannula as needed - DuoNebs every 6 hours with additional DuoNebs every 2 hours as needed - BiPAP/CPAP at night as needed. #Cvs-brldrev-keybrxuga type 2 diabetes mellitus Patient noted to have a history of [id number] type 2 diabetes mellitus that she manages with Ozempic and glipizide. Unsure if patient takes any SGLT2 inhibitor, however pending final med rec. Hemoglobic A1c on 05/19/2025 was 6.0% - Sliding scale insulin - Bedside glucose checks ACHS - Consider addition of SGLT2 inhibitor to be started outpatient #History of hypertension Chronic medical problem - will resume home Entresto if BP tolerates Health maintenance Dispo: Cardiology consultation, diauresis. DVT prophylaxis: HEPARIN GI prophylaxis: N/A Antibiotics: Zosyn for aspiration pneumonia Bowel Regimen: Senokot PRN, Simethicone QD. Diet: Cardiac diet, fluid restriction 1500 cc Lines: Peripheral IV Code status: DNR Case discussed with my senior resident Dr. Rosas Case discussed with my attending Dr. Guero Zavala, DO PGY 1
--- NOTE | 2025-06-25 09:52 | ESPR_ITS ---
Documentation for date of: 06/25/25 Subjective Subjective Interval history: Ms. Clau Reyes is 75yF with PMH of hypertension, diabetes mellitus on Ozempic, congestive heart failure, hypertension, restless leg syndrome, chronic cough, recently admitted in the hospital for CHF exacerbation, HFrEF [EF 35 to 40%, 2023], ?COPD, presented to the ED on 06/21, due to a syncopal episode. In the afternoon, patient was seated and was talking to her family member during which started to have progressive dimming of vision and intermitting random light flashing on her eyes. According to family, she subsequently lost consciousness for approximately 10 seconds, during which her eyes rolled upward and exhibited brief hand tremors. On recovery, she demonstrated no postictal confusion and no report of tongue biting or palpation. She had recent history of hospitalization for acute decompensated Heart failure, during which she received supplemental oxygen via nasal cannula and IV diuresis. On discharge, her shortness of breathe didn't completely resolve and was given 2L of oxygen and albutrol. However, she was never officially diagnosed with COPD. Patient was admitted and consulted to cardiology for mangement of syncope with bradycardia ED course: VItals: Temp: 98.7, WI:59, RR:18, BP:149/100, 97% NC 6L Labs: WBC: 7.2, Hgb:12.2, Plt:171, VBG pH:7.36, VBG pCO2:58H, HCO3: 32.6, AL, BUN:27, eGFR:53, Glucose:177, Troponin: 0.022, BNP: >3280 Negative Urine toxicology CXR (06/21/2025): showed Moderate CHF EKG (06/21/2025): showed Sinus Bradycardia Head CT (06/21/2025): Negative for acute hemorrhage, mass effect or midline shift In ED, patient received IV Furosemide 40mg x1, and IV Methyprednisolone 125 mg x1 Medical history: As stated above Surgical history: Total Knee replacement 2019 Allergies: NKDA Medications: Bumetanide 1mg po qd. Metoprolol XL 50mg po qd, Spironolactone 25mg po qd, Ropinirole 1mg po 2 tablets 1-3hrs before sleep, Meclizine 25mg po bid, Ozempic, , Fluticasone propionate 50mcg/act for allergy, Glipizide 10mg po bid before breakfast, Albutrol prn, adavair , Montelukast 10mg po HS for allergy, Entresto 24-26 mg po bid, [place] prn. Magnesium dioxide Family history: Mom at agoe of 79 due to stoke. Father had HTN and DM at age of 96. Younger sister had unspecified cancer and older sister had breast cancer Social history: Denies smoking cigarettes or using other illicit drugs. Patient sometimes drinks. Worked in [employer], now retired. 06/22/2025: Labs reviewed and patient examined at the bedside. As part of her home med, she was taking metoprolol 50mg po qd and spironolactone 25mg po qd as part of her GDMT. Will hold metoprolol for a day. Tomorrow will check her bradycardia , will attempt her to walk and monitor her vitals. Continue IV furosemide Denies chest pain, palpation, SOB, abdominal pain, N/V, fevers or chills. 06/23/2025: Patient seen examined at bedside, heart rate has improved. Patient had a rapid response earlier today noted to have a sinus pause for 4 seconds on telemetry patient's episodes consistent with syncopal episode. Patient's med list at bedside reviewed, patient reportedly taking total 150 mg of metoprolol succinate daily. Will continue to monitor patient till Wednesday morning if she has similar episodes, will treat accordingly. Patient's underlying symptoms likely secondary to intake of high dose of metoprolol. Continue diureses with lasix 40mg bid, was given IV iron x1 and electrolytes were repleted 06/24/2025: No Overnight events. Labs reviewed and patient examined at the bedside. Overnight, patient complained of SOB and CXR showing worsening bilateral infiltrates. Patient received IV Furosemide 40mg x2 this home health care case manager at 3am and More more IV furosemide 40mg at 9am. Patient scheduled for IV Furosemide 40mg TID tomorrow. Recommend stopping spironolactone 25mg po qd before starting the IV Furosemide 3 times a day to prevent JACK. UoP:2.4L, Cr:1.1, BUN:28 06/25/2025: No Overnight events. Labs reviewed and patient examined at the bedside. Today, patient's Creatinine increased from 1.1 to 2.3. Hold IV furosemide 40mg tid. Recommend giving patient IVF 500ml x1. Continue holding metoprolol. Was able to have BM after lactulose. Oxygen requirement decreased to NC 4L. No complaints of abd pain anymore. No chest pain, SOB, or palpitations. BP stable at 111/78 with HR 79. Will continue to monitor. Exam Vital Signs Temp Pulse Resp BP Pulse Ox O2 Del Method O2 Flow Rate 97.2 F 67 19 111/78 98 Oxy Mask 4 06/25/25 08:00 06/25/25 08:18 06/25/25 08:00 06/25/25 08:18 06/25/25 08:00 06/25/25 08:00 06/25/25 07:58 FiO2 70 06/24/25 06:56 Narrative Exam General: Alert, oriented, in no acute distress. HEENT: Normocephalic, atraumatic. No cervical lymphadenopathy. Neck: Supple, no JVD, no lymphadenopathy or thyroid enlargement. Cardiovascular: Regular rate and rhythm. No murmurs, rubs, or gallops. Respiratory: Clear to auscultation bilaterally. No wheezes, rales, or rhonchi. Normal respiratory effort. Abdomen: Soft, nontender, nondistended. No masses or organomegaly. Musculoskeletal: Full range of motion in all extremities. Lower extremity swellings, 2+ pitting edema. Skin: Warm, dry, intact. No rashes or lesions. Psychiatric: Calm, cooperative, appropriate mood and affect. Objective Labs 06/26/25 05:58 06/26/25 11:50 Labs: Laboratory Results - last 24 hr 06/25/25 04:41 WBC 16.0 H RBC 4.11 Hgb 11.3 L D Hct 37.9 MCV 92 MCH 27.5 MCHC 29.8 L RDW Std Deviation 62.4 H Plt Count 156 D Neut % (Auto) 83 H Lymph % (Auto) 7 L Banks % (Auto) 8 Eos % (Auto) 1 Baso % (Auto) 0 Neut # (Auto) 13.2 H Lymph # (Auto) 1.2 Banks # (Auto) 1.3 H Eos # (Auto) 0.2 Baso # (Auto) 0.0 Immature Gran # (Auto) 0.06 H Absolute Nucleated RBC 0.00 Immature Gran % 0 Nucleated RBC % 0 Sodium 142 Potassium 4.7 D Chloride 98 Carbon Dioxide 35.7 H Anion Gap 8 BUN 40 H Creatinine 2.3 H D Estim Creat Clear Calc 25.2 L eGFR 22 L BUN/Creatinine Ratio 17 Glucose 83 D Calculated Osmolality 291 Calcium 8.3 Corrected Calcium 9.3 Phosphorus 4.4 Magnesium 2.9 H Total Bilirubin 1.3 H AST 21 ALT 9 L Alkaline Phosphatase 88 D Total Protein 5.6 L Albumin 2.8 L D Globulin 2.8 Albumin/Globulin Ratio 1.0 L ABG Interpretation ABG results: 06/21/25 19:50 VBG pH 7.36 VBG pCO2 58 H VBG pO2 44 VBG Base Excess 5 H Quality Measures Quality Measures VTE prophylaxis Advance care planning discussed with:: patient and other Assessment & Plan Assessment Current Active Medications: Generic Name Dose Route Start Last Admin Trade Name Freq PRN Reason Stop Dose Admin Acetaminophen 650 mg 06/22/25 01:50 06/25/25 00:34 Acetaminophen 325 Mg Tablet PO 07/22/25 01:49 650 mg Q6H PRN Administration Fever >101.5 or pain 1-3 Albuterol/Ipratropium 3 ml 06/22/25 07:00 06/25/25 07:54 Albuterol/Ipratropium (Duoneb) Rt Huong 3 Ml Nebu INH 07/22/25 06:59 3 ml Q6HRRT LAURA Administration Albuterol/Ipratropium 3 ml 06/22/25 01:55 Albuterol/Ipratropium (Duoneb) Rt Huong 3 Ml Nebu INH 07/22/25 01:54 Q2HR PRN SHORTNESS OF BREATH OR WHEEZE Dextrose 25 ml 06/22/25 02:00 Dextrose 50%-Water Inj 50 Ml Syringe IV 07/22/25 01:59 Q15MIN PRN BG 50-70 responsive npo pt Dextrose 50 ml 06/22/25 02:00 Dextrose 50%-Water Inj 50 Ml Syringe IV 07/22/25 01:59 Q15MIN PRN BG <50 OR BG <70 & pt unresponsive Furosemide 40 mg 06/25/25 09:00 06/25/25 08:18 Furosemide Inj 10 Mg/Ml 4ml Vial IVP 07/25/25 08:59 40 mg On Hold: 06/25/25 09:00 TID LAURA Administration Glucagon 1 mg 06/22/25 02:00 Glucagon Inj 1 Mg Vial IM Q15MIN PRN BG <70, and no IV access Heparin Sodium (Porcine) 5,000 unit 06/22/25 02:00 06/25/25 01:44 Heparin Sod Inj 5000 Unit/Ml Vial SC 07/06/25 01:59 5,000 unit Q12H LAURA Administration Piperacillin Sod/Tazobactam 100 mls @ 200 mls/hr 06/24/25 14:00 06/25/25 07:56 Sod 4.5 gm/ Sodium Chloride IV 07/01/25 13:59 Infused Q8HR LAURA Infusion Protocol Insulin Human Lispro 0 unit 06/22/25 07:30 06/25/25 07:46 Insulin Lispro (Admelog) 1 Unit/0.01 Ml Unit SC 07/22/25 07:29 Not Given ACHS LAURA Protocol Polyethylene Glycol 17 gm 06/24/25 09:00 06/25/25 08:18 Polyethylene Glycol 17 Gm Packet PO 07/24/25 08:59 17 gm QDAY LAURA Administration Ropinirole HCl 2 mg 06/22/25 21:00 06/24/25 21:21 Ropinirole Hcl 1 Mg Tablet PO 07/22/25 20:59 2 mg HS LAURA Administration Sennosides 1 tab 06/24/25 03:31 06/24/25 13:43 Senna Tablet PO 07/24/25 08:59 1 tab QDAY PRN Administration Constipation Protocol Simethicone 80 mg 06/24/25 12:00 06/25/25 08:19 Simethicone 80 Mg Chew PO 07/24/25 11:59 80 mg DAILY LAURA Administration Plan Ms. Clau Reyes is a 75-year-old female with past medical history of hypertension, type II diabetes mellitus, congestive heart failure with reduced ejection fraction, EF 35 to 40% 09/2023, hypertension, restless leg syndrome, chronic cough, chronic constipation, suspected COPD and ?OHS/ALIREZA who presented to [facility] emergency department on June 22, 2025 with a chief complaint of episode of black spots appearing in front of eyes with passing out and abnormal body movements witnessed by family, patient does not have any recollection of the event. Patient had no postictal confusion, oral trauma, involuntary micturition, chest pain, palpitation, fall during the event, patient otherwise complains of generalized weakness. Patient was admitted to the hospital for further workup for syncope like event. #Syncope like episode / presyncope #Symptomatic sinus bradycardia, improved -in the setting of polypharmacy #Polypharmacy Patient had an episode of black spots appearing in front of eyes with passing out and abnormal body movements witnessed by family, patient does not have any recollection of the event. Patient had no postictal confusion, oral trauma, involuntary micturition, chest pain, palpitation, fall during the event Patient reportedly taking total 150mg of Metoprolol, 100mg prescribed by PCP and 50mg prescribed by cardiology office. EKG on presentation: 06/21/20251957 shows sinus bradycardia rate 55 however significant artifact on the EKG, repeat EKG 06/22/2258 shows sinus bradycardia, rate 49, left bundle branch block. Previous review of EKG shows LBBB present. Troponin on presentation 0.022, denied any chest pain. Magnesium 1.7, potassium 4.2 no other gross electrolyte abnormalities noted. CT head negative. Orthostatic vitals: Lying BP 120/64, heart rate 53 sitting BP 125/69, heart rate 56 standing BP 139/74 heart rate 78; orthostatic negative. 06/23:Patient had a rapid response, noted to have a sinus pause for 4 seconds on telemetry patient's episodes consistent with syncopal episode. Plan: -Continue to hold metoprolol, patient symptoms likely secondary to excessive dose of beta-blockade. Heart rate improved and now in the 80s. -Patient walking well with physical therapy. Heart rate has improved now -Will reassess on Wednesday morning if patient has similar episode will rule out tachy-rich syndrome and sinus node dysfunction. - If has underlying symptomatology we will consider pacemaker placement #Acute decompensated HF, HFpEF , EF 50-55% #Hx of CHF, HFrEF 35-40% (09/18/2023) BNP: >3280, denies any shortness of breath though reports weakness prior to presentation. Patient does have bilateral lower extremity edema CXR (06/21/2025): showed Moderate CHF ECHO (done on 06/22/2025) showed: 1. Normal LV size and function with an EF of 50-55%. Grade 1 diastolic dysfunction. 2. Right ventricle chamber size is normal and systolic function is normal. Estimated RVSP is 22 mmHg. 3. Mild MR, TR, mild MAC. Trace PI. 4. The left atrium is mildly enlarged. The right atrium is normal. 5. Not well visualized IVC with estimated RA pressure 8 mmHg. Patient was being treated with Bumetanide 1mg po qd. Metoprolol XL 50mg po qd, Spironolactone 25mg po qd, Entresto 24-26 mg po bid as part of her GDMT, however med list reviewed patient taking multiple medications and unsure which medications she is actually taking Plan: - Patient was started on diuresis with furosemide 40 mg IV twice daily which was changed to Lasix 40 mg every 8 hours by the primary team - Creatinine increased to 2.3 from 1.2 and recommend holding Lasix for now. - Will give additional 500 mL of IV fluids or encourage additional oral fluid hydration for today and repeat BMP in the morning -Consider resuming Entresto as blood pressure is permissible. -Keep potassium greater than 4 and magnesium greater than 2 at all times -Strict I&Os Fluid restriction 1500ml. -Low-sodium diet Daily weight # Hypertension, by history -Hold metoprolol until her bradycardia improves #COPD, on home O2 at night #[id number] type 2 diabetes mellitus -Management per Primary Hospitalist team Thank you for the consult and allowing to participate in the care of the patient. Cardiology will continue to follow. Assessment and plan discussed with my attending physician Dr. Caryn Dubois (PGY-1) - Internal medicine resident Attending Provider Attestation/Addendum I have personally seen and examined the patient separately on the above date of service and discussed the plan of care with the resident. I reviewed the resident Dr. Laquita Dubois consultation progress note and agree with the resident findings and plan in the note above and have also edited the documentation to reflect my findings and plan. Alberto Rubin M.D. Interventional Cardiology
--- NOTE | 2025-06-25 13:12 | PD.NEPHCONS ---
History of Present Illness Data of Consult Consult date: 06/25/25 Requesting Physician: Juan Pablo Webster DO Primary Care Provider: Physician No Primary/Family Consult Narrative Reason for consult: JACK History of present illness: Ms. Reyes is a 75-year-old lady with extensive past medical history of hypertension, obesity, diabetes, congestive heart failure (EF 50%) dyslipidemia, restless legs, allergies, questionable obesity hypoventilation/ALIREZA was admitted to the hospital with hypoxic respiratory failure. Noted to have CHF exacerbation. Patient was given IV diuretics and cardiology was consulted. Blood pressures have been significantly elevated on admission. Over the past 24 hours her BUN and creatinine started to trend up and nephrology consultation was requested. Chart review done. Patient currently seen in telemetry. Her medications currently include heparin, ropinirole, MiraLAX, Zosyn, simethicone and was receiving Lasix 40 mg IV 3 times daily which was held this morning. Labs showed WBC 16, hemoglobin 11.3, platelets 156. Sodium 142, potassium 4.7, BUN 40, creatinine 2.3 (yesterday creatinine 1.1) Glucose 83, bilirubin 1.3, magnesium 2.9, albumin 2.8 urine sodium 118 stat renal ultrasound ordered. Abdominal x-ray showed constipation chest x-ray on admission showed CHF. cc:: cc: Juan Pablo Webster DO Review of Systems Review of Systems Narrative Review of Systems: CONSTITUTIONAL: Patient denies any fever, chills. Admits weight gain HEENT: Denies any visual disturbances or hearing problems. CARDIOVASCULAR: Patient denies any chest pain.complaining of shortness of breath, swelling in the lower extremities. PULMONARY: Patient complaining of shortness of breath, cough. GASTROINTESTINAL: Patient denies any abdominal pain, constipation, nausea, vomiting, diarrhea. GENITOURINARY: Patient denies any urinary symptoms of burning or frequency or hematuria, denies any form in the urine. SKIN: Denies any rash. MUSCULOSKELETAL: Complaining of arthritis pains NEUROLOGICAL: Denies any neurological problems of strokes, seizures or confusion. Denies any memory problems. PSYCHIATRIC: Denies any depression or anxiety. LYMPHATICS : No lymphadenopathy Past Medical History Past Medical History NEUROLOGIC: Negative Neurological Disorders CARDIAC: Positive Cardiac Disorders, Hypercholesterolemia, Congestive Heart Failure and Hypertension RESPIRATORY: Negative Chronic Obstructive Pulmonary Disease (COPD) or Asthma GASTROINTESTINAL: Positive Gastrointestinal Disorders and Obesity GENITOURINARY: Negative Genitourinary Disorders or Renal Disease REPRODUCTIVE: Positive Previous Pregnancies MUSCULOSKELETAL: Positive Musculoskeletal Disorders and Arthritis ENDOCRINE: Positive Endocrine Disorders and Diabetes Mellitus Type 2; Negative Diabetes Mellitus Type 1 HEMATOLOGIC: Negative Blood Disorders or Sickle Cell Disease OTHER HISTORY: Negative Autoimmune Disease, Blood Transfusions, Blood Transfusion Reaction or Anesthesia Reactions Family History FAMILY HISTORY: Positive Family Cardiac Disorders and Family Surgery Social History SMOKING STATUS: Never smoker SUBSTANCE USE: does not use ALCOHOL LAST INTAKE: Unknown Meds Home Medications and Allergies Home Medications ?Medication ?Instructions ?Recorded ?Confirmed ?Type albuterol sulfate 90 mcg/actuation 1 puff inhalation Q4H PRN 09/18/23 06/22/25 History aerosol inhaler breathing and shortness of breath benzonatate 200 mg capsule 200 mg PO TID PRN Cough 09/18/23 06/22/25 History fluticasone propionate 115 2 puff inhalation BID 09/18/23 06/23/25 History mcg-salmeterol 21 mcg/actuation HFA inhaler (Advair HFA) furosemide 40 mg tablet 40 mg PO QAM 09/18/23 06/23/25 History meclizine 25 mg tablet 25 mg PO PRN dizziness 09/18/23 06/22/25 History metformin 850 mg tablet 850 mg PO BIDWM diabetes 09/18/23 06/23/25 History metoprolol succinate 50 mg 50 mg PO QDAY 09/18/23 06/23/25 History tablet,extended release 24 hr Held on 06/23/25. Instructions: Resume on 06/23/25. Please discuss with your janitorial supervisor before restarting this medication ropinirole 1 mg tablet 2 mg PO BID 09/18/23 06/22/25 History spironolactone 25 mg tablet 25 mg PO QDAY 09/18/23 06/22/25 History semaglutide 0.25 mg or 0.5 mg (2 0.25 mg subcut QDAY 05/18/25 06/23/25 History mg/3 mL) subcutaneous pen injector (Ozempic) tizanidine 2 mg tablet 2 mg PO PRN 05/18/25 06/22/25 History Held on 06/23/25. Instructions: Resume on 06/23/25. Do not resume until you see your PCP. This medication increase your risk of dizziness and fall. Allergies Allergy/AdvReac Type Severity Reaction Status Date / Time No Known Allergies Allergy Verified 06/21/25 18:57 Exam Vital Signs Temp Pulse Resp BP Pulse Ox O2 Del Method O2 Flow Rate 36.9 C 84 25 H 131/85 H 94 L Nasal Cannula 4 06/25/25 20:00 06/25/25 20:00 06/25/25 20:00 06/25/25 20:00 06/25/25 20:00 06/25/25 20:00 06/25/25 20:00 FiO2 70 06/24/25 06:56 Narrative Exam GENERAL APPEARANCE: Patient seems to be comfortable, adequately hydrated and nourished. HEENT: EOMI, PERRLA NECK: Neck supple, no JVD or bruit CARDIOVASCULAR: Heart regular, no murmurs LUNGS/CHEST: Bilateral crackles at the bases ABDOMEN: Soft, nontender, nondistended. No masses. Normal bowel sounds. EXTREMITIES: 1+ edema in the lower extremities SKIN: Skin exam normal without any rashes MUSCULOSKELETAL: Musculoskeletal exam normal in bed, able to move all extremities PSYCHIATRIC: Normal mood, affect LYMPHATICS: No lymphadenopathy noted NEUROLOGICAL : No neurological deficits Results Labs 06/26/25 05:58 06/26/25 11:50 Labs: Short CBC 06/25/25 Range/Units 04:41 WBC 16.0 H (3.6-11.0) Thou/mm3 Hgb 11.3 L D (12.0-16.0) g/dL Hct 37.9 (36.0-46.0) % Plt Count 156 D (140-440) Thou/mm3 BMP 06/25/25 04:41 Sodium 142 Potassium 4.7 D Chloride 98 Carbon Dioxide 35.7 H BUN 40 H Creatinine 2.3 H D Glucose 83 D Calcium 8.3 Liver Function 06/25/25 Range/Units 04:41 Total Bilirubin 1.3 H (0.3-1.2) mg/dL AST 21 (0-34) U/L ALT 9 L (10-49) U/L Alkaline Phosphatase 88 D (46-116) U/L Albumin 2.8 L D (3.4-4.8) gm/dL ABG Interpretation ABG results: 06/21/25 19:50 VBG pH 7.36 VBG pCO2 58 H VBG pO2 44 VBG Base Excess 5 H Assessment & Plan Assessment and plan (1) JACK (acute kidney injury): Status: Acute Assessment and plan: JACK secondary to prerenal azotemia from CHF exacerbation and use of diuretics. Renal ultrasound ordered to rule out obstructive uropathy. Agree with holding off on the Lasix today. Clinically patient looks rather euvolemic. Strict I&O's ordered. Avoid nephrotoxics metformin, lisinopril held (2) Acute exacerbation of CHF (congestive heart failure): Status: Acute Assessment and plan: Was on 40 mg IV Lasix 3 times daily. Cardiology on the case. Echocardiogram showed ejection fraction 50 to 55% Held Lasix today (3) Acute exacerbation of chronic obstructive pulmonary disease: Status: Acute Assessment and plan: On oxygen, breathing treatments (4) Diabetes: Status: Acute Assessment and plan: 1. Check blood sugars twice daily, log them and bring them back with the next visit. 2. is blood sugars above 400 or less than 80, call M.D. 3. Stay active and physically fit 4. Comply with diet and medications 5. Low carbohydrate diet 6. A1C 6.3 (5) HTN (hypertension), benign: Status: Acute Assessment and plan: Continue Current anti-hypertensives Goal BP <130/80mmHg low salt diet (6) Hyperlipidemia: Status: Acute Assessment and plan: Emphasized on compliance with the low fat diet, regular exrecises. LDL < 70 Additional Assessment & Plan Additional Plan: Care discussed with primary team Thank you Beau for allowing me to participate in the care of Ms. Reyes
--- NOTE | 2025-06-25 22:11 | XR_ITS ---
Examination: Retroperitoneal ultrasound, complete Technique: Multiple high resolution grayscale images of the retroperitoneum obtained, including kidneys and bladder. Exam date and time: June 25, 2025, 10:21 p.m. INDICATIONS: Acute renal insufficiency on laboratory examination today FINDINGS: Right kidney 11.1 cm renal cortex 1.6 cm Left kidney 10.9 cm renal cortex 1.4 cm Moderate renal scarring Mild left hydronephrosis Distended urinary bladder 889.9 cc, no bladder calculi IMPRESSION: Moderate renal scarring Mild left hydronephrosis
[2025-06-26] VITALS (13 sets, daily range): BP systolic 116–133; BP diastolic 62–74; PULSE 18–90; RESP 17–97; TEMP 36.3–37.8; O2SAT 87–98; BMI 40.7
[2025-06-26] MEDS: HEPARIN SOD INJ 5000 UNIT/ML VIAL SC ×2 (01:25→14:01)
[2025-06-26] MEDS: ALBUTEROL/IPRATROPIUM (Duoneb) RT SOL 3 ML NEBU INH ×4 (01:54→19:42)
[2025-06-26] MEDS: PIPER/TAZO INJ 4.5 GM in SODIUM CHLORIDE 0.9% (POP) 100 ML IV ×3 (05:08→22:04)
[2025-06-26 06:28] LABS: Basophils # (Auto) 0.0 Thou/mm3 (0.0-0.2); Basophils % (Auto) 0 % (0-2.5); Eosinophils # (Auto) 0.5 Thou/mm3 (0.0-0.5); Eosinophils % (Auto) 5 % (0-10); Hematocrit 36.6 % (36.0-46.0); Hemoglobin 11.3 g/dL (12.0-16.0); Immature Granulocytes Auto 0.05 Thou/mm3 (0.00-0.00); Lymphocytes # (Auto) 0.9 Thou/mm3 (1.0-4.8); Lymphocytes % (Auto) 9 % (10-50); Mean Corpuscular HGB Conc 30.9 g/dl (31.0-37.0); Mean Corpuscular Hemoglobin 28.1 pg (25.0-35.0); Mean Corpuscular Volume 91 fL (80-100); Monocytes # (Auto) 1.1 Thou/mm3 (0.0-0.8); Monocytes % (Auto) 11 % (0-12); Neutrophils # (Auto) 7.2 Thou/mm3 (1.8-7.7); Neutrophils % (Auto) 74 % (37-80); Nucleated Red Blood Cell # 0.00 Thou/mm3 (0.00-0.00); Nucleated Red Blood Cell % 0 /100 WBC (0); Platelet Count 144 Thou/mm3 (140-440); RDW Standard Deviation 62.1 fL (36.4-46.3); Red Blood Count 4.02 Miln/mm3 (4.00-5.20); White Blood Count 9.7 Thou/mm3 (3.6-11.0)
[2025-06-26 07:04] LABS: Alanine Aminotransferase < 7 U/L (10-49); Albumin, Serum 3.0 gm/dL (3.4-4.8); Albumin/Globulin Ratio 1.2 (1.2-2.2); Alkaline Phosphatase 73 U/L (46-116); Anion Gap 9 (7-16); Aspartate Amino Transferase 24 U/L (0-34); BUN/Creatinine Ratio 13 Ratio (12-20); Bilirubin,Total 1.0 mg/dL (0.3-1.2); Blood Urea Nitrogen 48 mg/dL (9-23); Calcium 7.9 mg/dL (8.3-10.6); Calcium (Corrected) 8.7 mg/dL (8.5-10.1); Carbon Dioxide 35.1 mMol/L (20.0-31.0); Chloride 97 mMol/L (98-107); Creatinine (Component) 3.6 mg/dL (0.6-1.3); Estimated Creatinine Clearance 15.8 mL/min (>60); Globulin 2.6 gm/dL (2.3-3.5); Glucose 82 mg/dL (74-106); Magnesium 2.8 mg/dL (1.6-2.6); Osmolality,Calculated 292 (275-295); Phosphorous 5.1 mg/dL (2.4-5.1); Potassium 5.4 mMol/L (3.4-5.1); Sodium 141 mMol/L (136-145); Total Protein 5.6 gm/dL (5.7-8.2); eGFR 13 See Note
[2025-06-26 08:00] LABS: Parathyroid Hormone Intact 98.5 pg/ml (18.5-88.0)
[2025-06-26] MEDS: CALCIUM GLUCONATE 10% INJ 1 GM/10 ML VIAL IV (08:22)
[2025-06-26] MEDS: DEXTROSE 50%-WATER INJ 50 ML SYRINGE IV (08:22)
[2025-06-26] MEDS: SIMETHICONE 80 MG CHEW PO (08:22)
[2025-06-26] MEDS: SOD POLYSTYRENE SULFON SUSP 15 GM/60 ML BTL 30 GM PO (08:22)
[2025-06-26] MEDS: POLYETHYLENE GLYCOL 17 GM PACKET PO (08:23)
[2025-06-26] MEDS: INSULIN HUM REGULAR 1 UNIT/0.01 ML (PER UNIT) 5 UNIT IV (08:23)
[2025-06-26] MEDS: SODIUM CHLORIDE 0.9% 1000 ML 1,000 ML 75 ML IV (08:35)
--- NOTE | 2025-06-26 08:37 | ESPR_ITS ---
<Statement entered by Beau Jack MD - 06/30/25 12:53> I reviewed above note and agree with findings and plans. I have also personally examined the patient with medicine team and went over assessment and plan with medical team including marketing summer intern and resident physician. <Statement entered by Rosemarie Rosas MD - 06/26/25 12:24> In summary: A 74-year-old female PMHx of HFrEF 35 to 40%, HTN, T2DM, COPD on 2 L home oxygen, originally presenting with a syncopal episode, admitted for symptomatic sinus bradycardia as a result of safely taking extra home METOPROLOL. Neurology on board, heart rate otherwise stable. Also presented with acute hypoxemic respiratory failure in setting of CHF exacerbation for which she has been on diuresis. However her kidney functions have slightly worsened likely from postrenal obstruction given her severe constipation which she had developed over the last few days., Versus less likely overdiuresis. She has been on LACTULOSE and has been having regular large bowel movements. Nephrology was consulted today for rising creatinine level. Ortiz was inserted with 1.2 L urine output. She is also on 1 L NS maintenance at 75 cc/h, repeat renal panel appears to be improving. On exam she had mild bilateral crackles but she is on baseline home oxygen. Will continue monitoring closely given that she is receiving fluids and her home diuresis on hold to avoid volume overload. I?ve reviewed the note and agree with this assessment and plan, with the exceptions outlined above. I personally went over the labs, imaging, home medications, and prior records, and examined the patient. The case was also reviewed with the attending physician. Please note: this document was transcribed using voice recognition technology; minor inaccuracies may be present. Rosemarie Rosas DO PGY II Documentation for date of: 06/26/25 Subjective Subjective Interval history: Ms. Reyes is a 75 years old female with history of hypertension, type 2 DM, undiagnosed COPD, and HFrEF 35-40% presented on 06/21/25 for syncope. Patient had recently been prescribed a high dose of metoprolol from 50 to 100mg on 06/14/25. Of note, patient also stated she usually put all her pills in her unlabeled weekly pill box and tossed the original pill bottles away, so she's unsure what medications she's taking. She was admitted for symptomatic bradycardia. 06/22/25: NAOE. Patient continues to be bradycardic at 50s without symptom. Telemetry reviewed, patient does not have sinus pause more than 7 secs. EKG revealed sinus rich with LBBB. Will continue to observe patient today, HOLD ALL Beta-blockers, will likely resume patient's home Entresto tmr for GDMT. 06/23/25:No overnight event. Seen and examined at bedside. Reports feeling well today. Denies new or worsening symptoms. She has worked with PT yesterday and tolerated well without dizziness, lightheadedness, chest pain, sob, or palpitations. Her orthrostatic vitals were normal from the night before. Overnight her HR dropped to upper 50s while sleeping but she was asymptomatic. 06/23/25 Rapid Response: Around 1:30 she had RR for acute dizziness during duoneb for which she reported feeling about to faint. On arrival she was stable, alert and oriented, feels anxious, BP 138/91, RR 18, HR 130-180. Tele showed prolonged sinus pause about 30 seconds followed by sinus tachycardia. EKG showed sinus rhythm, normal rate, unchanged from the previous day. Cardiology resident was present during the rapid and will provide recommendations. She had received a dose of lasix earlier for worsening LE edema and sob. For now, we will monitor closely, pacer pads were placed, and awaiting further recommendations form cardiology team. 06/24/25: Patient desaturated overnight, requiring increase in oxygen demand, currently on 9L simple mask with O2 sat of 92%. CXR revealed worsening CHF and possible superimposed bilateral pneumonia. KUB revealed moderate to large amount of stool throughout the colon. When examined at bedside this AM, patient was complaining of lower abdominal cramping pain, which patient described as consistent with her prior constipation. Water enema was given with minimal relieve, will continue to monitor. Simethicone daily added. Increased Lasix from BID to TID given patient is likely fluid overloaded. Of note, WBC increased to 13 today, Zosyn added for empiric coverage of possible aspiration pneumonia. 06/25/25: NAOE. Oxygen demand decreased, currently on 4L satting at 94%. Will hold lasix today given JACK, Fulfillment Mail Clerk of 2.3. Nephrology consulted. WBC increased from 13 to 16 today, likely due to chemo irritation from gastric acid, will continue empiric abx today. Patient's HR stable at 74. Patient also reports good BM after lactulose, significant relieve of abdomen distention and pain. 06/26/25: NAOE. Currently 93% on 2L NC. Patient's Fulfillment Mail Clerk continues to increase from 2.3 to 3.6. Per nephrology, patient is retening urine (~800mL out with ortiz insertion). Patient's potassium increased from 4.7 to 5.4 this morning, hyperK cocktail x1 given. Will hold off lasix today. Patient does not want dialysis at this point. WBC decreased to 9.7, will keep antibiotics going for now for aspiration pneumonia coverage. Maintenance fluid started @ rate of 75mL/hr per cardiology recs. Repeat renal panel ordered. Exam Vital Signs Temp Pulse Resp BP Pulse Ox O2 Del Method O2 Flow Rate 97.4 F 89 24 H 120/72 87 L Nasal Cannula 2 06/26/25 08:00 06/26/25 08:00 06/26/25 08:00 06/26/25 08:00 06/26/25 08:00 06/26/25 08:00 06/26/25 08:00 FiO2 72 06/26/25 07:19 Narrative Exam General: Alert, oriented, NAD. HEENT: Normocephalic, atraumatic. Oral mucosa dry. Neck: Supple, no JVD Cardiovascular: Regular rate and rhythm. No murmurs, rubs, or gallops. Respiratory: Crackles to bilateral lower lung gallegos. No increase WOB. Abdomen: Soft, nontender, nondistended. No guarding or rigidity. Ortiz cath intact. Musculoskeletal: Full range of motion in all extremities. Lower extremities swelling 1+. Skin: Warm, dry, intact. No rashes or lesions. Objective Labs 06/26/25 05:58 06/26/25 11:50 Labs: Laboratory Results - last 24 hr 06/26/25 05:58 WBC 9.7 D RBC 4.02 Hgb 11.3 L Hct 36.6 MCV 91 MCH 28.1 MCHC 30.9 L RDW Std Deviation 62.1 H Plt Count 144 Neut % (Auto) 74 Lymph % (Auto) 9 L [place] % (Auto) 11 Eos % (Auto) 5 Baso % (Auto) 0 Neut # (Auto) 7.2 Lymph # (Auto) 0.9 L [place] # (Auto) 1.1 H Eos # (Auto) 0.5 Baso # (Auto) 0.0 Immature Gran # (Auto) 0.05 H Absolute Nucleated RBC 0.00 Immature Gran % 1 H Nucleated RBC % 0 Sodium 141 Potassium 5.4 H D Chloride 97 L Carbon Dioxide 35.1 H Anion Gap 9 BUN 48 H Creatinine 3.6 H D Estim Creat Clear Calc 15.8 L eGFR 13 L* BUN/Creatinine Ratio 13 Glucose 82 Calculated Osmolality 292 Calcium 7.9 L Corrected Calcium 8.7 Phosphorus 5.1 Magnesium 2.8 H Total Bilirubin 1.0 AST 24 ALT < 7 L Alkaline Phosphatase 73 Total Protein 5.6 L Albumin 3.0 L Globulin 2.6 Albumin/Globulin Ratio 1.2 PTH Intact 98.5 H ABG Interpretation ABG results: 06/21/25 19:50 VBG pH 7.36 VBG pCO2 58 H VBG pO2 44 VBG Base Excess 5 H Quality Measures Quality Measures VTE prophylaxis Advance care planning discussed with:: patient Assessment & Plan Assessment Current Active Medications: Generic Name Dose Route Start Last Admin Trade Name Freq PRN Reason Stop Dose Admin Acetaminophen 650 mg 06/22/25 01:50 06/25/25 21:14 Acetaminophen 325 Mg Tablet PO 07/22/25 01:49 650 mg Q6H PRN Administration Fever >101.5 or pain 1-3 Albuterol/Ipratropium 3 ml 06/22/25 07:00 06/26/25 07:15 Albuterol/Ipratropium (Duoneb) Rt Huong 3 Ml Nebu INH 07/22/25 06:59 3 ml Q6HRRT LAURA Administration Albuterol/Ipratropium 3 ml 06/22/25 01:55 Albuterol/Ipratropium (Duoneb) Rt Huong 3 Ml Nebu INH 07/22/25 01:54 Q2HR PRN SHORTNESS OF BREATH OR WHEEZE Dextrose 25 ml 06/22/25 02:00 Dextrose 50%-Water Inj 50 Ml Syringe IV 07/22/25 01:59 Q15MIN PRN BG 50-70 responsive npo pt Dextrose 50 ml 06/22/25 02:00 Dextrose 50%-Water Inj 50 Ml Syringe IV 07/22/25 01:59 Q15MIN PRN BG <50 OR BG <70 & pt unresponsive Furosemide 40 mg 06/25/25 09:00 06/25/25 08:18 Furosemide Inj 10 Mg/Ml 4ml Vial IVP 07/25/25 08:59 40 mg On Hold: 06/25/25 09:00 TID LAURA Administration Glucagon 1 mg 06/22/25 02:00 Glucagon Inj 1 Mg Vial IM Q15MIN PRN BG <70, and no IV access Heparin Sodium (Porcine) 5,000 unit 06/22/25 02:00 06/26/25 01:25 Heparin Sod Inj 5000 Unit/Ml Vial SC 07/06/25 01:59 5,000 unit Q12H LAURA Administration Piperacillin Sod/Tazobactam 100 mls @ 200 mls/hr 06/24/25 14:00 06/26/25 05:45 Sod 4.5 gm/ Sodium Chloride IV 07/01/25 13:59 Infused Q8HR LAURA Infusion Protocol Sodium Chloride 1,000 mls @ 75 mls/hr 06/26/25 08:30 06/26/25 08:35 Ns IV 07/26/25 08:29 75 mls/hr .[id number] LAURA Administration Insulin Human Lispro 0 unit 06/22/25 07:30 06/26/25 07:19 Insulin Lispro (Admelog) 1 Unit/0.01 Ml Unit SC 07/22/25 07:29 Not Given ACHS LAURA Protocol Polyethylene Glycol 17 gm 06/24/25 09:00 06/26/25 08:23 Polyethylene Glycol 17 Gm Packet PO 07/24/25 08:59 17 gm QDAY LAURA Administration Ropinirole HCl 2 mg 06/22/25 21:00 06/25/25 21:11 Ropinirole Hcl 1 Mg Tablet PO 07/22/25 20:59 2 mg HS LAURA Administration Sennosides 1 tab 06/24/25 03:31 06/24/25 13:43 Senna Tablet PO 07/24/25 08:59 1 tab QDAY PRN Administration Constipation Protocol Simethicone 80 mg 06/24/25 12:00 06/26/25 08:22 Simethicone 80 Mg Chew PO 07/24/25 11:59 80 mg DAILY LAURA Administration Plan This patient is a 75-year-old female with a history of hypertension, type 2 diabetes mellitus, COPD (on home oxygen, 2 L, usually at night), and HFrEF (35 to 40%, 2023) who presented to [facility] ED on 06/21 for an episode of passing out. Patient was admitted for management of syncope with bradycardia. #Acute Hypoxic respiratory failure #Acute CHF exacerbation #HFpEF, 35 to 40%, 2023 #Aspiration pneunonia Echocardiogram on 09/18/2023 shows stage I diastolic dysfunction with estimated ejection fraction 35 to 40%, hypokinesis of the mid anterior septal, basal septal, and lateral wall Chest x-ray on 06/21 showed moderate CHF with prominent vascular congestion and perihilar/basilar edema and moderate left pleural fluid BNP > 3280 on admission CXR on 06/23/25 showed worsening of CHF and possible superimposed aspiration pneumonia. - Echocardiogram ordered --> showed EF 50-55% and Grade 1 diastolic dysfunction. - Hold Lasix 40 IV TID today given new onset JACK. - Continue Zosyn (06/24 ~) for aspiration pneumonia coverage. - Spironolactone 25 mg daily - Will consider starting patient back on Entresto if BP tolerates - Holding home metoprolol succinate 50 mg daily for now given patient's bradycardia on admission - HOLD ALL BETA BLOCKERS. - Keep potassium above 4 and magnesium above 2 - Strict ins and out - Fluid restriction 1500 cc daily #JACK vs obstructive uropathy Fulfillment Mail Clerk increased from 1.1 -> 2.3 -> 3.6, likely 2/2 to aggressive diauresis. - Nephrology consulted, appreciate recs --> hold lasix, patient does not want dialysis at this point. - Ortiz inserted with immediate ~800mL urine out - Follow up with urine electrolytes - HyperK cocktail x 1 (06/26/25) - Cardiology recs maintenance fluid @ rate of 75mL/hr. - Strict I/Os - monitor urine output - daily labs, monitor chemistry - renal dose med, avoid nephrotoxin - no recent contrast or offending mediations # Syncope # Symptomatic tachybradycardia arrhythmia versus sinus tach syndrome # Left bundle branch block (old) Admitted for syncopal episode where she fainted and passed out. She recently had her METOPROLOL dose changed from 50 to 100 mg by her PCP however she reports she has been mistakenly taking 150 mg daily. Orthostatics were negative. CT head was unremarkable. GLUCOSE was normal. Thyroid function was normal as well. Admission EKG shows sinus bradycardia HR 49, QTc 477 and LBBB. We have discontinued home METOPROLOL since admission and heart rate has been relatively stable. She continued on diuresis and shortness of breath is improving. Repeat echo this visit showed EF 50-55% and grade 1 diastolic dysfunction. RR (06/23/25) for acute episode of syncope, palpitations and shortness of breath during DUONEB treatment (see event note and subjective above). She likely had symptomatic tachybradycardia arrhythmia vs. setting such syndrome based on prolonged 30 seconds pauses seen on telemetry during arrival. Cardiology was notified and further recommendations are pending. We've preemptively placed pacemaker pads and will continue monitor closely. Her symptoms have resolved since. ? Continue holding METOPROLOL ? Cardiology consulted --> symptoms likely 2/2 to excessive dose of beta- blockade. Reassess Wednesday. #COPD, on home O2 at night #ALIREZA vs OHS Not officially diagnosed. Home O2 was presribed from last admission (admitted for CHF exacerbation). BMI 41. - Oxygen delivery via nasal cannula as needed - DuoNebs every 6 hours with additional DuoNebs every 2 hours as needed - BiPAP/CPAP at night as needed. #[id number] type 2 diabetes mellitus Patient noted to have a history of [id number] type 2 diabetes mellitus that she manages with Ozempic and glipizide. Unsure if patient takes any SGLT2 inhibitor, however pending final med rec. Hemoglobic A1c on 05/19/2025 was 6.0% - Sliding scale insulin - Bedside glucose checks ACHS - Consider addition of SGLT2 inhibitor to be started outpatient #History of hypertension Chronic medical problem - will resume home Entresto if BP tolerates Health maintenance Dispo: Cardiology consultation, diauresis. DVT prophylaxis: HEPARIN GI prophylaxis: N/A Antibiotics: Zosyn for aspiration pneumonia Bowel Regimen: Senokot PRN, Simethicone QD. Diet: Cardiac diet, fluid restriction 1500 cc Lines: Peripheral IV Code status: DNR Case discussed with my senior resident Dr. Rosas Case discussed with my attending Dr. Guero Zavala, DO PGY 1
--- NOTE | 2025-06-26 10:22 | PD.NEPHPROG ---
Documentation for date of: 06/26/25 Subjective Subjective Interval history: Ms. Reyes is a 75-year-old lady with extensive past medical history of hypertension, obesity, diabetes, congestive heart failure (EF 50%) dyslipidemia, restless legs, allergies, questionable obesity hypoventilation/ALIREZA was admitted to the hospital with hypoxic respiratory failure. Noted to have CHF exacerbation. Patient was given IV diuretics and cardiology was consulted. Blood pressures have been significantly elevated on admission. Over the past 24 hours her BUN and creatinine started to trend up and nephrology consultation was requested. Chart review done. Patient currently seen in telemetry. Her medications currently include heparin, ropinirole, MiraLAX, Zosyn, simethicone and was receiving Lasix 40 mg IV 3 times daily which was held this morning. Labs showed WBC 16, hemoglobin 11.3, platelets 156. Sodium 142, potassium 4.7, BUN 40, creatinine 2.3 (yesterday creatinine 1.1) Glucose 83, bilirubin 1.3, magnesium 2.9, albumin 2.8 urine sodium 118 stat renal ultrasound ordered. Abdominal x-ray showed constipation chest x-ray on admission showed CHF. 06/26/2025 patient currently seen in telemetry. She is feeling tad better. Ultrasound showed significant urinary retention. Straight cath showed more than 800 cc of urine. Mcgee catheter was ordered for strict I&O's. Noted cardiology requested 1 L IV fluids. Will monitor Pulmonary function closely. Strict I&O's ordered. Hemoglobin 11.3, BUN 47, creatinine 3.2, potassium 5, GFR 15, magnesium 2.8, phosphorus 4.9, LFTs normal, albumin 3.1, PTH 98.1 renal ultrasound showed CKD changes with greater than 880 mL in the bladder Review of Systems Review of Systems Narrative Review of Systems: CONSTITUTIONAL: Patient denies any fever, chills. Admits weight gain HEENT: Denies any visual disturbances or hearing problems. CARDIOVASCULAR: Patient denies any chest pain.complaining of shortness of breath, swelling in the lower extremities. PULMONARY: Patient complaining of shortness of breath, cough. GASTROINTESTINAL: Patient denies any abdominal pain, constipation, nausea, vomiting, diarrhea. GENITOURINARY: Patient denies any urinary symptoms of burning or frequency or hematuria, denies any form in the urine. SKIN: Denies any rash. MUSCULOSKELETAL: Complaining of arthritis pains NEUROLOGICAL: Denies any neurological problems of strokes, seizures or confusion. Denies any memory problems. PSYCHIATRIC: Denies any depression or anxiety. LYMPHATICS : No lymphadenopathy Exam Vital Signs Temp Pulse Resp BP Pulse Ox O2 Del Method O2 Flow Rate 36.8 C 83 20 126/62 96 Nasal Cannula 3 06/26/25 16:00 06/26/25 19:42 06/26/25 19:42 06/26/25 16:00 06/26/25 19:42 06/26/25 16:00 06/26/25 19:42 FiO2 72 06/26/25 07:19 Narrative Exam GENERAL APPEARANCE: Patient seems to be comfortable, adequately hydrated and nourished. HEENT: EOMI, PERRLA NECK: Neck supple, no JVD or bruit CARDIOVASCULAR: Heart regular, no murmurs LUNGS/CHEST: Bilateral crackles at the bases ABDOMEN: Soft, nontender, nondistended. No masses. Normal bowel sounds. EXTREMITIES: 1+ edema in the lower extremities SKIN: Skin exam normal without any rashes MUSCULOSKELETAL: Musculoskeletal exam normal in bed, able to move all extremities PSYCHIATRIC: Normal mood, affect LYMPHATICS: No lymphadenopathy noted NEUROLOGICAL : No neurological deficits Objective Labs 06/26/25 05:58 06/26/25 11:50 Labs: Laboratory Results - last 24 hr 06/26/25 06/26/25 06/26/25 05:58 11:10 11:10 WBC 9.7 D RBC 4.02 Hgb 11.3 L Hct 36.6 MCV 91 MCH 28.1 MCHC 30.9 L RDW Std Deviation 62.1 H Plt Count 144 Neut % (Auto) 74 Lymph % (Auto) 9 L [place] % (Auto) 11 Eos % (Auto) 5 Baso % (Auto) 0 Neut # (Auto) 7.2 Lymph # (Auto) 0.9 L [place] # (Auto) 1.1 H Eos # (Auto) 0.5 Baso # (Auto) 0.0 Immature Gran # (Auto) 0.05 H Absolute Nucleated RBC 0.00 Immature Gran % 1 H Nucleated RBC % 0 Sodium 141 Potassium 5.4 H D Chloride 97 L Carbon Dioxide 35.1 H Anion Gap 9 BUN 48 H Creatinine 3.6 H D Estim Creat Clear Calc 15.8 L eGFR 13 L* BUN/Creatinine Ratio 13 Glucose 82 Calculated Osmolality 292 Calcium 7.9 L Corrected Calcium 8.7 Phosphorus 5.1 Magnesium 2.8 H Total Bilirubin 1.0 AST 24 ALT < 7 L Alkaline Phosphatase 73 Total Protein 5.6 L Albumin 3.0 L Globulin 2.6 Albumin/Globulin Ratio 1.2 PTH Intact 98.5 H U Random Total Protein 12 Ur Random Sodium 118.0 H Cancelled Ur Random Potassium 18 Ur Random Chloride 94.2 Urine Collection Time Cancelled Urine Total Volume Cancelled Ur Creatinine mg% Cancelled Ur Creatinine 24 Hour Cancelled Height (in) Cancelled Weight (lb) Cancelled Creatinine Clearance Cancelled Fluid Uric Acid Cancelled 06/26/25 11:50 WBC RBC Hgb Hct MCV MCH MCHC RDW Std Deviation Plt Count Neut % (Auto) Lymph % (Auto) [place] % (Auto) Eos % (Auto) Baso % (Auto) Neut # (Auto) Lymph # (Auto) [place] # (Auto) Eos # (Auto) Baso # (Auto) Immature Gran # (Auto) Absolute Nucleated RBC Immature Gran % Nucleated RBC % Sodium 141 Potassium 5.0 Chloride 97 L Carbon Dioxide 35.5 H Anion Gap 9 BUN 47 H Creatinine 3.2 H Estim Creat Clear Calc 17.7 L eGFR 15 L BUN/Creatinine Ratio 15 Glucose 78 Calculated Osmolality 292 Calcium 8.9 Corrected Calcium 9.6 Phosphorus 4.9 Magnesium Total Bilirubin AST ALT Alkaline Phosphatase Total Protein Albumin 3.1 L Globulin Albumin/Globulin Ratio PTH Intact U Random Total Protein Ur Random Sodium Ur Random Potassium Ur Random Chloride Urine Collection Time Urine Total Volume Ur Creatinine mg% Ur Creatinine 24 Hour Height (in) Weight (lb) Creatinine Clearance Fluid Uric Acid ABG Interpretation ABG results: 06/21/25 19:50 VBG pH 7.36 VBG pCO2 58 H VBG pO2 44 VBG Base Excess 5 H Assessment & Plan Assessment and plan (1) JACK (acute kidney injury): Status: Acute Assessment and plan: JACK secondary to prerenal azotemia from CHF exacerbation and use of diuretics. Renal ultrasound ordered to rule out obstructive uropathy. Agree with holding off on the Lasix today. Clinically patient looks rather euvolemic. Strict I&O's ordered. Avoid nephrotoxics metformin, lisinopril held (2) Acute exacerbation of CHF (congestive heart failure): Status: Acute Assessment and plan: Was on 40 mg IV Lasix 3 times daily. Cardiology on the case. Echocardiogram showed ejection fraction 50 to 55% Held Lasix today (3) Acute exacerbation of chronic obstructive pulmonary disease: Status: Acute Assessment and plan: On oxygen, breathing treatments (4) Diabetes: Status: Acute Assessment and plan: Check blood sugars AC nightly Low carbohydrate diet A1C 6.3 Metformin was held (5) HTN (hypertension), benign: Status: Acute Assessment and plan: Continue Current anti-hypertensives Goal BP <130/80mmHg low salt diet (6) Hyperlipidemia: Status: Acute Assessment and plan: Emphasized on compliance with the low fat diet, regular exrecises. LDL < 70 Additional Assessment & Plan Additional Plan: Care discussed with primary team Thank you Beau for allowing me to participate in the care of Dea Reyes
[2025-06-26 11:43] LABS: Chloride,Urine Random 94.2 mMol/L (55.0-125.0); Potassium,Urine Random 18 mMol/L (12-62); Protein Total, Random Urine 12 mg/dL (1-14); Sodium,Urine Random 118.0 mMol/L (20.0-110.0)
--- NOTE | 2025-06-26 11:55 | PD.RESPRO ---
Documentation for date of: 06/26/25 Subjective Subjective Interval history: Ms. Clau Reyes is 75yF with PMH of hypertension, diabetes mellitus on Ozempic, congestive heart failure, hypertension, restless leg syndrome, chronic cough, recently admitted in the hospital for CHF exacerbation, HFrEF [EF 35 to 40%, 2023], ?COPD, presented to the ED on 06/21, due to a syncopal episode. In the afternoon, patient was seated and was talking to her family member during which started to have progressive dimming of vision and intermitting random light flashing on her eyes. According to family, she subsequently lost consciousness for approximately 10 seconds, during which her eyes rolled upward and exhibited brief hand tremors. On recovery, she demonstrated no postictal confusion and no report of tongue biting or palpation. She had recent history of hospitalization for acute decompensated Heart failure, during which she received supplemental oxygen via nasal cannula and IV diuresis. On discharge, her shortness of breathe didn't completely resolve and was given 2L of oxygen and albutrol. However, she was never officially diagnosed with COPD. Patient was admitted and consulted to cardiology for mangement of syncope with bradycardia ED course: VItals: Temp: 98.7, NV:59, RR:18, BP:149/100, 97% NC 6L Labs: WBC: 7.2, Hgb:12.2, Plt:171, VBG pH:7.36, VBG pCO2:58H, HCO3: 32.6, AL, BUN:27, eGFR:53, Glucose:177, Troponin: 0.022, BNP: >3280 Negative Urine toxicology CXR (06/21/2025): showed Moderate CHF EKG (06/21/2025): showed Sinus Bradycardia Head CT (06/21/2025): Negative for acute hemorrhage, mass effect or midline shift In ED, patient received IV Furosemide 40mg x1, and IV Methyprednisolone 125 mg x1 Medical history: As stated above Surgical history: Total Knee replacement 2019 Allergies: NKDA Medications: Bumetanide 1mg po qd. Metoprolol XL 50mg po qd, Spironolactone 25mg po qd, Ropinirole 1mg po 2 tablets 1-3hrs before sleep, Meclizine 25mg po bid, Ozempic, , Fluticasone propionate 50mcg/act for allergy, Glipizide 10mg po bid before breakfast, Albutrol prn, adavair , Montelukast 10mg po HS for allergy, Entresto 24-26 mg po bid, [place] prn. Magnesium dioxide Family history: Mom at agoe of 79 due to stoke. Father had HTN and DM at age of 96. Younger sister had unspecified cancer and older sister had breast cancer Social history: Denies smoking cigarettes or using other illicit drugs. Patient sometimes drinks. Worked in [employer], now retired. 06/22/2025: Labs reviewed and patient examined at the bedside. As part of her home med, she was taking metoprolol 50mg po qd and spironolactone 25mg po qd as part of her GDMT. Will hold metoprolol for a day. Tomorrow will check her bradycardia , will attempt her to walk and monitor her vitals. Continue IV furosemide Denies chest pain, palpation, SOB, abdominal pain, N/V, fevers or chills. 06/23/2025: Patient seen examined at bedside, heart rate has improved. Patient had a rapid response earlier today noted to have a sinus pause for 4 seconds on telemetry patient's episodes consistent with syncopal episode. Patient's med list at bedside reviewed, patient reportedly taking total 150 mg of metoprolol succinate daily. Will continue to monitor patient till Wednesday morning if she has similar episodes, will treat accordingly. Patient's underlying symptoms likely secondary to intake of high dose of metoprolol. Continue diureses with lasix 40mg bid, was given IV iron x1 and electrolytes were repleted 06/24/2025: No Overnight events. Labs reviewed and patient examined at the bedside. Overnight, patient complained of SOB and CXR showing worsening bilateral infiltrates. 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 Patient scheduled for IV Furosemide 40mg TID tomorrow. Recommend stopping spironolactone 25mg po qd before starting the IV Furosemide 3 times a day to prevent JACK. UoP:2.4L, Cr:1.1, BUN:28 06/25/2025: No Overnight events. Labs reviewed and patient examined at the bedside. Today, patient's Creatinine increased from 1.1 to 2.3. Hold IV furosemide 40mg tid. Recommend giving patient IVF 500ml x1. Continue holding metoprolol. Was able to have BM after lactulose. Oxygen requirement decreased to NC 4L. No complaints of abd pain anymore. No chest pain, SOB, or palpitations. BP stable at 111/78 with HR 79. Will continue to monitor. 06/26/2025: Today, patient's Cr increased from 2.3 to 3.6. Yesterday IV furosemide 40mg tid was on hold. Patient was given IVF NaCl 75ml/hr x 1L. Continue holding metoprolol. CUrrent oxygen requirement ranging from NC 2 to 4L. No chest pain, SOB, or palpitations. BP staying at 120/72 with HR of 70. Patient has no other active complaints. Will continue to monitor. Exam Vital Signs Temp Pulse Resp BP Pulse Ox O2 Del Method O2 Flow Rate 97.4 F 89 24 H 120/72 87 L Nasal Cannula 2 06/26/25 08:00 06/26/25 08:00 06/26/25 08:00 06/26/25 08:00 06/26/25 08:00 06/26/25 08:00 06/26/25 08:00 FiO2 72 06/26/25 07:19 Narrative Exam General: Alert, oriented, in no acute distress. HEENT: Normocephalic, atraumatic. No cervical lymphadenopathy. Neck: Supple, no JVD, no lymphadenopathy or thyroid enlargement. Cardiovascular: Regular rate and rhythm. No murmurs, rubs, or gallops. Respiratory: Clear to auscultation bilaterally. No wheezes, rales, or rhonchi. Normal respiratory effort. Abdomen: Soft, nontender, nondistended. No masses or organomegaly. Musculoskeletal: Full range of motion in all extremities. Lower extremity swellings, trace pitting edema. Skin: Warm, dry, intact. No rashes or lesions. Psychiatric: Calm, cooperative, appropriate mood and affect. Objective Labs 06/26/25 05:58 06/26/25 11:50 Labs: Laboratory Results - last 24 hr 06/26/25 06/26/25 06/26/25 05:58 11:10 11:10 WBC 9.7 D RBC 4.02 Hgb 11.3 L Hct 36.6 MCV 91 MCH 28.1 MCHC 30.9 L RDW Std Deviation 62.1 H Plt Count 144 Neut % (Auto) 74 Lymph % (Auto) 9 L [place] % (Auto) 11 Eos % (Auto) 5 Baso % (Auto) 0 Neut # (Auto) 7.2 Lymph # (Auto) 0.9 L [place] # (Auto) 1.1 H Eos # (Auto) 0.5 Baso # (Auto) 0.0 Immature Gran # (Auto) 0.05 H Absolute Nucleated RBC 0.00 Immature Gran % 1 H Nucleated RBC % 0 Sodium 141 Potassium 5.4 H D Chloride 97 L Carbon Dioxide 35.1 H Anion Gap 9 BUN 48 H Creatinine 3.6 H D Estim Creat Clear Calc 15.8 L eGFR 13 L* BUN/Creatinine Ratio 13 Glucose 82 Calculated Osmolality 292 Calcium 7.9 L Corrected Calcium 8.7 Phosphorus 5.1 Magnesium 2.8 H Total Bilirubin 1.0 AST 24 ALT < 7 L Alkaline Phosphatase 73 Total Protein 5.6 L Albumin 3.0 L Globulin 2.6 Albumin/Globulin Ratio 1.2 PTH Intact 98.5 H U Random Total Protein 12 Ur Random Sodium 118.0 H Cancelled Ur Random Potassium 18 Ur Random Chloride 94.2 Urine Collection Time Cancelled Urine Total Volume Cancelled Ur Creatinine mg% Cancelled Ur Creatinine 24 Hour Cancelled Height (in) Cancelled Weight (lb) Cancelled Creatinine Clearance Cancelled Fluid Uric Acid Cancelled ABG Interpretation ABG results: 06/21/25 19:50 VBG pH 7.36 VBG pCO2 58 H VBG pO2 44 VBG Base Excess 5 H Quality Measures Quality Measures VTE prophylaxis Advance care planning discussed with:: patient and other Assessment & Plan Assessment Current Active Medications: Generic Name Dose Route Start Last Admin Trade Name Freq PRN Reason Stop Dose Admin Acetaminophen 650 mg 06/22/25 01:50 06/25/25 21:14 Acetaminophen 325 Mg Tablet PO 07/22/25 01:49 650 mg Q6H PRN Administration Fever >101.5 or pain 1-3 Albuterol/Ipratropium 3 ml 06/22/25 07:00 06/26/25 07:15 Albuterol/Ipratropium (Duoneb) Rt Huong 3 Ml Nebu INH 07/22/25 06:59 3 ml Q6HRRT LAURA Administration Albuterol/Ipratropium 3 ml 06/22/25 01:55 Albuterol/Ipratropium (Duoneb) Rt Huong 3 Ml Nebu INH 07/22/25 01:54 Q2HR PRN SHORTNESS OF BREATH OR WHEEZE Dextrose 25 ml 06/22/25 02:00 Dextrose 50%-Water Inj 50 Ml Syringe IV 07/22/25 01:59 Q15MIN PRN BG 50-70 responsive npo pt Dextrose 50 ml 06/22/25 02:00 Dextrose 50%-Water Inj 50 Ml Syringe IV 07/22/25 01:59 Q15MIN PRN BG <50 OR BG <70 & pt unresponsive Furosemide 40 mg 06/25/25 09:00 06/25/25 08:18 Furosemide Inj 10 Mg/Ml 4ml Vial IVP 07/25/25 08:59 40 mg On Hold: 06/25/25 09:00 TID LAURA Administration Glucagon 1 mg 06/22/25 02:00 Glucagon Inj 1 Mg Vial IM Q15MIN PRN BG <70, and no IV access Heparin Sodium (Porcine) 5,000 unit 06/22/25 02:00 06/26/25 01:25 Heparin Sod Inj 5000 Unit/Ml Vial SC 07/06/25 01:59 5,000 unit Q12H LAURA Administration Piperacillin Sod/Tazobactam 100 mls @ 200 mls/hr 06/24/25 14:00 06/26/25 05:45 Sod 4.5 gm/ Sodium Chloride IV 07/01/25 13:59 Infused Q8HR LAURA Infusion Protocol Sodium Chloride 1,000 mls @ 75 mls/hr 06/26/25 08:30 06/26/25 08:35 Ns IV 07/26/25 08:29 75 mls/hr .[id number] LAURA Administration Insulin Human Lispro 0 unit 06/22/25 07:30 06/26/25 11:12 Insulin Lispro (Admelog) 1 Unit/0.01 Ml Unit SC 07/22/25 07:29 Not Given ACHS LAURA Protocol Polyethylene Glycol 17 gm 06/24/25 09:00 06/26/25 08:23 Polyethylene Glycol 17 Gm Packet PO 07/24/25 08:59 17 gm QDAY LAURA Administration Ropinirole HCl 2 mg 06/22/25 21:00 06/25/25 21:11 Ropinirole Hcl 1 Mg Tablet PO 07/22/25 20:59 2 mg HS LAURA Administration Sennosides 1 tab 06/24/25 03:31 06/24/25 13:43 Senna Tablet PO 07/24/25 08:59 1 tab QDAY PRN Administration Constipation Protocol Simethicone 80 mg 06/24/25 12:00 06/26/25 08:22 Simethicone 80 Mg Chew PO 07/24/25 11:59 80 mg DAILY LAURA Administration Plan Ms. Clau Reyes is a 75-year-old female with past medical history of hypertension, type II diabetes mellitus, congestive heart failure with reduced ejection fraction, EF 35 to 40% 09/2023, hypertension, restless leg syndrome, chronic cough, chronic constipation, suspected COPD and ?OHS/ALIREZA who presented to [facility] emergency department on June 22, 2025 with a chief complaint of episode of black spots appearing in front of eyes with passing out and abnormal body movements witnessed by family, patient does not have any recollection of the event. Patient had no postictal confusion, oral trauma, involuntary micturition, chest pain, palpitation, fall during the event, patient otherwise complains of generalized weakness. Patient was admitted to the hospital for further workup for syncope like event. #Syncope like episode-presyncope #Symptomatic sinus bradycardia, improved-in the setting of polypharmacy #Polypharmacy Patient had an episode of black spots appearing in front of eyes with passing out and abnormal body movements witnessed by family, patient does not have any recollection of the event. Patient had no postictal confusion, oral trauma, involuntary micturition, chest pain, palpitation, fall during the event Patient reportedly taking total 150mg of Metoprolol, 100mg prescribed by PCP and 50mg prescribed by cardiology office. EKG on presentation: 06/21/20251957 shows sinus bradycardia rate 55 however significant artifact on the EKG, repeat EKG 06/22/2258 shows sinus bradycardia, rate 49, left bundle branch block. Previous review of EKG shows LBBB present. Troponin on presentation 0.022, denied any chest pain. Magnesium 1.7, potassium 4.2 no other gross electrolyte abnormalities noted. CT head negative. Orthostatic vitals: Lying BP 120/64, heart rate 53 sitting BP 125/69, heart rate 56 standing BP 139/74 heart rate 78; orthostatic negative. 06/23:Patient had a rapid response, noted to have a sinus pause for 4 seconds on telemetry patient's episodes consistent with syncopal episode. Plan: -Continue to hold metoprolol, patient symptoms likely secondary to excessive dose of beta-blockade. Heart rate improved to the 80s now -Patient walking well with physical therapy. Heart rate has improved now - No evidence of any tachy-rich syndrome and could have some sinus node dysfunction. - No need of pacemaker placement if there are no further triggers and patient is not symptomatic #Acute decompensated HF, HFpEF , EF 50-55% #Hx of CHF, HFrEF 35-40% (09/18/2023) BNP: >3280, denies any shortness of breath though reports weakness prior to presentation. Patient does have bilateral lower extremity edema CXR (06/21/2025): showed Moderate CHF ECHO (done on 06/22/2025) showed: 1. Normal LV size and function with an EF of 50-55%. Grade 1 diastolic dysfunction. 2. Right ventricle chamber size is normal and systolic function is normal. Estimated RVSP is 22 mmHg. 3. Mild MR, TR, mild MAC. Trace PI. 4. The left atrium is mildly enlarged. The right atrium is normal. 5. Not well visualized IVC with estimated RA pressure 8 mmHg. Patient was being treated with Bumetanide 1mg po qd. Metoprolol XL 50mg po qd, Spironolactone 25mg po qd, Entresto 24-26 mg po bid as part of her GDMT, however med list reviewed patient taking multiple medication and patient unsure of what medication she is taking Plan: -Given worsening renal function, held IV furosemide 40mg TID. -Consider resuming Entresto as blood pressure is permissible. -Keep potassium greater than 4 and magnesium greater than 2 at all times -Strict I&Os Fluid restriction 1500ml. -Low-sodium diet Daily weight # Hypertension, by history -Hold metoprolol until her bradycardia improves #COPD, on home O2 at night #[id number] type 2 diabetes mellitus -Management per Primary Hospitalist team Thank you for the consult and allowing to participate in the care of the patient. Cardiology will continue to follow. Assessment and plan discussed with my attending physician Dr. Caryn Dubois (PGY-1) - Internal medicine resident Attending Provider Attestation/Addendum I have personally seen and examined the patient separately on the above date of service and discussed the plan of care with the resident. I reviewed the resident Dr. Laquita Dubois consultation progress note and agree with the resident findings and plan in the note above and have also edited the documentation to reflect my findings and plan. Patient had acute kidney injury for the last 2 days and was oliguric with urine output of only 300 mL and 100 mL yesterday. Initially thought JACK was secondary to the aggressive diuresis but other causes of renal failure were being ruled out. Mcgee catheter was placed and patient appears to have postrenal causes with obstruction. Patient put on 3.3 L of fluid and creatinine did improve from 3.6 this morning to 3.2. Continue to monitor input output and primary team to workup causes for urinary obstruction. Continue to hold the Lasix for now and setting of JACK. Continue to monitor renal function tomorrow morning. Patient had no further episodes of bradycardia on telemetry since arrival. Patient was taking multiple doses of different rate controlling meds at home and was unclear of the medication she was taking. Recommend to continue holding metoprolol for now. Heart rate did improve to the 80s and will eventually start her on low-dose beta-mik. Apparently patient was taking 50 mg which was prescribed by me and then another 100 mg once daily that was prescribed by her PCP. Patient educated and counseled extensively about the medications. Continue to monitor telemetry for now andKeep potassium greater than 4 and magnesium greater than 2.0 at all times. Alberto Rubin M.D. Interventional Cardiology
[2025-06-26 12:17] LABS: Albumin, Serum 3.1 gm/dL (3.4-4.8); Anion Gap 9 (7-16); BUN/Creatinine Ratio 15 Ratio (12-20); Blood Urea Nitrogen 47 mg/dL (9-23); Calcium 8.9 mg/dL (8.3-10.6); Calcium (Corrected) 9.6 mg/dL (8.5-10.1); Carbon Dioxide 35.5 mMol/L (20.0-31.0); Chloride 97 mMol/L (98-107); Creatinine (Component) 3.2 mg/dL (0.6-1.3); Estimated Creatinine Clearance 17.7 mL/min (>60); Glucose 78 mg/dL (74-106); Osmolality,Calculated 292 (275-295); Phosphorous 4.9 mg/dL (2.4-5.1); Potassium 5.0 mMol/L (3.4-5.1); Sodium 141 mMol/L (136-145); eGFR 15 See Note
--- NOTE | 2025-06-26 16:51 | PC.CC ---
[id number] Jack regarding [facility] notification that patient is open to their services for HH.
[2025-06-26] MEDS: ALBUMIN HUMAN-KJDA 25% IVPB 25 GM/100 ML BTL IV (20:57)
[2025-06-27] VITALS (10 sets, daily range): BP systolic 104–141; BP diastolic 67–81; PULSE 64–84; RESP 14–25; TEMP 36.1–37.1; O2SAT 92–96; BMI 40.7; BMI 15.0
[2025-06-27] MEDS: ALBUTEROL/IPRATROPIUM (Duoneb) RT SOL 3 ML NEBU INH ×4 (01:05→18:49)
[2025-06-27] MEDS: HEPARIN SOD INJ 5000 UNIT/ML VIAL SC ×2 (01:21→14:00)
[2025-06-27] MEDS: PIPER/TAZO INJ 4.5 GM in SODIUM CHLORIDE 0.9% (POP) 100 ML IV (05:01)
[2025-06-27 05:27] LABS: Basophils # (Auto) 0.0 Thou/mm3 (0.0-0.2); Basophils % (Auto) 0 % (0-2.5); Eosinophils # (Auto) 0.7 Thou/mm3 (0.0-0.5); Eosinophils % (Auto) 8 % (0-10); Hematocrit 34.5 % (36.0-46.0); Hemoglobin 10.5 g/dL (12.0-16.0); Immature Granulocytes Auto 0.03 Thou/mm3 (0.00-0.00); Lymphocytes # (Auto) 0.9 Thou/mm3 (1.0-4.8); Lymphocytes % (Auto) 10 % (10-50); Mean Corpuscular HGB Conc 30.4 g/dl (31.0-37.0); Mean Corpuscular Hemoglobin 27.7 pg (25.0-35.0); Mean Corpuscular Volume 91 fL (80-100); Monocytes # (Auto) 1.0 Thou/mm3 (0.0-0.8); Monocytes % (Auto) 11 % (0-12); Neutrophils # (Auto) 6.4 Thou/mm3 (1.8-7.7); Neutrophils % (Auto) 71 % (37-80); Nucleated Red Blood Cell # 0.00 Thou/mm3 (0.00-0.00); Nucleated Red Blood Cell % 0 /100 WBC (0); Platelet Count 129 Thou/mm3 (140-440); RDW Standard Deviation 61.7 fL (36.4-46.3); Red Blood Count 3.79 Miln/mm3 (4.00-5.20); White Blood Count 9.0 Thou/mm3 (3.6-11.0)
[2025-06-27 06:19] LABS: Alanine Aminotransferase 7 U/L (10-49); Albumin, Serum 3.3 gm/dL (3.4-4.8); Albumin/Globulin Ratio 1.2 (1.2-2.2); Alkaline Phosphatase 72 U/L (46-116); Anion Gap 10 (7-16); Aspartate Amino Transferase 23 U/L (0-34); BUN/Creatinine Ratio 18 Ratio (12-20); Bilirubin,Total 1.3 mg/dL (0.3-1.2); Blood Urea Nitrogen 32 mg/dL (9-23); Calcium 8.4 mg/dL (8.3-10.6); Calcium (Corrected) 9.0 mg/dL (8.5-10.1); Carbon Dioxide 35.0 mMol/L (20.0-31.0); Chloride 98 mMol/L (98-107); Creatinine (Component) 1.8 mg/dL (0.6-1.3); Estimated Creatinine Clearance 31.5 mL/min (>60); Globulin 2.7 gm/dL (2.3-3.5); Glucose 76 mg/dL (74-106); Magnesium 2.2 mg/dL (1.6-2.6); Osmolality,Calculated 290 (275-295); Phosphorous 4.0 mg/dL (2.4-5.1); Potassium 4.6 mMol/L (3.4-5.1); Sodium 143 mMol/L (136-145); Total Protein 6.0 gm/dL (5.7-8.2); eGFR 29 See Note
--- NOTE | 2025-06-27 08:00 | PD.RESPRO ---
Documentation for date of: 06/27/25 Subjective Subjective Interval history: Ms. Clau Reyes is 75yF with PMH of hypertension, diabetes mellitus on Ozempic, congestive heart failure, hypertension, restless leg syndrome, chronic cough, recently admitted in the hospital for CHF exacerbation, HFrEF [EF 35 to 40%, 2023], ?COPD, presented to the ED on 06/21, due to a syncopal episode. In the afternoon, patient was seated and was talking to her family member during which started to have progressive dimming of vision and intermitting random light flashing on her eyes. According to family, she subsequently lost consciousness for approximately 10 seconds, during which her eyes rolled upward and exhibited brief hand tremors. On recovery, she demonstrated no postictal confusion and no report of tongue biting or palpation. She had recent history of hospitalization for acute decompensated Heart failure, during which she received supplemental oxygen via nasal cannula and IV diuresis. On discharge, her shortness of breathe didn't completely resolve and was given 2L of oxygen and albutrol. However, she was never officially diagnosed with COPD. Patient was admitted and consulted to cardiology for mangement of syncope with bradycardia ED course: VItals: Temp: 98.7, MO:59, RR:18, BP:149/100, 97% NC 6L Labs: WBC: 7.2, Hgb:12.2, Plt:171, VBG pH:7.36, VBG pCO2:58H, HCO3: 32.6, AL, BUN:27, eGFR:53, Glucose:177, Troponin: 0.022, BNP: >3280 Negative Urine toxicology CXR (06/21/2025): showed Moderate CHF EKG (06/21/2025): showed Sinus Bradycardia Head CT (06/21/2025): Negative for acute hemorrhage, mass effect or midline shift In ED, patient received IV Furosemide 40mg x1, and IV Methyprednisolone 125 mg x1 Medical history: As stated above Surgical history: Total Knee replacement 2019 Allergies: NKDA Medications: Bumetanide 1mg po qd. Metoprolol XL 50mg po qd, Spironolactone 25mg po qd, Ropinirole 1mg po 2 tablets 1-3hrs before sleep, Meclizine 25mg po bid, Ozempic, , Fluticasone propionate 50mcg/act for allergy, Glipizide 10mg po bid before breakfast, Albutrol prn, adavair , Montelukast 10mg po HS for allergy, Entresto 24-26 mg po bid, Harwood prn. Magnesium dioxide Family history: Mom at agoe of 79 due to stoke. Father had HTN and DM at age of 96. Younger sister had unspecified cancer and older sister had breast cancer Social history: Denies smoking cigarettes or using other illicit drugs. Patient sometimes drinks. Worked in [employer], now retired. 06/22/2025: Labs reviewed and patient examined at the bedside. As part of her home med, she was taking metoprolol 50mg po qd and spironolactone 25mg po qd as part of her GDMT. Will hold metoprolol for a day. Tomorrow will check her bradycardia , will attempt her to walk and monitor her vitals. Continue IV furosemide Denies chest pain, palpation, SOB, abdominal pain, N/V, fevers or chills. 06/23/2025: Patient seen examined at bedside, heart rate has improved. Patient had a rapid response earlier today noted to have a sinus pause for 4 seconds on telemetry patient's episodes consistent with syncopal episode. Patient's med list at bedside reviewed, patient reportedly taking total 150 mg of metoprolol succinate daily. Will continue to monitor patient till Wednesday morning if she has similar episodes, will treat accordingly. Patient's underlying symptoms likely secondary to intake of high dose of metoprolol. Continue diureses with lasix 40mg bid, was given IV iron x1 and electrolytes were repleted 06/24/2025: No Overnight events. Labs reviewed and patient examined at the bedside. Overnight, patient complained of SOB and CXR showing worsening bilateral infiltrates. Patient received IV Furosemide 40mg x2 this pyroglazer at 3am and More more IV furosemide 40mg at 9am. Patient scheduled for IV Furosemide 40mg TID tomorrow. Recommend stopping spironolactone 25mg po qd before starting the IV Furosemide 3 times a day to prevent JACK. UoP:2.4L, Cr:1.1, BUN:28 06/25/2025: No Overnight events. Labs reviewed and patient examined at the bedside. Today, patient's Creatinine increased from 1.1 to 2.3. Hold IV furosemide 40mg tid. Recommend giving patient IVF 500ml x1. Continue holding metoprolol. Was able to have BM after lactulose. Oxygen requirement decreased to NC 4L. No complaints of abd pain anymore. No chest pain, SOB, or palpitations. BP stable at 111/78 with HR 79. Will continue to monitor. 06/26/2025: Today, patient's Cr increased from 2.3 to 3.6. Yesterday IV furosemide 40mg tid was on hold. Patient was given IVF NaCl 75ml/hr x 1L. Continue holding metoprolol. CUrrent oxygen requirement ranging from NC 2 to 4L. No chest pain, SOB, or palpitations. BP staying at 120/72 with HR of 70. Patient has no other active complaints. Will continue to monitor. 06/27/2025: Patient's kidney function improving from 3.2 to 1.8. Recommend to start furosemide 40mg po qd. If tomorrow patient's Cr improves to below 1.3, recommend adding spirlactone. Exam Vital Signs Temp Pulse Resp BP Pulse Ox O2 Del Method O2 Flow Rate 97.8 F 67 18 126/76 95 Nasal Cannula 3 06/27/25 12:00 06/27/25 13:04 06/27/25 13:04 06/27/25 12:00 06/27/25 13:04 06/27/25 12:00 06/27/25 13:04 FiO2 72 06/26/25 07:19 Narrative Exam General: Alert, oriented, in no acute distress. HEENT: Normocephalic, atraumatic. No cervical lymphadenopathy. Neck: Supple, no JVD, no lymphadenopathy or thyroid enlargement. Cardiovascular: Regular rate and rhythm. No murmurs, rubs, or gallops. Respiratory: Clear to auscultation bilaterally. No wheezes, rales, or rhonchi. Normal respiratory effort. Abdomen: Soft, nontender, nondistended. No masses or organomegaly. Musculoskeletal: Full range of motion in all extremities. Lower extremity swellings, trace pitting edema. Skin: Warm, dry, intact. No rashes or lesions. Psychiatric: Calm, cooperative, appropriate mood and affect. Objective Labs 06/27/25 04:23 06/27/25 04:23 Labs: Laboratory Results - last 24 hr 06/27/25 04:23 WBC 9.0 RBC 3.79 L Hgb 10.5 L Hct 34.5 L MCV 91 MCH 27.7 MCHC 30.4 L RDW Std Deviation 61.7 H Plt Count 129 L Neut % (Auto) 71 Lymph % (Auto) 10 [place] % (Auto) 11 Eos % (Auto) 8 Baso % (Auto) 0 Neut # (Auto) 6.4 Lymph # (Auto) 0.9 L [place] # (Auto) 1.0 H Eos # (Auto) 0.7 H Baso # (Auto) 0.0 Immature Gran # (Auto) 0.03 H Absolute Nucleated RBC 0.00 Immature Gran % 0 Nucleated RBC % 0 Sodium 143 Potassium 4.6 Chloride 98 Carbon Dioxide 35.0 H Anion Gap 10 BUN 32 H Creatinine 1.8 H D Estim Creat Clear Calc 31.5 L eGFR 29 L BUN/Creatinine Ratio 18 Glucose 76 Calculated Osmolality 290 Calcium 8.4 Corrected Calcium 9.0 Phosphorus 4.0 Magnesium 2.2 Total Bilirubin 1.3 H AST 23 ALT 7 L Alkaline Phosphatase 72 Total Protein 6.0 Albumin 3.3 L Globulin 2.7 Albumin/Globulin Ratio 1.2 ABG Interpretation ABG results: 06/21/25 19:50 VBG pH 7.36 VBG pCO2 58 H VBG pO2 44 VBG Base Excess 5 H Quality Measures Quality Measures VTE prophylaxis Advance care planning discussed with:: patient and other Assessment & Plan Assessment Current Active Medications: Generic Name Dose Route Start Last Admin Trade Name Freq PRN Reason Stop Dose Admin Acetaminophen 650 mg 06/22/25 01:50 06/25/25 21:14 Acetaminophen 325 Mg Tablet PO 07/22/25 01:49 650 mg Q6H PRN Administration Fever >101.5 or pain 1-3 Albuterol/Ipratropium 3 ml 06/22/25 07:00 06/27/25 13:03 Albuterol/Ipratropium (Duoneb) Rt Huong 3 Ml Nebu INH 07/22/25 06:59 3 ml Q6HRRT LAURA Administration Albuterol/Ipratropium 3 ml 06/22/25 01:55 Albuterol/Ipratropium (Duoneb) Rt Huong 3 Ml Nebu INH 07/22/25 01:54 Q2HR PRN SHORTNESS OF BREATH OR WHEEZE Dextrose 25 ml 06/22/25 02:00 Dextrose 50%-Water Inj 50 Ml Syringe IV 07/22/25 01:59 Q15MIN PRN BG 50-70 responsive npo pt Dextrose 50 ml 06/22/25 02:00 Dextrose 50%-Water Inj 50 Ml Syringe IV 07/22/25 01:59 Q15MIN PRN BG <50 OR BG <70 & pt unresponsive Furosemide 40 mg 06/27/25 21:00 Furosemide Inj 10 Mg/Ml 4ml Vial IVP 07/27/25 20:59 BID LAURA Glucagon 1 mg 06/22/25 02:00 Glucagon Inj 1 Mg Vial IM Q15MIN PRN BG <70, and no IV access Heparin Sodium (Porcine) 5,000 unit 06/22/25 02:00 06/27/25 01:21 Heparin Sod Inj 5000 Unit/Ml Vial SC 07/06/25 01:59 5,000 unit Q12H LAURA Administration Albumin Human 25 gm in 100 mls @ 100 mls/hr 06/26/25 21:00 06/27/25 08:38 Albuminex 25% Ivpb IV 06/29/25 20:59 100 mls/hr BID LAURA Administration Insulin Human Lispro 0 unit 06/22/25 07:30 06/27/25 12:00 Insulin Lispro (Admelog) 1 Unit/0.01 Ml Unit SC 07/22/25 07:29 Not Given ACHS LAURA Protocol Ketoconazole 0 gm 06/27/25 09:55 Ketoconazole Cr 2% 15 Gm Tube TOP 07/27/25 09:54 QDAY LAURA Polyethylene Glycol 17 gm 06/24/25 09:00 06/27/25 08:38 Polyethylene Glycol 17 Gm Packet PO 07/24/25 08:59 17 gm QDAY LAURA Administration Ropinirole HCl 2 mg 06/22/25 21:00 06/26/25 20:57 Ropinirole Hcl 1 Mg Tablet PO 07/22/25 20:59 2 mg HS LAURA Administration Sennosides 1 tab 06/24/25 03:31 06/24/25 13:43 Senna Tablet PO 07/24/25 08:59 1 tab QDAY PRN Administration Constipation Protocol Simethicone 80 mg 06/24/25 12:00 06/27/25 08:38 Simethicone 80 Mg Chew PO 01/20/26 11:59 80 mg DAILY LAURA Administration Plan Ms. Clau Reyes is a 75-year-old female with past medical history of hypertension, type II diabetes mellitus, congestive heart failure with reduced ejection fraction, EF 35 to 40% 09/2023, hypertension, restless leg syndrome, chronic cough, chronic constipation, suspected COPD and ?OHS/ALIREZA who presented to [facility] emergency department on June 22, 2025 with a chief complaint of episode of black spots appearing in front of eyes with passing out and abnormal body movements witnessed by family, patient does not have any recollection of the event. Patient had no postictal confusion, oral trauma, involuntary micturition, chest pain, palpitation, fall during the event, patient otherwise complains of generalized weakness. Patient was admitted to the hospital for further workup for syncope like event. #Syncope like episode-presyncope #Symptomatic sinus bradycardia, improved-in the setting of polypharmacy #Polypharmacy Patient had an episode of black spots appearing in front of eyes with passing out and abnormal body movements witnessed by family, patient does not have any recollection of the event. Patient had no postictal confusion, oral trauma, involuntary micturition, chest pain, palpitation, fall during the event Patient reportedly taking total 150mg of Metoprolol, 100mg prescribed by PCP and 50mg prescribed by cardiology office. EKG on presentation: 06/21/20251957 shows sinus bradycardia rate 55 however significant artifact on the EKG, repeat EKG 06/22/2258 shows sinus bradycardia, rate 49, left bundle branch block. Previous review of EKG shows LBBB present. Troponin on presentation 0.022, denied any chest pain. Magnesium 1.7, potassium 4.2 no other gross electrolyte abnormalities noted. CT head negative. Orthostatic vitals: Lying BP 120/64, heart rate 53 sitting BP 125/69, heart rate 56 standing BP 139/74 heart rate 78; orthostatic negative. 06/23:Patient had a rapid response, noted to have a sinus pause for 4 seconds on telemetry patient's episodes consistent with syncopal episode. Plan: -Continue to hold metoprolol, patient symptoms likely secondary to excessive dose of beta-blockade. Heart rate improved to the 80s now -Patient walking well with physical therapy. Heart rate has improved now - No evidence of any tachy-rich syndrome and could have some sinus node dysfunction. - No need of pacemaker placement if there are no further triggers and patient is not symptomatic #Acute decompensated HF, HFpEF , EF 50-55% #Hx of CHF, HFrEF 35-40% (09/18/2023) BNP: >3280, denies any shortness of breath though reports weakness prior to presentation. Patient does have bilateral lower extremity edema CXR (06/21/2025): showed Moderate CHF ECHO (done on 06/22/2025) showed: 1. Normal LV size and function with an EF of 50-55%. Grade 1 diastolic dysfunction. 2. Right ventricle chamber size is normal and systolic function is normal. Estimated RVSP is 22 mmHg. 3. Mild MR, TR, mild MAC. Trace PI. 4. The left atrium is mildly enlarged. The right atrium is normal. 5. Not well visualized IVC with estimated RA pressure 8 mmHg. Patient was being treated with Bumetanide 1mg po qd. Metoprolol XL 50mg po qd, Spironolactone 25mg po qd, Entresto 24-26 mg po bid as part of her GDMT, however med list reviewed patient taking multiple medication and patient unsure of what medication she is taking Plan: -Recommend to start furosemide 40mg po qd. If tomorrow patient's Cr improves to below 1.3, recommend adding spirlactone.. -Consider resuming Entresto as blood pressure is permissible. -Keep potassium greater than 4 and magnesium greater than 2 at all times -Strict I&Os Fluid restriction 1500ml. -Low-sodium diet Daily weight # Hypertension, by history -Hold metoprolol until her bradycardia improves #COPD, on home O2 at night #[id number] type 2 diabetes mellitus -Management per Primary Hospitalist team Thank you for the consult and allowing to participate in the care of the patient. Cardiology will continue to follow. Assessment and plan discussed with my attending physician Dr. Caryn Dubois (PGY-1) - Internal medicine resident Attending Provider Attestation/Addendum I have personally seen and examined the patient separately on the above date of service and discussed the plan of care with the resident. I reviewed the resident Dr. Laquita Dubois consultation progress note and agree with the resident findings and plan in the note above and have also edited the documentation to reflect my findings and plan. Alberto Rubin M.D. Interventional Cardiology
[2025-06-27] MEDS: POLYETHYLENE GLYCOL 17 GM PACKET PO (08:38)
[2025-06-27] MEDS: ALBUMIN HUMAN-KJDA 25% IVPB 25 GM/100 ML BTL IV ×2 (08:38→20:31)
[2025-06-27] MEDS: SIMETHICONE 80 MG CHEW PO (08:38)
--- NOTE | 2025-06-27 09:04 | ESPR_ITS ---
Documentation for date of: 06/27/25 Subjective Subjective Interval history: Ms. Reyes is a 75-year-old lady with extensive past medical history of hypertension, obesity, diabetes, congestive heart failure (EF 50%) dyslipidemia, restless legs, allergies, questionable obesity hypoventilation/ALIREZA was admitted to the hospital with hypoxic respiratory failure. Noted to have CHF exacerbation. Patient was given IV diuretics and cardiology was consulted. Blood pressures have been significantly elevated on admission. Over the past 24 hours her BUN and creatinine started to trend up and nephrology consultation was requested. Chart review done. Patient currently seen in telemetry. Her medications currently include heparin, ropinirole, MiraLAX, Zosyn, simethicone and was receiving Lasix 40 mg IV 3 times daily which was held this morning. Labs showed WBC 16, hemoglobin 11.3, platelets 156. Sodium 142, potassium 4.7, BUN 40, creatinine 2.3 (yesterday creatinine 1.1) Glucose 83, bilirubin 1.3, magnesium 2.9, albumin 2.8 urine sodium 118 stat renal ultrasound ordered. Abdominal x-ray showed constipation chest x-ray on admission showed CHF. 06/26/2025 patient currently seen in telemetry. She is feeling tad better. Ultrasound showed significant urinary retention. Straight cath showed more than 800 cc of urine. Mcgee catheter was ordered for strict I&O's. Noted cardiology requested 1 L IV fluids. Will monitor Pulmonary function closely. Strict I&O's ordered. Hemoglobin 11.3, BUN 47, creatinine 3.2, potassium 5, GFR 15, magnesium 2.8, phosphorus 4.9, LFTs normal, albumin 3.1, PTH 98.1 renal ultrasound showed CKD changes with greater than 880 mL in the bladder 06/27/2025 patient currently seen in telemetry. She is feeling much better. Bladder training and Mcgee catheter will be removed today. Labs and medications reviewed. Will start her on a low-dose of diuretic as clinically she seems to be rather hypovolemic. Plan of care discussed with primary team Review of Systems Review of Systems Narrative Review of Systems: CONSTITUTIONAL: Patient denies any fever, chills. HEENT: Denies any visual disturbances or hearing problems. CARDIOVASCULAR: Patient denies any chest pain. ++ shortness of breath, swelling in the lower extremities. PULMONARY: Patient complaining of mild shortness of breath GASTROINTESTINAL: Patient denies any abdominal pain, constipation, nausea, vomiting, diarrhea. GENITOURINARY: Patient denies any urinary symptoms of burning or frequency or hematuria, denies any form in the urine. SKIN: Denies any rash. MUSCULOSKELETAL: Complaining of arthritis pains NEUROLOGICAL: Denies any neurological problems of strokes, seizures or confusion. Denies any memory problems. PSYCHIATRIC: Denies any depression or anxiety. LYMPHATICS : No lymphadenopathy Exam Vital Signs Temp Pulse Resp BP Pulse Ox O2 Del Method O2 Flow Rate 36.7 C 68 18 104/67 94 L Nasal Cannula 3 06/27/25 16:00 06/27/25 19:08 06/27/25 19:08 06/27/25 16:00 06/27/25 19:08 06/27/25 16:00 06/27/25 19:08 FiO2 72 06/26/25 07:19 Narrative Exam GENERAL APPEARANCE: Patient seems to be comfortable, adequately hydrated and nourished. HEENT: EOMI, PERRLA NECK: Neck supple, no JVD or bruit CARDIOVASCULAR: Heart regular, no murmurs LUNGS/CHEST: Bilateral crackles at the bases ABDOMEN: Soft, nontender, nondistended. No masses. Normal bowel sounds. EXTREMITIES: 1+ edema in the lower extremities SKIN: Skin exam normal without any rashes MUSCULOSKELETAL: Musculoskeletal exam normal in bed, able to move all extremities PSYCHIATRIC: Normal mood, affect LYMPHATICS: No lymphadenopathy noted NEUROLOGICAL : No neurological deficits Objective Labs 06/28/25 05:21 06/28/25 05:21 Labs: Laboratory Results - last 24 hr 06/27/25 04:23 WBC 9.0 RBC 3.79 L Hgb 10.5 L Hct 34.5 L MCV 91 MCH 27.7 MCHC 30.4 L RDW Std Deviation 61.7 H Plt Count 129 L Neut % (Auto) 71 Lymph % (Auto) 10 [place] % (Auto) 11 Eos % (Auto) 8 Baso % (Auto) 0 Neut # (Auto) 6.4 Lymph # (Auto) 0.9 L [place] # (Auto) 1.0 H Eos # (Auto) 0.7 H Baso # (Auto) 0.0 Immature Gran # (Auto) 0.03 H Absolute Nucleated RBC 0.00 Immature Gran % 0 Nucleated RBC % 0 Sodium 143 Potassium 4.6 Chloride 98 Carbon Dioxide 35.0 H Anion Gap 10 BUN 32 H Creatinine 1.8 H D Estim Creat Clear Calc 31.5 L eGFR 29 L BUN/Creatinine Ratio 18 Glucose 76 Calculated Osmolality 290 Calcium 8.4 Corrected Calcium 9.0 Phosphorus 4.0 Magnesium 2.2 Total Bilirubin 1.3 H AST 23 ALT 7 L Alkaline Phosphatase 72 Total Protein 6.0 Albumin 3.3 L Globulin 2.7 Albumin/Globulin Ratio 1.2 ABG Interpretation ABG results: 06/21/25 19:50 VBG pH 7.36 VBG pCO2 58 H VBG pO2 44 VBG Base Excess 5 H Assessment & Plan Assessment and plan (1) JACK (acute kidney injury): Status: Acute Assessment and plan: JACK secondary to prerenal azotemia from CHF exacerbation and use of diuretics. Renal ultrasound showed 880cc-bladder volume . Mcgee catheter was inserted and more than a liter came out.. . Agree with holding off on the Lasix today. Clinically patient looks rather euvolemic. Strict I&O's ordered. Avoid nephrotoxics metformin, lisinopril held (2) Acute exacerbation of CHF (congestive heart failure): Status: Acute Assessment and plan: Was on 40 mg IV Lasix 3 times daily. Cardiology on the case. Echocardiogram showed ejection fraction 50 to 55% Held Lasix today Clinically looks rather euvolemic (3) Acute exacerbation of chronic obstructive pulmonary disease: Status: Acute Assessment and plan: On oxygen, breathing treatments (4) Diabetes: Status: Acute Assessment and plan: Check blood sugars AC nightly Low carbohydrate diet A1C 6.3 Metformin was held (5) HTN (hypertension), benign: Status: Acute Assessment and plan: Continue Current anti-hypertensives Goal BP <130/80mmHg low salt diet (6) Hyperlipidemia: Status: Acute Assessment and plan: Emphasized on compliance with the low fat diet, regular exrecises. LDL < 70 Additional Assessment & Plan Additional Plan: Care discussed with primary team Thank you Beau for allowing me to participate in the care of Ms. Reyes
--- NOTE | 2025-06-27 09:46 | PC.SS ---
SS follow up note; Bladder training. Patient will discharge home once medically cleared.
--- NOTE | 2025-06-27 09:50 | ESPR_ITS ---
<Statement entered by Beau Jack MD - 06/30/25 12:57> I reviewed above note and agree with findings and plans. I have also personally examined the patient with medicine team and went over assessment and plan with medical team including marketing research intern and resident physician. <Statement entered by Rosemarie Rosas MD - 06/27/25 18:28> In summary: A 74-year-old female PMHx of HFrEF 35 to 40%, HTN, T2DM, COPD on 2 L home oxygen, originally presenting with a syncopal episode, admitted for symptomatic sinus bradycardia as a result of safely taking extra home METOPROLOL. Neurology on board, heart rate otherwise stable. Also presented with acute hypoxemic respiratory failure in setting of CHF exacerbation for which she has been on diuresis. However her kidney functions have slightly worsened likely from postrenal obstruction given her severe constipation which she had developed over the last few days., Versus less likely overdiuresis. She has been on LACTULOSE and has been having regular large bowel movements. Nephrology was consulted today for rising creatinine level. Ortiz was inserted with adequate urine output. Creatinine near normalized. Plan to to DC ortiz and bladder training. Cardiology also on board and recommended resuming LASIX 40 mg PO daily. Will watch renal function overnight and likey discharge tomorrow if stable. I?ve reviewed the note and agree with this assessment and plan, with the exceptions outlined above. I personally went over the labs, imaging, home medications, and prior records, and examined the patient. The case was also reviewed with the attending physician. Please note: this document was transcribed using voice recognition technology; minor inaccuracies may be present. Rosemarie Rosas DO PGY II Documentation for date of: 06/27/25 Subjective Subjective Interval history: Ms. Reyes is a 75 years old female with history of hypertension, type 2 DM, undiagnosed COPD, and HFrEF 35-40% presented on 06/21/25 for syncope. Patient had recently been prescribed a high dose of metoprolol from 50 to 100mg on 06/14/25. Of note, patient also stated she usually put all her pills in her unlabeled weekly pill box and tossed the original pill bottles away, so she's unsure what medications she's taking. She was admitted for symptomatic bradycardia. 06/22/25: NAOE. Patient continues to be bradycardic at 50s without symptom. Telemetry reviewed, patient does not have sinus pause more than 7 secs. EKG revealed sinus rich with LBBB. Will continue to observe patient today, HOLD ALL Beta-blockers, will likely resume patient's home Entresto tmr for GDMT. 06/23/25:No overnight event. Seen and examined at bedside. Reports feeling well today. Denies new or worsening symptoms. She has worked with PT yesterday and tolerated well without dizziness, lightheadedness, chest pain, sob, or palpitations. Her orthrostatic vitals were normal from the night before. Overnight her HR dropped to upper 50s while sleeping but she was asymptomatic. 06/23/25 Rapid Response: Around 1:30 she had RR for acute dizziness during duoneb for which she reported feeling about to faint. On arrival she was stable, alert and oriented, feels anxious, BP 138/91, RR 18, HR 130-180. Tele showed prolonged sinus pause about 30 seconds followed by sinus tachycardia. EKG showed sinus rhythm, normal rate, unchanged from the previous day. Cardiology resident was present during the rapid and will provide recommendations. She had received a dose of lasix earlier for worsening LE edema and sob. For now, we will monitor closely, pacer pads were placed, and awaiting further recommendations form cardiology team. 06/24/25: Patient desaturated overnight, requiring increase in oxygen demand, currently on 9L simple mask with O2 sat of 92%. CXR revealed worsening CHF and possible superimposed bilateral pneumonia. KUB revealed moderate to large amount of stool throughout the colon. When examined at bedside this AM, patient was complaining of lower abdominal cramping pain, which patient described as consistent with her prior constipation. Water enema was given with minimal relieve, will continue to monitor. Simethicone daily added. Increased Lasix from BID to TID given patient is likely fluid overloaded. Of note, WBC increased to 13 today, Zosyn added for empiric coverage of possible aspiration pneumonia. 06/25/25: NAOE. Oxygen demand decreased, currently on 4L satting at 94%. Will hold lasix today given JACK, [employer] of 2.3. Nephrology consulted. WBC increased from 13 to 16 today, likely due to chemo irritation from gastric acid, will continue empiric abx today. Patient's HR stable at 74. Patient also reports good BM after lactulose, significant relieve of abdomen distention and pain. 06/26/25: NAOE. Currently 93% on 2L NC. Patient's [employer] continues to increase from 2.3 to 3.6. Per nephrology, patient is retening urine (~800mL out with ortiz insertion). Patient's potassium increased from 4.7 to 5.4 this morning, hyperK cocktail x1 given. Will hold off lasix today. Patient does not want dialysis at this point. WBC decreased to 9.7, will keep antibiotics going for now for aspiration pneumonia coverage. Maintenance fluid started @ rate of 75mL/hr per cardiology recs. Repeat renal panel ordered. 06/27/25: NAOE. Currently on 94% on 4L NC. Patient's creatinine level improved from 3.2 to 1.7 today. Her JACK is likely 2/2/ to obstructive uropathy as she had ~880mL urine out s/p ortiz insertion yesterday. Per nephrology, patient should be bladder trained prior to ortiz removal, and start patient back on lasix. Ketoconazole cream added for fungal infection of her feet. Zosyn for aspiration pneumonia was d/ginny today as her WBC continue to be stable. Exam Vital Signs Temp Pulse Resp BP Pulse Ox O2 Del Method O2 Flow Rate 97.3 F 71 14 135/77 H 94 L Nasal Cannula 4 06/27/25 08:00 06/27/25 08:00 06/27/25 08:00 06/27/25 08:00 06/27/25 08:00 06/27/25 08:00 06/27/25 08:00 FiO2 72 06/26/25 07:19 Narrative Exam General: Alert, oriented, NAD. On 4L NC. HEENT: Normocephalic, atraumatic. Oral mucosa dry. Neck: Supple, no JVD Cardiovascular: Regular rate and rhythm. No murmurs, rubs, or gallops. Respiratory: Crackles to bilateral lower lung gallegos. No increase WOB. Abdomen: Soft, nontender, nondistended. No guarding or rigidity. Ortiz cath intact. Musculoskeletal: Full range of motion in all extremities. Lower extremities swelling 1+. Skin: Warm, dry, intact. Fungal infection to feet. Objective Labs 06/27/25 04:23 06/27/25 04:23 Labs: Laboratory Results - last 24 hr 06/26/25 06/26/25 06/26/25 11:10 11:10 11:50 WBC RBC Hgb Hct MCV MCH MCHC RDW Std Deviation Plt Count Neut % (Auto) Lymph % (Auto) [place] % (Auto) Eos % (Auto) Baso % (Auto) Neut # (Auto) Lymph # (Auto) [place] # (Auto) Eos # (Auto) Baso # (Auto) Immature Gran # (Auto) Absolute Nucleated RBC Immature Gran % Nucleated RBC % Sodium 141 Potassium 5.0 Chloride 97 L Carbon Dioxide 35.5 H Anion Gap 9 BUN 47 H Creatinine 3.2 H Estim Creat Clear Calc 17.7 L eGFR 15 L BUN/Creatinine Ratio 15 Glucose 78 Calculated Osmolality 292 Calcium 8.9 Corrected Calcium 9.6 Phosphorus 4.9 Magnesium Total Bilirubin AST ALT Alkaline Phosphatase Total Protein Albumin 3.1 L Globulin Albumin/Globulin Ratio U Random Total Protein 12 Ur Random Sodium 118.0 H Cancelled Ur Random Potassium 18 Ur Random Chloride 94.2 Urine Collection Time Cancelled Urine Total Volume Cancelled Ur Creatinine mg% Cancelled Ur Creatinine 24 Hour Cancelled Height (in) Cancelled Weight (lb) Cancelled Creatinine Clearance Cancelled Fluid Uric Acid Cancelled 06/27/25 04:23 WBC 9.0 RBC 3.79 L Hgb 10.5 L Hct 34.5 L MCV 91 MCH 27.7 MCHC 30.4 L RDW Std Deviation 61.7 H Plt Count 129 L Neut % (Auto) 71 Lymph % (Auto) 10 [place] % (Auto) 11 Eos % (Auto) 8 Baso % (Auto) 0 Neut # (Auto) 6.4 Lymph # (Auto) 0.9 L [place] # (Auto) 1.0 H Eos # (Auto) 0.7 H Baso # (Auto) 0.0 Immature Gran # (Auto) 0.03 H Absolute Nucleated RBC 0.00 Immature Gran % 0 Nucleated RBC % 0 Sodium 143 Potassium 4.6 Chloride 98 Carbon Dioxide 35.0 H Anion Gap 10 BUN 32 H Creatinine 1.8 H D Estim Creat Clear Calc 31.5 L eGFR 29 L BUN/Creatinine Ratio 18 Glucose 76 Calculated Osmolality 290 Calcium 8.4 Corrected Calcium 9.0 Phosphorus 4.0 Magnesium 2.2 Total Bilirubin 1.3 H AST 23 ALT 7 L Alkaline Phosphatase 72 Total Protein 6.0 Albumin 3.3 L Globulin 2.7 Albumin/Globulin Ratio 1.2 U Random Total Protein Ur Random Sodium Ur Random Potassium Ur Random Chloride Urine Collection Time Urine Total Volume Ur Creatinine mg% Ur Creatinine 24 Hour Height (in) Weight (lb) Creatinine Clearance Fluid Uric Acid ABG Interpretation ABG results: 06/21/25 19:50 VBG pH 7.36 VBG pCO2 58 H VBG pO2 44 VBG Base Excess 5 H Quality Measures Quality Measures VTE prophylaxis Advance care planning discussed with:: patient Assessment & Plan Assessment Current Active Medications: Generic Name Dose Route Start Last Admin Trade Name Freq PRN Reason Stop Dose Admin Acetaminophen 650 mg 06/22/25 01:50 06/25/25 21:14 Acetaminophen 325 Mg Tablet PO 07/22/25 01:49 650 mg Q6H PRN Administration Fever >101.5 or pain 1-3 Albuterol/Ipratropium 3 ml 06/22/25 07:00 06/27/25 06:23 Albuterol/Ipratropium (Duoneb) Rt Huong 3 Ml Nebu INH 07/22/25 06:59 3 ml Q6HRRT LAURA Administration Albuterol/Ipratropium 3 ml 06/22/25 01:55 Albuterol/Ipratropium (Duoneb) Rt Huong 3 Ml Nebu INH 07/22/25 01:54 Q2HR PRN SHORTNESS OF BREATH OR WHEEZE Dextrose 25 ml 06/22/25 02:00 Dextrose 50%-Water Inj 50 Ml Syringe IV 07/22/25 01:59 Q15MIN PRN BG 50-70 responsive npo pt Dextrose 50 ml 06/22/25 02:00 Dextrose 50%-Water Inj 50 Ml Syringe IV 07/22/25 01:59 Q15MIN PRN BG <50 OR BG <70 & pt unresponsive Furosemide 40 mg 06/27/25 21:00 Furosemide Inj 10 Mg/Ml 4ml Vial IVP 07/27/25 20:59 BID LAURA Glucagon 1 mg 06/22/25 02:00 Glucagon Inj 1 Mg Vial IM Q15MIN PRN BG <70, and no IV access Heparin Sodium (Porcine) 5,000 unit 06/22/25 02:00 06/27/25 01:21 Heparin Sod Inj 5000 Unit/Ml Vial SC 07/06/25 01:59 5,000 unit Q12H LAURA Administration Piperacillin Sod/Tazobactam 100 mls @ 200 mls/hr 06/24/25 14:00 06/27/25 05:46 Sod 4.5 gm/ Sodium Chloride IV 07/01/25 13:59 Infused Q8HR LAURA Infusion Protocol Albumin Human 25 gm in 100 mls @ 100 mls/hr 06/26/25 21:00 06/27/25 08:38 Albuminex 25% Ivpb IV 06/29/25 20:59 100 mls/hr BID LAURA Administration Insulin Human Lispro 0 unit 06/22/25 07:30 06/26/25 20:51 Insulin Lispro (Admelog) 1 Unit/0.01 Ml Unit SC 07/22/25 07:29 Not Given ACHS LAURA Protocol Polyethylene Glycol 17 gm 06/24/25 09:00 06/27/25 08:38 Polyethylene Glycol 17 Gm Packet PO 07/24/25 08:59 17 gm QDAY LAURA Administration Ropinirole HCl 2 mg 06/22/25 21:00 06/26/25 20:57 Ropinirole Hcl 1 Mg Tablet PO 07/22/25 20:59 2 mg HS LAURA Administration Sennosides 1 tab 06/24/25 03:31 06/24/25 13:43 Senna Tablet PO 07/24/25 08:59 1 tab QDAY PRN Administration Constipation Protocol Simethicone 80 mg 06/24/25 12:00 06/27/25 08:38 Simethicone 80 Mg Chew PO 07/24/25 11:59 80 mg DAILY ALURA Administration Plan This patient is a 75-year-old female with a history of hypertension, type 2 diabetes mellitus, COPD (on home oxygen, 2 L, usually at night), and HFrEF (35 to 40%, 2023) who presented to [facility] ED on 06/21 for an episode of passing out. Patient was admitted for management of syncope with bradycardia. #Acute Hypoxic respiratory failure #Acute CHF exacerbation #HFpEF, 35 to 40%, 2023 #Aspiration pneunonia Echocardiogram on 09/18/2023 shows stage I diastolic dysfunction with estimated ejection fraction 35 to 40%, hypokinesis of the mid anterior septal, basal septal, and lateral wall Chest x-ray on 06/21 showed moderate CHF with prominent vascular congestion and perihilar/basilar edema and moderate left pleural fluid BNP > 3280 on admission CXR on 06/23/25 showed worsening of CHF and possible superimposed aspiration pneumonia. - Echocardiogram ordered --> showed EF 50-55% and Grade 1 diastolic dysfunction. - Resume Lasix 40 IV BID today given improvement of renal function. - Discontinued Zosyn (06/24 ~06/27) for aspiration pneumonia coverage. - Spironolactone 25 mg daily - Will consider starting patient back on Entresto if BP tolerates - Holding home metoprolol succinate 50 mg daily for now given patient's bradycardia on admission - HOLD ALL BETA BLOCKERS. - Keep potassium above 4 and magnesium above 2 - Strict ins and out - Fluid restriction 1500 cc daily #Tinea pedis #Tinea unguium As noted on physical exam. - Ketoconazole cream - outpatient follow up. #JACK - improving #Obstructive uropathy [employer] increased from 1.1 -> 2.3 -> 3.6, likely 2/2 to aggressive diauresis. - Nephrology consulted, appreciate recs --> bladder train prior to Ortiz removal. - Ortiz inserted with immediate ~800mL urine out - Urine electrolytes: Protein 12, Sodium 118, Potassium 18, Chloride 94.2 - HyperK cocktail x 1 (06/26/25) - Cardiology recs maintenance fluid @ rate of 75mL/hr. (1L) - Strict I/Os - monitor urine output - daily labs, monitor chemistry - renal dose med, avoid nephrotoxin - no recent contrast or offending mediations # Syncope # Symptomatic tachybradycardia arrhythmia versus sinus tach syndrome # Left bundle branch block (old) Admitted for syncopal episode where she fainted and passed out. She recently had her METOPROLOL dose changed from 50 to 100 mg by her PCP however she reports she has been mistakenly taking 150 mg daily. Orthostatics were negative. CT head was unremarkable. GLUCOSE was normal. Thyroid function was normal as well. Admission EKG shows sinus bradycardia HR 49, QTc 477 and LBBB. We have discontinued home METOPROLOL since admission and heart rate has been relatively stable. She continued on diuresis and shortness of breath is improving. Repeat echo this visit showed EF 50-55% and grade 1 diastolic dysfunction. RR (06/23/25) for acute episode of syncope, palpitations and shortness of breath during DUONEB treatment (see event note and subjective above). She likely had symptomatic tachybradycardia arrhythmia vs. setting such syndrome based on prolonged 30 seconds pauses seen on telemetry during arrival. Cardiology was notified and further recommendations are pending. We've preemptively placed pacemaker pads and will continue monitor closely. Her symptoms have resolved since. ? Continue holding METOPROLOL ? Cardiology consulted --> symptoms likely 2/2 to excessive dose of beta- blockade. Reassess Wednesday. #COPD, on home O2 at night #ALIREZA vs OHS Not officially diagnosed. Home O2 was presribed from last admission (admitted for CHF exacerbation). BMI 41. - Oxygen delivery via nasal cannula as needed - DuoNebs every 6 hours with additional DuoNebs every 2 hours as needed - BiPAP/CPAP at night as needed. #[id number] type 2 diabetes mellitus Patient noted to have a history of [id number] type 2 diabetes mellitus that she manages with Ozempic and glipizide. Unsure if patient takes any SGLT2 inhibitor, however pending final med rec. Hemoglobic A1c on 05/19/2025 was 6.0% - Sliding scale insulin - Bedside glucose checks ACHS - Consider addition of SGLT2 inhibitor to be started outpatient #History of hypertension Chronic medical problem - will resume home Entresto if BP tolerates Health maintenance Dispo: Cardiology consultation, diauresis. DVT prophylaxis: HEPARIN GI prophylaxis: N/A Antibiotics: N/A Bowel Regimen: Senokot PRN, Simethicone QD. Diet: Cardiac diet, fluid restriction 1500 cc Lines: Peripheral IV Code status: DNR Case discussed with my senior resident Dr. Rosas Case discussed with my attending Dr. Guero Zavala, PGY 1
[2025-06-27] MEDS: KETOCONAZOLE CR 2% 15 GM TUBE TOP (10:30)
--- NOTE | 2025-06-27 20:16 | PC.NURSE ---
bladder training initiated, ortiz clamped and pt educated to call when urge to urinate or bladder distention, pt verbalized understanding. call light within reach.
[2025-06-28] VITALS (11 sets, daily range): BP systolic 131–148; BP diastolic 65–88; PULSE 70–87; RESP 17–31; TEMP 36.2–36.8; O2SAT 89–100; BMI 39.4
[2025-06-28] MEDS: ALBUTEROL/IPRATROPIUM (Duoneb) RT SOL 3 ML NEBU INH ×4 (00:59→13:09)
[2025-06-28] MEDS: HEPARIN SOD INJ 5000 UNIT/ML VIAL SC ×2 (01:30→13:19)
[2025-06-28 05:41] LABS: Basophils # (Auto) 0.0 Thou/mm3 (0.0-0.2); Basophils % (Auto) 0 % (0-2.5); Eosinophils # (Auto) 0.9 Thou/mm3 (0.0-0.5); Eosinophils % (Auto) 12 % (0-10); Hematocrit 35.5 % (36.0-46.0); Hemoglobin 10.5 g/dL (12.0-16.0); Immature Granulocytes Auto 0.02 Thou/mm3 (0.00-0.00); Lymphocytes # (Auto) 1.2 Thou/mm3 (1.0-4.8); Lymphocytes % (Auto) 16 % (10-50); Mean Corpuscular HGB Conc 29.6 g/dl (31.0-37.0); Mean Corpuscular Hemoglobin 27.4 pg (25.0-35.0); Mean Corpuscular Volume 93 fL (80-100); Monocytes # (Auto) 1.2 Thou/mm3 (0.0-0.8); Monocytes % (Auto) 15 % (0-12); Neutrophils # (Auto) 4.2 Thou/mm3 (1.8-7.7); Neutrophils % (Auto) 56 % (37-80); Nucleated Red Blood Cell # 0.00 Thou/mm3 (0.00-0.00); Nucleated Red Blood Cell % 0 /100 WBC (0); Platelet Count 133 Thou/mm3 (140-440); RDW Standard Deviation 62.4 fL (36.4-46.3); Red Blood Count 3.83 Miln/mm3 (4.00-5.20); White Blood Count 7.5 Thou/mm3 (3.6-11.0)
[2025-06-28 06:30] LABS: Alanine Aminotransferase 8 U/L (10-49); Albumin, Serum 3.8 gm/dL (3.4-4.8); Albumin/Globulin Ratio 1.4 (1.2-2.2); Alkaline Phosphatase 75 U/L (46-116); Anion Gap 9 (7-16); Aspartate Amino Transferase 29 U/L (0-34); BUN/Creatinine Ratio 18 Ratio (12-20); Bilirubin,Total 1.1 mg/dL (0.3-1.2); Blood Urea Nitrogen 16 mg/dL (9-23); Calcium 8.6 mg/dL (8.3-10.6); Calcium (Corrected) 8.8 mg/dL (8.5-10.1); Carbon Dioxide 29.7 mMol/L (20.0-31.0); Chloride 101 mMol/L (98-107); Creatinine (Component) 0.9 mg/dL (0.6-1.3); Estimated Creatinine Clearance 62.0 mL/min (>60); Globulin 2.7 gm/dL (2.3-3.5); Glucose 84 mg/dL (74-106); Magnesium 1.9 mg/dL (1.6-2.6); Osmolality,Calculated 279 (275-295); Phosphorous 2.3 mg/dL (2.4-5.1); Potassium 4.6 mMol/L (3.4-5.1); Sodium 140 mMol/L (136-145); Total Protein 6.5 gm/dL (5.7-8.2); eGFR > 60 See Note
--- NOTE | 2025-06-28 08:00 | ESPR_ITS ---
Documentation for date of: 06/28/25 Subjective Subjective Interval history: Ms. Clau Reyes is 75yF with PMH of hypertension, diabetes mellitus on Ozempic, congestive heart failure, hypertension, restless leg syndrome, chronic cough, recently admitted in the hospital for CHF exacerbation, HFrEF [EF 35 to 40%, 2023], ?COPD, presented to the ED on 06/21, due to a syncopal episode. In the afternoon, patient was seated and was talking to her family member during which started to have progressive dimming of vision and intermitting random light flashing on her eyes. According to family, she subsequently lost consciousness for approximately 10 seconds, during which her eyes rolled upward and exhibited brief hand tremors. On recovery, she demonstrated no postictal confusion and no report of tongue biting or palpation. She had recent history of hospitalization for acute decompensated Heart failure, during which she received supplemental oxygen via nasal cannula and IV diuresis. On discharge, her shortness of breathe didn't completely resolve and was given 2L of oxygen and albutrol. However, she was never officially diagnosed with COPD. Patient was admitted and consulted to cardiology for mangement of syncope with bradycardia ED course: VItals: Temp: 98.7, CA:59, RR:18, BP:149/100, 97% NC 6L Labs: WBC: 7.2, Hgb:12.2, Plt:171, VBG pH:7.36, VBG pCO2:58H, HCO3: 32.6, AL, BUN:27, eGFR:53, Glucose:177, Troponin: 0.022, BNP: >3280 Negative Urine toxicology CXR (06/21/2025): showed Moderate CHF EKG (06/21/2025): showed Sinus Bradycardia Head CT (06/21/2025): Negative for acute hemorrhage, mass effect or midline shift In ED, patient received IV Furosemide 40mg x1, and IV Methyprednisolone 125 mg x1 Medical history: As stated above Surgical history: Total Knee replacement 2019 Allergies: NKDA Medications: Bumetanide 1mg po qd. Metoprolol XL 50mg po qd, Spironolactone 25mg po qd, Ropinirole 1mg po 2 tablets 1-3hrs before sleep, Meclizine 25mg po bid, Ozempic, , Fluticasone propionate 50mcg/act for allergy, Glipizide 10mg po bid before breakfast, Albutrol prn, adavair , Montelukast 10mg po HS for allergy, Entresto 24-26 mg po bid, [place] prn. Magnesium dioxide Family history: Mom at agoe of 79 due to stoke. Father had HTN and DM at age of 96. Younger sister had unspecified cancer and older sister had breast cancer Social history: Denies smoking cigarettes or using other illicit drugs. Patient sometimes drinks. Worked in [employer], now retired. 06/22/2025: Labs reviewed and patient examined at the bedside. As part of her home med, she was taking metoprolol 50mg po qd and spironolactone 25mg po qd as part of her GDMT. Will hold metoprolol for a day. Tomorrow will check her bradycardia , will attempt her to walk and monitor her vitals. Continue IV furosemide Denies chest pain, palpation, SOB, abdominal pain, N/V, fevers or chills. 06/23/2025: Patient seen examined at bedside, heart rate has improved. Patient had a rapid response earlier today noted to have a sinus pause for 4 seconds on telemetry patient's episodes consistent with syncopal episode. Patient's med list at bedside reviewed, patient reportedly taking total 150 mg of metoprolol succinate daily. Will continue to monitor patient till Wednesday morning if she has similar episodes, will treat accordingly. Patient's underlying symptoms likely secondary to intake of high dose of metoprolol. Continue diureses with lasix 40mg bid, was given IV iron x1 and electrolytes were repleted 06/24/2025: No Overnight events. Labs reviewed and patient examined at the bedside. Overnight, patient complained of SOB and CXR showing worsening bilateral infiltrates. Patient received IV Furosemide 40mg x2 this data virtualization consultant at 3am and More more IV furosemide 40mg at 9am. Patient scheduled for IV Furosemide 40mg TID tomorrow. Recommend stopping spironolactone 25mg po qd before starting the IV Furosemide 3 times a day to prevent JACK. UoP:2.4L, Cr:1.1, BUN:28 06/25/2025: No Overnight events. Labs reviewed and patient examined at the bedside. Today, patient's Creatinine increased from 1.1 to 2.3. Hold IV furosemide 40mg tid. Recommend giving patient IVF 500ml x1. Continue holding metoprolol. Was able to have BM after lactulose. Oxygen requirement decreased to NC 4L. No complaints of abd pain anymore. No chest pain, SOB, or palpitations. BP stable at 111/78 with HR 79. Will continue to monitor. 06/26/2025: Today, patient's Cr increased from 2.3 to 3.6. Yesterday IV furosemide 40mg tid was on hold. Patient was given IVF NaCl 75ml/hr x 1L. Continue holding metoprolol. CUrrent oxygen requirement ranging from NC 2 to 4L. No chest pain, SOB, or palpitations. BP staying at 120/72 with HR of 70. Patient has no other active complaints. Will continue to monitor. 06/27/2025: Patient's kidney function improving from 3.2 to 1.8. Recommend to start furosemide 40mg po qd. If tomorrow patient's Cr improves to below 1.3, recommend adding spirlactone. 06/28/2025: Patient's kidney function now normal improving from 1.8 to 0.9. Patient is clear to be dishcarged with Cardiology stand point. Discharge her with Bumetanide po 1mg qd and Spironolactone 25mg po qd. Hold metoprolol for now and start entresto if BP permissible. Exam Vital Signs Temp Pulse Resp BP Pulse Ox O2 Del Method O2 Flow Rate 97.2 F 70 17 131/70 H 97 Nasal Cannula 3 06/28/25 08:00 06/28/25 08:34 06/28/25 08:00 06/28/25 08:34 06/28/25 08:00 06/28/25 08:00 06/28/25 08:00 FiO2 72 06/26/25 07:19 Narrative Exam General: Alert, oriented, in no acute distress. HEENT: Normocephalic, atraumatic. No cervical lymphadenopathy. Neck: Supple, no JVD, no lymphadenopathy or thyroid enlargement. Cardiovascular: Regular rate and rhythm. No murmurs, rubs, or gallops. Respiratory: Clear to auscultation bilaterally. No wheezes, rales, or rhonchi. Normal respiratory effort. Abdomen: Soft, nontender, nondistended. No masses or organomegaly. Musculoskeletal: Full range of motion in all extremities. Lower extremity swellings, trace pitting edema. Skin: Warm, dry, intact. No rashes or lesions. Psychiatric: Calm, cooperative, appropriate mood and affect. Objective Labs 06/28/25 05:21 06/28/25 05:21 Labs: Laboratory Results - last 24 hr 06/28/25 05:21 WBC 7.5 RBC 3.83 L Hgb 10.5 L Hct 35.5 L MCV 93 MCH 27.4 MCHC 29.6 L RDW Std Deviation 62.4 H Plt Count 133 L Neut % (Auto) 56 Lymph % (Auto) 16 [place] % (Auto) 15 H Eos % (Auto) 12 H Baso % (Auto) 0 Neut # (Auto) 4.2 Lymph # (Auto) 1.2 [place] # (Auto) 1.2 H Eos # (Auto) 0.9 H Baso # (Auto) 0.0 Immature Gran # (Auto) 0.02 H Absolute Nucleated RBC 0.00 Immature Gran % 0 Nucleated RBC % 0 Sodium 140 Potassium 4.6 Chloride 101 Carbon Dioxide 29.7 Anion Gap 9 BUN 16 Creatinine 0.9 D Estim Creat Clear Calc 62.0 eGFR > 60 BUN/Creatinine Ratio 18 Glucose 84 Calculated Osmolality 279 Calcium 8.6 Corrected Calcium 8.8 Phosphorus 2.3 L Magnesium 1.9 Total Bilirubin 1.1 AST 29 ALT 8 L Alkaline Phosphatase 75 Total Protein 6.5 Albumin 3.8 D Globulin 2.7 Albumin/Globulin Ratio 1.4 ABG Interpretation ABG results: 06/21/25 19:50 VBG pH 7.36 VBG pCO2 58 H VBG pO2 44 VBG Base Excess 5 H Quality Measures Quality Measures VTE prophylaxis Advance care planning discussed with:: patient and other Assessment & Plan Assessment Current Active Medications: Generic Name Dose Route Start Last Admin Trade Name Freq PRN Reason Stop Dose Admin Acetaminophen 650 mg 06/22/25 01:50 06/25/25 21:14 Acetaminophen 325 Mg Tablet PO 07/22/25 01:49 650 mg Q6H PRN Administration Fever >101.5 or pain 1-3 Albuterol/Ipratropium 3 ml 06/22/25 07:00 06/28/25 07:18 Albuterol/Ipratropium (Duoneb) Rt Huong 3 Ml Nebu INH 07/22/25 06:59 3 ml Q6HRRT LAURA Administration Albuterol/Ipratropium 3 ml 06/22/25 01:55 06/28/25 04:13 Albuterol/Ipratropium (Duoneb) Rt Huong 3 Ml Nebu INH 07/22/25 01:54 3 ml Q2HR PRN Administration SHORTNESS OF BREATH OR WHEEZE Dextrose 25 ml 06/22/25 02:00 Dextrose 50%-Water Inj 50 Ml Syringe IV 07/22/25 01:59 Q15MIN PRN BG 50-70 responsive npo pt Dextrose 50 ml 06/22/25 02:00 Dextrose 50%-Water Inj 50 Ml Syringe IV 07/22/25 01:59 Q15MIN PRN BG <50 OR BG <70 & pt unresponsive Furosemide 40 mg 06/28/25 09:00 06/28/25 08:34 Furosemide 40 Mg Tablet PO 07/28/25 08:59 40 mg QDAY LAURA Administration Glucagon 1 mg 06/22/25 02:00 Glucagon Inj 1 Mg Vial IM Q15MIN PRN BG <70, and no IV access Heparin Sodium (Porcine) 5,000 unit 06/22/25 02:00 06/28/25 01:30 Heparin Sod Inj 5000 Unit/Ml Vial SC 07/06/25 01:59 5,000 unit Q12H LAURA Administration Albumin Human 25 gm in 100 mls @ 100 mls/hr 06/26/25 21:00 06/28/25 08:34 Albuminex 25% Ivpb IV 06/29/25 20:59 100 mls/hr BID LAURA Administration Insulin Human Lispro 0 unit 06/22/25 07:30 06/28/25 07:37 Insulin Lispro (Admelog) 1 Unit/0.01 Ml Unit SC 07/22/25 07:29 Not Given ACHS LAURA Protocol Ketoconazole 0 gm 06/27/25 09:55 06/28/25 08:34 Ketoconazole Cr 2% 15 Gm Tube TOP 07/27/25 09:54 1 appln QDAY LAURA Administration Polyethylene Glycol 17 gm 06/24/25 09:00 06/28/25 08:34 Polyethylene Glycol 17 Gm Packet PO 07/24/25 08:59 17 gm QDAY LAURA Administration Ropinirole HCl 2 mg 06/22/25 21:00 12/24/25 20:31 Ropinirole Hcl 1 Mg Tablet PO 07/22/25 20:59 2 mg HS LAURA Administration Sennosides 1 tab 06/24/25 03:31 06/24/25 13:43 Senna Tablet PO 07/24/25 08:59 1 tab QDAY PRN Administration Constipation Protocol Simethicone 80 mg 06/24/25 12:00 06/28/25 08:34 Simethicone 80 Mg Chew PO 07/24/25 11:59 80 mg DAILY LAURA Administration Plan Ms. Clau Reyes is a 75-year-old female with past medical history of hypertension, type II diabetes mellitus, congestive heart failure with reduced ejection fraction, EF 35 to 40% 09/2023, hypertension, restless leg syndrome, chronic cough, chronic constipation, suspected COPD and ?OHS/ALIREZA who presented to [facility] emergency department on June 22, 2025 with a chief complaint of episode of black spots appearing in front of eyes with passing out and abnormal body movements witnessed by family, patient does not have any recollection of the event. Patient had no postictal confusion, oral trauma, involuntary micturition, chest pain, palpitation, fall during the event, patient otherwise complains of generalized weakness. Patient was admitted to the hospital for further workup for syncope like event. #Syncope like episode-presyncope #Symptomatic sinus bradycardia, improved-in the setting of polypharmacy #Polypharmacy Patient had an episode of black spots appearing in front of eyes with passing out and abnormal body movements witnessed by family, patient does not have any recollection of the event. Patient had no postictal confusion, oral trauma, involuntary micturition, chest pain, palpitation, fall during the event Patient reportedly taking total 150mg of Metoprolol, 100mg prescribed by PCP and 50mg prescribed by cardiology office. EKG on presentation: 06/21/20251957 shows sinus bradycardia rate 55 however significant artifact on the EKG, repeat EKG 06/22/2258 shows sinus bradycardia, rate 49, left bundle branch block. Previous review of EKG shows LBBB present. Troponin on presentation 0.022, denied any chest pain. Magnesium 1.7, potassium 4.2 no other gross electrolyte abnormalities noted. CT head negative. Orthostatic vitals: Lying BP 120/64, heart rate 53 sitting BP 125/69, heart rate 56 standing BP 139/74 heart rate 78; orthostatic negative. 06/23:Patient had a rapid response, noted to have a sinus pause for 4 seconds on telemetry patient's episodes consistent with syncopal episode. Plan: -Continue to hold metoprolol, patient symptoms likely secondary to excessive dose of beta-blockade. Heart rate improved to the 80s now -Patient walking well with physical therapy. Heart rate has improved now - No evidence of any tachy-rich syndrome and could have some sinus node dysfunction. - No need of pacemaker placement if there are no further triggers and patient is not symptomatic #Acute decompensated HF, HFpEF , EF 50-55% #Hx of CHF, HFrEF 35-40% (09/18/2023) BNP: >3280, denies any shortness of breath though reports weakness prior to presentation. Patient does have bilateral lower extremity edema CXR (06/21/2025): showed Moderate CHF ECHO (done on 06/22/2025) showed: 1. Normal LV size and function with an EF of 50-55%. Grade 1 diastolic dysfunction. 2. Right ventricle chamber size is normal and systolic function is normal. Estimated RVSP is 22 mmHg. 3. Mild MR, TR, mild MAC. Trace PI. 4. The left atrium is mildly enlarged. The right atrium is normal. 5. Not well visualized IVC with estimated RA pressure 8 mmHg. Patient was being treated with Bumetanide 1mg po qd. Metoprolol XL 50mg po qd, Spironolactone 25mg po qd, Entresto 24-26 mg po bid as part of her GDMT, however med list reviewed patient taking multiple medication and patient unsure of what medication she is taking Plan: -Patient is clear to be dishcarged with Cardiology stand point. Discharge her with Bumetanide po 1mg qd and Spironolactone 25mg po qd. -Consider resuming Entresto as blood pressure is permissible. -Keep potassium greater than 4 and magnesium greater than 2 at all times -Strict I&Os Fluid restriction 1500ml. -Low-sodium diet Daily weight # Hypertension, by history -Hold metoprolol until her bradycardia improves #COPD, on home O2 at night #[id number] type 2 diabetes mellitus -Management per Primary Hospitalist team Thank you for the consult and allowing to participate in the care of the patient. Clear to be discharged in Cardiology stand point. Assessment and plan discussed with my attending physician Dr. Caryn Dubois (PGY-1) - Internal medicine resident Attending Provider Attestation/Addendum I reviewed the resident Dr. Laquita Dubois consultation progress note and agree with the resident findings and plan in the note above and have also edited the documentation to reflect my findings and plan. Alberto Rubin M.D. Interventional Cardiology
[2025-06-28] MEDS: KETOCONAZOLE CR 2% 15 GM TUBE TOP (08:34)
[2025-06-28] MEDS: ALBUMIN HUMAN-KJDA 25% IVPB 25 GM/100 ML BTL IV (08:34)
[2025-06-28] MEDS: POLYETHYLENE GLYCOL 17 GM PACKET PO (08:34)
[2025-06-28] MEDS: NAPH,KPH MBDB 1 PACKET (1.5 GM) PO (08:34)
[2025-06-28] MEDS: SIMETHICONE 80 MG CHEW PO (08:34)
--- NOTE | 2025-06-28 08:45 | PC.CC ---
Pt is open with [facility].
--- NOTE | 2025-06-28 09:35 | ESDS_ITS ---
<Statement entered by Beau Jack MD - 07/02/25 08:00> I reviewed above note and agree with findings and plans. I have also personally examined the patient with medicine team and went over assessment and plan with medical team including environmental intern and resident physician. <Statement entered by Rosemarie Rosas MD - 06/28/25 10:45> In summary: A 74-year-old female PMHx of HFrEF 35 to 40%, HTN, T2DM, COPD on 2 L home oxygen, originally presenting with a syncopal episode, admitted for symptomatic sinus bradycardia as a result of safely taking extra home METOPROLOL. Neurology on board, heart rate otherwise stable. Also presented with acute hypoxemic respiratory failure in setting of CHF exacerbation for which she has been on diuresis. However her kidney functions have slightly worsened likely from postrenal obstruction given her severe constipation which she had developed over the last few days., Versus less likely overdiuresis. She has been on LACTULOSE and has been having regular large bowel movements. Nephrology was consulted today for rising creatinine level. Ortiz was inserted with adequate urine output. Creatinine normalized and she is able to void spontaneously. We have adjusted BETA BLOCKERS and DIURETIC as listed below. She is otherwise clear and stable to dischage to home. I?ve reviewed the note and agree with this assessment and plan, with the exceptions outlined above. I personally went over the labs, imaging, home medications, and prior records, and examined the patient. The case was also reviewed with the attending physician. Please note: this document was transcribed using voice recognition technology; minor inaccuracies may be present. Rosemarie Rosas DO PGY II Planned Discharge Date 06/28/25 DS: Providers Provider Date of admission: 06/22/25 01:50 Primary care physician: Physician No Primary/Family Admitting Provider: Juan Pablo Webster DO Attending Provider on Admission: Beau Jack MD Consults: 06/22/25 02:49 PT [Referral Physical Therapy] Routine Comment: Physician Instructions: 06/22/25 03:19 Consult to Cardiology Routine Comment: For Bradycardia Consulting Provider: Alberto Rubin 06/25/25 10:42 Consult to Nephrology Routine Comment: JACK Consulting Provider: Mary Lou Bagley Attending Provider on DC: Beau Jack MD Discharging Provider: Surya Zavala DO Anticipated date of discharge: 06/28/25 DS: Diagnosis Problem List Completed Was Problem List Reviewed/Reconciled?: Yes Hospital Course Hospital Course Hospital course: Ms. Clau Reyes is 75yF with PMH of hypertension, diabetes mellitus on Ozempic, congestive heart failure, hypertension, restless leg syndrome, chronic cough, recently admitted in the hospital for CHF exacerbation, HFrEF [EF 35 to 40%, 2023], undiagnosed COPD, presented to the ED on 06/21 due to a syncopal episode at home. She syncopized for approximately 10 seconds while talking to her son in bed. In the ED, she was found to be bradycardic. EKG showed sinus bradycardia with left bundle branch block. Chest XR revealed moderate CHF. Patient recently just had her metoprolol dose increased from 50 to 100mg by her PCP, but also reported that she might have been double dosing her metoprolol since she usually moved all her pills from the pill bottles into a weekly pill box, and may have gotten the old and new medications mixed. Cardiology was consulted for her bradycardia, suggested close monitoring and continue lasix for diauresis, since patient appeared to be fluid overloaded. Patient's bradycardia eventually resolved by day 2 of admission, but a new JACK had development due to obstructive uropathy. She was found to be retening urine with ~880mL of urine output after ortiz insertion. On day of discharge, her kidney function had returned to baseline, but was not able to void status post ortiz removal. Since patient is medically stable for discharge, she will be sent home with a ortiz catheter in place and follow up with urology outpatient for acute urinary retention. She was advised to keep tract of all medications she's taking to avoid mix up. All questions and concerns addressed, plan of care discussed with patient, return precautions given. Diagnosis: #Acute urinary retention #Acute Hypoxic respiratory failure #Acute CHF exacerbation #HFpEF, 35 to 40%, 2023 #Aspiration pneunonia #Tinea pedis #Tinea unguium #JACK - resolved #Obstructive uropathy #Syncope #Symptomatic tachybradycardia arrhythmia versus sinus tach syndrome #Left bundle branch block (old) #COPD, on home O2 at night #ALIREZA vs OHS #Gfo-xctmrcf-piahjssqu type 2 diabetes mellitus #Hypertension Discharge Plan: * Follow-up with PCP within 1-2 weeks of discharge. * Follow-up with cardiology within 1-2 weeks of discharge. * Follow-up with urology within 1-2 weeks of discharge. * Recommended outpatient sleep study for sleep apnea, please discuss with your PCP. * Resume daily activity gradually and as tolerated. * STOP taking GLIPIZIDE until you see your PCP as this can cause low blood sugar and increase risk of dizziness and fall. 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 * STOP taking LASIX, START taking BUMEX (BUMETANIDE) 1 MG once daily -and- SPIRONOLACTONE 25 MG ONCE DAILY. * Continue taking METOPROLOL 50 mg ONCE daily, do not take this medication if you start feeling dizzy or your heart rates drops below 70. * We started a new medication FARXIGA for diabetes and heart failure, please take one pill daily. * Continue taking medications as prescribed below. * Return to Emergency Room if symptoms persist, worsen, or new symptoms develop. Case discussed with my senior resident Dr. Rosas Case discussed with my attending Dr. Guero Zavala DO PGY 1 Time Spent with Patient Time attestation: Total time spent providing and/or coordinating discharge services: Time spent: Greater than 30 minutes Exam Vital Signs Temp Pulse Resp BP Pulse Ox O2 Del Method O2 Flow Rate 97.2 F 70 17 131/70 H 97 Nasal Cannula 3 06/28/25 08:00 06/28/25 08:34 06/28/25 08:00 06/28/25 08:34 06/28/25 08:00 06/28/25 08:00 06/28/25 08:00 FiO2 72 06/26/25 07:19 Narrative Exam General: Alert, oriented x3. NAD. Ortiz in place for discharge HEENT: Normocephalic, atraumatic. Oral mucosa dry. Neck: Supple, no JVD Cardiovascular: Regular rate and rhythm. No murmurs, rubs, or gallops. Respiratory: Crackles to bilateral lower lung gallegos. No increase WOB. Abdomen: Soft, nontender, nondistended. No guarding or rigidity. Musculoskeletal: Full range of motion in all extremities. Lower extremities swelling 1+. Skin: Scaling to lower extremity. Discharge Plan Plan Patient Disposition: Home w/HOME HEALTH Patient condition on transfer: Stable Care Plan Goals: * Follow-up with PCP within 1-2 weeks of discharge. * Follow-up with cardiology within 1-2 weeks of discharge. * Follow-up with urology within 1-2 weeks of discharge. * Recommended outpatient sleep study for sleep apnea, please discuss with your PCP. * Resume daily activity gradually and as tolerated. * STOP taking GLIPIZIDE until you see your PCP as this can cause low blood sugar and increase risk of dizziness and fall. 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 * STOP taking LASIX, START taking BUMEX (BUMETANIDE) 1 MG once daily -and- SPIRONOLACTONE 25 MG ONCE DAILY. * Continue taking METOPROLOL 50 mg ONCE daily, do not take this medication if you start feeling dizzy or your heart rates drops below 70. * We started a new medication FARXIGA for diabetes and heart failure, please take one pill daily. * Continue taking medications as prescribed below. * Return to Emergency Room if symptoms persist, worsen, or new symptoms develop. Prescriptions/Referrals Prescriptions/Med Rec: New dapagliflozin propanediol [Farxiga] 10 mg tablet 10 mg PO QDAY Qty: 30 0RF spironolactone 25 mg tablet 25 mg PO QDAY Qty: 30 0RF bumetanide 1 mg tablet 1 mg PO QDAY Qty: 30 0RF ketoconazole 2 % cream 1 applic topical QDAY Qty: 30 0RF Continued ropinirole 1 mg tablet 2 mg PO BID metoprolol succinate 50 mg tablet extended release 24 hr 50 mg PO QDAY Patient Comments: TAKE ONE TABLET BY MOUTH EVERY DAY FOR BLOOD PRESSURE metformin 850 mg tablet 850 mg PO BIDWM Patient Comments: TAKE ONE TABLET BY MOUTH TWICE DAILY WITH FOOD FOR DIABETES meclizine 25 mg tablet 25 mg PO PRN Patient Comments: TAKE ONE TABLET BY MOUTH TWICE DAILY FOR DIZZINESS albuterol sulfate 90 mcg/actuation HFA aerosol inhaler 1 puff INHALATION Q4H PRN (Reason: breathing and shortness of breath ) Patient Comments: INHALE 1 PUFF BY MOUTH EVERY 4 HOURS NEEDED FOR BREATHING AND SHORTNESS OF BREATH fluticasone propion-salmeterol [Advair HFA] 115-21 mcg/actuation HFA aerosol inhaler 2 puff INHALATION BID Patient Comments: INHALE TWO PUFFS BY MOUTH TWICE DAILY benzonatate 200 mg capsule 200 mg PO TID PRN (Reason: Cough) Patient Comments: TAKE ONE CAPSULE BY MOUTH THREE TIMES DAILY NEEDED FOR COUGH FOR 10 DAYS lisinopril 20 mg tablet 20 mg PO QDAY Qty: 30 0RF Ozempic 0.25 mg or 0.5 mg (2 mg/3 mL) pen injector 0.25 mg SUBCUT QDAY Patient Comments: INJECT 0.5 MG SUBCUTANEOUSLY ONCE A WEEK Held tizanidine 2 mg tablet 2 mg PO PRN Hold Instructions: Resume on 06/23/25. Do not resume until you see your PCP. This medication increase your risk of dizziness and fall. Patient Comments: TAKE ONE TABLET BY MOUTH TWICE DAILY FOR MUSCLE SPASMS Discontinued furosemide 40 mg tablet 40 mg PO QAM Patient Comments: TAKE ONE TABLET BY MOUTH EVERY MORNING A DIURETIC spironolactone 25 mg tablet 25 mg PO QDAY Patient Comments: TAKE ONE TABLET BY MOUTH EVERY DAY A DIURETIC glipizide 10 mg tablet 10 mg PO BID Patient Comments: TAKE ONE TABLET BY MOUTH 30 MINUTES BEFORE BREAKFAST TWICE DAILY furosemide [Lasix] 20 mg tablet 20 mg PO PRN PRN (Reason: edema) Qty: 30 0RF glipizide 5 mg tablet 5 mg PO BID Referrals: No Primary/Family,Physician [Primary Care Provider] Patient/Caregiver Discharge Instructions Education Materials: Dizziness Balance Probs Fainting, Dizziness Vertigo and Balance ..., Dizziness Fainting Ch, ED Dizziness or Syncope ... Print Language: Turkmen Stand Alone Forms: Julita Award Info., Patient Portal Info Letter Discharge Order Discharge Orders: Discharge (Routine); Ordered 06/28/25 Ordered By: Pavel Jackson Quality Discharge Quality Measures VTE prophylaxis
--- NOTE | 2025-06-28 09:49 | PD.NEPHPROG ---
Documentation for date of: 06/28/25 Subjective Subjective Interval history: Ms. Reyes is a 75-year-old lady with extensive past medical history of hypertension, obesity, diabetes, congestive heart failure (EF 50%) dyslipidemia, restless legs, allergies, questionable obesity hypoventilation/ALIREZA was admitted to the hospital with hypoxic respiratory failure. Noted to have CHF exacerbation. Patient was given IV diuretics and cardiology was consulted. Blood pressures have been significantly elevated on admission. Over the past 24 hours her BUN and creatinine started to trend up and nephrology consultation was requested. Chart review done. Patient currently seen in telemetry. Her medications currently include heparin, ropinirole, MiraLAX, Zosyn, simethicone and was receiving Lasix 40 mg IV 3 times daily which was held this morning. Labs showed WBC 16, hemoglobin 11.3, platelets 156. Sodium 142, potassium 4.7, BUN 40, creatinine 2.3 (yesterday creatinine 1.1) Glucose 83, bilirubin 1.3, magnesium 2.9, albumin 2.8 urine sodium 118 stat renal ultrasound ordered. Abdominal x-ray showed constipation chest x-ray on admission showed CHF. 06/26/2025 patient currently seen in telemetry. She is feeling tad better. Ultrasound showed significant urinary retention. Straight cath showed more than 800 cc of urine. Mcgee catheter was ordered for strict I&O's. Noted cardiology requested 1 L IV fluids. Will monitor Pulmonary function closely. Strict I&O's ordered. Hemoglobin 11.3, BUN 47, creatinine 3.2, potassium 5, GFR 15, magnesium 2.8, phosphorus 4.9, LFTs normal, albumin 3.1, PTH 98.1 renal ultrasound showed CKD changes with greater than 880 mL in the bladder 06/27/2025 patient currently seen in telemetry. She is feeling much better. Bladder training and Mcgee catheter will be removed today. Labs and medications reviewed. Will start her on a low-dose of diuretic as clinically she seems to be rather hypovolemic. Plan of care discussed with primary team 06/28/2025 patient currently seen in telemetry. Wants to go home. Right leg slightly swollen than the left. Doppler ultrasound showed no DVT. Plans for discharge today on low-dose diuretics. Creatinine 0.9. Recommended to follow-up with me as needed. Spoke to primary team. Mcgee catheter was removed. Patient able to urinate Review of Systems Review of Systems Narrative Review of Systems: CONSTITUTIONAL: Patient denies any fever, chills. HEENT: Denies any visual disturbances or hearing problems. CARDIOVASCULAR: Patient denies any chest pain. ++ shortness of breath, swelling in the lower extremities. PULMONARY: Patient complaining of mild shortness of breath - better GASTROINTESTINAL: Patient denies any abdominal pain, constipation, nausea, vomiting, diarrhea. GENITOURINARY: Patient denies any urinary symptoms of burning or frequency or hematuria, denies any form in the urine. SKIN: Denies any rash. MUSCULOSKELETAL: Complaining of arthritis pains NEUROLOGICAL: Denies any neurological problems of strokes, seizures or confusion. Denies any memory problems. PSYCHIATRIC: Denies any depression or anxiety. LYMPHATICS : No lymphadenopathy Exam Vital Signs Temp Pulse Resp BP Pulse Ox O2 Del Method O2 Flow Rate 36.6 C 85 21 H 139/85 H 92 L Nasal Cannula 2 06/28/25 18:00 06/28/25 18:00 06/28/25 18:00 06/28/25 18:00 06/28/25 18:00 06/28/25 18:00 06/28/25 18:00 FiO2 72 06/26/25 07:19 Narrative Exam GENERAL APPEARANCE: Patient seems to be comfortable, adequately hydrated and nourished. HEENT: EOMI, PERRLA NECK: Neck supple, no JVD or bruit CARDIOVASCULAR: Heart regular, no murmurs LUNGS/CHEST: Bilateral crackles at the bases-improved ABDOMEN: Soft, nontender, nondistended. No masses. Normal bowel sounds. EXTREMITIES: 1+ edema in the lower extremities( Rt> lt) SKIN: Skin exam normal without any rashes MUSCULOSKELETAL: Musculoskeletal exam normal in bed, able to move all extremities PSYCHIATRIC: Normal mood, affect LYMPHATICS: No lymphadenopathy noted NEUROLOGICAL : No neurological deficits Objective Labs 06/28/25 05:21 06/28/25 05:21 Labs: Laboratory Results - last 24 hr 06/28/25 05:21 WBC 7.5 RBC 3.83 L Hgb 10.5 L Hct 35.5 L MCV 93 MCH 27.4 MCHC 29.6 L RDW Std Deviation 62.4 H Plt Count 133 L Neut % (Auto) 56 Lymph % (Auto) 16 [place] % (Auto) 15 H Eos % (Auto) 12 H Baso % (Auto) 0 Neut # (Auto) 4.2 Lymph # (Auto) 1.2 [place] # (Auto) 1.2 H Eos # (Auto) 0.9 H Baso # (Auto) 0.0 Immature Gran # (Auto) 0.02 H Absolute Nucleated RBC 0.00 Immature Gran % 0 Nucleated RBC % 0 Sodium 140 Potassium 4.6 Chloride 101 Carbon Dioxide 29.7 Anion Gap 9 BUN 16 Creatinine 0.9 D Estim Creat Clear Calc 62.0 eGFR > 60 BUN/Creatinine Ratio 18 Glucose 84 Calculated Osmolality 279 Calcium 8.6 Corrected Calcium 8.8 Phosphorus 2.3 L Magnesium 1.9 Total Bilirubin 1.1 AST 29 ALT 8 L Alkaline Phosphatase 75 Total Protein 6.5 Albumin 3.8 D Globulin 2.7 Albumin/Globulin Ratio 1.4 ABG Interpretation ABG results: 06/21/25 19:50 VBG pH 7.36 VBG pCO2 58 H VBG pO2 44 VBG Base Excess 5 H Assessment & Plan Assessment and plan (1) JACK (acute kidney injury): Status: Acute Assessment and plan: JACK secondary to prerenal azotemia from CHF exacerbation and use of diuretics. Renal ultrasound showed 880cc-bladder volume . Mcgee catheter was inserted and more than a liter came out. Yesterday was removed and patient able to urinate started on low-dose diuretics.. . Renal gaona stable for discharge. Creatinine improved Avoid nephrotoxics metformin, lisinopril held (2) Acute exacerbation of CHF (congestive heart failure): Status: Acute Assessment and plan: Resume low-dose diuretics (3) Acute exacerbation of chronic obstructive pulmonary disease: Status: Acute Assessment and plan: On oxygen, breathing treatments (4) Diabetes: Status: Acute Assessment and plan: Check blood sugars AC nightly Low carbohydrate diet A1C 6.3 Metformin was held (5) HTN (hypertension), benign: Status: Acute Assessment and plan: Continue Current anti-hypertensives Goal BP <130/80mmHg low salt diet (6) Hyperlipidemia: Status: Acute Assessment and plan: Emphasized on compliance with the low fat diet, regular exrecises. LDL < 70 Additional Assessment & Plan Additional Plan: Care discussed with primary team Thank you Beau for allowing me to participate in the care of Ms. Reyes
--- NOTE | 2025-06-28 10:21 | XR_ITS ---
Examination: Venous duplex lower extremity sonogram, bilateral. Date and time of exam: June 28, 2025, 1220 hours INDICATIONS: Right leg pain today Technique: Multiple sonographic images of the deep venous system have been obtained. B-mode/2-D grayscale imaging of vascular structures and Doppler spectral analysis (waveforms) and color performed Both legs are examined. Findings: Deep venous systems do not demonstrate abnormal echogenicity. All visualized deep veins exhibit compressibility. All visualized deep veins exhibit augmentation. Impression: Negative for deep vein thrombosis
--- NOTE | 2025-06-28 11:02 | PC.NURSE ---
Discharge pending due to bilateral lower extremity ultrasound ordered and pending post ortiz catheter removal void.
--- NOTE | 2025-06-28 12:39 | PC.SS ---
Update: Plan is for the patient to d/c home today.
[2025-06-28] MEDS: ACETAMINOPHEN 325 MG TABLET 650 MG PO (13:19)
--- NOTE | 2025-06-28 18:20 | PC.NURSE ---
Patient discharged with ortiz catheter per MD due to urinary retention
--- NOTE | 2025-06-29 10:09 | PC.CM ---
Addendum entered by Magalis Simpson RN 06/29/25 15:04: [facility] accepted patient and start of care date set for 07/04. Original Note: Patient was discharged yesterday and she is opened to [facility]. I called the doctor to put in orders for patient.
--- NOTE | 2025-06-29 23:47 | PD.RESEVENT ---
Documentation for date of: 06/29/25
[2025-07-02 07:13] LABS: Vitamin D,1,25 (OH)2,Total 10 pg/mL (18-72); Vitamin D2, 1,25 (OH)2 <8 pg/mL; Vitamin D3, 1,25 (OH)2 10 pg/mL
== END 2025-06-28 18:20 | disposition home health service (06) | DRG 308 ==
LOC: SERX 06-22 00:39 → SERHOLD 06-22 02:59 → S2NX 06-22 06:35
PROVIDERS: Admitting Provider Internal Medicine; Emergency Provider Emergency Medicine; Visit Provider Internal Medicine
DX: R00.1 Bradycardia, unspecified (principal); I50.23 Acute on chronic systolic (congestive) heart failure; J96.01 Acute respiratory failure with hypoxia; J96.02 Acute respiratory failure with hypercapnia; J69.0 Pneumonitis due to inhalation of food and vomit; Z68.41 Body mass index [BMI] 40.0-44.9, adult; N17.9 Acute kidney failure, unspecified; J44.1 Chronic obstructive pulmonary disease with (acute) exacerbation; J44.0 Chronic obstructive pulmonary disease with (acute) lower respiratory infection; I11.0 Hypertensive heart disease with heart failure; B35.3 Tinea pedis; K59.00 Constipation, unspecified; B35.1 Tinea unguium; E11.9 Type 2 diabetes mellitus without complications; G25.81 Restless legs syndrome; E66.01 Morbid (severe) obesity due to excess calories; Z99.81 Dependence on supplemental oxygen; I44.7 Left bundle-branch block, unspecified; Z66 Do not resuscitate; N13.9 Obstructive and reflux uropathy, unspecified; Z79.84 Long term (current) use of oral hypoglycemic drugs; Z79.85 Long-term (current) use of injectable non-insulin antidiabetic drugs; Z79.899 Other long term (current) drug therapy
CPT/HCPCS: 36415; 70450; 71045; 74018; 76770; 80053; 80061; 80069; 80307; 81001; 82043; 82436; 82570; 82575; 82652; 82728; 82803; 83036; 83540; 83550; 83605; 83735; 83880; 83970; 84100; 84133; 84156; 84300; 84439; 84443; 84484; 84560; 85025; 85610; 87081; 87502; 87635; 93005; 93306; 93970; 94640; 94660; 94664; 94762; 96374; 97162; 99284; A9270; J0612; J1171; J1644; J1756; J1815; J1938; J2270; J2543; J2919; J3475; J7030; P9047